=== PATIENT | female | born 1975 | race Caucasian/White ===

== ENCOUNTER 2017-07-28 23:43 | Emergency (ER) | payer OTHER ==
[~2017-07-28] VITALS: Ht 172.7 cm; Wt 74.0 kg
[2017-07-28 23:51] VITALS: PULSE 122; RESP 24; TEMP 98.2; O2SAT 100
--- NOTE | 2017-07-29 00:45 | PD ---
HPI Chief Complaint: Alcohol/Drug Intoxication Time Seen by Provider: 23:49 Travel History International Travel<30 days: No Contact w/Intl Traveler<30days: No Traveled to known affect area: No History of Present Illness HPI Patient is a 42 year old female who comes in due to intoxication. She was found intoxicated by police and they brought her here. She admits to drinking tonight. She denies other drug use. She denies falls or trauma. She has no medical complaints at this time. Severity is mild. [facility] Past Medical History Medical History: Denies Significant Hx ?: Not Past Surgical History Appendectomy: Yes Social History Alcohol Use: Yes (DAILY ) Tobacco Use: Yes Substance Use: No Allergies-Medications (Allergen,Severity, Reaction): Coded Allergies: Sulfa (Sulfonamide Antibiotics) (Verified Allergy, Unknown, 07/28/17) Reported Meds & Prescriptions Reported Meds & Active Scripts Active No Active Prescriptions or Reported Medications Review of Systems Except as stated in HPI: all other systems reviewed are Neg HENT: No: Headaches, Lightheadedness Cardiovascular: No: Chest Pain or Discomfort Respiratory: No: Shortness of Breath Gastrointestinal: No: Abdominal Pain Neurologic: No: Weakness Physical Exam Narrative GENERAL: Awake and alert, in no acute distress. SKIN: Focused skin assessment warm/dry. No wounds or signs of infection. HEAD: Atraumatic. Normocephalic. EYES: Pupils equal and round and reactive. No scleral icterus. EOMI. ENT: Mucous membranes pink and moist. NECK: Trachea midline. No JVD. CARDIOVASCULAR: Regular rate and rhythm. No murmur appreciated. RESPIRATORY: No accessory muscle use. Clear to auscultation. Breath sounds equal bilaterally. GASTROINTESTINAL: Abdomen soft, non-tender, nondistended. MUSCULOSKELETAL: No obvious deformities. No clubbing. No cyanosis. No edema. NEUROLOGICAL: Awake and alert. No obvious cranial nerve deficits. Motor grossly within normal limits. Normal speech. PSYCHIATRIC: Appropriate mood and affect; insight and judgment normal. Data Data Last Documented VS Vital Signs Date Time Temp Pulse Resp B/P (MAP) Pulse Ox O2 Delivery O2 Flow Rate FiO2 07/28/17 23:51 98.2 122 24 100 MDM Medical Decision Making Medical Screen Exam Complete: Yes Emergency Medical Condition: Yes Differential Diagnosis alcohol abuse vs drug abuse vs dehydration Narrative Course Patient is a 42 year old female who comes in due to intoxication. She has no medical complaints or signs of trauma. She will be observed in the ED until clinically sober or she can find a sober ride home. Diagnosis Primary Impression: Alcohol intoxication Qualified Codes: F10.920 - Alcohol use, unspecified with intoxication, uncomplicated Scripts No Active Prescriptions or Reported Meds Oxana Andino MD Jul 29, 2017 00:45
--- NOTE | 2017-07-29 01:53 | PD ---
Physical Exam Date Seen by Provider: Jul 29, 2017 Time Seen by Provider: 01:50 Narrative GENERAL: This is a well-nourished, well-developed patient, in no apparent distress. SKIN: No rashes, ecchymoses or lesions. Warm and dry. HEAD: Atraumatic. Normocephalic. EYES: PERRL, EOMI, no discharge or injection. No scleral icterus. EARS: Clear NOSE: Nasal turbinates appear normal. THROAT: Mucosa pink and moist. Airway patent. NECK: Trachea midline. supple, moves head freely. LUNGS: Clear to auscultation. CV: Regular in rhythm. ABDOMEN: Soft nontender. EXT: No clubbing cyanosis or edema. Data Data Last Documented VS Vital Signs Date Time Temp Pulse Resp B/P (MAP) Pulse Ox O2 Delivery O2 Flow Rate FiO2 07/28/17 23:51 98.2 122 24 100 Orders Orders Haloperidol Inj (Haldol Inj) (07/29/17 02:00) Lorazepam Inj (Ativan Inj) (07/29/17 02:00) Restraints Non-Violent GRACIA.Q3H (07/29/17 01:48) [facility] Medical Record Reviewed: Yes Supervised Visit with LM: Yes Differential Diagnosis . Narrative Course The patient has been becoming disruptive of her care. She has been attempting to elope. She will not stay in her room. She is refused to follow commands. Patient has been placed in nonviolent restraints and medicated with Haldol 5 mg and Ativan 2 mg IM. The patient will be allowed to sleep it off this evening. When she exhibits sobriety and ability to follow commands she will be medically stable for discharge read the nurse's triage Diagnosis Primary Impression: Alcohol intoxication Qualified Codes: F10.920 - Alcohol use, unspecified with intoxication, uncomplicated Patient Instructions: General Instructions Additional Instruction: Rest. Increase fluids. Avoid alcohol. Avoid illegal substances. Follow-up with [facility] for detox. Do not operate a car or any heavy machinery under the influence of alcohol or drugs. Follow-up with a medical doctor this week. Return to the ER for emergencies Scripts No Active Prescriptions or Reported Meds Disposition: 03 DISCHARGE TO SNF Condition: Stable Sundar Longo Jul 29, 2017 01:53
[2017-07-29] MEDS ORDERED: HALOPERIDOL LACTATE 5 MG/ML AMP IM ONE (02:00)
[2017-07-29] MEDS ORDERED: LORazepam 2 MG/ML VIAL IM ONE (02:00)
== END 2017-07-29 06:56 ==
LOC: NEPD 23:43
DX: F10.129 Alcohol abuse with intoxication, unspecified (principal); Z88.2 Allergy status to sulfonamides
CPT/HCPCS: 96372; 99285; J1630; J2060

== ENCOUNTER 2017-08-04 12:04 | Observation (INO) | payer SELFPAY ==
[~2017-08-04] VITALS: Ht 165.1 cm; Wt 90.0 kg
[2017-08-04 13:42] VITALS: BP 132/65; PULSE 125; RESP 20; TEMP 98.6; O2SAT 90
--- NOTE | 2017-08-04 14:09 | PD ---
HPI Chief Complaint: Psychiatric Symptoms Time Seen by Provider: 13:51 Travel History International Travel<30 days: No Contact w/Intl Traveler<30days: No Traveled to known affect area: No History of Present Illness HPI The patient was seen and examined in the presence of the nurse. This patient is an alcoholic who moved here recently. She's been actively drinking heavily today. She denies other drug use. She denies intentional overdose or suicidal thought. She is brought in by her brother. He wants her to get into alcohol detox. Symptoms are moderately severe. Duration is years of alcohol abuse. No alleviating factors. No exacerbating factors. PFSH Past Surgical History Appendectomy: Yes Social History Alcohol Use: Yes (DAILY ) Tobacco Use: Yes Substance Use: No Allergies-Medications (Allergen,Severity, Reaction): Coded Allergies: Sulfa (Sulfonamide Antibiotics) (Verified Allergy, Unknown, 07/28/17) Reported Meds & Prescriptions Reported Meds & Active Scripts Active No Active Prescriptions or Reported Medications Review of Systems General / Constitutional: No: Fever Eyes: No: Visual changes HENT: No: Headaches Cardiovascular: No: Chest Pain or Discomfort Respiratory: No: Shortness of Breath Gastrointestinal: No: Abdominal Pain Genitourinary: No: Dysuria Musculoskeletal: No: Pain Skin: No Rash Neurologic: Positive: Change in Mentation, Slurred Speech, No: Weakness Psychiatric: Positive: Substance Abuse, No: Depression Endocrine: No: Polydipsia Hematologic/Lymphatic: No: Easy Bruising Physical Exam Narrative GENERAL: Well-nourished, well-developed patient who is acting very intoxicated. She is animated and uncooperative. SKIN: Focused skin assessment reveals no rash and nodules. Skin is Warm and dry. HEAD: Atraumatic. Normocephalic. EYES: Pupils equal and round. No scleral icterus. No injection or drainage. ENT: No nasal bleeding or discharge. Mucous membranes pink and moist. NECK: Trachea midline. No JVD. CARDIOVASCULAR: Regular rate and rhythm. No murmur appreciated. RESPIRATORY: No accessory muscle use. Clear to auscultation. Breath sounds equal bilaterally. GASTROINTESTINAL: Abdomen soft, non-tender, nondistended. Hepatic and splenic margins not palpable. MUSCULOSKELETAL: No obvious deformities. No clubbing. No cyanosis. No edema. NEUROLOGICAL: Awake and alert. No obvious cranial nerve deficits. Motor grossly within normal limits. Slurring of speech. PSYCHIATRIC: Very animated, flight of ideas and rapid speech ; insight and judgment poor. Data Data Last Documented VS Vital Signs Date Time Temp Pulse Resp B/P (MAP) Pulse Ox O2 Delivery O2 Flow Rate FiO2 08/04/17 15:00 118 14 100 Room Air 08/04/17 13:42 98.6 132/65 (87) Orders Orders Iv Access Insert/Monitor (08/04/17 14:01) Complete Blood Count With Diff (08/04/17 14:01) Comprehensive Metabolic Panel (08/04/17 14:01) Alcohol (Ethanol) (08/04/17 14:01) Drug Screen, Random Urine (08/04/17 14:) Ammonia (08/04/17 14:) Urinalysis - C+S If Indicated (08/04/17 14:09) Ed Urine Pregnancytest Poc (08/04/17 14:09) Haloperidol Inj (Haldol Inj) (08/04/17 14:30) Lorazepam Inj (Ativan Inj) (08/04/17 14:30) Urine Culture (08/04/17 14:05) Place In Observation (08/04/17 ) Code Status (08/04/17 16:28) Vital Signs (Adult) Q4H (08/04/17 16:28) Activity Oob With Assistance (08/04/17 16:28) Intake + Output GRACIA.QSHIFT (08/04/17 16:28) Diet Regular Basic (08/04/17 Dinner) Sodium Chlor 0.9% 1000 Ml Inj (Ns 1000 M (08/04/17 16:28) Sodium Chloride 0.9% Flush (Ns Flush) (08/04/17 16:30) Sodium Chloride 0.9% Flush (Ns Flush) (08/04/17 21:00) Ondansetron Inj (Zofran Inj) (08/04/17 16:30) Comprehensive Metabolic Panel (08/05/17 06:00) Complete Blood Count With Diff (08/05/17 06:00) Resp Oxygen Augustine C Titrat 1-4 L (08/04/17 ) Case Management Consult (08/04/17 16:28) Naloxone Inj (Narcan Inj) (08/04/17 16:30) Docusate Sodium-Senna (Arabella-Colace) (08/04/17 21:00) Magnesium Hydroxide Liq (Milk Of Magnesi (08/04/17 16:30) Sennosides (Senokot) (08/04/17 16:30) Bisacodyl Supp (Dulcolax Supp) (08/04/17 16:30) Lactulose Liq (Lactulose Liq) (08/04/17 16:30) Prothrombin Time / Inr (Pt) (08/04/17 16:28) Hepatitis Profile (08/04/17 16:28) Sulfamet-Trimeth Ds 800-160 Mg (Bactrim (08/04/17 21:00) Admit Order (Ed Use Only) (08/04/17 16:37) Labs Laboratory Tests Test 08/04/17 14:05 White Blood Count 10.8 TH/MM3 Red Blood Count 4.22 MIL/MM3 Hemoglobin 15.1 GM/DL Hematocrit 43.1 % Mean Corpuscular Volume 102.2 FL Mean Corpuscular Hemoglobin 35.9 PG Mean Corpuscular Hemoglobin Concent 35.1 % Red Cell Distribution Width 14.7 % Platelet Count 219 TH/MM3 Mean Platelet Volume 7.2 FL Neutrophils (%) (Auto) 75.6 % Lymphocytes (%) (Auto) 15.1 % Monocytes (%) (Auto) 7.7 % Eosinophils (%) (Auto) 0.4 % Basophils (%) (Auto) 1.2 % Neutrophils # (Auto) 8.2 TH/MM3 Lymphocytes # (Auto) 1.6 TH/MM3 Monocytes # (Auto) 0.8 TH/MM3 Eosinophils # (Auto) 0.0 TH/MM3 Basophils # (Auto) 0.1 TH/MM3 CBC Comment DIFF FINAL Differential Comment Urine Color YELLOW Urine Turbidity HAZY Urine pH 5.5 Urine Specific [place] 1.008 Urine Protein TRACE mg/dL Urine Glucose (UA) NEG mg/dL Urine Ketones TRACE mg/dL Urine Occult Blood NEG Urine Nitrite POS Urine Bilirubin NEG Urine Urobilinogen LESS THAN 2.0 MG/DL Urine Leukocyte Esterase SMALL Urine RBC 1 /hpf Urine WBC 5 /hpf Urine Squamous Epithelial Cells 26 /hpf Urine Amorphous Sediment FEW Urine Bacteria MANY /hpf Urine Mucus FEW /lpf Microscopic Urinalysis Comment CULTURE INDICATED Blood Urea Nitrogen 5 MG/DL Creatinine 0.51 MG/DL Random Glucose 103 MG/DL Total Protein 9.7 GM/DL Albumin 3.9 GM/DL Calcium Level 9.0 MG/DL Alkaline Phosphatase 247 U/L Aspartate Amino Transf (AST/SGOT) 768 U/L Alanine Aminotransferase (ALT/SGPT) 290 U/L Total Bilirubin 1.8 MG/DL Sodium Level 137 MEQ/L Potassium Level 4.8 MEQ/L Chloride Level 102 MEQ/L Carbon Dioxide Level 21.5 MEQ/L Anion Gap 14 MEQ/L Estimat Glomerular Filtration Rate 133 ML/MIN Ammonia 58 MCMOL/L Urine Opiates Screen NEG Urine Barbiturates Screen NEG Urine Amphetamines Screen NEG Urine Benzodiazepines Screen NEG Urine Cocaine Screen NEG Urine Cannabinoids Screen POS Ethyl Alcohol Level 469 MG/DL MDM Medical Decision Making Medical Screen Exam Complete: Yes Emergency Medical Condition: Yes Medical Record Reviewed: Yes Differential Diagnosis Alcohol intoxication, alcoholism,hyponatremia Narrative Course I have reviewed the patient's electronic medical record. Patient was here one week ago for intoxication Patient is acting very intoxicated Ordered a workup to include labs and urine studies Labs are reviewed. She is very intoxicated with alcohol level of 469 Patient got very aggressive and uncooperative and required a dose of Haldol and Ativan. Call [facility] but they do not have any available beds The patient's brother begged 4 her to be put into detox stating she's lost control and is very dangerous to herself Before I could discuss further with him he left and did not leave any contact information to call him back Patient does seem to be a danger to herself with her loss of control of alcohol. I placed her under Reveal act for her safety We'll try to get her some detox help I reviewed with the hospitalist who will do 23 hour observation under Reveal act with the intent to place into detox Diagnosis Primary Impression: Alcohol intoxication Qualified Codes: F10.929 - Alcohol use, unspecified with intoxication, unspecified Additional Impression: Transaminitis Admitting Information Admitting Physician Requests: Observation Scripts No Active Prescriptions or Reported Meds Nacho Domínguez MD Aug 04, 2017 14:09
[2017-08-04] MEDS ORDERED: HALOPERIDOL LACTATE 5 MG/ML AMP IM ONE (14:30)
[2017-08-04] MEDS ORDERED: LORazepam 2 MG/ML VIAL IM ONE (14:30)
[2017-08-04 14:31] LABS: AUTOMATED NEUTROPHIL # 8.2 TH/MM3 (1.8-7.7); BASOPHIL # 0.1 TH/MM3 (0-0.2); BASOPHIL % 1.2 % (0.0-2.0); EOSINOPHIL % 0.4 % (0.0-4.0); HEMATOCRIT 43.1 % (35.0-46.0); HEMOGLOBIN 15.1 GM/DL (11.6-15.3); LYMPH % 15.1 % (9.0-44.0); LYMPHOCYTE # 1.6 TH/MM3 (1.0-4.8); MEAN CELL VOLUME 102.2 FL (80.0-100.0); MEAN CORPUSCULAR HEMOGLOBIN 35.9 PG (27.0-34.0); MEAN CORPUSCULAR HGB CONC 35.1 % (32.0-36.0); MEAN PLATELET VOLUME 7.2 FL (7.0-11.0); MONO % 7.7 % (0.0-8.0); MONOCYTE # 0.8 TH/MM3 (0-0.9); NEUT % 75.6 % (16.0-70.0); PLATELET COUNT 219 TH/MM3 (150-450); RED BLOOD COUNT 4.22 MIL/MM3 (4.00-5.30); RED CELL DISTRIBUTION WIDTH 14.7 % (11.6-17.2); WHITE BLOOD COUNT 10.8 TH/MM3 (4.0-11.0)
[2017-08-04 14:35] LABS: AMORPHOUS SEDIMENT, URINE FEW; BACTERIA, URINE MANY /hpf; BILIRUBIN, URINE NEG (NEG); BLOOD, URINE NEG (NEG); GLUCOSE,URINE NEG (NEG); KETONE, URINE TRACE mg/dL (NEG); MUCUS URINE FEW /lpf (OCC); NITRITE,URINE POS (NEG); PH, URINE 5.5 (5.0-8.5); SQUAMOUS EPITHELIAL CELL URINE 26 /hpf (0-5); URINE COLOR YELLOW (YELLW/STRAW); URINE LEUKOCYTE ESTERASE SMALL (NEG)
[2017-08-04 15:00] VITALS: PULSE 118; RESP 14; O2SAT 100
[2017-08-04 15:12] LABS: ALBUMIN 3.9 GM/DL (3.4-5.0); ALT (GPT) 290 U/L (10-53); AST (GOT) 768 U/L (15-37); BLOOD UREA NITROGEN 5 MG/DL (7-18); CHLORIDE 102 MEQ/L (98-107); CREATININE 0.51 MG/DL (0.50-1.00); GLOMERULAR FILTRATION RATE 133 ML/MIN (>89); GLUCOSE,RANDOM 103 MG/DL (74-106); TOTAL PROTEIN 9.7 GM/DL (6.4-8.2)
[2017-08-04 15:13] LABS: BICARBONATE 21.5 MEQ/L (21.0-32.0); SODIUM (NA) 137 MEQ/L (136-145)
[2017-08-04 15:16] LABS: ALKALINE PHOSPHATASE 247 U/L (45-117); TOTAL BILIRUBIN ADULT 1.8 MG/DL (0.2-1.0)
[2017-08-04] MEDS ORDERED: MAGNESIUM HYDROXIDE SUSP 30 ML CUP PO PRN (16:30)
[2017-08-04] MEDS ORDERED: NALOXONE HCL 0.4 MG/ML AMP IV PUSH PRN (16:30)
[2017-08-04] MEDS ORDERED: LACTULOSE SYRUP 20 GM/30 ML CUP PO PRN (16:30)
[2017-08-04] MEDS ORDERED: SODIUM CHLORIDE 0.9% FLUSH 10 ML FLUSH IV FLUSH PRN (16:30)
[2017-08-04] MEDS ORDERED: BISACODYL 10 MG SUPP RECTAL PRN (16:30)
[2017-08-04] MEDS ORDERED: SENNOSIDES 8.6 MG TAB PO PRN (16:30)
--- NOTE | 2017-08-04 16:32 | HHI.HP ---
[facility] No Primary Care Physician Admission Diagnosis Diagnoses: Travel History International Travel<30 Days: No Contact w/Intl Traveler <30 Da: No Traveled to Known Affected Are: No History of Present Illness 42 year old female admitted for acute alcohol intoxication. Patient sedated from Haldol and Ativan given in the ER and unable to provide any history. The following history was obtained via the ED physician who spoke with the patient and her brother initially on presentation. The patient recently moved down from [place] two weeks ago and this is her second visit to the ER for EtOH intoxication during that time. She has a history of alcoholism and was drinking heavily today. She denied suicidal ideation. Her brother brought her in requesting alcohol detoxification and felt she was an immediate danger to herself. He apparently then left because he had a flight back to [place]. She has no other family in the area. She became aggressive and belligerent toward staff and required Haldol and Ativan and has been sedated since. She was subsequently placed under [place] Act and a call was placed to [facility] but unfortunately there are no available beds. Review of Systems ROS Limitations: Intoxication Unable to be obtained Past Family Social History Past Medical History Alcohol abuse Past Surgical History Appendectomy Reported Medications No Active Prescriptions or Reported Medications Allergies: Coded Allergies: Sulfa (Sulfonamide Antibiotics) (Verified Allergy, Unknown, 07/28/17) Active Ordered Medications Bisacodyl (Dulcolax Supp) 10 mg DAILY PRN RECTAL; Start 08/04/17 at 16:30; Status UNV Flumazenil (Romazicon Inj) 0.2 mg Q1M PRN IV PUSH; Start 08/04/17 at 16:45; Status UNV Haloperidol Lactate (Haldol Inj) 2 mg Q15M PRN IM; Start 08/04/17 at 16:45; Status UNV Haloperidol Lactate (Haldol Inj) 5 mg ONCE ONCE IM Last administered on at 14:36; Admin Dose 5 MG; Start 08/04/17 at 14:30; Stop 08/04/17 at 14:31; Status DC Lactulose (Lactulose Liq) 30 ml DAILY PRN PO; Start 08/04/17 at 16:30; Status UNV Lorazepam (Ativan Inj) 1 mg Q4H PRN IV PUSH; Start 08/04/17 at 16:45; Status UNV Lorazepam (Ativan Inj) 2 mg ONCE ONCE IM Last administered on 08/04/17at 14:35; Admin Dose 2 MG; Start 08/04/17 at 14:30; Stop 08/04/17 at 14:31; Status DC Lorazepam (Ativan Inj) 2 mg Q15M PRN IV PUSH; Start 08/04/17 at 16:45; Status UNV Lorazepam (Ativan Inj) 2 mg Q1H PRN IV PUSH; Start 08/04/17 at 16:45; Status UNV Lorazepam (Ativan Inj) 2 mg Q2H PRN IV PUSH; Start 08/04/17 at 16:45; Status UNV Lorazepam (Ativan) 1 mg Q4H PRN PO; Start 08/04/17 at 16:45; Status UNV Lorazepam (Ativan) 2 mg Q2H PRN PO; Start 08/04/17 at 16:45; Status UNV Magnesium Hydroxide (Milk Of Magnesia Liq) 30 ml Q12H PRN PO; Start 08/04/17 at 16:30; Status UNV Multivitamins 10 ml/Folic Acid 1 mg/Sodium Chloride 510.2 ml @ 125 mls/hr Q24H IV; Start 08/04/17 at 16:45; Stop 08/09/17 at 16:44; Status UNV Naloxone HCl (Narcan Inj) 0.4 mg UNSCH PRN IV PUSH; Start 08/04/17 at 16:30; Status UNV Ondansetron HCl (Zofran Inj) 4 mg Q6H PRN IVP; Start 08/04/17 at 16:30; Status UNV Senna/Docusate Sodium (Arabella-Colace) 1 tab BID PO; Start 08/04/17 at 21:00; Status UNV Sennosides (Senokot) 17.2 mg Q12H PRN PO; Start 08/04/17 at 16:30; Status UNV Sodium Chloride 1,000 ml @ 100 mls/hr Q10H IV; Start 08/04/17 at 16:28; Status UNV Sodium Chloride (NS Flush) 2 ml BID IV FLUSH; Start 08/04/17 at 21:00; Status UNV Sodium Chloride (NS Flush) 2 ml UNSCH PRN IV FLUSH; Start 08/04/17 at 16:30; Status UNV Thiamine HCl 100 mg/Sodium Chloride 101 ml @ 100 mls/hr Q24H IV; Start at 16:45; Stop 08/07/17 at 16:44; Status UNV Trimethoprim/ Sulfamethoxazole (Bactrim Ds 800-160 Mg) 1 tab Q12HR PO; Start 03/14 at 21:00; Status UNV Family History Unable to be obtained Social History Moved to [place] two weeks ago from [place] Daily EtOH and tobacco use Marijuana use Physical Exam Vital Signs Vital Signs Date Time Temp Pulse Resp B/P (MAP) Pulse Ox O2 Delivery O2 Flow Rate FiO2 08/04/17 15:00 118 14 100 Room Air 08/04/17 14:05 20 08/04/17 13:42 98.6 125 20 132/65 (87) 90 Physical Exam GENERAL: Well-nourished, well-developed female sleeping and unable to be aroused. Odor of alcohol. SKIN: No rashes, ecchymoses or lesions. Warm and dry. HEENT: Atraumatic. Normocephalic. Nose without bleeding, purulent drainage or septal hematoma. Airway patent. NECK: No JVD or lymphadenopathy. CARDIOVASCULAR: Tachycardic with a regular rhythm. No murmurs, rubs, or gallops. RESPIRATORY: Clear to auscultation. Breath sounds equal bilaterally. No wheezes , rales, or rhonchi. GASTROINTESTINAL: Abdomen soft, nondistended. No guarding. MUSCULOSKELETAL: Extremities without clubbing, cyanosis, or edema. No joint tenderness, effusion, or edema noted. No calf tenderness. NEUROLOGICAL: Unable to be aroused. Laboratory Laboratory Tests Test 08/04/17 14:05 White Blood Count 10.8 Red Blood Count 4.22 Hemoglobin 15.1 Hematocrit 43.1 Mean Corpuscular Volume 102.2 Mean Corpuscular Hemoglobin 35.9 Mean Corpuscular Hemoglobin Concent 35.1 Red Cell Distribution Width 14.7 Platelet Count 219 Mean Platelet Volume 7.2 Neutrophils (%) (Auto) 75.6 Lymphocytes (%) (Auto) 15.1 Monocytes (%) (Auto) 7.7 Eosinophils (%) (Auto) 0.4 Basophils (%) (Auto) 1.2 Neutrophils # (Auto) 8.2 Lymphocytes # (Auto) 1.6 Monocytes # (Auto) 0.8 Eosinophils # (Auto) 0.0 Basophils # (Auto) 0.1 CBC Comment DIFF FINAL Differential Comment Urine Color YELLOW Urine Turbidity HAZY Urine pH 5.5 Urine Specific [place] 1.008 Urine Protein TRACE Urine Glucose (UA) NEG Urine Ketones TRACE Urine Occult Blood NEG Urine Nitrite POS Urine Bilirubin NEG Urine Urobilinogen LESS THAN 2.0 Urine Leukocyte Esterase SMALL Urine RBC 1 Urine WBC 5 Urine Squamous Epithelial Cells 26 Urine Amorphous Sediment FEW Urine Bacteria MANY Urine Mucus FEW Microscopic Urinalysis Comment CULTURE INDICATED Blood Urea Nitrogen 5 Creatinine 0.51 Random Glucose 103 Total Protein 9.7 Albumin 3.9 Calcium Level 9.0 Alkaline Phosphatase 247 Aspartate Amino Transf (AST/SGOT) 768 Alanine Aminotransferase (ALT/SGPT) 290 Total Bilirubin 1.8 Sodium Level 137 Potassium Level 4.8 Chloride Level 102 Carbon Dioxide Level 21.5 Anion Gap 14 Estimat Glomerular Filtration Rate 133 Ammonia 58 Urine Opiates Screen NEG Urine Barbiturates Screen NEG Urine Amphetamines Screen NEG Urine Benzodiazepines Screen NEG Urine Cocaine Screen NEG Urine Cannabinoids Screen POS Ethyl Alcohol Level 469 Date/Time Source Procedure Growth Status 08/04/17 14:05 Urine Clean Catch Urine Culture Pending Received Result Diagram: 08/04/17 1405 08/04/17 1405 Caprini VTE Risk Assessment Caprini VTE Risk Assessment: Mod/High Risk (score >= 2) Caprini Risk Assessment Model Point Value = 1 Point Value = 2 Point Value = 3 Point Value = 5 Age 41-60 Minor surgery BMI > 25 kg/m2 Swollen legs Varicose veins or History of unexplained or recurrent spontaneous Oral contraceptives or hormone replacement Sepsis (< 1 month) Serious lung disease, including pneumonia (< 1 month) Abnormal pulmonary function Acute myocardial infarction Congestive heart failure (< 1 month) History of inflammatory bowel disease Medical patient at bed rest Age 61-74 Arthroscopic surgery Major open surgery (> 45 min) Laparoscopic surgery (> 45 min) Malignancy Confined to bed (> 72 hours) Immobilizing plaster cast Central venous access Age >= 75 History of VTE Family history of VTE Factor V Leiden Prothrombin [id number] Lupus anticoagulant Anticardiolipin antibodies Elevated serum homocysteine Heparin-induced thrombocytopenia Other congenital or acquired thrombophilia Stroke (< 1 month) Elective arthroplasty Hip, pelvis, or leg fracture Acute spinal cord injury (< 1 month) Prophylaxis Regimen Total Risk Factor Score Risk Level Prophylaxis Regimen 0-1 Low Early ambulation 2 Moderate Order ONE of the following: *Sequential Compression Device (SCD) *Heparin 5000 units SQ BID 3-4 Higher Order ONE of the following medications: *Heparin 5000 units SQ TID *Enoxaparin/Lovenox 40 mg SQ daily (WT < 150 kg, CrCl > 30 mL/min) *Enoxaparin/Lovenox 30 mg SQ daily (WT < 150 kg, CrCl > 10-29 mL/min) *Enoxaparin/Lovenox 30 mg SQ BID (WT < 150 kg, CrCl > 30 mL/min) AND/OR *Sequential Compression Device (SCD) 5 or more Highest Order ONE of the following medications: *Heparin 5000 units SQ TID (Preferred with Epidurals) *Enoxaparin/Lovenox 40 mg SQ daily (WT < 150 kg, CrCl > 30 mL/min) *Enoxaparin/Lovenox 30 mg SQ daily (WT < 150 kg, CrCl > 10-29 mL/min) *Enoxaparin/Lovenox 30 mg SQ BID (WT < 150 kg, CrCl > 30 mL/min) AND *Sequential Compression Device (SCD) Assessment and Plan Problem List: (1) Alcohol intoxication ICD Code: F10.929 - Alcohol use, unspecified with intoxication, unspecified Status: Acute (2) Transaminitis ICD Code: R74.0 - Nonspecific elevation of levels of transaminase and lactic acid dehydrogenase [LDH] Status: Acute (3) UTI (urinary tract infection) ICD Code: N39.0 - Urinary tract infection, site not specified (4) Substance use disorder ICD Code: F19.90 - Other psychoactive substance use, unspecified, uncomplicated Assessment and Plan 42 YOWF admitted under observation under Act for acute intoxication with poor social situation. 1. Acute intoxication - EtOH level 469 - Received Haldol and Ativan in the ED - CIWA protocol - Haldol PRN agitation - Rally pack - IV fluids - Zofran PRN 2. Transaminitis - AST>>ALT consistent with alcohol hepatitis - Total bili mildly elevated at 1.8 - Ammonia level 58 - Check hepatitis panel - IV fluids 3. Alcohol abuse - Unable to obtain any history from patient but per ED physician her brother was adamant about detoxification - Under [place] Act - Case management consulted to assist with bed placement to [facility] 4. UTI - U/A with + nitrites and leukocyte esterase - Start Bactrim - Follow ctx 5. Substance use - + cannabinoids on UDS - Will further discuss when patient not acutely intoxicated 6. DVT prophylaxis - SCDs Code Status Full code until able to obtain code status from patient Discussed Condition With Dr. Domínguez Problem Qualifiers (1) Alcohol intoxication: Qualified Codes: F10.929 - Alcohol use, unspecified with intoxication, unspecified Elin Hopkins MD Aug 04, 2017 16:32
[2017-08-04] MEDS ORDERED: HALOPERIDOL LACTATE 5 MG/ML AMP IM PRN (16:45)
[2017-08-04] MEDS ORDERED: LORazepam 2 MG/ML VIAL IV PUSH PRN ×4 (16:45)
[2017-08-04] MEDS ORDERED: FLUMAZENIL 0.5 MG/5 ML VIAL IV PUSH PRN (16:45)
[2017-08-04] MEDS: SODIUM CHLOR 0.9% 1000 ML INJ 1,000 ML IV SCH (18:30)
[2017-08-04] MEDS: THIAMINE INJ 100 MG in SODIUM CHLORIDE 0.9% INJ 100 ML IV SCH (18:30)
[2017-08-04 19:36] LABS: PROTHROMBIN TIME - PATIENT 10.5 SEC (9.8-11.6)
[2017-08-04 20:47] VITALS: BP 127/71; PULSE 125; RESP 18; TEMP 97.1; O2SAT 94
[2017-08-04] MEDS: DOCUSATE SODIUM 50 MG/SENNA 8.6 MG TAB PO SCH (21:00)
[2017-08-04] MEDS: SODIUM CHLORIDE 0.9% FLUSH 10 ML FLUSH IV FLUSH SCH (21:31)
[2017-08-04] MEDS: LORazepam 1 MG TAB PO PRN (21:31)
[2017-08-04] MEDS: ONDANSETRON HCL 4 MG/2 ML VIAL IVP PRN (21:31)
[2017-08-04] MEDS: MULTIVITAMIN INJ 10 ML, FOLIC ACID INJ 1 MG in SODIUM CHLORID 0.9% 500 ML INJ 500 ML IV SCH (21:31)
[2017-08-04] MEDS: SULFAMETHOXAZOLE-TRIMETHOPRIM DS 800-160 MG TAB PO SCH (21:58)
[2017-08-04 23:13] VITALS: BP 117/68; PULSE 137; RESP 18; TEMP 98.8; O2SAT 92
[2017-08-05] VITALS (7 sets, daily range): BP systolic 112–128; BP diastolic 67–80; PULSE 111–136; RESP 18–20; TEMP 98–99.4; O2SAT 92–97
[2017-08-05] MEDS: LORazepam 1 MG TAB PO PRN ×3 (01:08→16:51)
[2017-08-05] MEDS: SODIUM CHLOR 0.9% 1000 ML INJ 1,000 ML IV SCH ×3 (02:28→22:28)
[2017-08-05] MEDS: ONDANSETRON HCL 4 MG/2 ML VIAL IVP PRN (04:15)
[2017-08-05 06:44] LABS: AUTOMATED NEUTROPHIL # 4.1 TH/MM3 (1.8-7.7); BASOPHIL # 0.1 TH/MM3 (0-0.2); BASOPHIL % 1.2 % (0.0-2.0); EOSINOPHIL % 0.7 % (0.0-4.0); HEMATOCRIT 36.3 % (35.0-46.0); HEMOGLOBIN 12.5 GM/DL (11.6-15.3); LYMPH % 7.3 % (9.0-44.0); LYMPHOCYTE # 0.4 TH/MM3 (1.0-4.8); MEAN CELL VOLUME 103.3 FL (80.0-100.0); MEAN CORPUSCULAR HEMOGLOBIN 35.7 PG (27.0-34.0); MEAN CORPUSCULAR HGB CONC 34.5 % (32.0-36.0); MONO % 7.6 % (0.0-8.0); MONOCYTE # 0.4 TH/MM3 (0-0.9); NEUT % 83.2 % (16.0-70.0); PLATELET COUNT 143 TH/MM3 (150-450); RED BLOOD COUNT 3.52 MIL/MM3 (4.00-5.30)
[2017-08-05 07:52] LABS: ALBUMIN 3.2 GM/DL (3.4-5.0); ALKALINE PHOSPHATASE 207 U/L (45-117); ALT (GPT) 203 U/L (10-53); AST (GOT) 532 U/L (15-37); BICARBONATE 22.8 MEQ/L (21.0-32.0); BLOOD UREA NITROGEN 6 MG/DL (7-18); CALCIUM 8.5 MG/DL (8.5-10.1); CHLORIDE 102 MEQ/L (98-107); CREATININE 0.49 MG/DL (0.50-1.00); GLOMERULAR FILTRATION RATE 139 ML/MIN (>89); GLUCOSE,RANDOM 98 MG/DL (74-106); SODIUM (NA) 136 MEQ/L (136-145); TOTAL BILIRUBIN ADULT 1.7 MG/DL (0.2-1.0); TOTAL PROTEIN 6.9 GM/DL (6.4-8.2)
[2017-08-05] MEDS: LORazepam 2 MG TAB PO PRN ×2 (09:19→20:25)
[2017-08-05] MEDS: LACTULOSE SYRUP 20 GM/30 ML CUP PO SCH ×4 (09:19→23:06)
[2017-08-05] MEDS: DOCUSATE SODIUM 50 MG/SENNA 8.6 MG TAB PO SCH ×2 (09:19→23:06)
[2017-08-05] MEDS: SULFAMETHOXAZOLE-TRIMETHOPRIM DS 800-160 MG TAB PO SCH ×2 (09:20→23:05)
[2017-08-05] MEDS: SODIUM CHLORIDE 0.9% FLUSH 10 ML FLUSH IV FLUSH SCH ×2 (09:20→23:05)
--- NOTE | 2017-08-05 10:41 | HHI.PR ---
Subjective Remarks f/u etoh abuse. She feels terrible denies hallucination. She wants to quit alcohol. LMP 2 weeks ago. Objective Vitals Vital Signs Date Time Temp Pulse Resp B/P (MAP) Pulse Ox O2 Delivery O2 Flow Rate FiO2 08/05/17 08:38 98.0 136 20 112/67 (82) 97 08/05/17 04:46 98.0 127 18 128/80 (96) 92 08/04/17 23:13 98.8 137 18 117/68 (84) 92 08/04/17 20:47 97.1 125 18 127/71 (89) 94 08/04/17 15:00 118 14 100 Room Air 08/04/17 14:05 20 08/04/17 13:42 98.6 125 20 132/65 (87) 90 Result Diagram: 08/05/17 0555 08/05/17 0555 Objective Remarks GENERAL: Well-nourished, well-developed female SKIN: No rashes, ecchymoses or lesions. Warm and dry. CARDIOVASCULAR: Tachycardic with a regular rhythm. No murmurs, rubs, or gallops. RESPIRATORY: Clear to auscultation. Breath sounds equal bilaterally. No wheezes , rales, or rhonchi. GASTROINTESTINAL: Abdomen soft, nondistended. No guarding. MUSCULOSKELETAL: Extremities without clubbing, cyanosis, or edema. No joint tenderness, effusion, or edema noted. No calf tenderness. NEUROLOGICAL: Alert and oriented nonfocal tremulous. Procedures none A/P Problem List: (1) Alcohol intoxication ICD Code: F10.929 - Alcohol use, unspecified with intoxication, unspecified Status: Acute (2) Transaminitis ICD Code: R74.0 - Nonspecific elevation of levels of transaminase and lactic acid dehydrogenase [LDH] Status: Acute (3) UTI (urinary tract infection) ICD Code: N39.0 - Urinary tract infection, site not specified (4) Substance use disorder ICD Code: F19.90 - Other psychoactive substance use, unspecified, uncomplicated Assessment and Plan 42 YOWF admitted under observation under [place] for acute intoxication with poor social situation. 1. Acute intoxication now with withdrawal - EtOH level 469 - Received Haldol and Ativan in the ED - CIWA protocol - Haldol PRN agitation - Rally pack - IV fluids - Zofran PRN - Start clonidine monitor for delirium tremens 2. Transaminitis - AST>>ALT consistent with alcohol hepatitis. Improving - Total bili mildly elevated at 1.8 - Ammonia level 58. Start lactulose - Check hepatitis panel pending - IV fluids 3. Alcohol abuse - Counselled - Under Act - Case management consulted to assist with bed placement to [facility] 4. UTI - U/A with + nitrites and leukocyte esterase - F/u Bactrim - Follow ctx 5. Substance use - + cannabinoids on UDS - Will further discuss when patient not acutely intoxicated 6. DVT prophylaxis - SCDs Discharge Planning Discharge patient to [facility] Condition on discharge: Improved Regular Diet as tolerated Ad Lita activity Rx written: Clonidine, Ativan and thiamine Follow-up with primary care physician Problem Qualifiers (1) Alcohol intoxication: Qualified Codes: F10.929 - Alcohol use, unspecified with intoxication, unspecified Tony Olguin MD Aug 05, 2017 10:41
[2017-08-05] MEDS ORDERED: IBUPROFEN 400 MG TAB PO PRN (13:45)
[2017-08-05 14:32] LABS: FOLATE 11.3 NG/ML (3.1-17.5)
[2017-08-05] MEDS: THIAMINE INJ 100 MG in SODIUM CHLORIDE 0.9% INJ 100 ML IV SCH (16:53)
[2017-08-05] MEDS ORDERED: cloNIDine HCL 0.1 MG TAB PO SCH (21:00)
[2017-08-05] MEDS: MULTIVITAMIN INJ 10 ML, FOLIC ACID INJ 1 MG in SODIUM CHLORID 0.9% 500 ML INJ 500 ML IV SCH (23:04)
[2017-08-06 03:46] VITALS: BP 115/57; PULSE 105; RESP 16; TEMP 98.6; O2SAT 96
[2017-08-06] MEDS: LORazepam 2 MG TAB PO PRN (03:59)
[2017-08-06 07:34] VITALS: BP 113/67; PULSE 98; RESP 18; TEMP 98.3; O2SAT 96
[2017-08-06] MEDS: SULFAMETHOXAZOLE-TRIMETHOPRIM DS 800-160 MG TAB PO SCH (09:29)
[2017-08-06] MEDS: LACTULOSE SYRUP 20 GM/30 ML CUP PO SCH ×3 (09:29→17:00)
[2017-08-06] MEDS: SODIUM CHLORIDE 0.9% FLUSH 10 ML FLUSH IV FLUSH SCH (09:29)
[2017-08-06] MEDS: DOCUSATE SODIUM 50 MG/SENNA 8.6 MG TAB PO SCH (09:29)
[2017-08-06] MEDS: SODIUM CHLOR 0.9% 1000 ML INJ 1,000 ML IV SCH (09:30)
--- NOTE | 2017-08-06 10:41 | HHI.PR ---
Subjective Remarks In bed says she has some problems with swallowing, No fever or chills. No n/v/d /c. Feels better. No tremors at this time. Objective Vitals Vital Signs Date Time Temp Pulse Resp B/P (MAP) Pulse Ox O2 Delivery O2 Flow Rate FiO2 08/06/17 07:34 98.3 98 18 113/67 (82) 96 08/06/17 03:46 98.6 105 16 115/57 (76) 96 08/05/17 23:47 98.5 112 20 123/74 (90) 96 08/05/17 21:58 99.4 117 20 125/77 (93) 96 08/05/17 20:00 96 08/05/17 15:11 98.6 114 20 125/78 (94) 95 08/05/17 11:48 98.0 111 20 118/73 (88) 96 Result Diagram: 08/05/17 0555 08/05/17 0555 Objective Remarks GENERAL: Well-nourished, well-developed female SKIN: No rashes, ecchymoses or lesions. Warm and dry. OROPHARYNX: oral thrush CARDIOVASCULAR: Tachycardic with a regular rhythm. No murmurs, rubs, or gallops. RESPIRATORY: Clear to auscultation. Breath sounds equal bilaterally. No wheezes , rales, or rhonchi. GASTROINTESTINAL: Abdomen soft, nondistended. No guarding. MUSCULOSKELETAL: Extremities without clubbing, cyanosis, or edema. No joint tenderness, effusion, or edema noted. No calf tenderness. NEUROLOGICAL: Alert and oriented nonfocal tremulous. Procedures none A/P Problem List: (1) Alcohol intoxication ICD Code: F10.929 - Alcohol use, unspecified with intoxication, unspecified Status: Acute (2) Transaminitis ICD Code: R74.0 - Nonspecific elevation of levels of transaminase and lactic acid dehydrogenase [LDH] Status: Acute (3) UTI (urinary tract infection) ICD Code: N39.0 - Urinary tract infection, site not specified (4) Substance use disorder ICD Code: F19.90 - Other psychoactive substance use, unspecified, uncomplicated Assessment and Plan 42 YOWF admitted under observation under [facility] Act for acute intoxication with poor social situation. 1. Acute intoxication now with withdrawal - EtOH level 469 on admission - Received Haldol and Ativan in the ED - CIWA protocol - Haldol PRN agitation - Rally pack - IV fluids - Zofran PRN - Start clonidine monitor for delirium tremens 2. Transaminitis - AST>>ALT consistent with alcohol hepatitis. Improving - Total bili mildly elevated at 1.8 - Ammonia level 58. Start lactulose - Check hepatitis panel pending - IV fluids 3. Alcohol abuse - Counselled - Under Act - Case management consulted to assist with bed placement to [facility] 4. UTI - U/A with + nitrites and leukocyte esterase - F/u Bactrim - Follow ctx 5. Substance use - + cannabinoids on UDS - Will further discuss when patient not acutely intoxicated 6. Oral candidiasis and discomfort with eating . Start nystatin swish and sallow DVT prophylaxis - SCDs Discharge Planning Discharge patient to [facility] Condition on discharge: Improved Regular Diet as tolerated Ad Lita activity Rx written: Clonidine, Ativan and thiamine Follow-up with primary care physician Problem Qualifiers (1) Alcohol intoxication: Qualified Codes: F10.929 - Alcohol use, unspecified with intoxication, unspecified Neena Tompkins MD Aug 06, 2017 10:41
--- NOTE | 2017-08-06 10:43 | HHI.DS ---
Discharge Summary Admission Date Aug 04, 2017 at 16:39 Discharge Date: Aug 06, 2017 Admitting Diagnosis alcohol intoxication (1) Alcohol intoxication ICD Code: F10.929 - Alcohol use, unspecified with intoxication, unspecified Status: Acute (2) Transaminitis ICD Code: R74.0 - Nonspecific elevation of levels of transaminase and lactic acid dehydrogenase [LDH] Status: Acute (3) UTI (urinary tract infection) ICD Code: N39.0 - Urinary tract infection, site not specified (4) Substance use disorder ICD Code: F19.90 - Other psychoactive substance use, unspecified, uncomplicated Procedures none Brief History - From Admission 42 year old female admitted for acute alcohol intoxication. Patient sedated from Haldol and Ativan given in the ER and unable to provide any history. The following history was obtained via the ED physician who spoke with the patient and her brother initially on presentation. The patient recently moved down from [place] two weeks ago and this is her second visit to the ER for EtOH intoxication during that time. She has a history of alcoholism and was drinking heavily today. She denied suicidal ideation. Her brother brought her in requesting alcohol detoxification and felt she was an immediate danger to herself. He apparently then left because he had a flight back to [place]. She has no other family in the area. She became aggressive and belligerent toward staff and required Haldol and Ativan and has been sedated since. She was subsequently placed under [place] and a call was placed to [facility] but unfortunately there are no available beds. CBC/BMP: 08/05/17 0555 08/05/17 0555 Significant Findings Laboratory Tests Test 08/04/17 14:05 08/04/17 18:33 08/05/17 05:55 Mean Corpuscular Volume 102.2 FL (80.0-100.0) 103.3 FL (80.0-100.0) Mean Corpuscular Hemoglobin 35.9 PG (27.0-34.0) 35.7 PG (27.0-34.0) Neutrophils (%) (Auto) 75.6 % (16.0-70.0) 83.2 % (16.0-70.0) Neutrophils # (Auto) 8.2 TH/MM3 (1.8-7.7) Urine Turbidity HAZY (CLEAR) Urine Ketones TRACE mg/dL (NEG) Urine Nitrite POS (NEG) Urine Leukocyte Esterase SMALL (NEG) Urine Bacteria MANY /hpf (NONE) Urine Mucus FEW /lpf (OCC) Blood Urea Nitrogen 5 MG/DL (7-18) 6 MG/DL (7-18) Total Protein 9.7 GM/DL (6.4-8.2) Alkaline Phosphatase 247 U/L (45-117) 207 U/L (45-117) Aspartate Amino Transf (AST/SGOT) 768 U/L (15-37) 532 U/L (15-37) Alanine Aminotransferase (ALT/SGPT) 290 U/L (10-53) 203 U/L (10-53) Total Bilirubin 1.8 MG/DL (0.2-1.0) 1.7 MG/DL (0.2-1.0) Ammonia 58 MCMOL/L (11-32) Urine Cannabinoids Screen POS (NEG) Ethyl Alcohol Level 469 MG/DL (0-5) Red Blood Count 3.52 MIL/MM3 (4.00-5.30) Platelet Count 143 TH/MM3 (150-450) Lymphocytes (%) (Auto) 7.3 % (9.0-44.0) Lymphocytes # (Auto) 0.4 TH/MM3 (1.0-4.8) Creatinine 0.49 MG/DL (0.50-1.00) Albumin 3.2 GM/DL (3.4-5.0) Vitamin B12 Level 1290 PG/ML (193-986) PE at Discharge GENERAL: Well-nourished, well-developed female SKIN: No rashes, ecchymoses or lesions. Warm and dry. OROPHARYNX: oral thrush CARDIOVASCULAR: Tachycardic with a regular rhythm. No murmurs, rubs, or gallops. RESPIRATORY: Clear to auscultation. Breath sounds equal bilaterally. No wheezes , rales, or rhonchi. GASTROINTESTINAL: Abdomen soft, nondistended. No guarding. MUSCULOSKELETAL: Extremities without clubbing, cyanosis, or edema. No joint tenderness, effusion, or edema noted. No calf tenderness. NEUROLOGICAL: Alert and oriented nonfocal tremulous. Hospital Course 42 YOWF admitted under observation under for acute intoxication with poor social situation. 1. Acute intoxication now with withdrawal - EtOH level 469 on admission - Received Haldol and Ativan in the ED - CIWA protocol - Haldol PRN agitation - Rally pack - IV fluids - Zofran PRN - Start clonidine monitor for delirium tremens 2. Transaminitis - AST>>ALT consistent with alcohol hepatitis. Improving - Total bili mildly elevated at 1.8 - Ammonia level 58. Start lactulose - Check hepatitis panel pending - IV fluids 3. Alcohol abuse - Counselled - Under - Case management consulted to assist with bed placement to [facility] 4. UTI - U/A with + nitrites and leukocyte esterase - F/u Bactrim - Follow ctx 5. Substance use - + cannabinoids on UDS - Will further discuss when patient not acutely intoxicated 6. Oral candidiasis and discomfort with eating . Start nystatin swish and sallow DVT prophylaxis - SCDs Discharge Planning Patient left AMA 08/06/17 Pt Condition on Discharge: Stable Discharge Disposition: Discharge Home (left AMA) Discharge Time: > 30 minutes Discharge Instructions DIET: Follow Instructions for: As Tolerated, No Restrictions Activities you can perform: Regular-No Restrictions Follow up Referrals: Drug/Alcohol Rehab - Today with Alfredo Matute PCP Follow-up - 1 Week New Medications: Folic Acid (Folic Acid) 0.4 Mg Tab 400 MCG PO DAILY for Nutritional Supplement, #30 TAB 0 Refills Lorazepam (Ativan) 0.5 Mg Tab 0.5 MG PO Q8H PRN for ANXIETY AND/OR AGITATION, #12 TAB 0 Refills Multivitamin-Hematinic (Therems-H) 1 Tab 1 TAB PO DAILY for Nutritional Supplement, #30 TAB 0 Refills Thiamine (Vitamin B-1) 100 Mg Tab 100 MG PO DAILY for Nutritional Supplement, #31 TAB 0 Refills Wxrergma-Btvgbrpbojaucfp-Dysljvoww Liq (Magic Mouthwash Adult Liq) 120 Ml Susp 10 ML SWISH-SWAL QID for oral thrush for 7 Days, ML Sulfamethoxazole-Trimethoprim (Sulfamethoxazole-Trimethoprim) 800-160 Mg Tab 1 TAB PO Q12HR for uti, #10 TAB Neena Tompkins MD Aug 06, 2017 10:43
[2017-08-06] MEDS ORDERED: FOLI400T PO (10:47)
[2017-08-06] MEDS ORDERED: THERH PO (10:47)
[2017-08-06] MEDS ORDERED: LORA-392 PO (10:47)
[2017-08-06] MEDS ORDERED: SULF1TAB23 PO (10:47)
[2017-08-06] MEDS ORDERED: VITA100T54 PO (10:47)
[2017-08-06] MEDS ORDERED: MAGICADU2 SWISH-SWAL (10:47)
[2017-08-06 11:28] VITALS: BP 110/61; PULSE 93; RESP 16; TEMP 98.3; O2SAT 96
[2017-08-06 12:17] LABS: HEPATITIS A AB IGM NEGATIVE (NEGATIVE); HEPATITIS B CORE AB IGM NEGATIVE (NEGATIVE)
[2017-08-06] MEDS ORDERED: NYSTAT/DIPHENHY/LIDO MOUTHWASH (Adult) 120ML SWISH-SWAL SCH (13:00)
[2017-08-06 15:15] VITALS: BP 129/58; PULSE 104; RESP 16; TEMP 99; O2SAT 97
== END 2017-08-06 18:41 | disposition left against medical advice (07) ==
LOC: NED 12:04 → NEDA 16:39 → NEPFCDU 17:20
PROVIDERS: ADMIT Hospitalist; ATTEND Hospitalist
DX: F10.229 Alcohol dependence with intoxication, unspecified (principal); R74.0 Nonspecific elevation of levels of transaminase and lactic acid dehydrogenase [LDH]; N39.0 Urinary tract infection, site not specified; B96.89 Other specified bacterial agents as the cause of diseases classified elsewhere; R00.0 Tachycardia, unspecified; B37.0 Candidal stomatitis; F12.90 Cannabis use, unspecified, uncomplicated; F17.200 Nicotine dependence, unspecified, uncomplicated; Y90.8 Blood alcohol level of 240 mg/100 ml or more
CPT/HCPCS: 80053; 80074; 80307; 81001; 82140; 82607; 82746; 84702; 84703; 85025; 85610; 87077; 87086; 87186; 96361; 96365; 96366; 96372; 96375; 96376; 99285; G0378; J1630; J2060; J2405; J3411; J7030; J7040

== ENCOUNTER 2017-08-07 15:47 | Emergency (ER) | payer OTHER ==
[~2017-08-07 15:47] MED LIST: FOLI400T PO; LORA-392 PO; MAGICADU2 SWISH-SWAL; SULF1TAB23 PO; THERH PO; VITA100T54 PO
[2017-08-07 16:15] VITALS: BP 139/86; PULSE 136; RESP 20; TEMP 98.1; O2SAT 97
[2017-08-07 17:00] VITALS: BP 124/52; PULSE 120; RESP 20; TEMP 98.8; O2SAT 95
[2017-08-07 17:55] LABS: ALBUMIN 3.6 GM/DL (3.4-5.0); AST (GOT) 237 U/L (15-37); BLOOD UREA NITROGEN 3 MG/DL (7-18); CALCIUM 8.6 MG/DL (8.5-10.1); CHLORIDE 102 MEQ/L (98-107); CREATININE 0.42 MG/DL (0.50-1.00); GLOMERULAR FILTRATION RATE 166 ML/MIN (>89); GLUCOSE,RANDOM 89 MG/DL (74-106); SODIUM (NA) 136 MEQ/L (136-145)
[2017-08-07 18:05] LABS: ALKALINE PHOSPHATASE 216 U/L (45-117); ALT (GPT) 140 U/L (10-53); AUTOMATED NEUTROPHIL # 8.6 TH/MM3 (1.8-7.7); BASOPHIL # 0.1 TH/MM3 (0-0.2); BASOPHIL % 0.7 % (0.0-2.0); EOSINOPHIL # 0.1 TH/MM3 (0-0.4); EOSINOPHIL % 0.6 % (0.0-4.0); LYMPH % 5.1 % (9.0-44.0); LYMPHOCYTE # 0.5 TH/MM3 (1.0-4.8); MEAN CELL VOLUME 105.6 FL (80.0-100.0); MEAN CORPUSCULAR HEMOGLOBIN 37.8 PG (27.0-34.0); MEAN CORPUSCULAR HGB CONC 35.8 % (32.0-36.0); MEAN PLATELET VOLUME 8.3 FL (7.0-11.0); MONO % 7.9 % (0.0-8.0); MONOCYTE # 0.8 TH/MM3 (0-0.9); NEUT % 85.7 % (16.0-70.0); PLATELET COUNT 131 TH/MM3 (150-450); RED BLOOD COUNT 3.69 MIL/MM3 (4.00-5.30); RED CELL DISTRIBUTION WIDTH 14.5 % (11.6-17.2); TOTAL BILIRUBIN ADULT 7.2 MG/DL (0.2-1.0); TOTAL PROTEIN 7.9 GM/DL (6.4-8.2)
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
[2017-08-07 22:47] VITALS: BP 145/85; PULSE 119; RESP 19; O2SAT 99
[2017-08-08 06:32] VITALS: BP 134/75; PULSE 112; RESP 19; O2SAT 99
--- NOTE | 2017-08-08 11:26 | PD ---
Data Data Last Documented VS Vital Signs Date Time Temp Pulse Resp B/P (MAP) Pulse Ox O2 Delivery O2 Flow Rate FiO2 08/08/17 06:32 112 19 134/75 (94) 99 Room Air 08/07/17 17:00 98.8 Orders Orders Complete Blood Count With Diff (08/07/17 16:30) Comprehensive Metabolic Panel (08/07/17 16:30) Ed Urine Pregnancytest Poc (08/07/17 16:30) Psych Screen (08/07/17 16:30) Drug Screen, Random Urine (08/07/17 16:30) Alcohol (Ethanol) (08/07/17 16:30) Diet Regular Basic (08/08/17 Breakfast) Ed Discharge Order (08/08/17 11:25) Labs Laboratory Tests Test 08/07/17 17:20 White Blood Count 10.0 TH/MM3 Red Blood Count 3.69 MIL/MM3 Hemoglobin 14.0 GM/DL Hematocrit 39.0 % Mean Corpuscular Volume 105.6 FL Mean Corpuscular Hemoglobin 37.8 PG Mean Corpuscular Hemoglobin Concent 35.8 % Red Cell Distribution Width 14.5 % Platelet Count 131 TH/MM3 Mean Platelet Volume 8.3 FL Neutrophils (%) (Auto) 85.7 % Lymphocytes (%) (Auto) 5.1 % Monocytes (%) (Auto) 7.9 % Eosinophils (%) (Auto) 0.6 % Basophils (%) (Auto) 0.7 % Neutrophils # (Auto) 8.6 TH/MM3 Lymphocytes # (Auto) 0.5 TH/MM3 Monocytes # (Auto) 0.8 TH/MM3 Eosinophils # (Auto) 0.1 TH/MM3 Basophils # (Auto) 0.1 TH/MM3 CBC Comment DIFF FINAL Differential Comment Blood Urea Nitrogen 3 MG/DL Creatinine 0.42 MG/DL Random Glucose 89 MG/DL Total Protein 7.9 GM/DL Albumin 3.6 GM/DL Calcium Level 8.6 MG/DL Alkaline Phosphatase 216 U/L Aspartate Amino Transf (AST/SGOT) 237 U/L Alanine Aminotransferase (ALT/SGPT) 140 U/L Total Bilirubin 7.2 MG/DL Sodium Level 136 MEQ/L Potassium Level 3.5 MEQ/L Chloride Level 102 MEQ/L Carbon Dioxide Level 21.0 MEQ/L Anion Gap 13 MEQ/L Estimat Glomerular Filtration Rate 166 ML/MIN Urine Opiates Screen NEG Urine Barbiturates Screen NEG Urine Amphetamines Screen NEG Urine Benzodiazepines Screen POS Urine Cocaine Screen NEG Urine Cannabinoids Screen POS Ethyl Alcohol Level LESS THAN 3 MG/DL MDM Supervised Visit with LM: No Narrative Course Seen by psychiatry, recommend for discharge. Diagnosis Primary Impression: Medical clearance for psychiatric admission Disposition: 01 DISCHARGE HOME Condition: Stable Yasir Overton MD Aug 08, 2017 11:26
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
== END 2017-08-08 12:10 | disposition home or self-care (01) ==
LOC: NEPJ 15:47
DX: F10.20 Alcohol dependence, uncomplicated (principal); Y90.0 Blood alcohol level of less than 20 mg/100 ml; Z72.0 Tobacco use
CPT/HCPCS: 80053; 80307; 84703; 85025; 99284

== ENCOUNTER 2017-08-19 10:36 | Inpatient (IN) | payer SELFPAY ==
[~2017-08-19] VITALS: Ht 165.1 cm; Wt 52.3 kg
[2017-08-19 10:39] VITALS: BP 122/64; PULSE 105; RESP 18; TEMP 97.5; O2SAT 97
[2017-08-19] MEDS ORDERED: SODIUM CHLOR 0.9% 1000 ML INJ 1,000 ML IV SCH (11:40)
[2017-08-19] MEDS ORDERED: ONDANSETRON HCL 4 MG/2 ML VIAL IVP ONE (11:45)
[2017-08-19] MEDS ORDERED: PANTOPRAZOLE SODIUM 40 MG VIAL IVP ONE (11:45)
[2017-08-19] MEDS ORDERED: MORPHINE SULFATE 2 MG/ML SYRINGE IV PUSH ONE (11:45)
[2017-08-19] MEDS ORDERED: SODIUM CHLORIDE 0.9% FLUSH 10 ML FLUSH IVF PRN (11:45)
[2017-08-19] MEDS ORDERED: FAMOTIDINE 20 MG/2 ML VIAL IV PUSH ONE (11:45)
[2017-08-19 11:50] VITALS: BP 105/66; PULSE 101; RESP 24; O2SAT 99
--- NOTE | 2017-08-19 11:54 | PD ---
HPI Chief Complaint: GI Complaint Time Seen by Provider: 11:34 Travel History International Travel<30 days: No Contact w/Intl Traveler<30days: No Traveled to known affect area: No History of Present Illness HPI 42-year-old female chronic alcoholism presents to the ED for evaluation of 1 week history of abdominal pain. Patient states the pain is "all over the abdomen. Rated 10/10, worsened by deep breathing and touch. She endorses nausea and bilious vomiting over the last couple days. She endorses daily ribbon thin stools 2 weeks. She states that she saw "a lot of bright red blood " in the toilet bowl yesterday. She denies melena or hematochezia. She states over the last 2 days she has began to experience bloating. She endorses drinking 8 ounces of wine per day. PFSH Past Medical History Asthma: No Blood Disorders: No Anxiety: No Depression: No Heart Rhythm Problems: No Cancer: No Cardiovascular Problems: No High Cholesterol: No Chemotherapy: No Chest Pain: No Congestive Heart Failure: No COPD: No Diabetes: No Diminished Hearing: No Endocrine: No Gastrointestinal Disorders: Yes (GERD) Genitourinary: No Hypertension: No Immune Disorder: No Implanted Vascular Access Dvce: No Musculoskeletal: No Neurologic: No Psychiatric: No Reproductive: No Respiratory: No Radiation Therapy: No Seizures: Yes (R/T ALCOHOL W/D) Sleep Apnea: No Thyroid Disease: No ?: Not LMP: JULY 2017 Past Surgical History Appendectomy: Yes Neurologic Surgery: Yes (SPINE) Other Surgery: Yes (APPENDIX REMOVED, 2 BACK SURGERIES) Social History Alcohol Use: Yes (DAILY ) Tobacco Use: Yes Substance Use: Yes (Quit marijuana 1 month ago.) Allergies-Medications (Allergen,Severity, Reaction): Coded Allergies: Sulfa (Sulfonamide Antibiotics) (Verified Allergy, Unknown, 07/28/17) Reported Meds & Prescriptions Reported Meds & Active Scripts Active Reported Prilosec (Omeprazole Magnesium) 10 Mg Pow 40 Mg PO BID Review of Systems Except as stated in HPI: all other systems reviewed are Neg Physical Exam Narrative GENERAL: Well-nourished, well-developed white female in no acute distress. SKIN: Focused skin assessment warm, dry, jaundiced HEAD: Normocephalic. EYES: Positive scleral icterus. No injection or drainage. NECK: Supple, trachea midline. No JVD or lymphadenopathy. CARDIOVASCULAR: Regular rate and rhythm without murmurs, gallops, or rubs. RESPIRATORY: Breath sounds clear and equal bilaterally. No accessory muscle use. GASTROINTESTINAL: Abdomen distended, diffusely tender, positive fluid wave. Hypoactive bowel sounds. Unable to assess hepatosplenomegaly secondary to the patient's discomfort. RECTAL EXAM: No masses or tenderness, stool is brown. Guaiac positive. MUSCULOSKELETAL: No cyanosis, or edema. Walks with a normal gait. Moves extremities spontaneously. BACK: Nontender without obvious deformity. No CVA tenderness. Data Data Last Documented VS Vital Signs Date Time Temp Pulse Resp B/P (MAP) Pulse Ox O2 Delivery O2 Flow Rate FiO2 08/19/17 11:50 101 24 105/66 (79) 99 Room Air 08/19/17 10:39 97.5 Orders Orders Complete Blood Count With Diff (08/19/17 11:40) Comprehensive Metabolic Panel (08/19/17 11:40) Lipase (08/19/17 11:40) Prothrombin Time / Inr (Pt) (08/19/17 11:40) Act Partial Throm Time (Ptt) (08/19/17 11:40) Alcohol (Ethanol) (08/19/17 11:40) Urinalysis - C+S If Indicated (08/19/17 11:40) Type And Screen (08/19/17 11:40) Ecg Monitoring (08/19/17 11:40) Iv Access Insert/Monitor (08/19/17 11:40) Oximetry (08/19/17 11:40) Ondansetron Inj (Zofran Inj) (08/19/17 11:45) Pantoprazole Inj (Protonix Inj) (08/19/17 11:45) Sodium Chlor 0.9% 1000 Ml Inj (Ns 1000 M (08/19/17 11:40) Sodium Chloride 0.9% Flush (Ns Flush) (08/19/17 11:45) Famotidine Inj (Pepcid Inj) (08/19/17 11:45) Morphine Inj (Morphine Inj) (08/19/17 11:45) Alcohol Withdrawal Asmt-Ciwa ONCE (08/19/17 11:54) Flumazenil Inj (Romazicon Inj) (08/19/17 12:00) Lorazepam (Ativan) (08/19/17 12:00) Lorazepam Inj (Ativan Inj) (08/19/17 12:00) Lorazepam (Ativan) (08/19/17 12:00) Lorazepam Inj (Ativan Inj) (08/19/17 12:00) Lorazepam Inj (Ativan Inj) (08/19/17 12:00) Lorazepam Inj (Ativan Inj) (08/19/17 12:00) Blood Culture (08/19/17 12:54) Piperacil-Tazo 4.5 Gm Premix (Zosyn 4.5 (08/19/17 13:00) Consult Gastroenterology (08/19/17 ) Ct Abd/Pel W/O Iv Contrast (08/19/17 ) (Hub Use Only)Inp Phy Cons/Ref (08/19/17 ) Lactic Acid Sepsis Protocol (08/19/17 13:24) Admit Order (Ed Use Only) (08/19/17 13:24) Red Blood Cells (Rbc) (08/19/17 12:00) Labs Laboratory Tests Test 08/19/17 12:00 White Blood Count 30.1 TH/MM3 Red Blood Count 3.36 MIL/MM3 Hemoglobin 12.1 GM/DL Hematocrit 35.4 % Mean Corpuscular Volume 105.2 FL Mean Corpuscular Hemoglobin 35.9 PG Mean Corpuscular Hemoglobin Concent 34.2 % Red Cell Distribution Width 15.4 % Platelet Count 370 TH/MM3 Mean Platelet Volume 7.5 FL Neutrophils (%) (Auto) 91.0 % Lymphocytes (%) (Auto) 4.4 % Monocytes (%) (Auto) 4.1 % Eosinophils (%) (Auto) 0.3 % Basophils (%) (Auto) 0.2 % Neutrophils # (Auto) 27.4 TH/MM3 Lymphocytes # (Auto) 1.3 TH/MM3 Monocytes # (Auto) 1.2 TH/MM3 Eosinophils # (Auto) 0.1 TH/MM3 Basophils # (Auto) 0.1 TH/MM3 CBC Comment AUTO DIFF Differential Total Cells Counted 100 Neutrophils % (Manual) 64 % Band Neutrophils % 29 % Lymphocytes % 6 % Monocytes % 1 % Neutrophils # (Manual) 28.0 TH/MM3 Differential Comment FINAL DIFF MANUAL Toxic Granulation 1+ Toxic Vacuolation PRESENT Platelet Estimate NORMAL Platelet Morphology Comment NORMAL Prothrombin Time 17.0 SEC Prothromb Time International Ratio 1.7 RATIO Activated Partial Thromboplast Time 35.0 SEC Blood Urea Nitrogen 20 MG/DL Creatinine 2.00 MG/DL Random Glucose 115 MG/DL Total Protein 6.5 GM/DL Albumin 2.2 GM/DL Calcium Level 7.8 MG/DL Alkaline Phosphatase 405 U/L Aspartate Amino Transf (AST/SGOT) 166 U/L Alanine Aminotransferase (ALT/SGPT) 66 U/L Total Bilirubin 11.5 MG/DL Sodium Level 127 MEQ/L Potassium Level 3.4 MEQ/L Chloride Level 90 MEQ/L Carbon Dioxide Level 24.9 MEQ/L Anion Gap 12 MEQ/L Estimat Glomerular Filtration Rate 27 ML/MIN Lipase 104 U/L Ethyl Alcohol Level LESS THAN 3 MG/DL MDM Medical Decision Making Medical Screen Exam Complete: Yes Emergency Medical Condition: Yes Differential Diagnosis liver failure versus GI bleed versus SBP versus metabolic derangement versus other Narrative Course 42-year-old female chronic alcoholism presents to the ED for evaluation of 1 week history of abdominal pain, N/V and bloating. She endorses daily ribbon thin stools 2 weeks, BRBPR yesterday. Endorses bloating 2 days. Endorses current alcohol use. Temp 97.5, pulse 105, BP 122/67 on presentation. On exam this is a jaundiced female in no acute distress. The abdomen is bloated, diffusely tender with a positive fluid wave. Unable to evaluate for hepatosplenomegaly secondary to the patient's pain. Guaiac positive on rectal exam. IV was established. Patient was administered 4 mg morphine, 4 mg Zofran , 1 L normal saline, by mouth Protonix and famotidine. She was placed on CIWA protocol. CBC & BMP Diagram 08/19/17 12:00 Total Protein 6.5, Albumin 2.2 L, Calcium Level 7.8 L, Alkaline Phosphatase 405 H, Aspartate Amino Transf (AST/SGOT) 166 H, Alanine Aminotransferase (ALT/SGPT) 66 H, Total Bilirubin 11.5 H INR 1.7. Alcohol less than 3. CT abdomen pending. Blood cultures were obtained. Patient was administered IV Zosyn. I discussed the results of the workup with the patient as well as a recommendation for admission. She is agreeable with this plan. GI consult placed. I spoke with Dr. Montes who agrees to accept the patient to the medicine service. Please see medicine notes for disposition. HemaPrompt Point of Care Internal Pos. & Neg. Controls: Passed Fecal Specimen Occult Blood: Positive Kaycee Velasco Aug 19, 2017 11:54
[2017-08-19] MEDS ORDERED: LORazepam 2 MG/ML VIAL IV PUSH PRN ×4 (12:00)
[2017-08-19] MEDS ORDERED: FLUMAZENIL 0.5 MG/5 ML VIAL IV PUSH PRN (12:00)
[2017-08-19] MEDS ORDERED: LORazepam 2 MG TAB PO PRN (12:00)
[2017-08-19] MEDS ORDERED: OMEP10SU PO (12:10)
[2017-08-19 12:19] LABS: AUTOMATED NEUTROPHIL # 27.4 TH/MM3 (1.8-7.7); BASOPHIL # 0.1 TH/MM3 (0-0.2); BASOPHIL % 0.2 % (0.0-2.0); EOSINOPHIL # 0.1 TH/MM3 (0-0.4); EOSINOPHIL % 0.3 % (0.0-4.0); HEMATOCRIT 35.4 % (35.0-46.0); HEMOGLOBIN 12.1 GM/DL (11.6-15.3); LYMPH % 4.4 % (9.0-44.0); LYMPHOCYTE # 1.3 TH/MM3 (1.0-4.8); MEAN CELL VOLUME 105.2 FL (80.0-100.0); MEAN CORPUSCULAR HEMOGLOBIN 35.9 PG (27.0-34.0); MEAN CORPUSCULAR HGB CONC 34.2 % (32.0-36.0); MEAN PLATELET VOLUME 7.5 FL (7.0-11.0); MONO % 4.1 % (0.0-8.0); MONOCYTE # 1.2 TH/MM3 (0-0.9); PLATELET COUNT 370 TH/MM3 (150-450); RED BLOOD COUNT 3.36 MIL/MM3 (4.00-5.30); RED CELL DISTRIBUTION WIDTH 15.4 % (11.6-17.2); WHITE BLOOD COUNT 30.1 TH/MM3 (4.0-11.0)
[2017-08-19 12:30] LABS: INTERNATIONAL NORMALIZED RATIO 1.7 RATIO
[2017-08-19 12:42] LABS: ALBUMIN 2.2 GM/DL (3.4-5.0); ALT (GPT) 66 U/L (10-53); AST (GOT) 166 U/L (15-37); BICARBONATE 24.9 MEQ/L (21.0-32.0); BLOOD UREA NITROGEN 20 MG/DL (7-18); CALCIUM 7.8 MG/DL (8.5-10.1); CHLORIDE 90 MEQ/L (98-107); GLOMERULAR FILTRATION RATE 27 ML/MIN (>89); GLUCOSE,RANDOM 115 MG/DL (74-106); SODIUM (NA) 127 MEQ/L (136-145)
[2017-08-19 12:45] LABS: ALKALINE PHOSPHATASE 405 U/L (45-117); TOTAL BILIRUBIN ADULT 11.5 MG/DL (0.2-1.0); TOTAL PROTEIN 6.5 GM/DL (6.4-8.2)
[2017-08-19] MEDS ORDERED: PIPERACIL-TAZO 4.5 GM PREMIX 100 ML IV ONE (13:00)
[2017-08-19 13:16] LABS: BANDS 29 % (0-6); LYMPHOCYTES 6 % (9-44); MONOCYTES 1 % (0-8); POLYS (SEG NEUTROPHILS) 64 % (16-70); TOXIC GRANULATION 1+ (NORMAL); TOXIC VACUOLATION PRESENT (NONE SEEN)
[2017-08-19] MEDS ORDERED: ACETAMINOPHEN 325 MG TAB PO PRN (13:30)
[2017-08-19] MEDS ORDERED: LACTULOSE SYRUP 20 GM/30 ML CUP PO PRN (13:30)
[2017-08-19] MEDS ORDERED: NALOXONE HCL 0.4 MG/ML AMP IV PUSH PRN (13:30)
[2017-08-19] MEDS ORDERED: MAGNESIUM HYDROXIDE SUSP 30 ML CUP PO PRN (13:30)
[2017-08-19] MEDS ORDERED: BISACODYL 10 MG SUPP RECTAL PRN (13:30)
[2017-08-19] MEDS ORDERED: SENNOSIDES 8.6 MG TAB PO PRN (13:30)
--- NOTE | 2017-08-19 13:42 | HHI.HP ---
HPI Service [facility] Primary Care Physician No Primary Care Physician Admission Diagnosis liver failure, ascites, KATELYN, GI bleed Diagnoses: Chief Complaint: Abdominal pain Travel History International Travel<30 Days: No Contact w/Intl Traveler <30 Da: No Traveled to Known Affected Are: No Sepsis Criteria SIRS Criteria (2 or more): Heart rate over 90, RR > 20 or PaCO2 < 32, WBC > 11981, < 4000 or > 10% bands Sepsis Criteria (SIRS+source): Infect source susp/known Severe Sepsis (+one): Organ Dysfunction (Creatinine increased from baseline. ) Criteria Outcome: Meets SIRS criteria, Meets sepsis criteria, Meets severe sepsis criteria History of Present Illness Ms. Lim is a 42 year old female with a history of Alcoholism who presents to the ED on 08/19/2017 due to diffuse abdominal pain that started about two week prior to this admission. Her pain is diffuse especially in the right and left upper quadrants. Pain is about 10 out of 10 in the last 2 days prior to this admission and worsened by deep breathing and touch. She reports some nausea, vomiting and bilious vomiting in the two days prior to this admission. No coffee-ground emesis or blood in the vomitus. She also started noticing yellow discoloration of her conjunctiva 2 days prior to this admission. She also reports thin stool and bright red blood in stool. Patient denies any chest pain , fever but reports chills at home. On arrival, patient's temp 97.5F, HR 105, RR 18-24, BP 122/64, WBC count 30.1, MCV 105.2. Creatinine 2.0 (baseline below 1.0), Sodium 127, potassium 3.4. AST, ALT, alk Phos somewhat elevated. Review of Systems Except as stated in HPI: all other systems reviewed are Neg Past Family Social History Past Medical History Alcohol abuse GERD Past Surgical History Appendectomy, Back surgeries. Neuro-stim out, tonsillectomy Reported Medications Prilosec (Omeprazole Magnesium) 10 Mg Pow 40 Mg PO BID Allergies: Coded Allergies: Sulfa (Sulfonamide Antibiotics) (Verified Allergy, Unknown, 07/28/17) Family History Mother's side of the family has a history of heart disease. Social History Drinks alcohol daily. Smokes and also uses Marijuana. Last two months - heavy drinking but has been tapering off. She was drinking sometimes 5L of wine a day. Physical Exam Vital Signs Vital Signs Date Time Temp Pulse Resp B/P (MAP) Pulse Ox O2 Delivery O2 Flow Rate FiO2 08/19/17 11:50 101 24 105/66 (79) 99 Room Air 08/19/17 10:39 97.5 105 18 122/64 (83) 97 Physical Exam GENERAL: This is a well-nourished, well-developed patient, in no apparent distress. SKIN: No rashes, ecchymoses or lesions. Warm and dry. yellow discoloration. HEAD: Atraumatic. Normocephalic. No temporal or scalp tenderness. EYES: Pupils equal round and reactive. No injection or drainage. Icterus conjunctiva. ENT: Nose without bleeding, purulent drainage or septal hematoma. Airway patent. NECK: Trachea midline. No lymphadenopathy. Supple, nontender, no meningeal signs. CARDIOVASCULAR: Regular rate and rhythm without murmurs, gallops, or rubs. No JVD. RESPIRATORY: Clear to auscultation. Breath sounds equal bilaterally. No wheezes , rales, or rhonchi. GASTROINTESTINAL: Abdomen soft, Diffusely tender to palpation, distended. No guarding. MUSCULOSKELETAL: Extremities without clubbing, cyanosis, or edema. NEUROLOGICAL: Awake and alert. Cranial nerves II through XII intact. No focal neurological deficits. Normal speech. Laboratory Laboratory Tests Test 08/19/17 12:00 White Blood Count 30.1 Red Blood Count 3.36 Hemoglobin 12.1 Hematocrit 35.4 Mean Corpuscular Volume 105.2 Mean Corpuscular Hemoglobin 35.9 Mean Corpuscular Hemoglobin Concent 34.2 Red Cell Distribution Width 15.4 Platelet Count 370 Mean Platelet Volume 7.5 Neutrophils (%) (Auto) 91.0 Lymphocytes (%) (Auto) 4.4 Monocytes (%) (Auto) 4.1 Eosinophils (%) (Auto) 0.3 Basophils (%) (Auto) 0.2 Neutrophils # (Auto) 27.4 Lymphocytes # (Auto) 1.3 Monocytes # (Auto) 1.2 Eosinophils # (Auto) 0.1 Basophils # (Auto) 0.1 CBC Comment AUTO DIFF Differential Total Cells Counted 100 Neutrophils % (Manual) 64 Band Neutrophils % 29 Lymphocytes % 6 Monocytes % 1 Neutrophils # (Manual) 28.0 Differential Comment FINAL DIFF MANUAL Toxic Granulation 1+ Toxic Vacuolation PRESENT Platelet Estimate NORMAL Platelet Morphology Comment NORMAL Prothrombin Time 17.0 Prothromb Time International Ratio 1.7 Activated Partial Thromboplast Time 35.0 Blood Urea Nitrogen 20 Creatinine 2.00 Random Glucose 115 Total Protein 6.5 Albumin 2.2 Calcium Level 7.8 Alkaline Phosphatase 405 Aspartate Amino Transf (AST/SGOT) 166 Alanine Aminotransferase (ALT/SGPT) 66 Total Bilirubin 11.5 Sodium Level 127 Potassium Level 3.4 Chloride Level 90 Carbon Dioxide Level 24.9 Anion Gap 12 Estimat Glomerular Filtration Rate 27 Lipase 104 Ethyl Alcohol Level LESS THAN 3 Date/Time Source Procedure Growth Status 08/19/17 13:10 Blood Line Aerobic Blood Culture Pending Received 08/19/17 13:10 Blood Line Anaerobic Blood Culture Pending Received Result Diagram: 08/19/17 1200 08/19/[address] abd/pelvis 1. Hepatomegaly with suspected hepatic steatosis and mild ascites. 2. Borderline splenomegaly. Abd US - mild ascites. MRCP 1. Hepatosplenomegaly. 2. Mild hepatic steatosis. 3. Mild ascites. 4. No biliary duct dilatation. 5. Contracted gallbladder with gallstones. Caprini VTE Risk Assessment Caprini VTE Risk Assessment: Mod/High Risk (score >= 2) Caprini Risk Assessment Model Point Value = 1 Point Value = 2 Point Value = 3 Point Value = 5 Age 41-60 Minor surgery BMI > 25 kg/m2 Swollen legs Varicose veins or History of unexplained or recurrent spontaneous Oral contraceptives or hormone replacement Sepsis (< 1 month) Serious lung disease, including pneumonia (< 1 month) Abnormal pulmonary function Acute myocardial infarction Congestive heart failure (< 1 month) History of inflammatory bowel disease Medical patient at bed rest Age 61-74 Arthroscopic surgery Major open surgery (> 45 min) Laparoscopic surgery (> 45 min) Malignancy Confined to bed (> 72 hours) Immobilizing plaster cast Central venous access Age >= 75 History of VTE Family history of VTE Factor V Leiden Prothrombin [id number] Lupus anticoagulant Anticardiolipin antibodies Elevated serum homocysteine Heparin-induced thrombocytopenia Other congenital or acquired thrombophilia Stroke (< 1 month) Elective arthroplasty Hip, pelvis, or leg fracture Acute spinal cord injury (< 1 month) Prophylaxis Regimen Total Risk Factor Score Risk Level Prophylaxis Regimen 0-1 Low Early ambulation 2 Moderate Order ONE of the following: *Sequential Compression Device (SCD) *Heparin 5000 units SQ BID 3-4 Higher Order ONE of the following medications: *Heparin 5000 units SQ TID *Enoxaparin/Lovenox 40 mg SQ daily (WT < 150 kg, CrCl > 30 mL/min) *Enoxaparin/Lovenox 30 mg SQ daily (WT < 150 kg, CrCl > 10-29 mL/min) *Enoxaparin/Lovenox 30 mg SQ BID (WT < 150 kg, CrCl > 30 mL/min) AND/OR *Sequential Compression Device (SCD) 5 or more Highest Order ONE of the following medications: *Heparin 5000 units SQ TID (Preferred with Epidurals) *Enoxaparin/Lovenox 40 mg SQ daily (WT < 150 kg, CrCl > 30 mL/min) *Enoxaparin/Lovenox 30 mg SQ daily (WT < 150 kg, CrCl > 10-29 mL/min) *Enoxaparin/Lovenox 30 mg SQ BID (WT < 150 kg, CrCl > 30 mL/min) AND *Sequential Compression Device (SCD) Assessment and Plan Problem List: (1) Severe sepsis ICD Code: A41.9 - Sepsis, unspecified organism; R65.20 - Severe sepsis without septic shock (2) KATELYN (acute kidney injury) ICD Code: N17.9 - Acute kidney failure, unspecified (3) Alcoholic liver disease ICD Code: K70.9 - Alcoholic liver disease, unspecified (4) Alcohol dependence ICD Code: F10.20 - Alcohol dependence, uncomplicated Status: Acute Assessment and Plan Ms. Lim is a 42 year old female with a history of alcoholism who presented to the ED due to worsening abdominal pain that started about two weeks prior to this admission. Particularly worse pain in the last two days as well as yellowish discoloration of her conjunctiva. - Severe sepsis (Tachycardia, WBC 30.1, Suspected infection SBP, organ dysfunction Creatinine 2.0). - Possible Spontaneous bacterial peritonitis - Alcoholic liver hepatitis - Abd US shows small ascites - We will empirically start Ceftriaxone 2g Q24hrs for SBP. - May need to get diagnostic paracentesis. Will discuss with radiology on to see of Dx Thoracentesis is possible. - Maddrey's discrimination factor 35.9 (PT 17, Bili 11.5). - Will continue Pentoxifylline for now. IF SBP ruled out, we will consider Prednisolone 40mg Qday for 28 days then taper. - Probable lower GI bleed - GI evaluated patient. Probable EGD/Colonoscopy in the AM. - Alcohol abuse - Thiamine, Folic acid, CIWA protocol. - Patient is motivated to quit drinking. - Acute kidney injury - Likely due to poor water intake. - Creatinine 2.0, baseline below 1.0 - Will monitor. If it does not improve, this could indicate hepatorenal syndrome which will reflect poor prognosis. Full code. SCDs. Physician Certification 2 Midnight Certification Type: Admission for Inpatient Services Order for Inpatient Services The services are ordered in accordance with Medicare regulations or non- Medicare payer requirements, as applicable. In the case of services not specified as inpatient-only, they are appropriately provided as inpatient services in accordance with the 2-midnight benchmark. Estimated LOS (days): 3 days is the estimated time the patient will need to remain in the hospital, assuming treatment plan goals are met and no additional complications. Post-Hospital Plan: Home Aniya Montes DO Aug 19, 2017 13:42
--- NOTE | 2017-08-19 13:46 | PD ---
Physical Exam Date Seen by Provider: Aug 19, 2017 Time Seen by Provider: 12:30 Narrative I, Dr. Nicholas, have reviewed the advance practice practitioner's documentation and am in agreement, met with the patient face to face, made the diagnosis, and the medical decision making was done by me. *My assessment and Findings: Patient seen and evaluated with PA, please see PA note for further details. She has history of alcoholic cirrhosis, here because of increase in abdominal pain, abdominal distention, blood in the stools. She is Hemoccult positive on testing. Abdomen is mildly distended. Lab work was initiated in the ER. It shows significant leukocytosis and there is concern for underlying sepsis. IV antibiotics were initiated in the ER and cultures were drawn. Her BUN and creatinine is elevated as well. Patient was given IV fluids. CAT scan ordered for further evaluation of the abdomen. At this point , case was discussed with [facility] hospitalist for admission for further treatment and evaluation. Liver enzymes are quite elevated and bilirubin elevations, all concerning for liver failure as well. Unfortunately, patient is continuing to drink alcohol. Laboratory Tests Test 08/19/17 12:00 White Blood Count 30.1 TH/MM3 (4.0-11.0) Red Blood Count 3.36 MIL/MM3 (4.00-5.30) Mean Corpuscular Volume 105.2 FL (80.0-100.0) Mean Corpuscular Hemoglobin 35.9 PG (27.0-34.0) Neutrophils (%) (Auto) 91.0 % (16.0-70.0) Lymphocytes (%) (Auto) 4.4 % (9.0-44.0) Neutrophils # (Auto) 27.4 TH/MM3 (1.8-7.7) Monocytes # (Auto) 1.2 TH/MM3 (0-0.9) Band Neutrophils % 29 % (0-6) Lymphocytes % 6 % (9-44) Neutrophils # (Manual) 28.0 TH/MM3 (1.8-7.7) Toxic Granulation 1+ (NORMAL) Toxic Vacuolation PRESENT (NONE SEEN) Prothrombin Time 17.0 SEC (9.8-11.6) Activated Partial Thromboplast Time 35.0 SEC (24.3-30.1) Blood Urea Nitrogen 20 MG/DL (7-18) Creatinine 2.00 MG/DL (0.50-1.00) Random Glucose 115 MG/DL (74-106) Albumin 2.2 GM/DL (3.4-5.0) Calcium Level 7.8 MG/DL (8.5-10.1) Alkaline Phosphatase 405 U/L (45-117) Aspartate Amino Transf (AST/SGOT) 166 U/L (15-37) Alanine Aminotransferase (ALT/SGPT) 66 U/L (10-53) Total Bilirubin 11.5 MG/DL (0.2-1.0) Sodium Level 127 MEQ/L (136-145) Potassium Level 3.4 MEQ/L (3.5-5.1) Chloride Level 90 MEQ/L (98-107) Estimat Glomerular Filtration Rate 27 ML/MIN (>89) Data Data Last Documented VS Vital Signs Date Time Temp Pulse Resp B/P (MAP) Pulse Ox O2 Delivery O2 Flow Rate FiO2 08/19/17 11:50 101 24 105/66 (79) 99 Room Air 08/19/17 10:39 97.5 Orders Orders Complete Blood Count With Diff (08/19/17 11:40) Comprehensive Metabolic Panel (08/19/17 11:40) Lipase (08/19/17 11:40) Prothrombin Time / Inr (Pt) (08/19/17 11:40) Act Partial Throm Time (Ptt) (08/19/17 11:40) Alcohol (Ethanol) (08/19/17 11:40) Urinalysis - C+S If Indicated (08/19/17 11:40) Type And Screen (08/19/17 11:40) Ecg Monitoring (08/19/17 11:40) Iv Access Insert/Monitor (08/19/17 11:40) Oximetry (08/19/17 11:40) Ondansetron Inj (Zofran Inj) (08/19/17 11:45) Pantoprazole Inj (Protonix Inj) (08/19/17 11:45) Sodium Chlor 0.9% 1000 Ml Inj (Ns 1000 M (08/19/17 11:40) Sodium Chloride 0.9% Flush (Ns Flush) (08/19/17 11:45) Famotidine Inj (Pepcid Inj) (08/19/17 11:45) Morphine Inj (Morphine Inj) (08/19/17 11:45) Alcohol Withdrawal Asmt-Ciwa ONCE (08/19/17 11:54) Flumazenil Inj (Romazicon Inj) (08/19/17 12:00) Lorazepam (Ativan) (08/19/17 12:00) Lorazepam Inj (Ativan Inj) (08/19/17 12:00) Lorazepam (Ativan) (08/19/17 12:00) Lorazepam Inj (Ativan Inj) (08/19/17 12:00) Lorazepam Inj (Ativan Inj) (08/19/17 12:00) Lorazepam Inj (Ativan Inj) (08/19/17 12:00) Blood Culture (08/19/17 12:54) Piperacil-Tazo 4.5 Gm Premix (Zosyn 4.5 (08/19/17 13:00) Consult Gastroenterology (08/19/17 ) Ct Abd/Pel W/O Iv Contrast (08/19/17 ) (Hub Use Only)Inp Phy Cons/Ref (08/19/17 ) Lactic Acid Sepsis Protocol (08/19/17 13:24) Admit Order (Ed Use Only) (08/19/17 13:24) Labs Laboratory Tests Test 08/19/17 12:00 White Blood Count 30.1 TH/MM3 Red Blood Count 3.36 MIL/MM3 Hemoglobin 12.1 GM/DL Hematocrit 35.4 % Mean Corpuscular Volume 105.2 FL Mean Corpuscular Hemoglobin 35.9 PG Mean Corpuscular Hemoglobin Concent 34.2 % Red Cell Distribution Width 15.4 % Platelet Count 370 TH/MM3 Mean Platelet Volume 7.5 FL Neutrophils (%) (Auto) 91.0 % Lymphocytes (%) (Auto) 4.4 % Monocytes (%) (Auto) 4.1 % Eosinophils (%) (Auto) 0.3 % Basophils (%) (Auto) 0.2 % Neutrophils # (Auto) 27.4 TH/MM3 Lymphocytes # (Auto) 1.3 TH/MM3 Monocytes # (Auto) 1.2 TH/MM3 Eosinophils # (Auto) 0.1 TH/MM3 Basophils # (Auto) 0.1 TH/MM3 CBC Comment AUTO DIFF Differential Total Cells Counted 100 Neutrophils % (Manual) 64 % Band Neutrophils % 29 % Lymphocytes % 6 % Monocytes % 1 % Neutrophils # (Manual) 28.0 TH/MM3 Differential Comment FINAL DIFF MANUAL Toxic Granulation 1+ Toxic Vacuolation PRESENT Platelet Estimate NORMAL Platelet Morphology Comment NORMAL Prothrombin Time 17.0 SEC Prothromb Time International Ratio 1.7 RATIO Activated Partial Thromboplast Time 35.0 SEC Blood Urea Nitrogen 20 MG/DL Creatinine 2.00 MG/DL Random Glucose 115 MG/DL Total Protein 6.5 GM/DL Albumin 2.2 GM/DL Calcium Level 7.8 MG/DL Alkaline Phosphatase 405 U/L Aspartate Amino Transf (AST/SGOT) 166 U/L Alanine Aminotransferase (ALT/SGPT) 66 U/L Total Bilirubin 11.5 MG/DL Sodium Level 127 MEQ/L Potassium Level 3.4 MEQ/L Chloride Level 90 MEQ/L Carbon Dioxide Level 24.9 MEQ/L Anion Gap 12 MEQ/L Estimat Glomerular Filtration Rate 27 ML/MIN Lipase 104 U/L Ethyl Alcohol Level LESS THAN 3 MG/DL MDM Medical Record Reviewed: Yes Supervised Visit with LM: Yes Diagnosis Primary Impression: Severe sepsis Additional Impressions: KATELYN (acute kidney injury) Cirrhosis Admitting Information Admitting Physician Requests: it Cindy Nicholas MD Aug 19, 2017 13:46
--- NOTE | 2017-08-19 14:10 | RADRPT ---
EXAM DATE/TIME: 08/19/2017 13:48 [facility] COMPARISON: No previous studies available for comparison. INDICATIONS : Abdominal pain for 2 days distension, blood in stool. ORAL CONTRAST: No oral contrast ingested. RADIATION DOSE: 8.17 CTDIvol (mGy) MEDICAL HISTORY : Seizures. Daily alcohol. SURGICAL HISTORY : Appendectomy. ENCOUNTER: Initial ACUITY: 2 days PAIN SCALE: 8/10 LOCATION: upper abdomen TECHNIQUE: Volumetric scanning of the abdomen and pelvis was performed. Using automated exposure control and ad justment of the mA and/or kV according to patient size, radiation dose was kept as low as reasonably achievable to obtain optimal diagnostic quality images. DICOM format image data is available electro nically for review and comparison. FINDINGS: LOWER LUNGS: There is minimal subpleural atelectasis or consolidation seen at the bases worse on the right. LIVER: The liver is enlarged. It does appear low in density compared to the spleen. Hepatic lesions are not seen. There is ascites seen in the right paracolic gutter region and in the pelvis. The gallbladder w all appears thickened. The gallbladder is not distended. The thickening is likely secondary to the l ack of distention. SPLEEN: The spleen is borderline large measuring 12.8 cm in length. PANCREAS: Within normal limits. KIDNEYS: Normal in size and shape. There is no mass, stone, or hydronephrosis. ADRENAL GLANDS: Within normal limits. VASCULAR: There is no aortic aneurysm. BOWEL/MESENTERY: Again noted is the mild ascites. The bowel is unremarkable. ABDOMINAL WALL: Within normal limits. RETROPERITONEUM: There is no lymphadenopathy. BLADDER: No wall thickening or mass. REPRODUCTIVE: Within normal limits. INGUINAL: There is no lymphadenopathy or hernia. MUSCULOSKELETAL: Within normal limits for patient age. CONCLUSION: 1. Hepatomegaly with suspected hepatic steatosis and mild ascites. 2. Borderline splenomegaly. Rohith Harman MD on August 19, 2017 at 14:02 Board Certified Radiologist. This report was verified electronically.
[2017-08-19] MEDS: cefTRIAXone INJ 2,000 MG in SODIUM CHLORIDE 0.9% INJ 100 ML IV SCH (14:44)
[2017-08-19] MEDS: MORPHINE SULFATE 4 MG/ML INJ IV PUSH PRN ×2 (14:44→17:52)
[2017-08-19] MEDS: SODIUM CHLOR 0.9% 1000 ML INJ 1,000 ML IV SCH (14:45)
--- NOTE | 2017-08-19 14:54 | PD.CONS ---
HPI History of Present Illness This is a 42 year old who denies any significant PMH who presented to [facility] with complaints of abdominal pain and distention. States abdominal pain is mostly in her upper abdomen, described as a squeezing and cramping sensation, has been constant for the past two weeks but worse over the past week. Has been sleeping with a heat pad for spasm pains with little relief of pain. Also complaining of abdominal distention, states she has doubled in size over the past few days. Denies history of liver issues, although she was told her liver enzymes were elevated [address] [place] abdomen and pelvis done in ER - -> Hepatomegaly with suspected hepatic steatosis and mild ascites. Borderline splenomegaly. LFTs elevated AST-166 ALT-66 T bili-11.5 and Alk phos- 405. Also had an EGD done in [place], states findings of reflux otherwise normal. Also complaining of nausea and vomiting, worse when she does not take her Prilosec, denies hematemesis and coffee ground emesis. States has been having BRB in her stool for the past couple days but yesterday noticed a significant amount of blood. States she has noticed a ribbon like thing in her stools. Denies melena. Denies history of GIB. Has never had a colonoscopy. Pt has been trying to wean herself off of alcohol for the past month, has gotten herself down to two glasses of wine a night. Smokes cigarettes occasionally. Denies illicit drug use. (Elle Baker) PFSH Past Medical History Alcohol abuse GERD Past Surgical History Appendectomy, Back surgeries. Neuro-stim out, tonsillectomy (Elle Baker) Coded Allergies: Sulfa (Sulfonamide Antibiotics) (Verified Allergy, Unknown, 07/28/17) Family History Drinks alcohol daily. Smokes and also uses Marijuana. Last two months - heavy drinking. Social History ETOH- tapering over the past month- currently down to 2 jewel a day Smoking- occasional Denies illicit drug use (Elle Baker) Review of Systems Gastrointestinal: COMPLAINS OF: Abdominal pain, Bloody stools, Diarrhea, Nausea , Vomiting, Swelling of Abdomen, Heartburn, DENIES: Black stools, Constipation, Difficulty Swallowing, Odynophagia, Hematemesis (Elle Baker) GI Exam Vitals I&O Vital Signs Date Time Temp Pulse Resp B/P (MAP) Pulse Ox O2 Delivery O2 Flow Rate FiO2 08/19/17 11:50 101 24 105/66 (79) 99 Room Air 08/19/17 10:39 97.5 105 18 122/64 (83) 97 I/O 08/18/17 08/18/17 08/18/17 08/19/17 08/19/17 08/19/17 07:00 15:00 23:00 07:00 15:00 23:00 Intake Total 1100 ml Balance 1100 ml Intake IV Total 1100 ml Laboratory Test 08/19/17 12:00 White Blood Count 30.1 TH/MM3 Red Blood Count 3.36 MIL/MM3 Hemoglobin 12.1 GM/DL Hematocrit 35.4 % Mean Corpuscular Volume 105.2 FL Mean Corpuscular Hemoglobin 35.9 PG Mean Corpuscular Hemoglobin Concent 34.2 % Red Cell Distribution Width 15.4 % Platelet Count 370 TH/MM3 Mean Platelet Volume 7.5 FL Neutrophils (%) (Auto) 91.0 % Lymphocytes (%) (Auto) 4.4 % Monocytes (%) (Auto) 4.1 % Eosinophils (%) (Auto) 0.3 % Basophils (%) (Auto) 0.2 % Neutrophils # (Auto) 27.4 TH/MM3 Lymphocytes # (Auto) 1.3 TH/MM3 Monocytes # (Auto) 1.2 TH/MM3 Eosinophils # (Auto) 0.1 TH/MM3 Basophils # (Auto) 0.1 TH/MM3 CBC Comment AUTO DIFF Differential Total Cells Counted 100 Neutrophils % (Manual) 64 % Band Neutrophils % 29 % Lymphocytes % 6 % Monocytes % 1 % Neutrophils # (Manual) 28.0 TH/MM3 Differential Comment FINAL DIFF MANUAL Toxic Granulation 1+ Toxic Vacuolation PRESENT Platelet Estimate NORMAL Platelet Morphology Comment NORMAL Prothrombin Time 17.0 SEC Prothromb Time International Ratio 1.7 RATIO Activated Partial Thromboplast Time 35.0 SEC Blood Urea Nitrogen 20 MG/DL Creatinine 2.00 MG/DL Random Glucose 115 MG/DL Total Protein 6.5 GM/DL Albumin 2.2 GM/DL Calcium Level 7.8 MG/DL Alkaline Phosphatase 405 U/L Aspartate Amino Transf (AST/SGOT) 166 U/L Alanine Aminotransferase (ALT/SGPT) 66 U/L Total Bilirubin 11.5 MG/DL Sodium Level 127 MEQ/L Potassium Level 3.4 MEQ/L Chloride Level 90 MEQ/L Carbon Dioxide Level 24.9 MEQ/L Anion Gap 12 MEQ/L Estimat Glomerular Filtration Rate 27 ML/MIN Lipase 104 U/L Ethyl Alcohol Level LESS THAN 3 MG/DL Date/Time Source Procedure Growth Status 08/19/17 13:10 Blood Line Aerobic Blood Culture Pending Received 08/19/17 13:10 Blood Line Anaerobic Blood Culture Pending Received Physical Examination HEENT: (+) icterus CHEST: Even/unlabored CARDIAC: RRR ABDOMEN: Distended, firm, diffuse TTP, bowel sounds active SKIN: (+) jaundice. 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 (Elle Baker) Assessment and Plan Plan Assessment: - Elevated LFTs- ? alcohol hepatitis- DF-35- LFTs elevated AST-166 ALT-66 T bili -11.5 and Alk phos- 405- Pt denies history of liver issues, however visit earlier this month reveal more significant elevated AST and ALT. T bili and Alk phos have never been this elevated. Pt reports tapering off ETOH over the past month, currently down to 2 glasses of wine a night Denies history of hepatitis, IV and illicit drug use, tattoos, unprotected sex , OTC medications, herbs, supplements, new prescription medication. - Complaining of abdominal pain and distention, states double in size over the past few days. Nausea and vomiting, mostly when she doesn't take her Prilosec, denies hematemesis and coffee ground emesis. Last EGD 6 mos ago in [place], states reflux otherwise normal - BRBPR- started with small amount states yesterday was a large amount of blood. Reports noticing a ribbon like substance in her stools. Denies previous colonoscopy CT abdomen and pelvis done in ER --> Hepatomegaly with suspected hepatic steatosis and mild ascites. Borderline splenomegaly - Leukocytosis- states night sweats- ? SBP Plan: EGD/colonoscopy tomorrow- indication BRBPR and GERD with N/V Obtain consent Clear liquids today GoLytely prep NPO after MN Liver GRIDER Abdominal US for diagnostic paracentesis if able MRCP to rule out obstruction Pentoxyfilline OK for steroids after SBP ruled out Rocephin for now Stool studies (reports of ribbon substance in stools) Monitor H/H Transfuse as needed Further recommendations based on findings of above Pt has been and examined by myself and Dr. Nunes and this note is written on her behalf (Elle Baker) Physician Comments seen, examined agree with above add Flagyl stool studies (Maci Nunes MD) Elle Baker Aug 19, 2017 14:54 Maci Nunes MD Aug 19, 2017 17:15
--- NOTE | 2017-08-19 15:24 | RADRPT ---
EXAM DATE/TIME: 08/19/2017 15:08 [facility] COMPARISON: No previous studies available for comparison. INDICATIONS : Ascities. MEDICAL HISTORY : Gastroesophageal reflux disease. Seizures. Nausea. Vomiting. SURGICAL HISTORY : Appendectomy. Back surgery. ENCOUNTER: Initial ACUITY: 1 day PAIN SCORE: 6/10 LOCATION: Abdomen. AREA EVALUATED: Abdomen. FINDINGS: Imaging of the abdomen and pelvis was performed to evaluate for ascites for possible paracentesis. O nly mild ascites is seen in the pelvis. This is too small to drain. The liver is enlarged and echogen ic. CONCLUSION: Mild ascites. Rohith Harman MD on August 19, 2017 at 15:20 Board Certified Radiologist. This report was verified electronically.
[2017-08-19 15:41] VITALS: BP 104/61
[2017-08-19 16:00] VITALS: BP 100/59; PULSE 98; RESP 18; TEMP 97.6; O2SAT 99
[2017-08-19] MEDS ORDERED: PEG (High)/E-LYTE SOLN 4000 ML BTL PO ONE (16:00)
--- NOTE | 2017-08-19 16:34 | RADRPT ---
EXAM DATE/TIME: 08/19/2017 15:50 [facility] COMPARISON: CT ABDOMEN & PELVIS W/O CONTRAST, August 19, 2017, 13:48. INDICATIONS : Abdominal pain. MEDICAL HISTORY : None. SURGICAL HISTORY : Appendectomy. Neurostimulator implanted/removed. ENCOUNTER: Initial ACUITY: 1 day PAIN SCORE: 5/10 LOCATION: Right upper quadrant TECHNIQUE: Multiplanar, multisequence magnetic resonance imaging of the abdomen was performed. High-resolution 3D dataset was utilized to reconstruct maximum-intensity projection (MIP) images. FINDINGS: INTRAHEPATIC BILE DUCTS: Within normal limits. No significant anatomical variant is present. EXTRAHEPATIC BILE DUCTS: The common bile duct measures 3 mm No stone or filling defect is identified. GALLBLADDER: The gallbladder is contracted. The gallbladder wall appears thickened secondary to the lack of disten tion. Gallbladder distention or gallstones are not seen. LIVER: The liver is enlarged extending to the iliac crest region and measuring 24 cm in length. The left lat eral aspect of the liver extends to the splenic hilum region and left lateral abdominal wall. There i s mild decreased signal throughout the liver on the opposed phase images consistent with hepatic stea tosis. PANCREAS: The main pancreatic duct is normal in size. There is no significant anatomical variant. Signal inte nsity is within normal limits. No mass is visualized on this non-contrast exam. OTHER: The spleen is enlarged measuring 13.9 cm in length. There is mild amount of ascites in the paracolic gutter regions. There is minimal ascites seen around the hepatic and splenic margins. CONCLUSION: 1. Hepatosplenomegaly. 2. Mild hepatic steatosis. 3. Mild ascites. 4. No biliary duct dilatation. 5. Contracted gallbladder with gallstones. Rohith Harman MD on August 19, 2017 at 16:26 Board Certified Radiologist. This report was verified electronically.
[2017-08-19 17:50] LABS: HEMATOCRIT 32.6 % (35.0-46.0); HEMOGLOBIN 11.5 GM/DL (11.6-15.3); MEAN CELL VOLUME 104.9 FL (80.0-100.0); MEAN CORPUSCULAR HGB CONC 35.2 % (32.0-36.0); MEAN PLATELET VOLUME 7.3 FL (7.0-11.0); PLATELET COUNT 360 TH/MM3 (150-450); RED BLOOD COUNT 3.11 MIL/MM3 (4.00-5.30); RED CELL DISTRIBUTION WIDTH 15.2 % (11.6-17.2); WHITE BLOOD COUNT 29.1 TH/MM3 (4.0-11.0)
[2017-08-19] MEDS: metroNIDAZOLE 500 MG INJ 100 ML IV SCH (17:52)
[2017-08-19 17:55] LABS: BACTERIA, URINE OCC /hpf; BILIRUBIN, URINE LARGE (NEG); BLOOD, URINE TRACE (NEG); GLUCOSE,URINE NEG (NEG); HYALINE CAST, URINE 40 /lpf (RARE); KETONE, URINE NEG (NEG); MUCUS URINE FEW /lpf (OCC); NITRITE,URINE NEG (NEG); PH, URINE 5.5 (5.0-8.5); RENAL EPITHELIAL CELLS 4 /hpf; SQUAMOUS EPITHELIAL CELL URINE 53 /hpf (0-5); TRANSITIONAL EPI CELLS, URINE 5 /hpf; URINE COLOR DARK-BROWN (YELLW/STRAW); URINE LEUKOCYTE ESTERASE NEG (NEG)
[2017-08-19 18:30] LABS: % SATURATION IRON PROFILE 44.7 % (20-50); IRON (FE) 57 MCG/DL (50-170); TOTAL IRON BINDING CAPACITY 127 MCG/DL (250-450)
[2017-08-19 18:33] LABS: FERRITIN 577 NG/ML (8-252); TOTAL PROTEIN 6.1 GM/DL (6.4-8.2)
[2017-08-19 20:00] VITALS: BP 113/59; PULSE 107; RESP 18; TEMP 97.6; O2SAT 94
[2017-08-19] MEDS: SODIUM CHLORIDE 0.9% FLUSH 10 ML FLUSH IV FLUSH SCH (21:00)
[2017-08-19] MEDS: FOLIC ACID 1 MG TAB PO SCH (21:28)
[2017-08-19] MEDS: ONDANSETRON HCL 4 MG/2 ML VIAL IVP PRN (21:40)
[2017-08-19] MEDS: THIAMINE INJ 100 MG in SODIUM CHLORIDE 0.9% INJ 100 ML IV SCH (23:51)
[2017-08-19] MEDS: PENTOXIFYLLINE 400 MG CONTROLLED RELEASE TAB PO SCH (23:51)
[2017-08-20] VITALS (8 sets, daily range): BP systolic 101–131; BP diastolic 55–69; PULSE 92–109; RESP 16–22; TEMP 97.5–98.1; O2SAT 94–97
[2017-08-20] MEDS: metroNIDAZOLE 500 MG INJ 100 ML IV SCH ×4 (01:50→17:32)
[2017-08-20] MEDS: SODIUM CHLOR 0.9% 1000 ML INJ 1,000 ML IV SCH ×3 (01:53→21:46)
[2017-08-20] MEDS: PENTOXIFYLLINE 400 MG CONTROLLED RELEASE TAB PO SCH ×3 (05:29→21:45)
[2017-08-20] MEDS: MORPHINE SULFATE 4 MG/ML INJ IV PUSH PRN ×4 (05:30→18:53)
[2017-08-20 07:24] LABS: AUTOMATED NEUTROPHIL # 15.9 TH/MM3 (1.8-7.7); BASOPHIL # 0.1 TH/MM3 (0-0.2); BASOPHIL % 0.5 % (0.0-2.0); EOSINOPHIL % 0.2 % (0.0-4.0); HEMATOCRIT 34.4 % (35.0-46.0); HEMOGLOBIN 11.8 GM/DL (11.6-15.3); LYMPH % 30.9 % (9.0-44.0); LYMPHOCYTE # 7.6 TH/MM3 (1.0-4.8); MEAN CELL VOLUME 106.4 FL (80.0-100.0); MEAN CORPUSCULAR HEMOGLOBIN 36.3 PG (27.0-34.0); MEAN CORPUSCULAR HGB CONC 34.2 % (32.0-36.0); MEAN PLATELET VOLUME 7.2 FL (7.0-11.0); MONO % 3.4 % (0.0-8.0); MONOCYTE # 0.8 TH/MM3 (0-0.9); PLATELET COUNT 393 TH/MM3 (150-450); RED BLOOD COUNT 3.24 MIL/MM3 (4.00-5.30); RED CELL DISTRIBUTION WIDTH 15.3 % (11.6-17.2); WHITE BLOOD COUNT 24.4 TH/MM3 (4.0-11.0)
[2017-08-20 07:31] LABS: BICARBONATE 22.7 MEQ/L (21.0-32.0); CALCIUM 7.5 MG/DL (8.5-10.1); CREATININE 1.6 MG/DL (0.50-1.00)
--- NOTE | 2017-08-20 08:31 | PD.PN.STU ---
Subjective Remarks Follow up for alcoholic hepatitis, severe sepsis, GI bleed. Patient is resting comfortably in bed. Currently NPO. She states her abdominal distention is decreasing. Reports to still be having blood in stool. She reports pain is under control. Denies fever, chills. Objective Vitals Vital Signs Date Time Temp Pulse Resp B/P (MAP) Pulse Ox O2 Delivery O2 Flow Rate FiO2 08/20/17 04:00 97.6 109 18 131/58 (82) 95 08/20/17 00:00 97.9 92 16 119/57 (77) 96 08/19/17 20:00 97.6 107 18 113/59 (77) 94 08/19/17 16:00 97.6 98 18 100/59 (73) 99 08/19/17 15:41 104/61 (75) 08/19/17 15:20 (79) 98 08/19/17 11:50 101 24 105/66 (79) 99 Room Air 08/19/17 10:39 97.5 105 18 122/64 (83) 97 I/O 08/19/17 08/19/17 08/19/17 08/20/17 08/20/17 08/20/17 07:00 15:00 23:00 07:00 15:00 23:00 Intake Total 1100 ml 100 ml Balance 1100 ml 100 ml Intake IV Total 1100 ml 100 ml # Bowel Movements 5 Result Diagram: 08/20/17 0636 08/20/17 0636 Imaging Last Impressions Abdomen/Pelvis CT 08/19/17 0000 Signed Impressions: Service Date/Time: Saturday, August 19, 2017 13:48 - CONCLUSION: 1. Hepatomegaly with suspected hepatic steatosis and mild ascites. 2. Borderline splenomegaly. Rohith Harman MD [facility] US - mild ascites. Objective Remarks GENERAL: Alert, oriented x3, NAD. SKIN: Warm and dry. Yellowish discoloration. HEAD: Normocephalic. EYES: No scleral icterus. No injection or drainage. Icterus conjunctiva. NECK: Supple, trachea midline. No JVD or lymphadenopathy. CARDIOVASCULAR: Regular rate and rhythm without murmurs, gallops, or rubs. RESPIRATORY: Breath sounds equal bilaterally. No accessory muscle use. GASTROINTESTINAL: Abdomen soft, diffusely tender, distended. Bowel sounds present. MUSCULOSKELETAL: No cyanosis, or edema. BACK: Nontender without obvious deformity. No CVA tenderness. Procedures MRCP 1. Hepatosplenomegaly. 2. Mild hepatic steatosis. 3. Mild ascites. 4. No biliary duct dilatation. 5. Contracted gallbladder with gallstones. A/P Assessment and Plan Ms. Lim is a 42 year old female with a history of alcohol abuse who presented to the ER on 08/19for abdominal pain of 2 weeks duration. She reported the pain to have gotten worse in the last two days. She also had yellowing of her conjunctiva. - Severe sepsis (Tachycardia, WBC 30.1, Suspected infection SBP, organ dysfunction Creatinine 2.0). -on 08/20, patient remains tachycardic, with a down-trending WBC 29.1 on 08/19 to 24.4 on 08/20. - Possible Spontaneous bacterial peritonitis - Alcoholic liver hepatitis - Abd US shows small ascites - Continue ceftriaxone 2g Q24hrs for SBP. - diagnostic paracentesis. Will discuss with radiology today to see of Dx Thoracentesis is possible. - Maddrey's discrimination factor 35.9 (PT 17, Bili 11.5). - Will continue Pentoxifylline for now. IF SBP ruled out, we will consider Prednisolone 40mg Qday for 28 days then taper. - Probable lower GI bleed - GI evaluated patient. EGD/Colonoscopy this afternoon - Alcohol abuse - Continue Thiamine, Folic acid, CIWA protocol. - Patient is motivated to quit drinking. - Acute kidney injury - Likely due to poor water intake. -Potassium down from 3.4 on 08/19 to 2.7 on 08/20, will replete. - Creatinine trending down, 2.0 on 08/19 to 1.6 08/20 - Will monitor. Full code. SCDs. Discharge Planning D/C pending workup and symptom resolution Yifan Toth M3 Aug 20, 2017 08:31
[2017-08-20] MEDS: THIAMINE INJ 100 MG in SODIUM CHLORIDE 0.9% INJ 100 ML IV SCH ×2 (09:00→13:09)
[2017-08-20 09:07] LABS: BANDS 16 % (0-6); LYMPHOCYTES 5 % (9-44); MONOCYTES 6 % (0-8); NEUTROPHIL # MANUAL DIFF 21.7 TH/MM3 (1.8-7.7); POLYS (SEG NEUTROPHILS) 73 % (16-70)
[2017-08-20 09:08] LABS: TARGET CELLS 1+ (NORMAL); TOXIC GRANULATION 2+ (NORMAL)
[2017-08-20] MEDS: SODIUM CHLORIDE 0.9% FLUSH 10 ML FLUSH IV FLUSH SCH ×2 (11:52→21:46)
[2017-08-20] MEDS: FOLIC ACID 1 MG TAB PO SCH (11:52)
[2017-08-20] MEDS ORDERED: PROPOFOL 200 MG/20 ML AMP IV ONE (12:00)
[2017-08-20] MEDS ORDERED: LIDOCAINE HCL 1% PF 5 ML SYRINGE OTHER ONE (12:00)
--- NOTE | 2017-08-20 12:01 | PD.PROCEDR ---
GI Procedure PROCEDURE PERFORMED EGD with biopsy followed by colonoscopy with biopsy INDICATION FOR PROCEDURE Abdominal pain, bright red blood per rectum PROCEDURE: The procedure, risks and benefits were discussed with Ms. Lim and informed consent was obtained. Anesthesia sedated her with Diprivan. She was placed in the left lateral decubitus position. EGD: The Pentax videoscope was introduced through the oropharynx and advanced to the second portion of the duodenum under direct visualization. Retroflexion was performed in the stomach. FINDINGS: The esophagus this was unremarkable with normal limits Stomach there was some punctate and patchy erythema in the antrum and body but no ulcerations no erosions no blood or bleeding this was biopsied The duodenum this was normal Colonoscopy: The Pentax videoscope was introduced through the rectum and advanced to cecum where the ileocecal valve and appendiceal orifice were identified. Retroflexion was performed in the rectum. Colonic prep was good FINDINGS: Colonic withdrawal time greater than 6 minutes. As the scope was slowly withdrawn colonic mucosa was carefully inspected the patient was noted to have a small polyp in the rectum this was excised using cold biopsy forceps colonoscopy was otherwise unremarkable retroflexion did reveal small size internal hemorrhoids and rectal examination also revealed small size external hemorrhoids ESTIMATED BLOOD LOSS: None SPECIMENS REMOVED: Gastric and colon polyp COMPLICATIONS: None IMPRESSION: gastritis Colon polyp Internal and external hemorrhoids PLAN: Await biopsies Supportive care Colonoscopy in 5 years Avoid straining when defecating High-fiber diet Jacky Groves MD Aug 20, 2017 12:01
[2017-08-20] MEDS: POTASSIUM CHLOR 20 MEQ PREMIX 100 ML IV SCH ×2 (13:03→15:14)
[2017-08-20] MEDS ORDERED: POTASSIUM CHLORIDE 10 MEQ CONTROLLED RELEASE TAB PO ONE (13:45)
[2017-08-20] MEDS ORDERED: POTASSIUM CHLOR 20 MEQ PREMIX 100 ML IV SCH (15:00)
[2017-08-20] MEDS: cefTRIAXone INJ 2,000 MG in SODIUM CHLORIDE 0.9% INJ 100 ML IV SCH (15:14)
[2017-08-20] MEDS: ONDANSETRON HCL 4 MG/2 ML VIAL IVP PRN ×2 (15:39→21:44)
--- NOTE | 2017-08-20 16:34 | HHI.PR ---
Subjective Remarks Follow-up for alcoholic liver disease. Patient is currently doing well. Her abdomen feels less distended to her. She wants to eat. No nausea vomiting. No fever or chills. Objective Vitals Vital Signs Date Time Temp Pulse Resp B/P (MAP) Pulse Ox O2 Delivery O2 Flow Rate FiO2 08/20/17 12:00 97.5 104 17 126/69 (88) 97 08/20/17 11:25 105 18 121/83 (96) 96 08/20/17 08:34 97.5 105 22 101/55 (70) 96 08/20/17 08:00 109 08/20/17 04:00 97.6 109 18 131/58 (82) 95 08/20/17 00:00 97.9 92 16 119/57 (77) 96 08/19/17 20:00 97.6 107 18 113/59 (77) 94 I/O 08/19/17 08/19/17 08/19/17 08/20/17 08/20/17 08/20/17 07:00 15:00 23:00 07:00 15:00 23:00 Intake Total 1100 ml 100 ml 500 ml Balance 1100 ml 100 ml 500 ml Intake IV Total 1100 ml 100 ml Other 500 ml # Bowel Movements 5 Result Diagram: 08/20/17 0636 08/20/17 0636 Imaging Last Impressions Cholangiopancreatography MRI 08/19/17 0000 Signed Impressions: Service Date/Time: Saturday, August 19, 2017 15:50 - CONCLUSION: 1. Hepatosplenomegaly. 2. Mild hepatic steatosis. 3. Mild ascites. 4. No biliary duct dilatation. 5. Contracted gallbladder with gallstones. Rohith Harman MD Abdomen/Pelvis CT 08/19/17 0000 Signed Impressions: Service Date/Time: Saturday, August 19, 2017 13:48 - CONCLUSION: 1. Hepatomegaly with suspected hepatic steatosis and mild ascites. 2. Borderline splenomegaly. Rohith Harman MD Abdomen Ultrasound 08/19/17 0000 Signed Impressions: Service Date/Time: Saturday, August 19, 2017 15:08 - CONCLUSION: Mild ascites. Rohith Harman MD Objective Remarks GENERAL: Alert, oriented 3, NAD. SKIN: Warm and dry. Jaundiced skin HEAD: Normocephalic. EYES: No scleral icterus. No injection or drainage. Icterus sclerae NECK: Supple, trachea midline. No JVD or lymphadenopathy. CARDIOVASCULAR: Regular rate and rhythm without murmurs, gallops, or rubs. RESPIRATORY: Breath sounds equal bilaterally. No accessory muscle use. GASTROINTESTINAL: Abdomen soft, somewhat distended, diffusely tender to deep palpation especially upper quadrants. MUSCULOSKELETAL: No cyanosis, or edema. BACK: Nontender without obvious deformity. No CVA tenderness. Procedures EGD, colonoscopy 08/20/2017. gastritis Colon polyp Internal and external hemorrhoids A/P Problem List: (1) Severe sepsis ICD Code: A41.9 - Sepsis, unspecified organism; R65.20 - Severe sepsis without septic shock (2) KATELYN (acute kidney injury) ICD Code: N17.9 - Acute kidney failure, unspecified (3) Alcoholic liver disease ICD Code: K70.9 - Alcoholic liver disease, unspecified (4) Alcohol dependence ICD Code: F10.20 - Alcohol dependence, uncomplicated Status: Acute Assessment and Plan Ms. Lim is a 42 year old female with a history of alcoholism who presented to the ED due to worsening abdominal pain that started about two weeks prior to this admission. Particularly worse pain in the last two days as well as yellowish discoloration of her conjunctiva. - Severe sepsis (Tachycardia, WBC 30.1, Suspected infection SBP, organ dysfunction Creatinine 2.0). - Possible Spontaneous bacterial peritonitis - Alcoholic liver hepatitis - Abd US shows small ascites - We will empirically start Ceftriaxone 2g Q24hrs for SBP. -Patient was evaluated for possible diagnostic paracentesis. However she has very small amount of fluid. Paracentesis was not done. -Given patient's significant leukocytosis, SBP remains a concern. We will continue antibiotics for 7 days. Will switch to p.o. antibiotics tomorrow. - Maddrey's discrimination factor 35.9 (PT 17, Bili 11.5). - Will continue Pentoxifylline for now. - Probable lower GI bleed - GI evaluated patient. EGD and colonoscopy completed on 08/20/2017 --> gastritis, colonic polyp, internal and external hemorrhoids. Repeat colonoscopy in 5 years. High-fiber diet recommended. - Alcohol abuse - Thiamine, Folic acid, CIWA protocol. - Patient is motivated to quit drinking. - Acute kidney injury -Severe hypokalemia - Likely due to poor water intake. - Creatinine 2.0 --> 1.60, baseline below 1.0 - Replace potassium with IV and p.o. potassium chloride. Magnesium was 1.9. Full code. SCDs. Probable discharge tomorrow 08/21/2017. Aniya Montes DO Aug 20, 2017 4:34 pm
[2017-08-20] MEDS: POTASSIUM CHLORIDE 20 MEQ CONTROLLED RELEASE TAB PO SCH (21:45)
[2017-08-20] MEDS: CIPROFLOXACIN 500 MG TAB PO SCH (21:45)
[2017-08-21] VITALS (10 sets, daily range): BP systolic 81–120; BP diastolic 50–80; PULSE 96–130; RESP 18–20; TEMP 97.5–98.8; O2SAT 95–99
[2017-08-21] MEDS: metroNIDAZOLE 500 MG INJ 100 ML IV SCH ×2 (00:37→06:15)
[2017-08-21] MEDS: MORPHINE SULFATE 4 MG/ML INJ IV PUSH PRN ×3 (00:48→19:57)
[2017-08-21] MEDS: SODIUM CHLOR 0.9% 1000 ML INJ 1,000 ML IV SCH (06:00)
[2017-08-21] MEDS: PENTOXIFYLLINE 400 MG CONTROLLED RELEASE TAB PO SCH ×3 (06:16→21:50)
[2017-08-21] MEDS: ONDANSETRON HCL 4 MG/2 ML VIAL IVP PRN ×2 (07:39→17:00)
--- NOTE | 2017-08-21 07:46 | PD.PN.STU ---
Subjective Remarks Follow up for alcoholic hepatitis. Patient complains of nausea and vomiting after dinner last night. Nausea again this am. She also reports leg swelling. No fever, chills. Objective Vitals Vital Signs Date Time Temp Pulse Resp B/P (MAP) Pulse Ox O2 Delivery O2 Flow Rate FiO2 08/21/17 06:25 18 08/21/17 06:00 98.1 100 18 120/80 (93) 99 08/21/17 04:00 98 08/21/17 02:32 97.5 107 18 110/70 (83) 98 08/21/17 00:00 96 08/20/17 23:13 97.5 105 18 106/67 (80) 96 08/20/17 20:00 103 08/20/17 16:00 98.1 106 18 106/62 (77) 94 08/20/17 12:00 97.5 104 17 126/69 (88) 97 08/20/17 11:25 105 18 121/83 (96) 96 08/20/17 08:34 97.5 105 22 101/55 (70) 96 08/20/17 08:00 109 I/O 08/20/17 08/20/17 08/20/17 08/21/17 08/21/17 08/21/17 07:00 15:00 23:00 07:00 15:00 23:00 Intake Total 500 ml 1425 ml 844 ml Balance 500 ml 1425 ml 844 ml Intake IV Total 1425 ml 844 ml Other 500 ml # Voids 2 5 # Bowel Movements 5 Result Diagram: 08/20/17 0636 08/20/17 0636 Imaging Last Impressions Cholangiopancreatography MRI 08/19/17 0000 Signed Impressions: Service Date/Time: Saturday, August 19, 2017 15:50 - CONCLUSION: 1. Hepatosplenomegaly. 2. Mild hepatic steatosis. 3. Mild ascites. 4. No biliary duct dilatation. 5. Contracted gallbladder with gallstones. Rohith Harman MD Abdomen/Pelvis CT 08/19/17 0000 Signed Impressions: Service Date/Time: Saturday, August 19, 2017 13:48 - CONCLUSION: 1. Hepatomegaly with suspected hepatic steatosis and mild ascites. 2. Borderline splenomegaly. Rohith Harman MD Abdomen Ultrasound 08/19/17 0000 Signed Impressions: Service Date/Time: Saturday, August 19, 2017 15:08 - CONCLUSION: Mild ascites. Rohith Harman MD Objective Remarks GENERAL: Alert, oriented x3, NAD SKIN: Warm and dry. Jaundice HEAD: Normocephalic. EYES: Scleral icterus. No injection or drainage. NECK: Supple, trachea midline. No JVD or lymphadenopathy. CARDIOVASCULAR: Regular rate and rhythm without murmurs, gallops, or rubs. RESPIRATORY: Breath sounds equal bilaterally. No accessory muscle use. GASTROINTESTINAL: Abdomen soft, diffusely tender, distended. MUSCULOSKELETAL: No cyanosis. Slight lower extremity edema. BACK: Nontender without obvious deformity. No CVA tenderness. Procedures EGD/ Colonoscopy gastritis polyps external and internal hemorrhoids A/P Assessment and Plan Ms. Lim is a 42 year old female with a history of alcohol abuse who presented to the ER on 08/19 for abdominal pain of 2 weeks duration. She reported the pain to have gotten worse in the last two days. She also had yellowing of her conjunctiva. - Severe sepsis (Tachycardia, WBC 30.1, Suspected infection SBP, organ dysfunction Creatinine 2.0). -on 08/20, patient remains tachycardic, with a down-trending WBC 29.1 on 08/19 to 24.4 on 08/20. - Possible Spontaneous bacterial peritonitis - Alcoholic liver hepatitis - Abd US shows small ascites - diagnostic paracentesis failed due to low amount of fluid, will continue ceftriaxone 2g Q24hrs to empirically treat SBP, switch to PO today - Maddrey's discrimination factor 35.9 on admission(PT 17, Bili 11.5). - Continue Pentoxifylline for now - Probable lower GI bleed - GI evaluated patient. EGD/Colonoscopy revealed gastritis, polyps, external and internal hemorrhoids - Alcohol abuse - Continue Thiamine, Folic acid, CIWA protocol. - Patient is motivated to quit drinking. - Acute kidney injury - Likely due to poor water intake. -Potassium down from 3.4 on 08/19 to 2.7 on 08/20, will replete. - Creatinine trending down, 2.0 on 08/19 to 1.6 08/20 -Magnesium was 1.9. - Recheck lytes today Full code. SCDs. Discharge Planning D/C home later today if tolerating PO antibiotics Yifan Toth M3 Aug 21, 2017 07:46
[2017-08-21 08:42] LABS: AUTOMATED NEUTROPHIL # 18.4 TH/MM3 (1.8-7.7); BASOPHIL # 0.2 TH/MM3 (0-0.2); EOSINOPHIL # 0.1 TH/MM3 (0-0.4); EOSINOPHIL % 0.3 % (0.0-4.0); HEMATOCRIT 31.8 % (35.0-46.0); HEMOGLOBIN 11.5 GM/DL (11.6-15.3); LYMPH % 7.2 % (9.0-44.0); LYMPHOCYTE # 1.6 TH/MM3 (1.0-4.8); MEAN CELL VOLUME 106.4 FL (80.0-100.0); MEAN CORPUSCULAR HEMOGLOBIN 38.4 PG (27.0-34.0); MEAN PLATELET VOLUME 7.2 FL (7.0-11.0); MONO % 5.4 % (0.0-8.0); MONOCYTE # 1.2 TH/MM3 (0-0.9); NEUT % 86.1 % (16.0-70.0); PLATELET COUNT 338 TH/MM3 (150-450); RED BLOOD COUNT 2.99 MIL/MM3 (4.00-5.30); RED CELL DISTRIBUTION WIDTH 15.5 % (11.6-17.2); WHITE BLOOD COUNT 21.4 TH/MM3 (4.0-11.0)
[2017-08-21 08:47] LABS: MEAN CORPUSCULAR HGB CONC 36.1 % (32.0-36.0)
[2017-08-21] MEDS: CIPROFLOXACIN 500 MG TAB PO SCH (09:00)
[2017-08-21] MEDS: POTASSIUM CHLORIDE 20 MEQ CONTROLLED RELEASE TAB PO SCH ×2 (09:00→19:57)
[2017-08-21] MEDS: FOLIC ACID 1 MG TAB PO SCH (09:00)
[2017-08-21] MEDS: SODIUM CHLORIDE 0.9% FLUSH 10 ML FLUSH IV FLUSH SCH ×2 (09:00→19:58)
[2017-08-21 09:16] LABS: ALBUMIN 1.8 GM/DL (3.4-5.0); BICARBONATE 23.7 MEQ/L (21.0-32.0); CALCIUM 7.2 MG/DL (8.5-10.1); CALCIUM-PROTEIN CORRECTED 7.8 MG/DL (8.5-10.1); CREATININE 1.04 MG/DL (0.50-1.00); TOTAL BILIRUBIN ADULT 11.6 MG/DL (0.2-1.0); TOTAL PROTEIN 5.9 GM/DL (6.4-8.2)
[2017-08-21 09:19] LABS: BANDS 27 % (0-6); LYMPHOCYTES 3 % (9-44); MONOCYTES 4 % (0-8); NEUTROPHIL # MANUAL DIFF 19.9 TH/MM3 (1.8-7.7); POLYS (SEG NEUTROPHILS) 66 % (16-70)
[2017-08-21 09:21] LABS: TOXIC GRANULATION 1+ (NORMAL); TOXIC VACUOLATION PRESENT (NONE SEEN)
[2017-08-21] MEDS ORDERED: PROCHLORPERAZINE 25 MG SUPP RECTAL PRN (10:15)
[2017-08-21] MEDS ORDERED: CALCIUM GLUCONATE INJ 1 GM in SODIUM CHLORIDE 0.9% INJ 100 ML IV ONE (11:45)
--- NOTE | 2017-08-21 12:08 | HHI.GIFU ---
Subjective Remarks Resting in the bed Answers questions appropriately but demeanor is quiet No obvious bleeding globin stable at 11.5 Likely tachycardic pulse rate 107 (Gita Wynne) Objective Vitals I&O Vital Signs Date Time Temp Pulse Resp B/P (MAP) Pulse Ox O2 Delivery O2 Flow Rate FiO2 08/21/17 08:00 107 08/21/17 08:00 97.6 107 20 106/58 (74) 96 08/21/17 06:25 18 08/21/17 06:00 98.1 100 18 120/80 (93) 99 08/21/17 04:00 98 08/21/17 02:32 97.5 107 18 110/70 (83) 98 08/21/17 00:00 96 08/20/17 23:13 97.5 105 18 106/67 (80) 96 08/20/17 20:00 103 08/20/17 16:00 98.1 106 18 106/62 (77) 94 08/20/17 12:00 97.5 104 17 126/69 (88) 97 I/O 08/20/17 08/20/17 08/20/17 08/21/17 08/21/17 08/21/17 07:00 15:00 23:00 07:00 15:00 23:00 Intake Total 500 ml 1425 ml 844 ml Balance 500 ml 1425 ml 844 ml Intake IV Total 1425 ml 844 ml Other 500 ml # Voids 2 5 # Bowel Movements 5 Laboratory Laboratory Tests Test 08/21/17 07:03 White Blood Count 21.4 Red Blood Count 2.99 Hemoglobin 11.5 Hematocrit 31.8 Mean Corpuscular Volume 106.4 Mean Corpuscular Hemoglobin 38.4 Mean Corpuscular Hemoglobin Concent 36.1 Red Cell Distribution Width 15.5 Platelet Count 338 Mean Platelet Volume 7.2 Neutrophils (%) (Auto) 86.1 Lymphocytes (%) (Auto) 7.2 Monocytes (%) (Auto) 5.4 Eosinophils (%) (Auto) 0.3 Basophils (%) (Auto) 1.0 Neutrophils # (Auto) 18.4 Lymphocytes # (Auto) 1.6 Monocytes # (Auto) 1.2 Eosinophils # (Auto) 0.1 Basophils # (Auto) 0.2 CBC Comment AUTO DIFF Differential Total Cells Counted 100 Neutrophils % (Manual) 66 Band Neutrophils % 27 Lymphocytes % 3 Monocytes % 4 Neutrophils # (Manual) 19.9 Differential Comment FINAL DIFF MANUAL Toxic Granulation 1+ Toxic Vacuolation PRESENT Platelet Estimate NORMAL Platelet Morphology Comment ENLARGED Blood Urea Nitrogen 13 Creatinine 1.04 Random Glucose 86 Total Protein 5.9 Albumin 1.8 Calcium Level 7.2 Alkaline Phosphatase 381 Aspartate Amino Transf (AST/SGOT) 142 Alanine Aminotransferase (ALT/SGPT) 49 Total Bilirubin 11.6 Sodium Level 131 Potassium Level 3.4 Chloride Level 98 Carbon Dioxide Level 23.7 Anion Gap 9 Estimat Glomerular Filtration Rate 58 Protein Corrected Calcium 7.8 Date/Time Source Procedure Growth Status 08/19/17 13:10 Blood Line Aerobic Blood Culture - Preliminary NO GROWTH IN 2 DAYS Resulted 08/19/17 13:10 Blood Line Anaerobic Blood Culture - Preliminary NO GROWTH IN 2 DAYS Resulted 08/19/17 14:30 Urine Clean Catch Urine Culture - Final 50-100,000 CFU/ML MIXED JACKSON... Complete Imaging Last Impressions Cholangiopancreatography MRI 08/19/17 0000 Signed Impressions: Service Date/Time: Saturday, August 19, 2017 15:50 - CONCLUSION: 1. Hepatosplenomegaly. 2. Mild hepatic steatosis. 3. Mild ascites. 4. No biliary duct dilatation. 5. Contracted gallbladder with gallstones. Rohith Harman MD Abdomen/Pelvis CT 08/19/17 0000 Signed Impressions: Service Date/Time: Saturday, August 19, 2017 13:48 - CONCLUSION: 1. Hepatomegaly with suspected hepatic steatosis and mild ascites. 2. Borderline splenomegaly. Rohith Harman MD Abdomen Ultrasound 08/19/17 0000 Signed Impressions: Service Date/Time: Saturday, August 19, 2017 15:08 - CONCLUSION: Mild ascites. Rohith Harman MD Physical Exam HEENT: Pupils round and reactive to light; normocephalic; atraumatic; no jaundice. Throat is clear. NECK: Neck is supple, CHEST: Chest is clear to auscultation and percussion. CARDIAC: Regular rate and tachycardic rhythm` ABDOMEN: taut, Soft, mild distention, nontender; bowel sounds are present in all four quadrants. EXTREMITIES: No clubbing, cyanosis, or edema. SKIN: Normal; no rash; no jaundice. PELLETIZER TENDER: No focal deficits; alert and oriented times three. ([place],Gita M. CRATE LINER) Assessment and Plan Plan Assessment: - Elevated LFTs- ? alcohol hepatitis- DF-35- LFTs elevated AST-166 ALT-66 T bili -11.5 and Alk phos- 405- Pt denies history of liver issues, however visit earlier this month reveal more significant elevated AST and ALT. T bili and Alk phos have never been this elevated. Pt reports tapering off ETOH over the past month, currently down to 2 glasses of wine a night Denies history of hepatitis, IV and illicit drug use, tattoos, unprotected sex , OTC medications, herbs, supplements, new prescription medication. - Complaining of abdominal pain and distention, states double in size over the past few days. Nausea and vomiting, mostly when she doesn't take her Prilosec, denies hematemesis and coffee ground emesis. Last EGD 6 mos ago in [place], states reflux otherwise normal - BRBPR- started with small amount states yesterday was a large amount of blood. Reports noticing a ribbon like substance in her stools. Denies previous colonoscopy CT abdomen and pelvis done in ER --> Hepatomegaly with suspected hepatic steatosis and mild ascites. Borderline splenomegaly - Leukocytosis- states night sweats- ? SBP Egd/Colonoscopy 08/20/17 Found gastritis, Colon polyp , Internal and external hemorrhoids 08/21/17 denies any symptoms of nausea and vomiting, appetite is fair, diarrhea yesterday none today. 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 PLAN: Await biopsies Supportive care Colonoscopy in 5 years Avoid straining when defecating High-fiber diet Pentoxyfilline Further recommendations follow-up as outpatient, or based on symptoms Pt has been and examined by myself and Dr. Groves and this note is written on his behalf (Gita Wynne) Physician Comments Patient seen and examined Agree with above Continue with current supportive care Monitor labs Patient with alcoholic hepatitis Patient needs to stop alcohol Would recommend low-salt diet Follow-up with GI post discharge Not much to add from a GI perspective We will sign off (Jacky Groves MD) Gita Wynne Aug 21, 2017 12:08 Jacky Groves MD Aug 21, 2017 21:23
[2017-08-21] MEDS: METOCLOPRAMIDE HCL 10 MG/2 ML VIAL IV PUSH PRN ×2 (13:12→21:52)
[2017-08-21 14:04] LABS: SMOOTH MUSCLE TOTAL AUTOABS Negative (Negative)
[2017-08-21] MEDS: cefTRIAXone INJ 2,000 MG in SODIUM CHLORIDE 0.9% INJ 100 ML IV SCH (19:57)
--- NOTE | 2017-08-21 20:16 | HHI.PR ---
Subjective Remarks Follow up for alcoholic liver disease. Patient reports significant abdominal distention, pain as well. No fever, chills. Objective Vitals Vital Signs Date Time Temp Pulse Resp B/P (MAP) Pulse Ox O2 Delivery O2 Flow Rate FiO2 08/21/17 17:24 98.8 130 20 104/63 (77) 96 08/21/17 16:00 98.8 121 20 81/50 (60) 96 08/21/17 12:00 98.1 103 20 101/50 (67) 96 08/21/17 10:40 95 21 08/21/17 08:00 107 08/21/17 08:00 97.6 107 20 106/58 (74) 96 08/21/17 06:25 18 08/21/17 06:00 98.1 100 18 120/80 (93) 99 08/21/17 04:00 98 08/21/17 02:32 97.5 107 18 110/70 (83) 98 08/21/17 00:00 96 08/20/17 23:13 97.5 105 18 106/67 (80) 96 08/20/17 20:00 103 I/O 08/20/17 08/20/17 08/20/17 08/21/17 08/21/17 08/21/17 06:59 14:59 22:59 06:59 14:59 22:59 Intake Total 500 ml 1425 ml 844 ml 580 ml Balance 500 ml 1425 ml 844 ml 580 ml Intake Oral 480 ml IV Total 1425 ml 844 ml 100 ml Other 500 ml # Voids 2 5 3 # Bowel Movements 5 Result Diagram: 08/21/17 0703 08/21/17 0703 Imaging Last Impressions Cholangiopancreatography MRI 08/19/17 0000 Signed Impressions: Service Date/Time: Saturday, August 19, 2017 15:50 - CONCLUSION: 1. Hepatosplenomegaly. 2. Mild hepatic steatosis. 3. Mild ascites. 4. No biliary duct dilatation. 5. Contracted gallbladder with gallstones. Rohith Harman MD Abdomen/Pelvis CT 08/19/17 0000 Signed Impressions: Service Date/Time: Saturday, August 19, 2017 13:48 - CONCLUSION: 1. Hepatomegaly with suspected hepatic steatosis and mild ascites. 2. Borderline splenomegaly. Rohith Harman MD Abdomen Ultrasound 08/19/17 0000 Signed Impressions: Service Date/Time: Saturday, August 19, 2017 15:08 - CONCLUSION: Mild ascites. Rohith Harman MD Objective Remarks GENERAL: Alert, oriented 3, NAD. SKIN: Warm and dry. Jaundiced skin HEAD: Normocephalic. EYES: No scleral icterus. No injection or drainage. Icterus sclerae NECK: Supple, trachea midline. No JVD or lymphadenopathy. CARDIOVASCULAR: Regular rate and rhythm without murmurs, gallops, or rubs. RESPIRATORY: Breath sounds equal bilaterally. No accessory muscle use. GASTROINTESTINAL: Abdomen soft, somewhat distended, diffusely tender to deep palpation especially upper quadrants. MUSCULOSKELETAL: No cyanosis, or edema. BACK: Nontender without obvious deformity. No CVA tenderness. Procedures EGD, colonoscopy 08/20/2017. gastritis Colon polyp Internal and external hemorrhoids A/P Problem List: (1) Severe sepsis ICD Code: A41.9 - Sepsis, unspecified organism; R65.20 - Severe sepsis without septic shock (2) KATELYN (acute kidney injury) ICD Code: N17.9 - Acute kidney failure, unspecified (3) Alcoholic liver disease ICD Code: K70.9 - Alcoholic liver disease, unspecified (4) Alcohol dependence ICD Code: F10.20 - Alcohol dependence, uncomplicated Status: Acute Assessment and Plan Ms. Lim is a 42 year old female with a history of alcoholism who presented to the ED due to worsening abdominal pain that started about two weeks prior to this admission. Particularly worse pain in the last two days as well as yellowish discoloration of her conjunctiva. - Severe sepsis (Tachycardia, WBC 30.1, Suspected infection SBP, organ dysfunction Creatinine 2.0). - Possible Spontaneous bacterial peritonitis - Alcoholic liver hepatitis - Abd US shows small ascites - We switched from Ceftriaxone to PO Cipro. However, patient has been having a lot of nausea today. - She is also tachycardic. Will switch to IV Ceftriaxone for now. - CBC, CMP in the AM. - Maddrey's discrimination factor 35.9 (PT 17, Bili 11.5). - Will continue Pentoxifylline for now. - Probable lower GI bleed - GI evaluated patient. EGD and colonoscopy completed on 08/20/2017 --> gastritis, colonic polyp, internal and external hemorrhoids. Repeat colonoscopy in 5 years. High-fiber diet recommended. - Alcohol abuse - Thiamine, Folic acid, CIWA protocol. - Patient is motivated to quit drinking. - Acute kidney injury -Severe hypokalemia - Likely due to poor water intake. - Creatinine 2.0 --> 1.60 --> 1.04, baseline below 1.0 - Replace potassium with IV and p.o. potassium chloride. Magnesium was 1.9. Full code. SCDs. Aniya Montes DO Aug 21, 2017 20:16
[2017-08-22] MEDS: SODIUM CHLORIDE 0.9% FLUSH 10 ML FLUSH IV FLUSH PRN (00:16)
[2017-08-22] MEDS: MORPHINE SULFATE 4 MG/ML INJ IV PUSH PRN ×6 (00:17→21:32)
[2017-08-22] MEDS: ONDANSETRON HCL 4 MG/2 ML VIAL IVP PRN ×4 (00:17→18:16)
[2017-08-22 00:34] VITALS: BP 97/53; PULSE 109; RESP 18; TEMP 98.6; O2SAT 96
[2017-08-22 04:00] VITALS: BP 110/54; PULSE 114; RESP 18; TEMP 98.2; O2SAT 96
[2017-08-22] MEDS: PENTOXIFYLLINE 400 MG CONTROLLED RELEASE TAB PO SCH ×3 (06:19→21:32)
[2017-08-22 08:22] VITALS: BP 112/57; PULSE 115; RESP 20; TEMP 97.9; O2SAT 96
[2017-08-22] MEDS: THIAMINE HCL 100 MG TAB PO SCH (08:36)
[2017-08-22] MEDS: POTASSIUM CHLORIDE 20 MEQ CONTROLLED RELEASE TAB PO SCH (08:36)
[2017-08-22] MEDS: THIAMINE INJ 100 MG in SODIUM CHLORIDE 0.9% INJ 100 ML IV SCH (08:36)
[2017-08-22] MEDS: FOLIC ACID 1 MG TAB PO SCH (08:36)
[2017-08-22] MEDS: SODIUM CHLORIDE 0.9% FLUSH 10 ML FLUSH IV FLUSH SCH ×2 (08:37→21:32)
[2017-08-22 09:52] LABS: AUTOMATED NEUTROPHIL # 14.1 TH/MM3 (1.8-7.7); BASOPHIL # 0.1 TH/MM3 (0-0.2); BASOPHIL % 0.4 % (0.0-2.0); EOSINOPHIL % 0.1 % (0.0-4.0); HEMATOCRIT 32.6 % (35.0-46.0); HEMOGLOBIN 11.1 GM/DL (11.6-15.3); LYMPH % 37.1 % (9.0-44.0); LYMPHOCYTE # 8.8 TH/MM3 (1.0-4.8); MEAN CELL VOLUME 105.8 FL (80.0-100.0); MEAN PLATELET VOLUME 6.7 FL (7.0-11.0); MONOCYTE # 0.7 TH/MM3 (0-0.9); NEUT % 59.4 % (16.0-70.0); PLATELET COUNT 356 TH/MM3 (150-450); RED BLOOD COUNT 3.09 MIL/MM3 (4.00-5.30); RED CELL DISTRIBUTION WIDTH 15.7 % (11.6-17.2); WHITE BLOOD COUNT 23.6 TH/MM3 (4.0-11.0)
[2017-08-22 10:17] LABS: ALBUMIN 1.7 GM/DL (3.4-5.0); AST (GOT) 152 U/L (15-37); BLOOD UREA NITROGEN 11 MG/DL (7-18); CALCIUM 7.5 MG/DL (8.5-10.1); CHLORIDE 99 MEQ/L (98-107); CREATININE 0.92 MG/DL (0.50-1.00); GLOMERULAR FILTRATION RATE 67 ML/MIN (>89); GLUCOSE,RANDOM 102 MG/DL (74-106); SODIUM (NA) 130 MEQ/L (136-145)
[2017-08-22 10:19] LABS: ALT (GPT) 44 U/L (10-53)
[2017-08-22 10:21] LABS: ALKALINE PHOSPHATASE 377 U/L (45-117); TOTAL BILIRUBIN ADULT 12.4 MG/DL (0.2-1.0); TOTAL PROTEIN 5.7 GM/DL (6.4-8.2)
[2017-08-22 12:07] VITALS: BP 118/67; PULSE 111; RESP 20; TEMP 97.7; O2SAT 95
[2017-08-22 12:13] LABS: BANDS 11 % (0-6); LYMPHOCYTES 5 % (9-44); MONOCYTES 6 % (0-8); POLYS (SEG NEUTROPHILS) 78 % (16-70)
[2017-08-22 12:14] LABS: TOXIC GRANULATION 2+ (NORMAL); TOXIC VACUOLATION PRESENT (NONE SEEN)
[2017-08-22 12:15] LABS: TARGET CELLS 1+ (NORMAL)
--- NOTE | 2017-08-22 14:14 | RADRPT ---
EXAM DATE/TIME: 08/22/2017 13:39 [facility] COMPARISON: No previous studies available for comparison. INDICATIONS : Abdominal distention and pain. MEDICAL HISTORY : Gastroesophageal reflux disease. SURGICAL HISTORY : Appendectomy. ENCOUNTER: Initial ACUITY: 2 weeks PAIN SCORE: 9/10 LOCATION: Bilateral abdomen. FINDINGS: Supine view of the abdomen was performed. The abdominal bowel gas pattern is normal. No abnormal ma sses, calcifications, or organomegaly is seen. The osseous structures are unremarkable. CONCLUSION: Benign abdomen. Tay Valdes MD on August 22, 2017 at 14:12 Board Certified Radiologist. This report was verified electronically.
--- NOTE | 2017-08-22 14:59 | PD.CONS ---
HPI History of Present Illness This is a 42 year old who denies any significant PMH who presented to [facility] with complaints of abdominal pain and distention. States abdominal pain is mostly in her upper abdomen, described as a squeezing and cramping sensation, has been constant for the past two weeks but worse over the past week. Has been sleeping with a heat pad for spasm pains with little relief of pain. Also complaining of abdominal distention, states she has doubled in size over the past few days. Denies history of liver issues, although she was told her liver enzymes were elevated 6 [address] [place] abdomen and pelvis done in ER - -> Hepatomegaly with suspected hepatic steatosis and mild ascites. Borderline splenomegaly. LFTs elevated AST-166 ALT-66 T bili-11.5 and Alk phos- 405. Also had an EGD done in [place], states findings of reflux otherwise normal. Also complaining of nausea and vomiting, worse when she does not take her Prilosec, denies hematemesis and coffee ground emesis. States has been having BRB in her stool for the past couple days but yesterday noticed a significant amount of blood. States she has noticed a ribbon like thing in her stools. Denies melena. Denies history of GIB. Has never had a colonoscopy. Pt has been trying to wean herself off of alcohol for the past month, has gotten herself down to two glasses of wine a night. Smokes cigarettes occasionally. Denies illicit drug use. S/P EGD and colonoscopy (08/20) --> Gastritis. colon polyp. internal and external hemorrhoids. Reconsult for worsening abdominal distention and pain as well as increasing bilirubin. Pt resting in bed, lying on her side Complaining of worsening abdominal distention and pain States BM last night, but very small and hard Has been passing a littler amount of flatus Has not been able to eat much, emesis yesterday (Elle Baker) PFSH Past Medical History Alcohol abuse GERD Past Surgical History Appendectomy, Back surgeries. Neuro-stim out, tonsillectomy (Elle Baker) Coded Allergies: Sulfa (Sulfonamide Antibiotics) (Verified Allergy, Unknown, 07/28/17) Family History Mother's side of the family has a history of heart disease. Social History Drinks alcohol daily. Smokes and also uses Marijuana. Last two months - heavy drinking but has been tapering off. She was drinking sometimes 5L of wine a day. (Elle Baker) Review of Systems Gastrointestinal: COMPLAINS OF: Abdominal pain, Constipation, Nausea, Vomiting , Swelling of Abdomen, DENIES: Black stools, Bloody stools (Elle Baker ) GI Exam Vitals I&O Vital Signs Date Time Temp Pulse Resp B/P (MAP) Pulse Ox O2 Delivery O2 Flow Rate FiO2 08/22/17 12:07 97.7 111 20 118/67 (84) 95 08/22/17 08:22 97.9 115 20 112/57 (75) 96 08/22/17 06:28 18 08/22/17 04:00 98.2 114 18 110/54 (72) 96 08/22/17 00:34 98.6 109 18 97/53 (68) 96 08/21/17 20:23 98.4 116 18 117/62 (80) 95 08/21/17 17:24 98.8 130 20 104/63 (77) 96 08/21/17 16:00 98.8 121 20 81/50 (60) 96 I/O 08/21/17 08/21/17 08/21/17 08/22/17 08/22/17 08/22/17 07:00 15:00 23:00 07:00 15:00 23:00 Intake Total 844 ml 580 ml Balance 844 ml 580 ml Intake Oral 480 ml IV Total 844 ml 100 ml # Voids 5 3 1 # Bowel Movements 1 Imaging Last Impressions Abdomen X-Ray 08/22/17 0000 Signed Impressions: Service Date/Time: Tuesday, August 22, 2017 13:39 - CONCLUSION: Benign abdomen. Tay Valdes MD Cholangiopancreatography MRI 08/19/17 0000 Signed Impressions: Service Date/Time: Saturday, August 19, 2017 15:50 - CONCLUSION: 1. Hepatosplenomegaly. 2. Mild hepatic steatosis. 3. Mild ascites. 4. No biliary duct dilatation. 5. Contracted gallbladder with gallstones. Rohith Harman MD Abdomen/Pelvis CT 08/19/17 0000 Signed Impressions: Service Date/Time: Saturday, August 19, 2017 13:48 - CONCLUSION: 1. Hepatomegaly with suspected hepatic steatosis and mild ascites. 2. Borderline splenomegaly. Rohith Harman MD Abdomen Ultrasound 08/19/17 0000 Signed Impressions: Service Date/Time: Saturday, August 19, 2017 15:08 - CONCLUSION: Mild ascites. Rohith Harman MD Laboratory Test 08/22/17 08:37 White Blood Count 23.6 TH/MM3 Red Blood Count 3.09 MIL/MM3 Hemoglobin 11.1 GM/DL Hematocrit 32.6 % Mean Corpuscular Volume 105.8 FL Mean Corpuscular Hemoglobin 36.0 PG Mean Corpuscular Hemoglobin Concent 34.0 % Red Cell Distribution Width 15.7 % Platelet Count 356 TH/MM3 Mean Platelet Volume 6.7 FL Neutrophils (%) (Auto) 59.4 % Lymphocytes (%) (Auto) 37.1 % Monocytes (%) (Auto) 3.0 % Eosinophils (%) (Auto) 0.1 % Basophils (%) (Auto) 0.4 % Neutrophils # (Auto) 14.1 TH/MM3 Lymphocytes # (Auto) 8.8 TH/MM3 Monocytes # (Auto) 0.7 TH/MM3 Eosinophils # (Auto) 0.0 TH/MM3 Basophils # (Auto) 0.1 TH/MM3 CBC Comment AUTO DIFF Differential Total Cells Counted 100 Neutrophils % (Manual) 78 % Band Neutrophils % 11 % Lymphocytes % 5 % Monocytes % 6 % Neutrophils # (Manual) 21.0 TH/MM3 Differential Comment FINAL DIFF MANUAL Toxic Granulation 2+ Toxic Vacuolation PRESENT Platelet Estimate NORMAL Platelet Morphology Comment NORMAL Target Cells 1+ Blood Urea Nitrogen 11 MG/DL Creatinine 0.92 MG/DL Random Glucose 102 MG/DL Total Protein 5.7 GM/DL Albumin 1.7 GM/DL Calcium Level 7.5 MG/DL Alkaline Phosphatase 377 U/L Aspartate Amino Transf (AST/SGOT) 152 U/L Alanine Aminotransferase (ALT/SGPT) 44 U/L Total Bilirubin 12.4 MG/DL Sodium Level 130 MEQ/L Potassium Level 3.8 MEQ/L Chloride Level 99 MEQ/L Carbon Dioxide Level 22.0 MEQ/L Anion Gap 9 MEQ/L Estimat Glomerular Filtration Rate 67 ML/MIN Date/Time Source Procedure Growth Status 08/19/17 13:10 Blood Line Aerobic Blood Culture - Preliminary NO GROWTH IN 3 DAYS Resulted 08/19/17 13:10 Blood Line Anaerobic Blood Culture - Preliminary NO GROWTH IN 3 DAYS Resulted 08/19/17 14:30 Urine Clean Catch Urine Culture - Final 50-100,000 CFU/ML MIXED JACKSON... Complete Physical Examination HEENT: Normocephalic; atraumatic (+) icterus CHEST: Even/unlabored CARDIAC: RRR ABDOMEN: Distended, firm, diffuse TTP, bowel sounds active SKIN: Normal; no rash; (+) jaundice. ENTERTAINER & COMIC: No focal deficits; alert and oriented times three. (Elle Baker) Assessment and Plan Plan Assessment: - Elevated LFTs- ? alcohol hepatitis- DF-35- LFTs elevated AST-166 ALT-66 T bili -11.5 and Alk phos- 405- Pt denies history of liver issues, however visit earlier this month reveal more significant elevated AST and ALT. T bili and Alk phos have never been this elevated. Pt reports tapering off ETOH over the past month, currently down to 2 glasses of wine a night Denies history of hepatitis, IV and illicit drug use, tattoos, unprotected sex , OTC medications, herbs, supplements, new prescription medication. - Complaining of abdominal pain and distention, states double in size over the past few days. Nausea and vomiting, mostly when she doesn't take her Prilosec, denies hematemesis and coffee ground emesis. Last EGD 6 mos ago in [place], states reflux otherwise normal - BRBPR- started with small amount states yesterday was a large amount of blood. Reports noticing a ribbon like substance in her stools. Denies previous colonoscopy CT abdomen and pelvis done in ER --> Hepatomegaly with suspected hepatic steatosis and mild ascites. Borderline splenomegaly - Leukocytosis- states night sweats- ? SBP MRCP (08/19) --> Hepatosplenomegaly. Mild hepatic steatosis. Mild ascites. No biliary duct dilation. Contracted gallbladder with gallstones. RECONSULT for abdominal distention, pain and worsening bilirubin Pt now S/P EGD and colonoscopy --> Gastritis, Colon polyp. Internal and external hemorrhoids. Pathology (stomach antrum) Gastric antral mucosa with minimally active chronic inflammation and edema (colon) mildly hyperplastic colonic mucosa suggestive of hyperplastic polyp. Pt reports increasing distention and pain in abdomen. KUB ordered by attending today --> Benign appearing abdomen. Pt reports small BM yesterday. Has not been passing much gas. ? Increase in ascites, previous US abdomen did not reveal enough fluid for paracentesis. Would like to rule out SBP because pt would likely benefit from steroids. PLAN: Repeat US with hopes for enough ascites for culture to rule out SBP Pt would likely benefit from steroids but due to leukocytosis need to rule out SBP Rocephin until SBP ruled out Increase Lactulose to TID dosing- pt reports constipation Pentoxifylline Continue to monitor LFTs, CBC Further recommendations based on clinical course and results of above Pt has been seen and examined by myself and Dr. Groves and this note is written on his behalf (Elle Baker) Physician Comments Patient seen and examined Agree with above Continue with current supportive care Monitor labs Abdominal ultrasound was done earlier today and there is no ascites noted making SBP unlikely There is a great deal of concern as to why the patient is having worsening leukocytosis this may relate to alcohol withdrawal but an infectious etiology needs to be ruled out we will defer to attending physician for further workup I will order a CT of the abdomen with contrast to further evaluate the pain and potential source of infection Further recommendations will depend on the hospital course (Jacky Groves MD) Elle Baker Aug 22, 2017 14:59 Jacky Groves MD Aug 22, 2017 22:13
[2017-08-22 15:50] LABS: ENDOMYSIAL AB SCREEN ND (NEGATIVE); ENDOMYSIAL AB TITER ND (<1:5)
[2017-08-22 16:19] LABS: ALPHA-1-ANTITRYPSIN 322 mg/dL (100 - 190)
[2017-08-22 16:42] VITALS: BP 110/56; PULSE 110; RESP 20; TEMP 98.5; O2SAT 94
--- NOTE | 2017-08-22 17:16 | RADRPT ---
EXAM DATE/TIME: 08/22/2017 16:39 [facility] COMPARISON: US ABDOMEN - LOWER LIMITED, August 19, 2017, 15:08. INDICATIONS : Ascities. MEDICAL HISTORY : Gastroesophageal reflux disease. Seizures. Nausea. Vomiting. SURGICAL HISTORY : Appendectomy. Back surgery ENCOUNTER: Subsequent ACUITY: 1 month PAIN SCORE: 6/10 LOCATION: Abdomen. AREA EVALUATED: Abdomen. FINDINGS: Imaging of the abdomen and pelvis was performed to evaluate for ascites for possible paracentesis. T here is a minimal amount of ascites in the abdomen. The liver appears to be diffusely enlarged. CONCLUSION: Minimal amount of ascites. Not sufficient for paracentesis. Tay Valdes MD on August 22, 2017 at 17:13 Board Certified Radiologist. This report was verified electronically.
[2017-08-22] MEDS: LACTULOSE SYRUP 20 GM/30 ML CUP PO SCH ×2 (18:00→18:13)
[2017-08-22 20:00] VITALS: BP 98/52; PULSE 111; RESP 18; TEMP 97.8; O2SAT 94
--- NOTE | 2017-08-22 20:02 | HHI.PR ---
Subjective Remarks Follow up for alcoholic liver disease. Patient reports abdominal distention and pain. No fever, chills. Able to eat but not much. Objective Vitals Vital Signs Date Time Temp Pulse Resp B/P (MAP) Pulse Ox O2 Delivery O2 Flow Rate FiO2 08/22/17 16:42 98.5 110 20 110/56 (74) 94 08/22/17 12:07 97.7 111 20 118/67 (84) 95 08/22/17 08:22 97.9 115 20 112/57 (75) 96 08/22/17 06:28 18 08/22/17 04:00 98.2 114 18 110/54 (72) 96 08/22/17 00:34 98.6 109 18 97/53 (68) 96 08/21/17 20:23 98.4 116 18 117/62 (80) 95 I/O 08/21/17 08/21/17 08/21/17 08/22/17 08/22/17 08/22/17 06:59 14:59 22:59 06:59 14:59 22:59 Intake Total 844 ml 580 ml 480 ml Balance 844 ml 580 ml 480 ml Intake Oral 480 ml 480 ml IV Total 844 ml 100 ml # Voids 5 3 1 4 10 # Bowel Movements 1 1 Result Diagram: 08/22/17 0837 08/22/17 0837 Imaging Last Impressions Abdomen X-Ray 08/22/17 0000 Signed Impressions: Service Date/Time: Tuesday, August 22, 2017 13:39 - CONCLUSION: Benign abdomen. Tay Valdes MD Abdomen Ultrasound 08/22/17 0000 Signed Impressions: Service Date/Time: Tuesday, August 22, 2017 16:39 - CONCLUSION: Minimal amount of ascites. Not sufficient for paracentesis. Tay Valdes MD Cholangiopancreatography MRI 08/19/17 0000 Signed Impressions: Service Date/Time: Saturday, August 19, 2017 15:50 - CONCLUSION: 1. Hepatosplenomegaly. 2. Mild hepatic steatosis. 3. Mild ascites. 4. No biliary duct dilatation. 5. Contracted gallbladder with gallstones. Rohith Harman MD Abdomen/Pelvis CT 08/19/17 0000 Signed Impressions: Service Date/Time: Saturday, August 19, 2017 13:48 - CONCLUSION: 1. Hepatomegaly with suspected hepatic steatosis and mild ascites. 2. Borderline splenomegaly. Rohith Harman MD Objective Remarks GENERAL: Alert, oriented 3, NAD. SKIN: Warm and dry. Jaundiced skin HEAD: Normocephalic. EYES: No scleral icterus. No injection or drainage. Icterus sclerae NECK: Supple, trachea midline. No JVD or lymphadenopathy. CARDIOVASCULAR: Regular rate and rhythm without murmurs, gallops, or rubs. RESPIRATORY: Breath sounds equal bilaterally. No accessory muscle use. GASTROINTESTINAL: Abdomen soft, somewhat distended, diffusely tender to deep palpation especially upper quadrants. MUSCULOSKELETAL: No cyanosis, or edema. BACK: Nontender without obvious deformity. No CVA tenderness. Procedures EGD, colonoscopy 08/20/2017. gastritis Colon polyp Internal and external hemorrhoids A/P Problem List: (1) Severe sepsis ICD Code: A41.9 - Sepsis, unspecified organism; R65.20 - Severe sepsis without septic shock (2) KATELYN (acute kidney injury) ICD Code: N17.9 - Acute kidney failure, unspecified (3) Alcoholic liver disease ICD Code: K70.9 - Alcoholic liver disease, unspecified (4) Alcohol dependence ICD Code: F10.20 - Alcohol dependence, uncomplicated Status: Acute Assessment and Plan Ms. Lim is a 42 year old female with a history of alcoholism who presented to the ED due to worsening abdominal pain that started about two weeks prior to this admission. Particularly worse pain in the last two days as well as yellowish discoloration of her conjunctiva. - Severe sepsis (Tachycardia, WBC 30.1, Suspected infection SBP, organ dysfunction Creatinine 2.0). - Possible Spontaneous bacterial peritonitis - Alcoholic liver hepatitis - Abdominal pain. - Abd US shows small ascites. Repeat attempt on 08/22/2017 showed the same. - She is also tachycardic. Will Continue IV Ceftriaxone for now. - Maddrey's discrimination factor 35.9 (PT 17, Bili 11.5). - Will continue Pentoxifylline for now. - GI was requested to see patient again. Lactulose was increased to TID. - Increased abdominal pain is possibly due to opioid use, constipation. - KUB on 08/22/2017 was unremarkable. - Probable lower GI bleed - GI evaluated patient. EGD and colonoscopy completed on 08/20/2017 --> gastritis, colonic polyp, internal and external hemorrhoids. Repeat colonoscopy in 5 years. High-fiber diet recommended. - Alcohol abuse - Thiamine, Folic acid, CIWA protocol. - Patient is motivated to quit drinking. - Acute kidney injury -Severe hypokalemia - Likely due to poor volume intake. - Creatinine 2.0 --> 1.60 --> 0.92. - Replaced potassium with IV and p.o. potassium chloride. Magnesium was 1.9. Full code. SCDs. Aniya Montes DO Aug 22, 2017 20:02
[2017-08-22 20:59] LABS: HEMATOCRIT 31.3 % (35.0-46.0); HEMOGLOBIN 10.8 GM/DL (11.6-15.3); MEAN CELL VOLUME 104.4 FL (80.0-100.0); MEAN CORPUSCULAR HEMOGLOBIN 35.9 PG (27.0-34.0); MEAN CORPUSCULAR HGB CONC 34.4 % (32.0-36.0); MEAN PLATELET VOLUME 6.6 FL (7.0-11.0); PLATELET COUNT 335 TH/MM3 (150-450); RED CELL DISTRIBUTION WIDTH 15.7 % (11.6-17.2); WHITE BLOOD COUNT 22.4 TH/MM3 (4.0-11.0)
[2017-08-22 21:13] LABS: INTERNATIONAL NORMALIZED RATIO 2.1 RATIO; PROTHROMBIN TIME - PATIENT 21.3 SEC (9.8-11.6)
[2017-08-22] MEDS: cefTRIAXone INJ 2,000 MG in SODIUM CHLORIDE 0.9% INJ 100 ML IV SCH (21:28)
[2017-08-22 21:41] LABS: TOTAL PROTEIN 5.9 GM/DL (6.4-8.2)
[2017-08-23] VITALS: BP 107/61; PULSE 100; RESP 18; TEMP 98; O2SAT 97
[2017-08-23] MEDS: MORPHINE SULFATE 4 MG/ML INJ IV PUSH PRN ×5 (00:39→21:26)
[2017-08-23] MEDS: ONDANSETRON HCL 4 MG/2 ML VIAL IVP PRN ×3 (00:39→21:27)
[2017-08-23 04:00] VITALS: BP_SYST 112; BP_SYST 126; BP_DIAS 58; BP_DIAS 67; PULSE 120; PULSE 80; RESP 18; RESP 20; TEMP 97.6; O2SAT 95; O2SAT 97
[2017-08-23] MEDS: PENTOXIFYLLINE 400 MG CONTROLLED RELEASE TAB PO SCH ×3 (05:05→21:26)
[2017-08-23] MEDS: LORazepam 1 MG TAB PO PRN ×2 (05:05→18:01)
[2017-08-23 07:13] LABS: HEMATOCRIT 32.3 % (35.0-46.0); HEMOGLOBIN 11.1 GM/DL (11.6-15.3); MEAN CELL VOLUME 105.4 FL (80.0-100.0); MEAN CORPUSCULAR HEMOGLOBIN 36.2 PG (27.0-34.0); MEAN CORPUSCULAR HGB CONC 34.3 % (32.0-36.0); MEAN PLATELET VOLUME 6.8 FL (7.0-11.0); PLATELET COUNT 312 TH/MM3 (150-450); RED BLOOD COUNT 3.07 MIL/MM3 (4.00-5.30); RED CELL DISTRIBUTION WIDTH 15.7 % (11.6-17.2); WHITE BLOOD COUNT 23.7 TH/MM3 (4.0-11.0)
[2017-08-23 07:49] LABS: ALT (GPT) 41 U/L (10-53)
[2017-08-23 07:52] LABS: ALKALINE PHOSPHATASE 385 U/L (45-117); TOTAL BILIRUBIN ADULT 13.9 MG/DL (0.2-1.0); TOTAL PROTEIN 5.9 GM/DL (6.4-8.2)
[2017-08-23 07:53] LABS: ALBUMIN 1.7 GM/DL (3.4-5.0); AST (GOT) 144 U/L (15-37); BLOOD UREA NITROGEN 12 MG/DL (7-18); CALCIUM 7.7 MG/DL (8.5-10.1); CHLORIDE 99 MEQ/L (98-107); CREATININE 0.97 MG/DL (0.50-1.00); GLOMERULAR FILTRATION RATE 63 ML/MIN (>89); GLUCOSE,RANDOM 112 MG/DL (74-106); SODIUM (NA) 129 MEQ/L (136-145)
[2017-08-23 08:00] VITALS: BP 110/64; PULSE 107; RESP 18; TEMP 98.1; O2SAT 96
--- NOTE | 2017-08-23 08:34 | HHI.PR ---
Subjective Remarks Follow up for alcoholic liver disease. Patient continues to have abdominal discomfort. She has had bowel movements but not very well. Tolerating diet okay. No fever or chills. Objective Vitals Vital Signs Date Time Temp Pulse Resp B/P (MAP) Pulse Ox O2 Delivery O2 Flow Rate FiO2 08/23/17 08:00 98.1 107 18 110/64 (79) 96 08/23/17 04:00 97.6 80 20 112/67 (82) 97 08/23/17 04:00 97.6 120 18 126/58 (80) 95 08/23/17 00:00 98.0 100 18 107/61 (76) 97 08/22/17 20:00 97.8 111 18 98/52 (67) 94 08/22/17 16:42 98.5 110 20 110/56 (74) 94 08/22/17 12:07 97.7 111 20 118/67 (84) 95 I/O 08/22/17 08/22/17 08/22/17 08/23/17 08/23/17 08/23/17 07:00 15:00 23:00 07:00 15:00 23:00 Intake Total 480 ml 100 ml Balance 480 ml 100 ml Intake Oral 480 ml IV Total 100 ml # Voids 4 10 12 # Bowel Movements 1 Result Diagram: 08/23/1762108/23/17621 Imaging Last Impressions Abdomen X-Ray 08/22/17 0000 Signed Impressions: Service Date/Time: Tuesday, August 22, 2017 13:39 - CONCLUSION: Benign abdomen. Tay Valdes MD Abdomen Ultrasound 08/22/17 0000 Signed Impressions: Service Date/Time: Tuesday, August 22, 2017 16:39 - CONCLUSION: Minimal amount of ascites. Not sufficient for paracentesis. Tay Valdes MD Cholangiopancreatography MRI 08/19/17 0000 Signed Impressions: Service Date/Time: Saturday, August 19, 2017 15:50 - CONCLUSION: 1. Hepatosplenomegaly. 2. Mild hepatic steatosis. 3. Mild ascites. 4. No biliary duct dilatation. 5. Contracted gallbladder with gallstones. Rohith Harman MD Abdomen/Pelvis CT 08/19/17 0000 Signed Impressions: Service Date/Time: Saturday, August 19, 2017 13:48 - CONCLUSION: 1. Hepatomegaly with suspected hepatic steatosis and mild ascites. 2. Borderline splenomegaly. Rohith Harman MD Objective Remarks GENERAL: Alert, oriented 3, NAD. SKIN: Warm and dry. Jaundiced skin HEAD: Normocephalic. EYES: No scleral icterus. No injection or drainage. Icterus sclerae NECK: Supple, trachea midline. No JVD or lymphadenopathy. CARDIOVASCULAR: Reg rhythm, tachycardic without murmurs, gallops, or rubs. RESPIRATORY: Breath sounds equal bilaterally. No accessory muscle use. GASTROINTESTINAL: Abdomen soft, somewhat distended, diffusely tender to deep palpation especially upper quadrants. MUSCULOSKELETAL: No cyanosis, or edema. BACK: Nontender without obvious deformity. No CVA tenderness. Procedures EGD, colonoscopy 08/20/2017. gastritis Colon polyp Internal and external hemorrhoids A/P Problem List: (1) Severe sepsis ICD Code: A41.9 - Sepsis, unspecified organism; R65.20 - Severe sepsis without septic shock (2) KATELYN (acute kidney injury) ICD Code: N17.9 - Acute kidney failure, unspecified (3) Alcoholic liver disease ICD Code: K70.9 - Alcoholic liver disease, unspecified (4) Alcohol dependence ICD Code: F10.20 - Alcohol dependence, uncomplicated Status: Acute Assessment and Plan Ms. Lim is a 42 year old female with a history of alcoholism who presented to the ED due to worsening abdominal pain that started about two weeks prior to this admission. Particularly worse pain in the last two days as well as yellowish discoloration of her conjunctiva. - Severe sepsis (Tachycardia, WBC 30.1, Suspected infection SBP, organ dysfunction Creatinine 2.0). - Possible Spontaneous bacterial peritonitis - Alcoholic liver hepatitis - Abdominal pain. - Abd US shows small ascites. Repeat attempt on 08/22/2017 showed the same. - She is also tachycardic. Will Continue IV Ceftriaxone for now. - If she remains afebrile, we can possibly switch to Cipro 500mg BID PO. - Maddrey's discrimination factor 35.9 (PT 17, Bili 11.5). - Will continue Pentoxifylline for now. - Lactulose was increased to TID. - Increased abdominal pain is possibly due to opioid use, constipation. - KUB on 08/22/2017 was unremarkable. - GI ordered CT abdomen pelvis with contrast on 08/23/2017. - Probable lower GI bleed - GI evaluated patient. EGD and colonoscopy completed on 08/20/2017 --> gastritis, colonic polyp, internal and external hemorrhoids. Repeat colonoscopy in 5 years. High-fiber diet recommended. - Alcohol abuse - Thiamine, Folic acid, CIWA protocol. - Patient is motivated to quit drinking. - Acute kidney injury -Severe hypokalemia - Likely due to poor volume intake. - Creatinine 2.0 --> 1.60 --> 0.92. - Replaced potassium with IV and p.o. potassium chloride. Magnesium was 1.9. Full code. SCDs. Aniya Montes DO Aug 23, 2017 8:34 am
[2017-08-23] MEDS: LACTULOSE SYRUP 20 GM/30 ML CUP PO SCH ×3 (10:07→17:35)
[2017-08-23] MEDS: THIAMINE HCL 100 MG TAB PO SCH (10:08)
[2017-08-23] MEDS: FOLIC ACID 1 MG TAB PO SCH (10:08)
[2017-08-23] MEDS: SODIUM CHLORIDE 0.9% FLUSH 10 ML FLUSH IV FLUSH SCH ×2 (10:09→21:24)
--- NOTE | 2017-08-23 10:25 | HHI.GIFU ---
Subjective Remarks Pt resting in bed. c/o she did not get much sleep. c/o abd distention, swelling in lower extremities. (Kiara Lyons) Objective Vitals I&O Vital Signs Date Time Temp Pulse Resp B/P (MAP) Pulse Ox O2 Delivery O2 Flow Rate FiO2 08/23/17 08:00 98.1 107 18 110/64 (79) 96 08/23/17 04:00 97.6 80 20 112/67 (82) 97 08/23/17 04:00 97.6 120 18 126/58 (80) 95 08/23/17 00:00 98.0 100 18 107/61 (76) 97 08/22/17 20:00 97.8 111 18 98/52 (67) 94 08/22/17 16:42 98.5 110 20 110/56 (74) 94 08/22/17 12:07 97.7 111 20 118/67 (84) 95 I/O 08/22/17 08/22/17 08/22/17 08/23/17 08/23/17 08/23/17 07:00 15:00 23:00 07:00 15:00 23:00 Intake Total 480 ml 100 ml Balance 480 ml 100 ml Intake Oral 480 ml IV Total 100 ml # Voids 4 10 12 # Bowel Movements 1 Laboratory Laboratory Tests Test 08/22/17 20:30 08/23/17 06:22 White Blood Count 22.4 23.7 Red Blood Count 3.00 3.07 Hemoglobin 10.8 11.1 Hematocrit 31.3 32.3 Mean Corpuscular Volume 104.4 105.4 Mean Corpuscular Hemoglobin 35.9 36.2 Mean Corpuscular Hemoglobin Concent 34.4 34.3 Red Cell Distribution Width 15.7 15.7 Platelet Count 335 312 Mean Platelet Volume 6.6 6.8 Prothrombin Time 21.3 Prothromb Time International Ratio 2.1 Activated Partial Thromboplast Time 38.3 Lactate Dehydrogenase 161 Total Protein 5.9 5.9 Blood Urea Nitrogen 12 Creatinine 0.97 Random Glucose 112 Albumin 1.7 Calcium Level 7.7 Alkaline Phosphatase 385 Aspartate Amino Transf (AST/SGOT) 144 Alanine Aminotransferase (ALT/SGPT) 41 Total Bilirubin 13.9 Sodium Level 129 Potassium Level 4.0 Chloride Level 99 Carbon Dioxide Level 21.0 Anion Gap 9 Estimat Glomerular Filtration Rate 63 Date/Time Source Procedure Growth Status 08/19/17 13:10 Blood Line Aerobic Blood Culture - Preliminary NO GROWTH IN 3 DAYS Resulted 08/19/17 13:10 Blood Line Anaerobic Blood Culture - Preliminary NO GROWTH IN 3 DAYS Resulted 08/19/17 14:30 Urine Clean Catch Urine Culture - Final 50-100,000 CFU/ML MIXED JACK[place]... Complete Physical Exam HEENT: PERRL; normocephalic; atraumatic; +icterus CHEST: CTA CARDIAC: RRR + murmur ABDOMEN: Soft, mild distention, nontender; bowel sounds are present in all four quadrants. EXTREMITIES: No clubbing, cyanosis, + BLE edema SKIN: Normal; no rash; +jaundice LIFT SUPERVISOR: No focal deficits; alert and oriented times three. (Kiara Lyons) Assessment and Plan Plan Assessment: - Elevated LFTs- ? alcohol hepatitis- DF-35- LFTs elevated AST-166 ALT-66 T bili -11.5 and Alk phos- 405- Pt denies history of liver issues, however visit earlier this month reveal more significant elevated AST and ALT. T bili and Alk phos have never been this elevated. Pt reports tapering off ETOH over the past month, currently down to 2 glasses of wine a night Denies history of hepatitis, IV and illicit drug use, tattoos, unprotected sex , OTC medications, herbs, supplements, new prescription medication. - Complaining of abdominal pain and distention, states double in size over the past few days. Nausea and vomiting, mostly when she doesn't take her Prilosec, denies hematemesis and coffee ground emesis. Last EGD 6 mos ago in [place], states reflux otherwise normal - BRBPR- started with small amount states yesterday was a large amount of blood. Reports noticing a ribbon like substance in her stools. Denies previous colonoscopy CT abdomen and pelvis done in ER --> Hepatomegaly with suspected hepatic steatosis and mild ascites. Borderline splenomegaly - Leukocytosis- states night sweats- ? SBP MRCP (08/19) --> Hepatosplenomegaly. Mild hepatic steatosis. Mild ascites. No biliary duct dilation. Contracted gallbladder with gallstones. RECONSULT for abdominal distention, pain and worsening bilirubin Pt now S/P EGD and colonoscopy --> Gastritis, Colon polyp. Internal and external hemorrhoids. Pathology (stomach antrum) Gastric antral mucosa with minimally active chronic inflammation and edema (colon) mildly hyperplastic colonic mucosa suggestive of hyperplastic polyp. Pt reports increasing distention and pain in abdomen. KUB ordered by attending today --> Benign appearing abdomen. Pt reports small BM yesterday. Has not been passing much gas. ? Increase in ascites, previous US abdomen did not reveal enough fluid for paracentesis. Would like to rule out SBP because pt would likely benefit from steroids. 08/23/17 - worsening tbil. WBC remain elevated and mild increase, no fevers or abd pain. Pt c/o continued abd distention now with BLE edema. albumin 1.7, will replace CT abd with contrast is pending. + BM PLAN: 25 g albumin TID x 3d await CT abd with contrast TID lactulose Pentoxifylline Continue to monitor labs Further recs as case unfolds Pt has been seen and examined by myself and Dr. Groves and this note is written on his behalf (Kiara Lyons) Physician Comments Seen and examined Agree with above Continue with current supportive care Monitor labs The etiology for the leukocytosis is unclear with no ascites seen on either CT of the abdomen or the ultrasound the patient cannot have SBP Possibly the leukocytosis may be reactive but certainly infection needs to be ruled out and we will defer to attending physician CT of the abdomen is stable with no acute findings (Jacky Groves MD) Kiara Lyons Aug 23, 2017 10:25 Jacky Groves MD Aug 23, 2017 21:20
[2017-08-23 12:00] VITALS: BP 103/61; PULSE 106; RESP 18; TEMP 98; O2SAT 94
[2017-08-23] MEDS ORDERED: DIATRIZOATE MEGLUM/DIATRIZOATE SOD 9 ML CUP PO ONE (12:00)
[2017-08-23] MEDS: ALBUMIN 25% INJ 100 ML IV SCH ×2 (14:52→21:28)
[2017-08-23 16:00] VITALS: BP 102/59; PULSE 110; RESP 18; TEMP 98.2; O2SAT 98
[2017-08-23] MEDS ORDERED: IOHEXOL 350 MG/ML 10 ML VIAL (for RAD DIAG) IVCONTRAST ONE (18:25)
--- NOTE | 2017-08-23 20:00 | RADRPT ---
EXAM DATE/TIME: 08/23/2017 18:15 [facility] COMPARISON: No previous studies available for comparison. INDICATIONS : Abdominal pain IV CONTRAST: 82 cc Omnipaque 350 (iohexol) IV ORAL CONTRAST: Prescribed oral contrast ingested. RADIATION DOSE: 16.17 CTDIvol (mGy) MEDICAL HISTORY : Gastroesophageal reflux disease. SURGICAL HISTORY : Appendectomy. Back surgery ENCOUNTER: Initial ACUITY: 1 day PAIN SCALE: 7/10 LOCATION: Bilateral Abdomen TECHNIQUE: Volumetric scanning of the abdomen and pelvis was performed. Using automated exposure control and ad justment of the mA and/or kV according to patient size, radiation dose was kept as low as reasonably achievable to obtain optimal diagnostic quality images. DICOM format image data is available electro nically for review and comparison. FINDINGS: LOWER LUNGS: There is a minimal amount of pleural fluid seen bilaterally being more prominent on the right. There is increased density at the right base represent some atelectasis or consolidation. LIVER: The liver appears prominent and mildly heterogeneous likely related to some degree of hepatic steatos is. Focal hepatic lesions are not seen. The gallbladder is contracted. SPLEEN: Spleen appears enlarged. PANCREAS: Within normal limits. KIDNEYS: Normal in size and shape. There is no mass, stone or hydronephrosis. ADRENAL GLANDS: Within normal limits. VASCULAR: There is no aortic aneurysm. BOWEL/MESENTERY: There is thickening of the proximal transverse colon. There is a mild amount of ascites in the pelvis . ABDOMINAL WALL: Within normal limits. RETROPERITONEUM: There is no lymphadenopathy. BLADDER: No wall thickening or mass. REPRODUCTIVE: Within normal limits. INGUINAL: There is no lymphadenopathy or hernia. MUSCULOSKELETAL: Within normal limits for patient age. CONCLUSION: 1. Thickening of the proximal transverse colon consistent with colitis. 2. Hepatosplenomegaly. There is heterogeneity in the liver consistent with diffuse hepatic disease goncalves ch as hepatic steatosis. No focal hepatic mass are seen. 3. Minimal bilateral pleural effusions with some accompanying atelectasis or consolidation at the rig ht lung base. Rohith Harman MD on August 23, 2017 at 19:53 Board Certified Radiologist. This report was verified electronically.
[2017-08-23 20:43] VITALS: BP 127/65; PULSE 101; RESP 17; TEMP 98; O2SAT 95
[2017-08-23] MEDS: cefTRIAXone INJ 2,000 MG in SODIUM CHLORIDE 0.9% INJ 100 ML IV SCH (21:23)
[2017-08-23 23:53] LABS: MITOCHONDRIAL ABS LESS THAN 20.0 U (<=20.0)
[2017-08-24 00:38] VITALS: BP 110/68; PULSE 106; RESP 17; TEMP 98.2; O2SAT 97
[2017-08-24] MEDS: MORPHINE SULFATE 4 MG/ML INJ IV PUSH PRN ×4 (01:44→16:55)
[2017-08-24] MEDS: LORazepam 1 MG TAB PO PRN ×2 (03:55→17:48)
[2017-08-24 04:38] VITALS: BP 114/63; PULSE 113; RESP 17; TEMP 97.5; O2SAT 97
[2017-08-24] MEDS: PENTOXIFYLLINE 400 MG CONTROLLED RELEASE TAB PO SCH ×3 (06:22→22:46)
[2017-08-24] MEDS: ALBUMIN 25% INJ 100 ML IV SCH ×3 (06:22→22:46)
[2017-08-24] MEDS: SODIUM CHLORIDE 0.9% FLUSH 10 ML FLUSH IV FLUSH SCH ×2 (09:00→22:46)
[2017-08-24 09:28] VITALS: BP 119/60; PULSE 114; RESP 18; TEMP 98.4; O2SAT 95
[2017-08-24] MEDS: FOLIC ACID 1 MG TAB PO SCH (09:53)
[2017-08-24] MEDS: THIAMINE HCL 100 MG TAB PO SCH (09:53)
[2017-08-24] MEDS: LACTULOSE SYRUP 20 GM/30 ML CUP PO SCH ×3 (09:56→16:55)
[2017-08-24 11:52] LABS: CERULOPLASMIN 25 mg/dL (18-53)
[2017-08-24 12:00] VITALS: BP 101/60; PULSE 105; RESP 16; TEMP 98.1; O2SAT 96
--- NOTE | 2017-08-24 13:27 | HHI.PR ---
Subjective Remarks PATIENT REMAINS VERY JAUNDICED COMPLAINS OF SOME ABDOMINAL PAIN AND SOME MILD DISTENTION HAS YELLOW SCLERAL ICTERUS WILL GET AM LABS DW RN AND PT AND CASE MANAGEMENT DW GI ADD NORAH CALIXTO AM LABS Objective Vitals Vital Signs Date Time Temp Pulse Resp B/P (MAP) Pulse Ox O2 Delivery O2 Flow Rate FiO2 08/24/17 09:28 98.4 114 18 119/60 (79) 95 08/24/17 04:38 97.5 113 17 114/63 (80) 97 08/24/17 00:38 98.2 106 17 110/68 (82) 97 08/23/17 20:43 98.0 101 17 127/65 (85) 95 08/23/17 16:00 98.2 110 18 102/59 (73) 98 I/O 08/23/17 08/23/17 08/23/17 08/24/17 08/24/17 08/24/17 07:00 15:00 23:00 07:00 15:00 23:00 Intake Total 480 ml Balance 480 ml Intake Oral 480 ml # Voids 12 7 # Bowel Movements 1 2 Result Diagram: 08/23/1722 08/23/17621 Other Results Laboratory Tests Test 08/22/17 08:37 08/22/17 20:30 08/23/17 06:22 White Blood Count 23.6 TH/MM3 22.4 TH/MM3 23.7 TH/MM3 Red Blood Count 3.09 MIL/MM3 3.00 MIL/MM3 3.07 MIL/MM3 Hemoglobin 11.1 GM/DL 10.8 GM/DL 11.1 GM/DL Hematocrit 32.6 % 31.3 % 32.3 % Mean Corpuscular Volume 105.8 FL 104.4 FL 105.4 FL Mean Corpuscular Hemoglobin 36.0 PG 35.9 PG 36.2 PG Mean Corpuscular Hemoglobin Concent 34.0 % 34.4 % 34.3 % Red Cell Distribution Width 15.7 % 15.7 % 15.7 % Platelet Count 356 TH/MM3 335 TH/MM3 312 TH/MM3 Mean Platelet Volume 6.7 FL 6.6 FL 6.8 FL Neutrophils (%) (Auto) 59.4 % Lymphocytes (%) (Auto) 37.1 % Monocytes (%) (Auto) 3.0 % Eosinophils (%) (Auto) 0.1 % Basophils (%) (Auto) 0.4 % Neutrophils # (Auto) 14.1 TH/MM3 Lymphocytes # (Auto) 8.8 TH/MM3 Monocytes # (Auto) 0.7 TH/MM3 Eosinophils # (Auto) 0.0 TH/MM3 Basophils # (Auto) 0.1 TH/MM3 CBC Comment AUTO DIFF Differential Total Cells Counted 100 Neutrophils % (Manual) 78 % Band Neutrophils % 11 % Lymphocytes % 5 % Monocytes % 6 % Neutrophils # (Manual) 21.0 TH/MM3 Differential Comment FINAL DIFF MANUAL Toxic Granulation 2+ Toxic Vacuolation PRESENT Platelet Estimate NORMAL Platelet Morphology Comment NORMAL Target Cells 1+ Blood Urea Nitrogen 11 MG/DL 12 MG/DL Creatinine 0.92 MG/DL 0.97 MG/DL Random Glucose 102 MG/DL 112 MG/DL Total Protein 5.7 GM/DL 5.9 GM/DL 5.9 GM/DL Albumin 1.7 GM/DL 1.7 GM/DL Calcium Level 7.5 MG/DL 7.7 MG/DL Alkaline Phosphatase 377 U/L 385 U/L Aspartate Amino Transf (AST/SGOT) 152 U/L 144 U/L Alanine Aminotransferase (ALT/SGPT) 44 U/L 41 U/L Total Bilirubin 12.4 MG/DL 13.9 MG/DL Sodium Level 130 MEQ/L 129 MEQ/L Potassium Level 3.8 MEQ/L 4.0 MEQ/L Chloride Level 99 MEQ/L 99 MEQ/L Carbon Dioxide Level 22.0 MEQ/L 21.0 MEQ/L Anion Gap 9 MEQ/L 9 MEQ/L Estimat Glomerular Filtration Rate 67 ML/MIN 63 ML/MIN Prothrombin Time 21.3 SEC Prothromb Time International Ratio 2.1 RATIO Activated Partial Thromboplast Time 38.3 SEC Lactate Dehydrogenase 161 U/L Imaging Last Impressions Abdomen/Pelvis CT 08/22/17 0000 Signed Impressions: Service Date/Time: July 18:15 - CONCLUSION: 1. Thickening of the proximal transverse colon consistent with colitis. 2. Hepatosplenomegaly. There is heterogeneity in the liver consistent with diffuse hepatic disease such as hepatic steatosis. No focal hepatic mass are seen. 3. Minimal bilateral pleural effusions with some accompanying atelectasis or consolidation at the right lung base. Rohith Harman MD Abdomen X-Ray 08/22/17 0000 Signed Impressions: Service Date/Time: Tuesday, August 22, 2017 13:39 - CONCLUSION: Benign abdomen. Tay Valdes MD Abdomen Ultrasound 08/22/17 0000 Signed Impressions: Service Date/Time: Tuesday, August 22, 2017 16:39 - CONCLUSION: Minimal amount of ascites. Not sufficient for paracentesis. Tay Valdes MD Cholangiopancreatography MRI 08/19/17 0000 Signed Impressions: Service Date/Time: Saturday, August 19, 2017 15:50 - CONCLUSION: 1. Hepatosplenomegaly. 2. Mild hepatic steatosis. 3. Mild ascites. 4. No biliary duct dilatation. 5. Contracted gallbladder with gallstones. Rohith Harman MD Objective Remarks GENERAL: Alert and oriented 3 talkative and cooperative very jaundiced in appearance SKIN: Warm and dry. Jaundiced skin HEAD: Atraumatic. Normocephalic. EYES: Pupils equal and round. No injection or drainage. Positive scleral icterus ENT: No nasal bleeding or discharge. Mucous membranes pink and moist. Tongue is midline jaundiced tongue NECK: Trachea midline. No JVD. Supple CARDIOVASCULAR: Regular rate and rhythm. S1-S2 no S3 or S4 RESPIRATORY: No accessory muscle use. Clear to auscultation. Breath sounds equal bilaterally. GASTROINTESTINAL: Abdomen soft, non-tender, nondistended. Hepatic and splenic margins not palpable. MUSCULOSKELETAL: Extremities without clubbing, cyanosis, +2 lower extremity edema. No obvious deformities. NEUROLOGICAL: Awake and alert. No obvious cranial nerve deficits. Motor grossly within normal limits. Five out of 5 muscle strength in the arms and legs. Normal speech. PSYCHIATRIC: INAppropriate mood and affect; insight and judgment ABnormal. Procedures EGD, colonoscopy 08/20/2017. gastritis Colon polyp Internal and external hemorrhoids Medications and IVs Current Medications Ondansetron HCl (Zofran Inj) 4 mg ONCE ONCE IVP Last administered on at 12:03; Start 08/19/17 at 11:45; Stop 08/19/17 at 11:52; Status DC Pantoprazole Sodium (Protonix Inj) 40 mg ONCE ONCE IVP Last administered on at 12:03; Start 08/19/17 at 11:45; Stop 08/19/17 at 11:52; Status DC Sodium Chloride 1,000 ml @ 1,000 mls/hr Q1H IV Last administered on 08/19/17at 12:02; Start 08/19/17 at 11:40; Stop 08/19/17 at 12:39; Status DC Sodium Chloride (NS Flush) 2 ml UNSCH PRN IVF FLUSH AFTER USING IV ACCESS; Start 08/19/17 at 11:45; Stop 08/19/17 at 13:34; Status DC Famotidine (Pepcid Inj) 20 mg ONCE ONCE IV PUSH Last administered on at 12:02; Start 08/19/17 at 11:45; Stop 08/19/17 at 11:52; Status DC Morphine Sulfate (Morphine Inj) 4 mg ONCE ONCE IV PUSH Last administered on at 12:03; Start 08/19/17 at 11:45; Stop 08/19/17 at 11:52; Status DC Flumazenil (Romazicon Inj) 0.2 mg Q1M PRN IV PUSH SEE LABEL COMMENTS; Start at 12:00 Lorazepam (Ativan) 1 mg Q4H PRN PO CIWA 8 - 10 Last administered on 08/24/17at 03:55; Start 08/19/17 at 12:00 Lorazepam (Ativan Inj) 1 mg Q4H PRN IV PUSH CIWA 8 - 10 Last administered on at 08:40; Start 08/19/17 at 12:00 Lorazepam (Ativan) 2 mg Q2H PRN PO CIWA 11-14 Last administered on 08/20/17at 21 :47; Start 08/19/17 at 12:00 Lorazepam (Ativan Inj) 2 mg Q2H PRN IV PUSH CIWA 11-14; Start 08/19/17 at 12:00 Lorazepam (Ativan Inj) 2 mg Q1H PRN IV PUSH CIWA 15-20; Start 08/19/17 at 12:00 Lorazepam (Ativan Inj) 2 mg Q15M PRN IV PUSH CIWA > 20; Start 08/19/17 at 12:00 Piperacillin Sod/ Tazobactam Sod 100 ml @ 200 mls/hr ONCE ONCE IV Last administered on 08/19/17at 13:05; Start 08/19/17 at 13:00; Stop 08/19/17 at 13:29 ; Status DC Ceftriaxone Sodium 2000 mg/ Sodium Chloride 100 ml @ 200 mls/hr Q24H IV Last administered on 08/20/17at 15:14; Start 08/19/17 at 15:00; Stop 08/20/17 at 16:31 ; Status DC Sodium Chloride 1,000 ml @ 100 mls/hr Q10H IV Last administered on 08/20/17at 21:46; Start 08/19/17 at 14:00; Stop 08/21/17 at 10:00; Status DC Sodium Chloride (NS Flush) 2 ml UNSCH PRN IV FLUSH FLUSH AFTER USING IV ACCESS Last administered on 08/22/17at 00:16; Start 08/19/17 at 13:30 Sodium Chloride (NS Flush) 2 ml BID IV FLUSH Last administered on 08/24/17at 09: 00; Start 08/19/17 at 21:00 Acetaminophen (Tylenol) 500 mg Q4H PRN PO Headache, fever, pain 1-4; Start at 13:30 Ondansetron HCl (Zofran Inj) 4 mg Q6H PRN IVP NAUSEA OR VOMITING Last administered on 08/23/17at 21:27; Start 08/19/17 at 13:30 Naloxone HCl (Narcan Inj) 0.4 mg UNSCH PRN IV PUSH SEE LABEL COMMENTS; Start at 13:30 Magnesium Hydroxide (Milk Of Magnesia Liq) 30 ml Q12H PRN PO Mild constipation ; Start 08/19/17 at 13:30 Sennosides (Senokot) 17.2 mg Q12H PRN PO Moderate constipation Last administered on 08/22/17at 08:36; Start 08/19/17 at 13:30 Bisacodyl (Dulcolax Supp) 10 mg DAILY PRN RECTAL SEVERE CONSITIPATION; Start at 13:30 Lactulose (Lactulose Liq) 30 ml DAILY PRN PO SEVERE CONSITIPATION Last administered on 08/21/17at 16:52; Start 08/19/17 at 13:30; Stop 08/22/17 at 15:27 ; Status DC Morphine Sulfate (Morphine Inj) 4 mg Q3H PRN IV PUSH PAIN SCALE 5 TO 10 Last administered on 08/24/17at 12:47; Start 08/19/17 at 15:00 Pentoxifylline (TRENtal SR) 400 mg Q8HR PO Last administered on 08/24/17at 12:55 ; Start 08/19/17 at 22:00 Polyethylene Glycol/ Electrolytes (Colyte Liq) 4,000 ml ONCE ONCE PO Last administered on 08/19/17at 17:52; Start 08/19/17 at 16:00; Stop 08/19/17 at 16:01 ; Status DC Metronidazole 100 ml @ 100 mls/hr Q6H IV Last administered on 08/21/17at 06:15 ; Start 08/19/17 at 18:00; Stop 08/21/17 at 10:00; Status DC Oxycodone HCl (Roxicodone) 5 mg ONCE ONCE PO Last administered on 08/19/17at 21 :29; Start 08/19/17 at 20:15; Stop 08/19/17 at 20:16; Status DC Thiamine HCl 100 mg/Sodium Chloride 101 ml @ 101 mls/hr DAILY IV Last administered on 08/22/17at 08:36; Start 08/19/17 at 22:00; Stop 08/22/17 at 21:59 ; Status DC Thiamine HCl (Vitamin B1) 100 mg DAILY PO Last administered on 08/24/17at 09:53 ; Start 08/22/17 at 09:00 Folic Acid (Folate) 1 mg DAILY PO Last administered on 08/24/17at 09:53; Start 08/19/17 at 21:00 Potassium Chloride 100 ml @ 50 mls/hr Q2H IV Last administered on 08/20/17at 15 :14; Start 08/20/17 at 08:30; Stop 08/20/17 at 12:29; Status DC Potassium Chloride 100 ml @ 50 mls/hr Q2H IV ; Start 08/20/17 at 15:00; Stop at 15:00; Status DC Potassium Chloride (KCl) 20 meq Q12HR PO Last administered on 08/22/17at 08:36; Start 08/20/17 at 21:00; Stop 08/22/17 at 10:25; Status DC Potassium Chloride (KCl) 30 meq ONCE ONCE PO Last administered on 08/20/17at 14 :28; Start 08/20/17 at 13:45; Stop 08/20/17 at 13:46; Status DC Ciprofloxacin (Cipro) 500 mg Q12HR PO Last administered on 08/20/17at 21:45; Start 08/20/17 at 21:00; Stop 08/21/17 at 18:31; Status DC Metoclopramide HCl (Reglan Inj) 5 mg Q6H PRN IV PUSH NAUSEA OR VOMITING Last administered on 08/21/17at 21:52; Start 08/21/17 at 10:15 Prochlorperazine (Compazine Supp) 25 mg Q12H PRN RECTAL NAUSEA OR VOMITING; Start 08/21/17 at 10:15 Calcium Gluconate 1 gm/Sodium Chloride 110 ml @ 110 mls/hr ONCE ONCE IV Last administered on 08/21/17at 12:15; Start 08/21/17 at 11:45; Stop 08/21/17 at 12:44 ; Status DC Ceftriaxone Sodium 2000 mg/ Sodium Chloride 100 ml @ 200 mls/hr Q24H IV Last administered on 08/23/17at 21:23; Start 08/21/17 at 20:00 Lidocaine HCl (Xylocaine-Mpf 1% Inj) 5 ml STK-MED ONCE OTHER ; Start 08/20/17 at 12:00; Stop 08/22/17 at 14:57; Status DC Propofol (Diprivan 200 Mg/20 ml Inj) 600 mg STK-MED ONCE IV ; Start 08/20/17 at 12:00; Stop 08/22/17 at 14:57; Status DC Lactulose (Lactulose Liq) 30 ml TID PO Last administered on 08/24/17at 12:44; Start 08/22/17 at 15:30 Albumin Human 100 ml @ 60 mls/hr Q8HR IV Last administered on 08/24/17at 12:56 ; Start 08/23/17 at 14:00; Stop 08/26/17 at 13:59 Diatrizoate Meglum/ Diatrizoate Sod ( Gastroview Liq) 18 ml ONCE ONCE PO Last administered on 08/23/17at 12:26; Start 08/23/17 at 12:00; Stop 08/23/17 at 12:16; Status DC Iohexol (Omnipaque 350 Inj) 75 ml STK-MED ONCE IVCONTRAST Last administered on 08/23/17at 18:25; Start 08/23/17 at 18:25; Stop 08/23/17 at 18:26; Status DC A/P Problem List: (1) Severe sepsis ICD Code: A41.9 - Sepsis, unspecified organism; R65.20 - Severe sepsis without septic shock (2) KATELYN (acute kidney injury) ICD Code: N17.9 - Acute kidney failure, unspecified (3) Alcoholic liver disease ICD Code: K70.9 - Alcoholic liver disease, unspecified (4) Alcohol dependence ICD Code: F10.20 - Alcohol dependence, uncomplicated Status: Acute Assessment and Plan Ms. Lim is a 42 year old female with a history of alcoholism who presented to the ED due to worsening abdominal pain that started about two weeks prior to this admission. Particularly worse pain in the last two days as well as yellowish discoloration of her conjunctiva. COLITIS- START ZOSYN [facility] GI - Severe sepsis (Tachycardia, WBC 30.1, Suspected infection SBP, organ dysfunction Creatinine 2.0). - Possible Spontaneous bacterial peritonitis - Alcoholic liver hepatitis - Abdominal pain. - Abd US shows small ascites. Repeat attempt on 08/22/2017 showed the same. - She is also tachycardic. Will SWITCH TO IV ZOSYN - If she remains afebrile, - Maddrey's discrimination factor 35.9 (PT 17, Bili 11.5). - Will continue Pentoxifylline for now. - Lactulose was increased to TID. - Increased abdominal pain is possibly due to opioid use, constipation. - KUB on 08/22/2017 was unremarkable. - GI ordered CT abdomen pelvis with contrast on 08/23/2017. - Probable lower GI bleed - GI evaluated patient. EGD and colonoscopy completed on 08/20/2017 --> gastritis, colonic polyp, internal and external hemorrhoids. Repeat colonoscopy in 5 years. High-fiber diet recommended. - Alcohol abuse - Thiamine, Folic acid, CIWA protocol. - Patient is motivated to quit drinking. - Acute kidney injury -Severe hypokalemia - Likely due to poor volume intake. - Creatinine 2.0 --> 1.60 --> 0.92. - Replaced potassium with IV and p.o. potassium chloride. Magnesium was 1.9. Full code. SCDs. DW GI REPEAT MRI Discharge Planning [facility] AND RN AND PT Dontrell Saul DO Aug 24, 2017 13:27
[2017-08-24] MEDS ORDERED: RESP: ALBUTEROL 2.5 MG/IPRATROPIUM 0.5 MG NEB (PRN) NEB (13:30)
--- NOTE | 2017-08-24 13:56 | HHI.GIFU ---
Subjective Remarks resting in the bed drowsy, hard for her to stay focused on conversation. Still skin and sclera icteric Abdominal bloating (Gita Wynne) Objective Vitals I&O Vital Signs Date Time Temp Pulse Resp B/P (MAP) Pulse Ox O2 Delivery O2 Flow Rate FiO2 08/24/17 12:00 98.1 105 16 101/60 (74) 96 08/24/17 09:28 98.4 114 18 119/60 (79) 95 08/24/17 04:38 97.5 113 17 114/63 (80) 97 08/24/17 00:38 98.2 106 17 110/68 (82) 97 08/23/17 20:43 98.0 101 17 127/65 (85) 95 08/23/17 16:00 98.2 110 18 102/59 (73) 98 I/O 08/23/17 08/23/17 08/23/17 08/24/17 08/24/17 08/24/17 07:00 15:00 23:00 07:00 15:00 23:00 Intake Total 480 ml Balance 480 ml Intake Oral 480 ml # Voids 12 7 # Bowel Movements 1 2 Laboratory Date/Time Source Procedure Growth Status 08/19/17 13:10 Blood Line Aerobic Blood Culture - Final NO GROWTH IN 5 DAYS Complete 08/19/17 13:10 Blood Line Anaerobic Blood Culture - Final NO GROWTH IN 5 DAYS Complete 08/19/17 14:30 Urine Clean Catch Urine Culture - Final 50-100,000 CFU/ML MIXED JACKSON... Complete Imaging Last Impressions Abdomen/Pelvis CT 08/22/17 0000 Signed Impressions: Service Date/Time: July 18:15 - CONCLUSION: 1. Thickening of the proximal transverse colon consistent with colitis. 2. Hepatosplenomegaly. There is heterogeneity in the liver consistent with diffuse hepatic disease such as hepatic steatosis. No focal hepatic mass are seen. 3. Minimal bilateral pleural effusions with some accompanying atelectasis or consolidation at the right lung base. Rohith Harman MD Abdomen X-Ray 08/22/17 0000 Signed Impressions: Service Date/Time: Tuesday, August 22, 2017 13:39 - CONCLUSION: Benign abdomen. Tay Valdes MD Abdomen Ultrasound 08/22/17 0000 Signed Impressions: Service Date/Time: Tuesday, August 22, 2017 16:39 - CONCLUSION: Minimal amount of ascites. Not sufficient for paracentesis. Tay Valdes MD Cholangiopancreatography MRI 08/19/17 0000 Signed Impressions: Service Date/Time: Saturday, August 19, 2017 15:50 - CONCLUSION: 1. Hepatosplenomegaly. 2. Mild hepatic steatosis. 3. Mild ascites. 4. No biliary duct dilatation. 5. Contracted gallbladder with gallstones. Rohith Harman MD Physical Exam HEENT: PERRL; normocephalic; atraumatic; +icterus sclera CHEST: Generally clear with low volumes CARDIAC mild tachycardia ABDOMEN: Soft, moderate distention, generalized tenderness especially in the gastric area bowel sounds are present in all four quadrants. 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 alcohol hepatitis- DF-35- LFTs elevated AST-166 ALT-66 T bili -11.5 and Alk phos- 405- Pt denies history of liver issues, however visit earlier this month reveal more significant elevated AST and ALT. T bili and Alk phos have never been this elevated. Pt reports tapering off ETOH over the past month, currently down to 2 glasses of wine a night Denies history of hepatitis, IV and illicit drug use, tattoos, unprotected sex , OTC medications, herbs, supplements, new prescription medication. - Complaining of abdominal pain and distention, states double in size over the past few days. Nausea and vomiting, mostly when she doesn't take her Prilosec, denies hematemesis and coffee ground emesis. Last EGD 6 mos ago in [place], states reflux otherwise normal - BRBPR- started with small amount states yesterday was a large amount of blood. Reports noticing a ribbon like substance in her stools. Denies previous colonoscopy CT abdomen and pelvis done in ER --> Hepatomegaly with suspected hepatic steatosis and mild ascites. Borderline splenomegaly - Leukocytosis- states night sweats- ? SBP MRCP (08/19) --> Hepatosplenomegaly. Mild hepatic steatosis. Mild ascites. No biliary duct dilation. Contracted gallbladder with gallstones. Colitis- rule out C. difficile. RECONSULT for abdominal distention, pain and worsening bilirubin Pt now S/P EGD and colonoscopy --> Gastritis, Colon polyp. Internal and external hemorrhoids. Pathology (stomach antrum) Gastric antral mucosa with minimally active chronic inflammation and edema (colon) mildly hyperplastic colonic mucosa suggestive of hyperplastic polyp. Pt reports increasing distention and pain in abdomen. KUB ordered by attending today --> Benign appearing abdomen. Pt reports small BM yesterday. Has not been passing much gas. ? Increase in ascites, previous US abdomen did not reveal enough fluid for paracentesis. Would like to rule out SBP because pt would likely benefit from steroids. 08/23/17 - worsening tbil. WBC remain elevated and mild increase, no fevers or abd pain. Pt c/o continued abd distention now with BLE edema. albumin 1.7, will replace CT abd with contrast is pending. + BM 08/24/17, she continues to be icteric sclera and skin, drowsy and hard to follow and focus on conversation, speech mildly slurred, patient continues to have right upper quadrant and gastric abdominal pain. CT scan shows thickening of the proximal transverse colon consistent with colitis. Hepatosplenomegaly consistent with diffuse hepatic disease with hepatic steatosis no focal masses seen. Minimal bilateral pleural effusions with some accompanying atelectasis and consolidation at the right lung base. Discussed with attending physician, plan of care and further labs. Since colitis has been seen will check her for C. difficile. Antibiotics changed to Zosyn and Flagyl. Attending is also check an ammonia level, and knees M, phosphorus, TSH , CBC, CMP, T4, PT. Alkaline phosphatase remains slightly elevated at 385, not trending down; AST 144, ALT 41, obstruction versus EtOH hepatitis. Patient also has generalized lower extremity edema which is new for her during this hospital stay. PLAN: Repeat MRCP with IV contrast. Patient had known cholelithiasis, 25 g albumin TID x 3d New change today Zosyn Flagyl by mouth Reglan Stool for C. difficile ordered today TID lactulose Pentoxifylline Continue to monitor labs Further recs as case unfolds Pt has been seen and examined by myself and Dr. Groves and this note is written on his behalf (Gita Wynne) Physician Comments Patient seen and examined Agree with above Continue with current supportive care Monitor labs MRCP noted to be unremarkable for biliary obstruction Labs are consistent with acute alcoholic hepatitis which will usually be slow to recover Continue with pentoxifylline Patient not a candidate for steroids at this point with potential underlying infection which may contribute to further deterioration of liver function tests Regarding thickening of the colon I doubt this is true colitis most likely this thickening is secondary to hypoalbuminemia but would certainly continue with antibiotics at this point and monitor labs accordingly (Jacky Groves MD) Gita Wynne Aug 24, 2017 13:56 Jacky Groves MD Aug 24, 2017 23:23
[2017-08-24] MEDS: guaiFENesin E.R. 600 MG TAB PO SCH ×2 (14:05→22:46)
[2017-08-24] MEDS: metroNIDAZOLE 500 MG TAB PO SCH ×2 (14:05→22:46)
[2017-08-24] MEDS: PIPERACIL-TAZO 4.5 GM PREMIX 100 ML IV SCH ×2 (15:00→22:45)
[2017-08-24 16:00] VITALS: BP 112/69; PULSE 108; RESP 22; TEMP 98; O2SAT 98
[2017-08-24] MEDS: RESP: ALBUTEROL 2.5 MG/IPRATROPIUM 0.5 MG NEB (SCH) NEB (19:01)
--- NOTE | 2017-08-24 19:39 | RADRPT ---
EXAM DATE/TIME: 08/24/2017 18:15 [facility] COMPARISON: CT ABDOMEN & PELVIS W CONTRAST, August 23, 2017, 18:15. MRCP W/O CONTRAST, August 19, 2017, 15:50. INDICATIONS : Obstruction. MEDICAL HISTORY : None. SURGICAL HISTORY : Appendectomy. ENCOUNTER: Initial ACUITY: 1 week PAIN SCORE: 5/10 LOCATION: Abdomen. TECHNIQUE: Multiplanar, multisequence magnetic resonance imaging of the abdomen was performed. High-resolution 3D dataset was utilized to reconstruct maximum-intensity projection (MIP) images. FINDINGS: INTRAHEPATIC BILE DUCTS: Within normal limits. No significant anatomical variant is present. EXTRAHEPATIC BILE DUCTS: The common bile duct measures 4 mm No stone or filling defect is identified. GALLBLADDER: The gallbladder is contracted. Gallbladder wall appears thickened. This thickening may be secondary t o lack of distention. Gallstones are not seen. There is some low signal within the gallbladder which may relate to vicarious excretion of the intravenous contrast administered at the time of the CT exam ination. LIVER: The liver is enlarged. No focal hepatic lesions are seen. PANCREAS: The main pancreatic duct is normal in size. There is no significant anatomical variant. Signal inte nsity is within normal limits. No mass is visualized on this non-contrast exam. OTHER: The remaining visualized structures demonstrate no acute abnormality on this non-contrast exam. There is fluid in the right paracolic gutter region. There is a minimal right pleural effusion. There is c onsolidation or atelectasis at the right lung base. There is some thickening of the proximal transver se colon. CONCLUSION: 1. Hepatosplenomegaly. 2. Mild ascites in the right paracolic gutter region. 3. No dilatation of the biliary system. 4. Contracted gallbladder without stones. The gallbladder wall thickening may be secondary to lack of distention. 5. Thickening of the proximal transverse colon. 6. Consolidation or atelectasis in the right lower lobe with a minimal right effusion. Rohith Harman MD on August 24, 2017 at 19:30 Board Certified Radiologist. This report was verified electronically.
[2017-08-24 20:00] VITALS: BP 118/69; PULSE 114; RESP 22; TEMP 98.3; O2SAT 95
[2017-08-25] VITALS (9 sets, daily range): BP systolic 108–131; BP diastolic 64–74; PULSE 107–129; RESP 18; TEMP 97.2–98.6; O2SAT 93–96
[2017-08-25] MEDS: MORPHINE SULFATE 4 MG/ML INJ IV PUSH PRN ×7 (00:07→22:30)
[2017-08-25] MEDS: SODIUM CHLORIDE 0.9% FLUSH 10 ML FLUSH IV FLUSH PRN ×2 (00:07→04:25)
[2017-08-25] MEDS: PIPERACIL-TAZO 4.5 GM PREMIX 100 ML IV SCH ×4 (02:59→22:12)
[2017-08-25] MEDS: ONDANSETRON HCL 4 MG/2 ML VIAL IVP PRN ×2 (04:26→16:23)
[2017-08-25 04:30] LABS: INTERNATIONAL NORMALIZED RATIO 2.1 RATIO; PROTHROMBIN TIME - PATIENT 21.3 SEC (9.8-11.6)
[2017-08-25 04:38] LABS: AUTOMATED NEUTROPHIL # 24.8 TH/MM3 (1.8-7.7); BASOPHIL # 0.1 TH/MM3 (0-0.2); BASOPHIL % 0.3 % (0.0-2.0); EOSINOPHIL # 0.1 TH/MM3 (0-0.4); EOSINOPHIL % 0.2 % (0.0-4.0); HEMATOCRIT 29.3 % (35.0-46.0); LYMPH % 2.8 % (9.0-44.0); LYMPHOCYTE # 0.8 TH/MM3 (1.0-4.8); MEAN CELL VOLUME 104.2 FL (80.0-100.0); MEAN CORPUSCULAR HEMOGLOBIN 35.7 PG (27.0-34.0); MEAN CORPUSCULAR HGB CONC 34.3 % (32.0-36.0); MEAN PLATELET VOLUME 6.2 FL (7.0-11.0); MONO % 3.5 % (0.0-8.0); MONOCYTE # 0.9 TH/MM3 (0-0.9); NEUT % 93.2 % (16.0-70.0); PLATELET COUNT 262 TH/MM3 (150-450); RED BLOOD COUNT 2.81 MIL/MM3 (4.00-5.30); RED CELL DISTRIBUTION WIDTH 15.3 % (11.6-17.2); WHITE BLOOD COUNT 26.7 TH/MM3 (4.0-11.0)
[2017-08-25 05:04] LABS: ALKALINE PHOSPHATASE 292 U/L (45-117); ALT (GPT) 39 U/L (10-53); AST (GOT) 138 U/L (15-37); BLOOD UREA NITROGEN 14 MG/DL (7-18); CHLORIDE 99 MEQ/L (98-107); CREATININE 0.93 MG/DL (0.50-1.00); FREE T4 1.01 NG/DL (0.76-1.46); GLOMERULAR FILTRATION RATE 66 ML/MIN (>89); GLUCOSE,RANDOM 98 MG/DL (74-106); MAGNESIUM 2.3 MG/DL (1.5-2.5); PHOSPHORUS 1.8 MG/DL (2.5-4.9); SODIUM (NA) 131 MEQ/L (136-145); TOTAL BILIRUBIN ADULT 16.9 MG/DL (0.2-1.0); TOTAL PROTEIN 6.6 GM/DL (6.4-8.2)
[2017-08-25] MEDS: ALBUMIN 25% INJ 100 ML IV SCH ×3 (05:07→22:12)
[2017-08-25] MEDS: PENTOXIFYLLINE 400 MG CONTROLLED RELEASE TAB PO SCH ×3 (05:08→22:11)
[2017-08-25] MEDS: metroNIDAZOLE 500 MG TAB PO SCH ×3 (05:08→22:11)
[2017-08-25] MEDS: LORazepam 1 MG TAB PO PRN (06:34)
[2017-08-25] MEDS: RESP: ALBUTEROL 2.5 MG/IPRATROPIUM 0.5 MG NEB (SCH) NEB ×3 (08:16→19:19)
[2017-08-25] MEDS: SODIUM CHLORIDE 0.9% FLUSH 10 ML FLUSH IV FLUSH SCH ×2 (08:34→22:12)
[2017-08-25] MEDS: THIAMINE HCL 100 MG TAB PO SCH (08:42)
[2017-08-25] MEDS: guaiFENesin E.R. 600 MG TAB PO SCH ×2 (08:42→22:11)
[2017-08-25] MEDS: FOLIC ACID 1 MG TAB PO SCH (08:42)
[2017-08-25] MEDS: LACTULOSE SYRUP 20 GM/30 ML CUP PO SCH ×3 (08:43→16:26)
--- NOTE | 2017-08-25 10:50 | HHI.GIFU ---
Subjective Remarks Up ambulatory to the bathroom for loose stools fairly frequently Trying to drink more fluids and eat small amounts of food off and on during the day and night, appetite seems to be returning Still has taut bloated abdomen WBC count trending up, 26.7 Afebrile (Gita Wynne) Objective Vitals I&O Vital Signs Date Time Temp Pulse Resp B/P (MAP) Pulse Ox O2 Delivery O2 Flow Rate FiO2 08/25/17 08:17 95 21 08/25/17 07:42 97.6 107 18 114/66 (82) 94 08/25/17 04:00 98.4 112 18 119/71 (87) 93 08/25/17 00:00 98.1 109 18 116/65 (82) 94 08/24/17 20:00 98.3 114 22 118/69 (85) 95 08/24/17 16:00 98.0 108 22 112/69 (83) 98 08/24/17 12:00 98.1 105 16 101/60 (74) 96 I/O 08/24/17 08/24/17 08/24/17 08/25/17 08/25/17 08/25/17 07:00 15:00 23:00 07:00 15:00 23:00 Intake Total 480 ml 480 ml 100 ml Balance 480 ml 480 ml 100 ml Intake Oral 480 ml 480 ml IV Total 100 ml # Voids 7 3 1 # Bowel Movements 2 2 Laboratory Laboratory Tests Test 08/24/17 19:00 08/25/17 04:08 Stool C. difficile Toxin (PCR) NEGATIVE Stl C. difficile Toxin Epiderm 027 PRESUMPTIVE NEGATIVE White Blood Count 26.7 Red Blood Count 2.81 Hemoglobin 10.0 Hematocrit 29.3 Mean Corpuscular Volume 104.2 Mean Corpuscular Hemoglobin 35.7 Mean Corpuscular Hemoglobin Concent 34.3 Red Cell Distribution Width 15.3 Platelet Count 262 Mean Platelet Volume 6.2 Neutrophils (%) (Auto) 93.2 Lymphocytes (%) (Auto) 2.8 Monocytes (%) (Auto) 3.5 Eosinophils (%) (Auto) 0.2 Basophils (%) (Auto) 0.3 Neutrophils # (Auto) 24.8 Lymphocytes # (Auto) 0.8 Monocytes # (Auto) 0.9 Eosinophils # (Auto) 0.1 Basophils # (Auto) 0.1 CBC Comment DIFF FINAL Differential Comment Prothrombin Time 21.3 Prothromb Time International Ratio 2.1 Blood Urea Nitrogen 14 Creatinine 0.93 Random Glucose 98 Total Protein 6.6 Albumin 3.0 Calcium Level 8.0 Phosphorus Level 1.8 Magnesium Level 2.3 Alkaline Phosphatase 292 Aspartate Amino Transf (AST/SGOT) 138 Alanine Aminotransferase (ALT/SGPT) 39 Total Bilirubin 16.9 Sodium Level 131 Potassium Level 3.5 Chloride Level 99 Carbon Dioxide Level 22.0 Anion Gap 10 Estimat Glomerular Filtration Rate 66 Ammonia LESS THAN 10 Free Thyroxine 1.01 Thyroid Stimulating Hormone 3rd Gen 4.170 Date/Time Source Procedure Growth Status 08/19/17 13:10 Blood Line Aerobic Blood Culture - Final NO GROWTH IN 5 DAYS Complete 08/19/17 13:10 Blood Line Anaerobic Blood Culture - Final NO GROWTH IN 5 DAYS Complete 08/19/17 14:30 Urine Clean Catch Urine Culture - Final 50-100,000 CFU/ML MIXED JACKSON... Complete Imaging Last Impressions Cholangiopancreatography MRI 08/24/17 0000 Signed Impressions: Service Date/Time: Thursday, August 24, 2017 18:15 - CONCLUSION: 1. Hepatosplenomegaly. 2. Mild ascites in the right paracolic gutter region. 3. No dilatation of the biliary system. 4. Contracted gallbladder without stones. The gallbladder wall thickening may be secondary to lack of distention. 5. Thickening of the proximal transverse colon. 6. Consolidation or atelectasis in the right lower lobe with a minimal right effusion. Rohith Harman MD Abdomen/Pelvis CT 08/22/17 0000 Signed Impressions: Service Date/Time: July 18:15 - CONCLUSION: 1. Thickening of the proximal transverse colon consistent with colitis. 2. Hepatosplenomegaly. There is heterogeneity in the liver consistent with diffuse hepatic disease such as hepatic steatosis. No focal hepatic mass are seen. 3. Minimal bilateral pleural effusions with some accompanying atelectasis or consolidation at the right lung base. Rohith Harman MD Abdomen X-Ray 08/22/17 0000 Signed Impressions: Service Date/Time: Tuesday, August 22, 2017 13:39 - CONCLUSION: Benign abdomen. Tay Valdes MD Abdomen Ultrasound 08/22/17 0000 Signed Impressions: Service Date/Time: Tuesday, August 22, 2017 16:39 - CONCLUSION: Minimal amount of ascites. Not sufficient for paracentesis. Tay Valdes MD Physical Exam HEENT: PERRL; normocephalic; atraumatic; +icterus sclera CHEST: Mild diminished breath sounds at bases CARDIAC mild tachycardia, rate 107 this morning ABDOMEN: taut,, moderate distention, generalized tenderness especially in the gastric area bowel sounds are present in all four quadrants. 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 Internal and external hemorrhoids. Pathology (stomach antrum) Gastric antral mucosa with minimally active chronic inflammation and edema (colon) mildly hyperplastic colonic mucosa suggestive of hyperplastic polyp. Pt reports increasing distention and pain in abdomen. KUB ordered by attending today --> Benign appearing abdomen. Pt reports small BM yesterday. Has not been passing much gas. ? Increase in ascites, previous US abdomen did not reveal enough fluid for paracentesis. Would like to rule out SBP because pt would likely benefit from steroids. 08/23/17 - worsening tbil. WBC remain elevated and mild increase, no fevers or abd pain. Pt c/o continued abd distention now with BLE edema. albumin 1.7, will replace CT abd with contrast is pending. + BM 08/24/17, she continues to be icteric sclera and skin, drowsy and hard to follow and focus on conversation, speech mildly slurred, patient continues to have right upper quadrant and gastric abdominal pain. CT scan shows thickening of the proximal transverse colon consistent with colitis. Hepatosplenomegaly consistent with diffuse hepatic disease with hepatic steatosis no focal masses seen. Minimal bilateral pleural effusions with some accompanying atelectasis and consolidation at the right lung base. Discussed with attending physician, plan of care and further labs. Since colitis has been seen will check her for C. difficile. Antibiotics changed to Zosyn and Flagyl. Attending is also check an ammonia level, and knees M, phosphorus, TSH , CBC, CMP, T4, PT. Alkaline phosphatase remains slightly elevated at 385, not trending down; AST 144, ALT 41, obstruction versus EtOH hepatitis. Patient also has generalized lower extremity edema which is new for her during this hospital stay. 08/25/17, acute alcoholic hepatitis , patient continues to have loose stools secondary to her lactulose. Abdomen still taut and distended with some lower extremity edema. WBC count mild elevation 26.7, hemoglobin 10, alkaline phosphatase mildly decreased to 92, bilirubin 16.9, mild decrease in LFTs AST 138, ALT 39.. Ammonia level less than 10. MRCP showed no biliary obstruction. Possible underlying infection with increased leukocytosis so no steroids for now. Slow gradual improvements noted in LFTs. PLAN: New change today Zosyn Flagyl by mouth Reglan TID lactulose Pentoxifylline Continue to monitor labs with special attention to hemoglobin. Monitor for any acute bleeding Further recommendations will be based on symptoms and plan a care Pt has been seen and examined by myself and Dr. Groves and this note is written on his behalf (Gita Wynne) Physician Comments Patient seen and examined Agree with above Continue with current supportive care Monitor lab With her lower extremity edema we will need to start diuretics she will be on Lasix and spironolactone, we will ask for JOCELYNN hose, low-salt diet, elevate lower extremities, continue with albumin replacement therapy As for her leukocytosis the patient does not have SBP and she does not have colitis most likely etiology of her leukocytosis is probably reactive but I will defer to attending physician for further evaluation and investigation The patient does not appear to be acting as a septic patient she is up and about in her room and her only complaint to me is that of lower extremity edema and some tightness of the abdomen but otherwise her abdominal examination is quite benign (Jacky Groves MD) Gita Wynne Aug 25, 2017 10:50 Jacky Groves MD Aug 25, 2017 17:45
[2017-08-25 12:14] LABS: HEMOGLOBIN A1C 4.7 % (4.3-6.0)
--- NOTE | 2017-08-25 12:45 | HHI.PR ---
Subjective Remarks PATIENT REMAINS VERY JAUNDICED COMPLAINS OF SOME ABDOMINAL PAIN AND SOME MILD DISTENTION HAS YELLOW SCLERAL ICTERUS WILL GET AM LABS DW RN AND PT AND CASE MANAGEMENT DW GI ADD NORAH CALIXTO AM LABS 08-25 patient remains very jaundiced. Complaining of some abdominal pain some distention Yellow scleral icterus A.m. labs Discussed with GI and RN and patient and case management A.m. labs MRCP was stable Objective Vitals Vital Signs Date Time Temp Pulse Resp B/P (MAP) Pulse Ox O2 Delivery O2 Flow Rate FiO2 08/25/17 11:44 97.6 110 18 108/64 (79) 95 08/25/17 08:17 95 21 08/25/17 07:42 97.6 107 18 114/66 (82) 94 08/25/17 04:00 98.4 112 18 119/71 (87) 93 08/25/17 00:00 98.1 109 18 116/65 (82) 94 08/24/17 20:00 98.3 114 22 118/69 (85) 95 08/24/17 16:00 98.0 108 22 112/69 (83) 98 I/O 08/24/17 08/24/17 08/24/17 08/25/17 08/25/17 08/25/17 07:00 15:00 23:00 07:00 15:00 23:00 Intake Total 480 ml 480 ml 100 ml Balance 480 ml 480 ml 100 ml Intake Oral 480 ml 480 ml IV Total 100 ml # Voids 7 3 1 # Bowel Movements 2 2 Result Diagram: 08/25/17 0408 08/25/17 0408 Other Results Laboratory Tests Test 08/22/17 20:30 08/23/17 06:22 08/24/17 19:00 08/25/17 04:08 White Blood Count 22.4 TH/MM3 23.7 TH/MM3 26.7 TH/MM3 Red Blood Count 3.00 MIL/MM3 3.07 MIL/MM3 2.81 MIL/MM3 Hemoglobin 10.8 GM/DL 11.1 GM/DL 10.0 GM/DL Hematocrit 31.3 % 32.3 % 29.3 % Mean Corpuscular Volume 104.4 FL 105.4 FL 104.2 FL Mean Corpuscular Hemoglobin 35.9 PG 36.2 PG 35.7 PG Mean Corpuscular Hemoglobin Concent 34.4 % 34.3 % 34.3 % Red Cell Distribution Width 15.7 % 15.7 % 15.3 % Platelet Count 335 TH/MM3 312 TH/MM3 262 TH/MM3 Mean Platelet Volume 6.6 FL 6.8 FL 6.2 FL Prothrombin Time 21.3 SEC 21.3 SEC Prothromb Time International Ratio 2.1 RATIO 2.1 RATIO Activated Partial Thromboplast Time 38.3 SEC Lactate Dehydrogenase 161 U/L Total Protein 5.9 GM/DL 5.9 GM/DL 6.6 GM/DL Blood Urea Nitrogen 12 MG/DL 14 MG/DL Creatinine 0.97 MG/DL 0.93 MG/DL Random Glucose 112 MG/DL 98 MG/DL Albumin 1.7 GM/DL 3.0 GM/DL Calcium Level 7.7 MG/DL 8.0 MG/DL Alkaline Phosphatase 385 U/L 292 U/L Aspartate Amino Transf (AST/SGOT) 144 U/L 138 U/L Alanine Aminotransferase (ALT/SGPT) 41 U/L 39 U/L Total Bilirubin 13.9 MG/DL 16.9 MG/DL Sodium Level 129 MEQ/L 131 MEQ/L Potassium Level 4.0 MEQ/L 3.5 MEQ/L Chloride Level 99 MEQ/L 99 MEQ/L Carbon Dioxide Level 21.0 MEQ/L 22.0 MEQ/L Anion Gap 9 MEQ/L 10 MEQ/L Estimat Glomerular Filtration Rate 63 ML/MIN 66 ML/MIN Stool C. difficile Toxin (PCR) NEGATIVE Stl C. difficile Toxin Epiderm 027 PRESUMPTIVE NEGATIVE Neutrophils (%) (Auto) 93.2 % Lymphocytes (%) (Auto) 2.8 % Monocytes (%) (Auto) 3.5 % Eosinophils (%) (Auto) 0.2 % Basophils (%) (Auto) 0.3 % Neutrophils # (Auto) 24.8 TH/MM3 Lymphocytes # (Auto) 0.8 TH/MM3 Monocytes # (Auto) 0.9 TH/MM3 Eosinophils # (Auto) 0.1 TH/MM3 Basophils # (Auto) 0.1 TH/MM3 CBC Comment DIFF FINAL Differential Comment Phosphorus Level 1.8 MG/DL Magnesium Level 2.3 MG/DL Ammonia LESS THAN 10 MCMOL/L Free Thyroxine 1.01 NG/DL Thyroid Stimulating Hormone 3rd Gen 4.170 uIU/ML Imaging Last Impressions Cholangiopancreatography MRI 08/24/17 0000 Signed Impressions: Service Date/Time: Thursday, August 24, 2017 18:15 - CONCLUSION: 1. Hepatosplenomegaly. 2. Mild ascites in the right paracolic gutter region. 3. No dilatation of the biliary system. 4. Contracted gallbladder without stones. The gallbladder wall thickening may be secondary to lack of distention. 5. Thickening of the proximal transverse colon. 6. Consolidation or atelectasis in the right lower lobe with a minimal right effusion. Rohith Harman MD Abdomen/Pelvis CT 08/22/17 0000 Signed Impressions: Service Date/Time: July 18:15 - CONCLUSION: 1. Thickening of the proximal transverse colon consistent with colitis. 2. Hepatosplenomegaly. There is heterogeneity in the liver consistent with diffuse hepatic disease such as hepatic steatosis. No focal hepatic mass are seen. 3. Minimal bilateral pleural effusions with some accompanying atelectasis or consolidation at the right lung base. Rohith Harman MD Abdomen X-Ray 08/22/17 Signed Impressions: Service Date/Time: Tuesday, August 22, 2017 13:39 - CONCLUSION: Benign abdomen. Tay Valdes MD Abdomen Ultrasound 08/22/17 Signed Impressions: Service Date/Time: Tuesday, August 22, 2017 16:39 - CONCLUSION: Minimal amount of ascites. Not sufficient for paracentesis. Tay Valdes MD Objective Remarks GENERAL: Alert and oriented 3 talkative and cooperative very jaundiced in appearance SKIN: Warm and dry. Jaundiced skin HEAD: Atraumatic. Normocephalic. EYES: Pupils equal and round. No injection or drainage. Positive scleral icterus ENT: No nasal bleeding or discharge. Mucous membranes pink and moist. Tongue is midline jaundiced tongue NECK: Trachea midline. No JVD. Supple CARDIOVASCULAR: Regular rate and rhythm. S1-S2 no S3 or S4 RESPIRATORY: No accessory muscle use. Clear to auscultation. Breath sounds equal bilaterally. GASTROINTESTINAL: Abdomen soft, non-tender, nondistended. Hepatic and splenic margins not palpable. MUSCULOSKELETAL: Extremities without clubbing, cyanosis, +2 lower extremity edema. No obvious deformities. NEUROLOGICAL: Awake and alert. No obvious cranial nerve deficits. Motor grossly within normal limits. Five out of 5 muscle strength in the arms and legs. Normal speech. PSYCHIATRIC: INAppropriate mood and affect; insight and judgment ABnormal. Procedures EGD, colonoscopy 08/20/2017. gastritis Colon polyp Internal and external hemorrhoids Medications and IVs Current Medications Ondansetron HCl (Zofran Inj) 4 mg ONCE ONCE IVP Last administered on 12:03; Start 08/19/17 at 11:45; Stop 08/19/17 at 11:52; Status DC Pantoprazole Sodium (Protonix Inj) 40 mg ONCE ONCE IVP Last administered on 12:03; Start 08/19/17 at 11:45; Stop 08/19/17 at 11:52; Status DC Sodium Chloride 1,000 ml @ 1,000 mls/hr Q1H IV Last administered on 08/19/17 12:02; Start 08/19/17 at 11:40; Stop 08/19/17 at 12:39; Status DC Sodium Chloride (NS Flush) 2 ml UNSCH PRN IVF FLUSH AFTER USING IV ACCESS; Start 08/19/17 at 11:45; Stop 08/19/17 at 13:34; Status DC Famotidine (Pepcid Inj) 20 mg ONCE ONCE IV PUSH Last administered on 12:02; Start 08/19/17 at 11:45; Stop 08/19/17 at 11:52; Status DC Morphine Sulfate (Morphine Inj) 4 mg ONCE ONCE IV PUSH Last administered on 12:03; Start 08/19/17 at 11:45; Stop 08/19/17 at 11:52; Status DC Flumazenil (Romazicon Inj) 0.2 mg Q1M PRN IV PUSH SEE LABEL COMMENTS; Start at 12:00 Lorazepam (Ativan) 1 mg Q4H PRN PO CIWA 8 - 10 Last administered on 08/25/17at 06:34; Start 08/19/17 at 12:00 Lorazepam (Ativan Inj) 1 mg Q4H PRN IV PUSH CIWA 8 - 10 Last administered on at 08:40; Start 08/19/17 at 12:00 Lorazepam (Ativan) 2 mg Q2H PRN PO CIWA 11-14 Last administered on 08/20/17at 21 :47; Start 08/19/17 at 12:00 Lorazepam (Ativan Inj) 2 mg Q2H PRN IV PUSH CIWA 11-14; Start 08/19/17 at 12:00 Lorazepam (Ativan Inj) 2 mg Q1H PRN IV PUSH CIWA 15-20; Start 08/19/17 at 12:00 Lorazepam (Ativan Inj) 2 mg Q15M PRN IV PUSH CIWA > 20; Start 08/19/17 at 12:00 Piperacillin Sod/ Tazobactam Sod 100 ml @ 200 mls/hr ONCE ONCE IV Last administered on 08/19/17at 13:05; Start 08/19/17 at 13:00; Stop 08/19/17 at 13:29 ; Status DC Ceftriaxone Sodium 2000 mg/ Sodium Chloride 100 ml @ 200 mls/hr Q24H IV Last administered on 08/20/17at 15:14; Start 08/19/17 at 15:00; Stop 08/20/17 at 16:31 ; Status DC Sodium Chloride 1,000 ml @ 100 mls/hr Q10H IV Last administered on 08/20/17at 21:46; Start 08/19/17 at 14:00; Stop 08/21/17 at 10:00; Status DC Sodium Chloride (NS Flush) 2 ml UNSCH PRN IV FLUSH FLUSH AFTER USING IV ACCESS Last administered on 08/25/17at 04:25; Start 08/19/17 at 13:30 Sodium Chloride (NS Flush) 2 ml BID IV FLUSH Last administered on 08/25/17at 08: 34; Start 08/19/17 at 21:00 Acetaminophen (Tylenol) 500 mg Q4H PRN PO Headache, fever, pain 1-4; Start at 13:30 Ondansetron HCl (Zofran Inj) 4 mg Q6H PRN IVP NAUSEA OR VOMITING Last administered on 08/25/17at 04:26; Start 08/19/17 at 13:30 Naloxone HCl (Narcan Inj) 0.4 mg UNSCH PRN IV PUSH SEE LABEL COMMENTS; Start at 13:30 Magnesium Hydroxide (Milk Of Magnesia Liq) 30 ml Q12H PRN PO Mild constipation ; Start 08/19/17 at 13:30 Sennosides (Senokot) 17.2 mg Q12H PRN PO Moderate constipation Last administered on 08/22/17 08:36; Start 08/19/17 at 13:30 Bisacodyl (Dulcolax Supp) 10 mg DAILY PRN RECTAL SEVERE CONSITIPATION; Start at 13:30 Lactulose (Lactulose Liq) 30 ml DAILY PRN PO SEVERE CONSITIPATION Last administered on 08/21/17 16:52; Start 08/19/17 at 13:30; Stop 08/22/17 at 15:27 ; Status DC Morphine Sulfate (Morphine Inj) 4 mg Q3H PRN IV PUSH PAIN SCALE 5 TO 10 Last administered on 08/25/17 12:24; Start 08/19/17 at 15:00 Pentoxifylline (TRENtal SR) 400 mg Q8HR PO Last administered on 08/25/17 05:08 ; Start 08/19/17 at 22:00 Polyethylene Glycol/ Electrolytes (Colyte Liq) 4,000 ml ONCE ONCE PO Last administered on 08/19/17at 17:52; Start 08/19/17 at 16:00; Stop 08/19/17 at 16:01 ; Status DC Metronidazole 100 ml @ 100 mls/hr Q6H IV Last administered on 08/21/17 06:15 ; Start 08/19/17 at 18:00; Stop 08/21/17 at 10:00; Status DC Oxycodone HCl (Roxicodone) 5 mg ONCE ONCE PO Last administered on 08/19/17at 21 :29; Start 08/19/17 at 20:15; Stop 08/19/17 at 20:16; Status DC Thiamine HCl 100 mg/Sodium Chloride 101 ml @ 101 mls/hr DAILY IV Last administered on 08/22/17 08:36; Start 08/19/17 at 22:00; Stop 08/22/17 at 21:59 ; Status DC Thiamine HCl (Vitamin B1) 100 mg DAILY PO Last administered on 08/25/17 08:42 ; Start 08/22/17 at 09:00 Folic Acid (Folate) 1 mg DAILY PO Last administered on 08/25/17 08:42; Start 08/19/17 at 21:00 Potassium Chloride 100 ml @ 50 mls/hr Q2H IV Last administered on 08/20/17at 15 :14; Start 08/20/17 at 08:30; Stop 08/20/17 at 12:29; Status DC Potassium Chloride 100 ml @ 50 mls/hr Q2H IV ; Start 08/20/17 at 15:00; Stop at 15:00; Status DC Potassium Chloride (KCl) 20 meq Q12HR PO Last administered on 08/22/17at 08:36; Start 08/20/17 at 21:00; Stop 08/22/17 at 10:25; Status DC Potassium Chloride (KCl) 30 meq ONCE ONCE PO Last administered on 08/20/17at 14 :28; Start 08/20/17 at 13:45; Stop 08/20/17 at 13:46; Status DC Ciprofloxacin (Cipro) 500 mg Q12HR PO Last administered on 08/20/17at 21:45; Start 08/20/17 at 21:00; Stop 08/21/17 at 18:31; Status DC Metoclopramide HCl (Reglan Inj) 5 mg Q6H PRN IV PUSH NAUSEA OR VOMITING Last administered on 08/21/17at 21:52; Start 08/21/17 at 10:15 Prochlorperazine (Compazine Supp) 25 mg Q12H PRN RECTAL NAUSEA OR VOMITING; Start 08/21/17 at 10:15 Calcium Gluconate 1 gm/Sodium Chloride 110 ml @ 110 mls/hr ONCE ONCE IV Last administered on 08/21/17at 12:15; Start 08/21/17 at 11:45; Stop 08/21/17 at 12:44 ; Status DC Ceftriaxone Sodium 2000 mg/ Sodium Chloride 100 ml @ 200 mls/hr Q24H IV Last administered on 08/23/17at 21:23; Start 08/21/17 at 20:00; Stop 08/24/17 at 13:26 ; Status DC Lidocaine HCl (Xylocaine-Mpf 1% Inj) 5 ml STK-MED ONCE OTHER ; Start 08/20/17 at 12:00; Stop 08/22/17 at 14:57; Status DC Propofol (Diprivan 200 Mg/20 ml Inj) 600 mg STK-MED ONCE IV ; Start 08/20/17 at 12:00; Stop 08/22/17 at 14:57; Status DC Lactulose (Lactulose Liq) 30 ml TID PO Last administered on 08/25/17 12:26; Start 08/22/17 at 15:30 Albumin Human 100 ml @ 60 mls/hr Q8HR IV Last administered on 08/25/17at 12:27 ; Start 08/23/17 at 14:00; Stop 08/26/17 at 13:59 Diatrizoate Meglum/ Diatrizoate Sod ( Gastroanthony Liq) 18 ml ONCE ONCE PO Last administered on 08/23/17at 12:26; Start 08/23/17 at 12:00; Stop 08/23/17 at 12:16; Status DC Iohexol (Omnipaque 350 Inj) 75 ml STK-MED ONCE IVCONTRAST Last administered on 08/23/17at 18:25; Start 08/23/17 at 18:25; Stop 08/23/17 at 18:26; Status DC Piperacillin Sod/ Tazobactam Sod 100 ml @ 200 mls/hr Q6H IV Last administered on 08/25/17at 08:34; Start 08/24/17 at 15:00 Guaifenesin (Mucinex Er) 600 mg BID PO Last administered on 08/25/17at 08:42; Start 08/24/17 at 14:00 Albuterol/ Ipratropium (Duoneb Neb) 1 ampule Q4HR NEB PRN NEB SOB/COUGH; Start 08/24/17 at 13:30 Albuterol/ Ipratropium (Duoneb Neb) 1 ampule Q6HR WHILE AWAKE NEB NEB Last administered on 08/25/17at 08:16; Start 08/24/17 at 14:00 Metronidazole (Flagyl) 500 mg Q8HR PO Last administered on 08/25/17at 05:08; Start 08/24/17 at 14:00 A/P Problem List: (1) Severe sepsis ICD Code: A41.9 - Sepsis, unspecified organism; R65.20 - Severe sepsis without septic shock (2) KATELYN (acute kidney injury) ICD Code: N17.9 - Acute kidney failure, unspecified (3) Alcoholic liver disease ICD Code: K70.9 - Alcoholic liver disease, unspecified (4) Alcohol dependence ICD Code: F10.20 - Alcohol dependence, uncomplicated Status: Acute Assessment and Plan Ms. Lim is a 42 year old female with a history of alcoholism who presented to the ED due to worsening abdominal pain that started about two weeks prior to this admission. Particularly worse pain in the last two days as well as yellowish discoloration of her conjunctiva. COLITIS- START ZOSYN DW GI - Severe sepsis (Tachycardia, WBC 30.1, Suspected infection SBP, organ dysfunction Creatinine 2.0). - Possible Spontaneous bacterial peritonitis - Alcoholic liver hepatitis - Abdominal pain. - Abd US shows small ascites. Repeat attempt on 08/22/2017 showed the same. - She is also tachycardic. Will SWITCH TO IV ZOSYN - If she remains afebrile, - Maddrey's discrimination factor 35.9 (PT 17, Bili 11.5). - Will continue Pentoxifylline for now. - Lactulose was increased to TID. - Increased abdominal pain is possibly due to opioid use, constipation. - KUB on 08/22/2017 was unremarkable. - GI ordered CT abdomen pelvis with contrast on 08/23/2017. - Probable lower GI bleed - GI evaluated patient. EGD and colonoscopy completed on 08/20/2017 --> gastritis, colonic polyp, internal and external hemorrhoids. Repeat colonoscopy in 5 years. High-fiber diet recommended. - Alcohol abuse - Thiamine, Folic acid, CIWA protocol. - Patient is motivated to quit drinking. - Acute kidney injury -Severe hypokalemia - Likely due to poor volume intake. - Creatinine 2.0 --> 1.60 --> 0.92. - Replaced potassium with IV and p.o. potassium chloride. Magnesium was 1.9. Full code. SCDs. DW GI REPEAT MRI Leukocytosis does not have a good source except for maybe the colitis continue on the Zosyn and Flagyl Has severe coagulopathy with an INR of greater than 2 on no anticoagulation Discharge Planning DW GI AND RN AND PT Dontrell Saul DO Aug 25, 2017 12:45
[2017-08-25] MEDS: SPIRONOLACTONE 100 MG TAB PO SCH (18:37)
[2017-08-25] MEDS: FUROSEMIDE 40 MG TAB PO SCH (18:37)
[2017-08-25] MEDS: METOCLOPRAMIDE HCL 10 MG/2 ML VIAL IV PUSH PRN (19:20)
[2017-08-26] VITALS (7 sets, daily range): BP systolic 103–122; BP diastolic 56–76; PULSE 90–121; RESP 18–20; TEMP 97.7–98.4; O2SAT 93–97
[2017-08-26] MEDS: PIPERACIL-TAZO 4.5 GM PREMIX 100 ML IV SCH ×4 (03:16→20:34)
[2017-08-26] MEDS: MORPHINE SULFATE 4 MG/ML INJ IV PUSH PRN ×7 (03:26→21:57)
[2017-08-26] MEDS: PENTOXIFYLLINE 400 MG CONTROLLED RELEASE TAB PO SCH ×3 (05:35→20:45)
[2017-08-26] MEDS: ALBUMIN 25% INJ 100 ML IV SCH (05:35)
[2017-08-26] MEDS: metroNIDAZOLE 500 MG TAB PO SCH ×3 (05:35→20:33)
[2017-08-26] MEDS: SPIRONOLACTONE 100 MG TAB PO SCH (08:23)
[2017-08-26] MEDS: FUROSEMIDE 40 MG TAB PO SCH (08:24)
[2017-08-26] MEDS: guaiFENesin E.R. 600 MG TAB PO SCH ×2 (08:24→20:33)
[2017-08-26] MEDS: LACTULOSE SYRUP 20 GM/30 ML CUP PO SCH ×3 (08:24→17:32)
[2017-08-26] MEDS: FOLIC ACID 1 MG TAB PO SCH (08:24)
[2017-08-26] MEDS: THIAMINE HCL 100 MG TAB PO SCH (08:24)
[2017-08-26] MEDS: SODIUM CHLORIDE 0.9% FLUSH 10 ML FLUSH IV FLUSH SCH ×2 (08:25→20:33)
[2017-08-26 09:22] LABS: AUTOMATED NEUTROPHIL # 28.3 TH/MM3 (1.8-7.7); BASOPHIL # 0.1 TH/MM3 (0-0.2); BASOPHIL % 0.3 % (0.0-2.0); EOSINOPHIL % 0.1 % (0.0-4.0); HEMATOCRIT 24.8 % (35.0-46.0); HEMOGLOBIN 8.5 GM/DL (11.6-15.3); LYMPHOCYTE # 0.6 TH/MM3 (1.0-4.8); MEAN CELL VOLUME 105.5 FL (80.0-100.0); MEAN CORPUSCULAR HEMOGLOBIN 36.3 PG (27.0-34.0); MEAN CORPUSCULAR HGB CONC 34.4 % (32.0-36.0); MEAN PLATELET VOLUME 6.1 FL (7.0-11.0); MONO % 3.8 % (0.0-8.0); MONOCYTE # 1.1 TH/MM3 (0-0.9); NEUT % 93.8 % (16.0-70.0); PLATELET COUNT 168 TH/MM3 (150-450); RED BLOOD COUNT 2.35 MIL/MM3 (4.00-5.30); RED CELL DISTRIBUTION WIDTH 15.7 % (11.6-17.2); WHITE BLOOD COUNT 30.2 TH/MM3 (4.0-11.0)
[2017-08-26] MEDS: ONDANSETRON HCL 4 MG/2 ML VIAL IVP PRN ×2 (09:29→15:55)
[2017-08-26 09:31] LABS: INTERNATIONAL NORMALIZED RATIO 2.2 RATIO; PROTHROMBIN TIME - PATIENT 22.3 SEC (9.8-11.6)
[2017-08-26 09:42] LABS: ALBUMIN 3.1 GM/DL (3.4-5.0); AST (GOT) 112 U/L (15-37); BICARBONATE 21.6 MEQ/L (21.0-32.0); BLOOD UREA NITROGEN 13 MG/DL (7-18); CHLORIDE 102 MEQ/L (98-107); CREATININE 0.82 MG/DL (0.50-1.00); GLOMERULAR FILTRATION RATE 77 ML/MIN (>89); GLUCOSE,RANDOM 102 MG/DL (74-106); MAGNESIUM 2.1 MG/DL (1.5-2.5); SODIUM (NA) 134 MEQ/L (136-145)
[2017-08-26] MEDS: RESP: ALBUTEROL 2.5 MG/IPRATROPIUM 0.5 MG NEB (SCH) NEB ×2 (09:42→20:00)
[2017-08-26 09:43] LABS: ALT (GPT) 28 U/L (10-53)
[2017-08-26 09:46] LABS: ALKALINE PHOSPHATASE 221 U/L (45-117); PHOSPHORUS 1.1 MG/DL (2.5-4.9); TOTAL BILIRUBIN ADULT 15.7 MG/DL (0.2-1.0); TOTAL PROTEIN 6.1 GM/DL (6.4-8.2)
[2017-08-26 10:06] LABS: BANDS 5 % (0-6); LYMPHOCYTES 5 % (9-44); MONOCYTES 1 % (0-8); NEUTROPHIL # MANUAL DIFF 28.1 TH/MM3 (1.8-7.7); POLYS (SEG NEUTROPHILS) 88 % (16-70)
[2017-08-26 10:08] LABS: TOXIC GRANULATION 1+ (NORMAL)
--- NOTE | 2017-08-26 11:43 | HHI.PR ---
Subjective Remarks PATIENT REMAINS VERY JAUNDICED COMPLAINS OF SOME ABDOMINAL PAIN AND SOME MILD DISTENTION HAS YELLOW SCLERAL ICTERUS WILL GET AM LABS DW RN AND PT AND CASE MANAGEMENT DW GI ADD NORAH CALIXTO AM LABS 08-25 patient remains very jaundiced. Complaining of some abdominal pain some distention Yellow scleral icterus A.m. labs Discussed with GI and RN and patient and case management A.m. labs MRCP was stable 4- COMPLAINS OF ABDOMINAL PAIN WANTS PAIN MEDS WILL ADJUST NEEDS PARACENTESIS- HOPEFULLY TOMORROW AM LABS DW GI AND RN AND CM Objective Vitals Vital Signs Date Time Temp Pulse Resp B/P (MAP) Pulse Ox O2 Delivery O2 Flow Rate FiO2 08/26/17 09:43 21 08/26/17 08:19 98.0 115 20 122/65 (84) 94 08/26/17 04:05 97.7 90 18 118/62 (80) 94 08/26/17 04:05 97.7 99 18 94 08/25/17 23:55 97.4 129 18 127/69 (88) 08/25/17 20:00 98.6 124 18 129/74 (92) 96 08/25/17 19:21 95 21 08/25/17 15:29 97.2 124 18 131/72 (91) 95 08/25/17 11:44 97.6 110 18 108/64 (79) 95 I/O 08/25/17 08/25/17 08/25/17 08/26/17 08/26/17 08/26/17 07:00 15:00 23:00 07:00 15:00 23:00 Intake Total 300 ml 600 ml 200 ml 100 ml Balance 300 ml 600 ml 200 ml 100 ml Intake Oral 600 ml IV Total 300 ml 200 ml 100 ml # Voids 1 4 2 # Bowel Movements 4 Result Diagram: 08/26/17 0820 08/26/17 0820 Other Results Laboratory Tests Test 08/24/17 19:00 08/25/17 04:08 08/26/17 08:20 Stool C. difficile Toxin (PCR) NEGATIVE Stl C. difficile Toxin Epiderm 027 PRESUMPTIVE NEGATIVE White Blood Count 26.7 TH/MM3 30.2 TH/MM3 Red Blood Count 2.81 MIL/MM3 2.35 MIL/MM3 Hemoglobin 10.0 GM/DL 8.5 GM/DL Hematocrit 29.3 % 24.8 % Mean Corpuscular Volume 104.2 FL 105.5 FL Mean Corpuscular Hemoglobin 35.7 PG 36.3 PG Mean Corpuscular Hemoglobin Concent 34.3 % 34.4 % Red Cell Distribution Width 15.3 % 15.7 % Platelet Count 262 TH/MM3 168 TH/MM3 Mean Platelet Volume 6.2 FL 6.1 FL Neutrophils (%) (Auto) 93.2 % 93.8 % Lymphocytes (%) (Auto) 2.8 % 2.0 % Monocytes (%) (Auto) 3.5 % 3.8 % Eosinophils (%) (Auto) 0.2 % 0.1 % Basophils (%) (Auto) 0.3 % 0.3 % Neutrophils # (Auto) 24.8 TH/MM3 28.3 TH/MM3 Lymphocytes # (Auto) 0.8 TH/MM3 0.6 TH/MM3 Monocytes # (Auto) 0.9 TH/MM3 1.1 TH/MM3 Eosinophils # (Auto) 0.1 TH/MM3 0.0 TH/MM3 Basophils # (Auto) 0.1 TH/MM3 0.1 TH/MM3 CBC Comment DIFF FINAL AUTO DIFF Differential Comment FINAL DIFF MANUAL Prothrombin Time 21.3 SEC 22.3 SEC Prothromb Time International Ratio 2.1 RATIO 2.2 RATIO Blood Urea Nitrogen 14 MG/DL 13 MG/DL Creatinine 0.93 MG/DL 0.82 MG/DL Random Glucose 98 MG/DL 102 MG/DL Total Protein 6.6 GM/DL 6.1 GM/DL Albumin 3.0 GM/DL 3.1 GM/DL Calcium Level 8.0 MG/DL 8.0 MG/DL Phosphorus Level 1.8 MG/DL 1.1 MG/DL Magnesium Level 2.3 MG/DL 2.1 MG/DL Alkaline Phosphatase 292 U/L 221 U/L Aspartate Amino Transf (AST/SGOT) 138 U/L 112 U/L Alanine Aminotransferase (ALT/SGPT) 39 U/L 28 U/L Total Bilirubin 16.9 MG/DL 15.7 MG/DL Sodium Level 131 MEQ/L 134 MEQ/L Potassium Level 3.5 MEQ/L 3.2 MEQ/L Chloride Level 99 MEQ/L 102 MEQ/L Carbon Dioxide Level 22.0 MEQ/L 21.6 MEQ/L Anion Gap 10 MEQ/L 10 MEQ/L Estimat Glomerular Filtration Rate 66 ML/MIN 77 ML/MIN Hemoglobin A1c 4.7 % Ammonia LESS THAN 10 MCMOL/L Free Thyroxine 1.01 NG/DL Thyroid Stimulating Hormone 3rd Gen 4.170 uIU/ML Differential Total Cells Counted 100 Neutrophils % (Manual) 88 % Band Neutrophils % 5 % Lymphocytes % 5 % Monocytes % 1 % Eosinophils % 1 % Neutrophils # (Manual) 28.1 TH/MM3 Toxic Granulation 1+ Platelet Estimate NORMAL Platelet Morphology Comment NORMAL Imaging Last Impressions Cholangiopancreatography MRI 08/24/17 0000 Signed Impressions: Service Date/Time: Thursday, August 24, 2017 18:15 - CONCLUSION: 1. Hepatosplenomegaly. 2. Mild ascites in the right paracolic gutter region. 3. No dilatation of the biliary system. 4. Contracted gallbladder without stones. The gallbladder wall thickening may be secondary to lack of distention. 5. Thickening of the proximal transverse colon. 6. Consolidation or atelectasis in the right lower lobe with a minimal right effusion. Rohith Harman MD Abdomen/Pelvis CT 08/22/17 0000 Signed Impressions: Service Date/Time: July 18:15 - CONCLUSION: 1. Thickening of the proximal transverse colon consistent with colitis. 2. Hepatosplenomegaly. There is heterogeneity in the liver consistent with diffuse hepatic disease such as hepatic steatosis. No focal hepatic mass are seen. 3. Minimal bilateral pleural effusions with some accompanying atelectasis or consolidation at the right lung base. Rohith Harman MD Abdomen X-Ray 08/22/17 0000 Signed Impressions: Service Date/Time: Tuesday, August 22, 2017 13:39 - CONCLUSION: Benign abdomen. Tay Valdes MD Abdomen Ultrasound 08/22/17 0000 Signed Impressions: Service Date/Time: Tuesday, August 22, 2017 16:39 - CONCLUSION: Minimal amount of ascites. Not sufficient for paracentesis. Tay Valdes MD Objective Remarks GENERAL: Alert and oriented 3 talkative and cooperative very jaundiced in appearance SKIN: Warm and dry. Jaundiced skin HEAD: Atraumatic. Normocephalic. EYES: Pupils equal and round. No injection or drainage. Positive scleral icterus ENT: No nasal bleeding or discharge. Mucous membranes pink and moist. Tongue is midline jaundiced tongue NECK: Trachea midline. No JVD. Supple CARDIOVASCULAR: Regular rate and rhythm. S1-S2 no S3 or S4 RESPIRATORY: No accessory muscle use. Clear to auscultation. Breath sounds equal bilaterally. GASTROINTESTINAL: Abdomen soft, DISTENDED. Hepatic and splenic margins not palpable. MUSCULOSKELETAL: Extremities without clubbing, cyanosis, +2 lower extremity edema. No obvious deformities. NEUROLOGICAL: Awake and alert. No obvious cranial nerve deficits. Motor grossly within normal limits. Five out of 5 muscle strength in the arms and legs. Normal speech. PSYCHIATRIC: INAppropriate mood and affect; insight and judgment ABnormal. Procedures EGD, colonoscopy 08/20/2017. gastritis Colon polyp Internal and external hemorrhoids Medications and IVs Current Medications Ondansetron HCl (Zofran Inj) 4 mg ONCE ONCE IVP Last administered on 12:03; Start 08/19/17 at 11:45; Stop 08/19/17 at 11:52; Status DC Pantoprazole Sodium (Protonix Inj) 40 mg ONCE ONCE IVP Last administered on 12:03; Start 08/19/17 at 11:45; Stop 08/19/17 at 11:52; Status DC Sodium Chloride 1,000 ml @ 1,000 mls/hr Q1H IV Last administered on 08/19/17 12:02; Start 08/19/17 at 11:40; Stop 08/19/17 at 12:39; Status DC Sodium Chloride (NS Flush) 2 ml UNSCH PRN IVF FLUSH AFTER USING IV ACCESS; Start 08/19/17 at 11:45; Stop 08/19/17 at 13:34; Status DC Famotidine (Pepcid Inj) 20 mg ONCE ONCE IV PUSH Last administered on 12:02; Start 08/19/17 at 11:45; Stop 08/19/17 at 11:52; Status DC Morphine Sulfate (Morphine Inj) 4 mg ONCE ONCE IV PUSH Last administered on 12:03; Start 08/19/17 at 11:45; Stop 08/19/17 at 11:52; Status DC Flumazenil (Romazicon Inj) 0.2 mg Q1M PRN IV PUSH SEE LABEL COMMENTS; Start at 12:00 Lorazepam (Ativan) 1 mg Q4H PRN PO CIWA 8 - 10 Last administered on 08/25/17at 06:34; Start 08/19/17 at 12:00 Lorazepam (Ativan Inj) 1 mg Q4H PRN IV PUSH CIWA 8 - 10 Last administered on at 08:40; Start 08/19/17 at 12:00 Lorazepam (Ativan) 2 mg Q2H PRN PO CIWA 11-14 Last administered on 08/20/17at 21 :47; Start 08/19/17 at 12:00 Lorazepam (Ativan Inj) 2 mg Q2H PRN IV PUSH CIWA 11-14; Start 08/19/17 at 12:00 Lorazepam (Ativan Inj) 2 mg Q1H PRN IV PUSH CIWA 15-20; Start 08/19/17 at 12:00 Lorazepam (Ativan Inj) 2 mg Q15M PRN IV PUSH CIWA > 20; Start 08/19/17 at 12:00 Piperacillin Sod/ Tazobactam Sod 100 ml @ 200 mls/hr ONCE ONCE IV Last administered on 08/19/17at 13:05; Start 08/19/17 at 13:00; Stop 08/19/17 at 13:29 ; Status DC Ceftriaxone Sodium 2000 mg/ Sodium Chloride 100 ml @ 200 mls/hr Q24H IV Last administered on 08/20/17at 15:14; Start 08/19/17 at 15:00; Stop 08/20/17 at 16:31 ; Status DC Sodium Chloride 1,000 ml @ 100 mls/hr Q10H IV Last administered on 08/20/17at 21:46; Start 08/19/17 at 14:00; Stop 08/21/17 at 10:00; Status DC Sodium Chloride (NS Flush) 2 ml UNSCH PRN IV FLUSH FLUSH AFTER USING IV ACCESS Last administered on 08/25/17at 04:25; Start 08/19/17 at 13:30 Sodium Chloride (NS Flush) 2 ml BID IV FLUSH Last administered on 08/26/17at 08: 25; Start 08/19/17 at 21:00 Acetaminophen (Tylenol) 500 mg Q4H PRN PO Headache, fever, pain 1-4; Start at 13:30 Ondansetron HCl (Zofran Inj) 4 mg Q6H PRN IVP NAUSEA OR VOMITING Last administered on 08/26/17 09:29; Start 08/19/17 at 13:30 Naloxone HCl (Narcan Inj) 0.4 mg UNSCH PRN IV PUSH SEE LABEL COMMENTS; Start at 13:30 Magnesium Hydroxide (Milk Of Magnesia Liq) 30 ml Q12H PRN PO Mild constipation ; Start 08/19/17 at 13:30 Sennosides (Senokot) 17.2 mg Q12H PRN PO Moderate constipation Last administered on 08/22/17at 08:36; Start 08/19/17 at 13:30 Bisacodyl (Dulcolax Supp) 10 mg DAILY PRN RECTAL SEVERE CONSITIPATION; Start at 13:30 Lactulose (Lactulose Liq) 30 ml DAILY PRN PO SEVERE CONSITIPATION Last administered on 08/21/17 16:52; Start 08/19/17 at 13:30; Stop 08/22/17 at 15:27 ; Status DC Morphine Sulfate (Morphine Inj) 4 mg Q3H PRN IV PUSH PAIN SCALE 5 TO 10 Last administered on 08/26/17 09:25; Start 08/19/17 at 15:00 Pentoxifylline (TRENtal SR) 400 mg Q8HR PO Last administered on 08/26/17 05:35 ; Start 08/19/17 at 22:00 Polyethylene Glycol/ Electrolytes (Colyte Liq) 4,000 ml ONCE ONCE PO Last administered on 08/19/17at 17:52; Start 08/19/17 at 16:00; Stop 08/19/17 at 16:01 ; Status DC Metronidazole 100 ml @ 100 mls/hr Q6H IV Last administered on 08/21/17at 06:15 ; Start 08/19/17 at 18:00; Stop 08/21/17 at 10:00; Status DC Oxycodone HCl (Roxicodone) 5 mg ONCE ONCE PO Last administered on 08/19/17 21 :29; Start 08/19/17 at 20:15; Stop 08/19/17 at 20:16; Status DC Thiamine HCl 100 mg/Sodium Chloride 101 ml @ 101 mls/hr DAILY IV Last administered on 08/22/17at 08:36; Start 08/19/17 at 22:00; Stop 08/22/17 at 21:59 ; Status DC Thiamine HCl (Vitamin B1) 100 mg DAILY PO Last administered on 08/26/17 08:24; Start 08/22/17 at 09:00 Folic Acid (Folate) 1 mg DAILY PO Last administered on 08/26/17at 08:24; Start at 21:00 Potassium Chloride 100 ml @ 50 mls/hr Q2H IV Last administered on 08/20/17at 15 :14; Start 08/20/17 at 08:30; Stop 08/20/17 at 12:29; Status DC Potassium Chloride 100 ml @ 50 mls/hr Q2H IV ; Start 08/20/17 at 15:00; Stop at 15:00; Status DC Potassium Chloride (KCl) 20 meq Q12HR PO Last administered on 08/22/17at 08:36; Start 08/20/17 at 21:00; Stop 08/22/17 at 10:25; Status DC Potassium Chloride (KCl) 30 meq ONCE ONCE PO Last administered on 08/20/17at 14 :28; Start 08/20/17 at 13:45; Stop 08/20/17 at 13:46; Status DC Ciprofloxacin (Cipro) 500 mg Q12HR PO Last administered on 08/20/17at 21:45; Start 08/20/17 at 21:00; Stop 08/21/17 at 18:31; Status DC Metoclopramide HCl (Reglan Inj) 5 mg Q6H PRN IV PUSH NAUSEA OR VOMITING Last administered on 08/25/17at 19:20; Start 08/21/17 at 10:15 Prochlorperazine (Compazine Supp) 25 mg Q12H PRN RECTAL NAUSEA OR VOMITING; Start 08/21/17 at 10:15 Calcium Gluconate 1 gm/Sodium Chloride 110 ml @ 110 mls/hr ONCE ONCE IV Last administered on 08/21/17at 12:15; Start 08/21/17 at 11:45; Stop 08/21/17 at 12:44 ; Status DC Ceftriaxone Sodium 2000 mg/ Sodium Chloride 100 ml @ 200 mls/hr Q24H IV Last administered on 08/23/17at 21:23; Start 08/21/17 at 20:00; Stop 08/24/17 at 13:26 ; Status DC Lidocaine HCl (Xylocaine-Mpf 1% Inj) 5 ml STK-MED ONCE OTHER ; Start 08/20/17 at 12:00; Stop 08/22/17 at 14:57; Status DC Propofol (Diprivan 200 Mg/20 ml Inj) 600 mg STK-MED ONCE IV ; Start 08/20/17 at 12:00; Stop 08/22/17 at 14:57; Status DC Lactulose (Lactulose Liq) 30 ml TID PO Last administered on 08/26/17at 08:24; Start 08/22/17 at 15:30 Albumin Human 100 ml @ 60 mls/hr Q8HR IV Last administered on 08/26/17at 05:35; Start 08/23/17 at 14:00; Stop 08/26/17 at 13:59 Diatrizoate Meglum/ Diatrizoate Sod ( Gastroview Liq) 18 ml ONCE ONCE PO Last administered on 08/23/17at 12:26; Start 08/23/17 at 12:00; Stop 08/23/17 at 12:16; Status DC Iohexol (Omnipaque 350 Inj) 75 ml STK-MED ONCE IVCONTRAST Last administered on 08/23/17at 18:25; Start 08/23/17 at 18:25; Stop 08/23/17 at 18:26; Status DC Piperacillin Sod/ Tazobactam Sod 100 ml @ 200 mls/hr Q6H IV Last administered on 08/26/17at 08:25; Start 08/24/17 at 15:00 Guaifenesin (Mucinex Er) 600 mg BID PO Last administered on 08/26/17at 08:24; Start 08/24/17 at 14:00 Albuterol/ Ipratropium (Duoneb Neb) 1 ampule Q4HR NEB PRN NEB SOB/COUGH; Start 08/24/17 at 13:30 Albuterol/ Ipratropium (Duoneb Neb) 1 ampule Q6HR WHILE AWAKE NEB NEB Last administered on 08/26/17at 09:42; Start 08/24/17 at 14:00 Metronidazole (Flagyl) 500 mg Q8HR PO Last administered on 08/26/17at 05:35; Start 08/24/17 at 14:00 Furosemide (Lasix) 40 mg DAILY PO Last administered on 08/26/17at 08:24; Start at 17:45 Spironolactone (Aldactone) 100 mg DAILY PO Last administered on 08/26/17at 08:23 ; Start 08/25/17 at 17:45 A/P Problem List: (1) Severe sepsis ICD Code: A41.9 - Sepsis, unspecified organism; R65.20 - Severe sepsis without septic shock (2) KATELYN (acute kidney injury) ICD Code: N17.9 - Acute kidney failure, unspecified (3) Alcoholic liver disease ICD Code: K70.9 - Alcoholic liver disease, unspecified (4) Alcohol dependence ICD Code: F10.20 - Alcohol dependence, uncomplicated Status: Acute Assessment and Plan Ms. Lim is a 42 year old female with a history of alcoholism who presented to the ED due to worsening abdominal pain that started about two weeks prior to this admission. Particularly worse pain in the last two days as well as yellowish discoloration of her conjunctiva. COLITIS- START ZOSYN DW GI - Severe sepsis (Tachycardia, WBC 30.1, Suspected infection SBP, organ dysfunction Creatinine 2.0). - Possible Spontaneous bacterial peritonitis - Alcoholic liver hepatitis - Abdominal pain. - Abd US shows small ascites. Repeat attempt on 08/22/2017 showed the same. - She is also tachycardic. Will SWITCH TO IV ZOSYN - If she remains afebrile, - Maddrey's discrimination factor 35.9 (PT 17, Bili 11.5). - Will continue Pentoxifylline for now. - Lactulose was increased to TID. - Increased abdominal pain is possibly due to opioid use, constipation. - KUB on 08/22/2017 was unremarkable. - GI ordered CT abdomen pelvis with contrast on 08/23/2017. - Probable lower GI bleed - GI evaluated patient. EGD and colonoscopy completed on 08/20/2017 --> gastritis, colonic polyp, internal and external hemorrhoids. Repeat colonoscopy in 5 years. High-fiber diet recommended. - Alcohol abuse - Thiamine, Folic acid, CIWA protocol. - Patient is motivated to quit drinking. - Acute kidney injury -Severe hypokalemia - Likely due to poor volume intake. - Creatinine 2.0 --> 1.60 --> 0.92. - Replaced potassium with IV and p.o. potassium chloride. Magnesium was 1.9. Full code. SCDs. DW GI REPEAT MRI Leukocytosis does not have a good source except for maybe the colitis continue on the Zosyn and Flagyl STILL GOING UP WITH ABDOMINAL PAIN RECHECK CT OF ABDOMEN AND PELVIS CHECK BLOOD CULTURES AND UA Has severe coagulopathy with an INR of greater than 2 on no anticoagulation Discharge Planning DW GI AND RN AND PT Dontrell Saul DO Aug 26, 2017 11:43
[2017-08-26] MEDS ORDERED: DIATRIZOATE MEGLUM/DIATRIZOATE SOD 9 ML CUP PO ONE (12:30)
--- NOTE | 2017-08-26 12:37 | HHI.GIFU ---
Subjective Remarks Pt c/o increasing abd pain and distention, SOB. says its keepign her from being able to eat much (Kiara Lyons) Objective Vitals I&O Vital Signs Date Time Temp Pulse Resp B/P (MAP) Pulse Ox O2 Delivery O2 Flow Rate FiO2 08/26/17 09:43 21 08/26/17 08:19 98.0 115 20 122/65 (84) 94 08/26/17 04:05 97.7 90 18 118/62 (80) 94 08/26/17 04:05 97.7 99 18 94 08/25/17 23:55 97.4 129 18 127/69 (88) 08/25/17 20:00 98.6 124 18 129/74 (92) 96 08/25/17 19:21 95 21 08/25/17 15:29 97.2 124 18 131/72 (91) 95 I/O 08/25/17 08/25/17 08/25/17 08/26/17 08/26/17 08/26/17 07:00 15:00 23:00 07:00 15:00 23:00 Intake Total 300 ml 600 ml 200 ml 100 ml Balance 300 ml 600 ml 200 ml 100 ml Intake Oral 600 ml IV Total 300 ml 200 ml 100 ml # Voids 1 4 2 # Bowel Movements 4 Laboratory Laboratory Tests Test 08/26/17 08:20 White Blood Count 30.2 Red Blood Count 2.35 Hemoglobin 8.5 Hematocrit 24.8 Mean Corpuscular Volume 105.5 Mean Corpuscular Hemoglobin 36.3 Mean Corpuscular Hemoglobin Concent 34.4 Red Cell Distribution Width 15.7 Platelet Count 168 Mean Platelet Volume 6.1 Neutrophils (%) (Auto) 93.8 Lymphocytes (%) (Auto) 2.0 Monocytes (%) (Auto) 3.8 Eosinophils (%) (Auto) 0.1 Basophils (%) (Auto) 0.3 Neutrophils # (Auto) 28.3 Lymphocytes # (Auto) 0.6 Monocytes # (Auto) 1.1 Eosinophils # (Auto) 0.0 Basophils # (Auto) 0.1 CBC Comment AUTO DIFF Differential Total Cells Counted 100 Neutrophils % (Manual) 88 Band Neutrophils % 5 Lymphocytes % 5 Monocytes % 1 Eosinophils % 1 Neutrophils # (Manual) 28.1 Differential Comment FINAL DIFF MANUAL Toxic Granulation 1+ Platelet Estimate NORMAL Platelet Morphology Comment NORMAL Prothrombin Time 22.3 Prothromb Time International Ratio 2.2 Blood Urea Nitrogen 13 Creatinine 0.82 Random Glucose 102 Total Protein 6.1 Albumin 3.1 Calcium Level 8.0 Phosphorus Level 1.1 Magnesium Level 2.1 Alkaline Phosphatase 221 Aspartate Amino Transf (AST/SGOT) 112 Alanine Aminotransferase (ALT/SGPT) 28 Total Bilirubin 15.7 Sodium Level 134 Potassium Level 3.2 Chloride Level 102 Carbon Dioxide Level 21.6 Anion Gap 10 Estimat Glomerular Filtration Rate 77 Date/Time Source Procedure Growth Status 08/19/17 13:10 Blood Line Aerobic Blood Culture - Final NO GROWTH IN 5 DAYS Complete 08/19/17 13:10 Blood Line Anaerobic Blood Culture - Final NO GROWTH IN 5 DAYS Complete 08/19/17 14:30 Urine Clean Catch Urine Culture - Final 50-100,000 CFU/ML MIXED JACKSON... Complete Imaging Last Impressions Cholangiopancreatography MRI 08/24/17 0000 Signed Impressions: Service Date/Time: Thursday, August 24, 2017 18:15 - CONCLUSION: 1. Hepatosplenomegaly. 2. Mild ascites in the right paracolic gutter region. 3. No dilatation of the biliary system. 4. Contracted gallbladder without stones. The gallbladder wall thickening may be secondary to lack of distention. 5. Thickening of the proximal transverse colon. 6. Consolidation or atelectasis in the right lower lobe with a minimal right effusion. Rohith Harman MD Abdomen/Pelvis CT 08/22/17 0000 Signed Impressions: Service Date/Time: July 18:15 - CONCLUSION: 1. Thickening of the proximal transverse colon consistent with colitis. 2. Hepatosplenomegaly. There is heterogeneity in the liver consistent with diffuse hepatic disease such as hepatic steatosis. No focal hepatic mass are seen. 3. Minimal bilateral pleural effusions with some accompanying atelectasis or consolidation at the right lung base. Rohith Harman MD Abdomen X-Ray 08/22/17 0000 Signed Impressions: Service Date/Time: Tuesday, August 22, 2017 13:39 - CONCLUSION: Benign abdomen. Tay Valdes MD Abdomen Ultrasound 08/22/17 0000 Signed Impressions: Service Date/Time: Tuesday, August 22, 2017 16:39 - CONCLUSION: Minimal amount of ascites. Not sufficient for paracentesis. Tay Valdes MD Physical Exam HEENT: PERRL; normocephalic; atraumatic; +icterus sclera CHEST: CTA, respirations shallow CARDIAC tachy +murmur ABDOMEN: distended, semifirm, generalized tenderness especially, bowel sounds are present in all four quadrants. EXTREMITIES: + BLE edema SKIN: Normal; no rash; +jaundice INVESTIGATOR VICE:AOX3 (Serena,Kiara S DIRECT CARE STAFFER) Assessment and Plan Plan Plan/history RECONSULT for abdominal distention, pain and worsening bilirubin Pt now S/P EGD and colonoscopy --> Gastritis, Colon polyp. Internal and external hemorrhoids. Pathology (stomach antrum) Gastric antral mucosa with minimally active chronic inflammation and edema (colon) mildly hyperplastic colonic mucosa suggestive of hyperplastic polyp. Pt reports increasing distention and pain in abdomen. KUB ordered by attending today --> Benign appearing abdomen. Pt reports small BM yesterday. Has not been passing much gas. ? Increase in ascites, previous US abdomen did not reveal enough fluid for paracentesis. Would like to rule out SBP because pt would likely benefit from steroids. 08/23/17 - worsening tbil. WBC remain elevated and mild increase, no fevers or abd pain. Pt c/o continued abd distention now with BLE edema. albumin 1.7, will replace CT abd with contrast is pending. + BM 08/24/17, she continues to be icteric sclera and skin, drowsy and hard to follow and focus on conversation, speech mildly slurred, patient continues to have right upper quadrant and gastric abdominal pain. CT scan shows thickening of the proximal transverse colon consistent with colitis. Hepatosplenomegaly consistent with diffuse hepatic disease with hepatic steatosis no focal masses seen. Minimal bilateral pleural effusions with some accompanying atelectasis and consolidation at the right lung base. Discussed with attending physician, plan of care and further labs. Since colitis has been seen will check her for C. difficile. Antibiotics changed to Zosyn and Flagyl. Attending is also check an ammonia level, and knees M, phosphorus, TSH , CBC, CMP, T4, PT. Alkaline phosphatase remains slightly elevated at 385, not trending down; AST 144, ALT 41, obstruction versus EtOH hepatitis. Patient also has generalized lower extremity edema which is new for her during this hospital stay. 08/25/17, acute alcoholic hepatitis , patient continues to have loose stools secondary to her lactulose. Abdomen still taut and distended with some lower extremity edema. WBC count mild elevation 26.7, hemoglobin 10, alkaline phosphatase mildly decreased to 92, bilirubin 16.9, mild decrease in LFTs AST 138, ALT 39.. Ammonia level less than 10. MRCP showed no biliary obstruction. Possible underlying infection with increased leukocytosis so no steroids for now. Slow gradual improvements noted in LFTs. 08/26/17 increasing distention. WBC still trending up. HH trending down, no obvious bleeding. coagulopathy worsening. c/o abd pain, SOB from distention. mild decrease LFTs today PLAN: will try again for paracentesis tomorrow vit k tonight 2 x FFP in am rck coags after FFP TID lactulose Pentoxifylline Continue to monitor labs notify GI of active bleeding Pt has been seen and examined by myself and Dr. Groves and this note is written on his behalf (Kiara Lyons) Physician Comments Patient seen and examined Agree with above Continue with current supportive care Monitor labs We will ask for hematology evaluation of leukocytosis (Jacky Groves MD) Kiara Lyons Aug 26, 2017 12:37 Jacky Groves MD Aug 26, 2017 18:06
[2017-08-26] MEDS: METOCLOPRAMIDE HCL 10 MG/2 ML VIAL IV PUSH PRN (12:55)
[2017-08-26] MEDS: traMADol HCL 50 MG TAB PO PRN ×2 (14:19→20:33)
[2017-08-26 15:03] LABS: BILIRUBIN, URINE MOD (NEG); BLOOD, URINE NEG (NEG); GLUCOSE,URINE NEG (NEG); HYALINE CAST, URINE 16 /lpf (RARE); KETONE, URINE NEG (NEG); MUCUS URINE FEW /lpf (OCC); NITRITE,URINE NEG (NEG); SQUAMOUS EPITHELIAL CELL URINE 3 /hpf (0-5); URINE COLOR DARK-YELLOW (YELLW/STRAW); URINE LEUKOCYTE ESTERASE NEG (NEG)
--- NOTE | 2017-08-26 17:21 | RADRPT ---
EXAM DATE/TIME: 08/26/2017 16:59 [facility] COMPARISON: No previous studies available for comparison. INDICATIONS : Short of Breath MEDICAL HISTORY : None. SURGICAL HISTORY : Appendectomy. ENCOUNTER: Initial ACUITY: 1 day PAIN SCORE: 0/10 LOCATION: chest FINDINGS: Lungs are hypoaerated. There is diffuse interstitial prominence. Bibasilar airspace disease is noted. Minimal effusions appear to be present. The heart is normal in size. CONCLUSION: Generalized interstitial lung disease with bibasilar airspace disease and small bilateral effusions. Kamron Rollins MD on August 26, 2017 at 17:17 Board Certified Radiologist. This report was verified electronically.
[2017-08-26] MEDS ORDERED: IOHEXOL 350 MG/ML 10 ML VIAL (for RAD DIAG) IVCONTRAST ONE (17:28)
--- NOTE | 2017-08-26 17:42 | RADRPT ---
EXAM DATE/TIME: 08/26/2017 17:17 [facility] COMPARISON: CT ABDOMEN & PELVIS W CONTRAST, August 23, 2017, 18:15. INDICATIONS : Liver failure, distension. IV CONTRAST: 100 cc Omnipaque 350 (iohexol) IV ORAL CONTRAST: Prescribed oral contrast ingested. RADIATION DOSE: 12.27 CTDIvol (mGy) MEDICAL HISTORY : Gastroesophageal reflux disease. SURGICAL HISTORY : Appendectomy. Back ENCOUNTER: Subsequent ACUITY: 4 - 6 days PAIN SCALE: 6/10 LOCATION: Bilateral diffuse abdomen TECHNIQUE: Volumetric scanning of the abdomen and pelvis was performed. Using automated exposure control and ad justment of the mA and/or kV according to patient size, radiation dose was kept as low as reasonably achievable to obtain optimal diagnostic quality images. DICOM format image data is available electro nically for review and comparison. FINDINGS: The liver and spleen are enlarged. Heterogeneous enhancement pattern remains evident throughout the liver. There are no discrete space o ccupying lesions or evidence of biliary duct dilatation. Portal vein remains patent Mild gallbladder wall thickening and pericholecystic fluid is noted. Adrenal glands, pancreas and kidneys are stable. Small amount of ascites is again noted. Edematous thickening of the ascending and transverse colon is again noted. Right lower lobe airspace disease is again noted. Increasing edema is identified in the abdominal wal l. CONCLUSION: 1. Hepatosplenomegaly with diffusely abnormal hepatic texture. 2. Persistent consolidating airspace disease in the right lower lobe. 3. Small amount of ascites still present. 4. Increasing anasarca. 5. Colonic wall thickening and edema characteristic of colitis as previously described. 6. No significant change. Kamron Rollins MD on August 26, 2017 at 17:34 Board Certified Radiologist. This report was verified electronically.
[2017-08-26] MEDS ORDERED: PHYTONADIONE 5 MG/SWFI 5 ML ORAL SYR PO SCH (20:00)
[2017-08-27] VITALS (10 sets, daily range): BP systolic 110–119; BP diastolic 58–76; PULSE 66–127; RESP 16–20; TEMP 97.5–98.5; O2SAT 92–97
[2017-08-27] MEDS: MORPHINE SULFATE 4 MG/ML INJ IV PUSH PRN ×4 (01:27→19:11)
[2017-08-27] MEDS: PIPERACIL-TAZO 4.5 GM PREMIX 100 ML IV SCH ×5 (01:28→20:03)
[2017-08-27] MEDS: PENTOXIFYLLINE 400 MG CONTROLLED RELEASE TAB PO SCH ×3 (05:53→20:03)
[2017-08-27] MEDS: metroNIDAZOLE 500 MG TAB PO SCH ×3 (05:53→20:04)
[2017-08-27] MEDS: traMADol HCL 50 MG TAB PO PRN ×3 (05:53→17:57)
[2017-08-27] MEDS: RESP: ALBUTEROL 2.5 MG/IPRATROPIUM 0.5 MG NEB (SCH) NEB ×3 (07:51→19:54)
[2017-08-27] MEDS: FOLIC ACID 1 MG TAB PO SCH (08:10)
[2017-08-27] MEDS: guaiFENesin E.R. 600 MG TAB PO SCH ×2 (08:10→20:03)
[2017-08-27] MEDS: FUROSEMIDE 40 MG TAB PO SCH (08:10)
[2017-08-27] MEDS: LACTULOSE SYRUP 20 GM/30 ML CUP PO SCH ×3 (08:10→17:57)
[2017-08-27] MEDS: THIAMINE HCL 100 MG TAB PO SCH (08:10)
[2017-08-27] MEDS: SPIRONOLACTONE 100 MG TAB PO SCH (08:14)
[2017-08-27] MEDS: SODIUM CHLORIDE 0.9% FLUSH 10 ML FLUSH IV FLUSH SCH ×2 (08:14→20:03)
--- NOTE | 2017-08-27 09:04 | MB ---
cc: Sebastián Carmen MD DATE: 08/27/2017 CONSULTING PHYSICIAN: Dr. Groves. REASON FOR CONSULTATION: Hematology consulted to render an opinion regarding patient with persistent leukocytosis. HISTORY OF PRESENT ILLNESS: The patient is a 42-year-old female admitted to the hospital with abdominal pain and abdominal distention. As stated, she had abdominal pain and elevated liver enzymes 6 months ago when she was in [place]. When she came to [place], she started having increased abdominal pain and cramping. She is very distended. She feels bloated. She has been having nausea and vomiting. She denies any fevers or chills. Denies any chest pain or shortness of breath. Denies dysuria or hematuria. She was admitted to the hospital and EGD and colonoscopy last week showed gastritis and colon polyps with external and internal hemorrhoids. She has an MRCP which shows mild hepatosteatosis and mild ascites. Her symptoms did not improve and did have a repeat CT scan yesterday which showed abnormal hepatic texture with small ascites and increased anasarca. There is also colonic wall thickening and edema consistent with the colitis. She presented with a white blood cell count of 30,000. It trended down to 21,000, but over the last few days trended back up to 30,000. She also has a mild anemia and hemoglobin trended down to 8.5. Platelet count trended down from 370,000 and 168,000. She has occasional bright red blood per rectum, but otherwise no bleeding. PAST MEDICAL HISTORY: 1. Alcohol abuse. 2. Gastroesophageal reflux disease. PAST SURGICAL HISTORY: 1. Appendectomy. 2. Back surgery. 3. Tonsillectomy. FAMILY HISTORY: She has a brother, 2 sisters and 2 half brothers, all relatively healthy. She has a son who is healthy. SOCIAL HISTORY: Alcohol abuse. She has been trying to wean off alcohol. She has smoked 2 packs a week for the last 20 years. She smokes marijuana occasionally. ALLERGIES: SULFA DRUGS. CURRENT MEDICATIONS: 1. Furosemide. 2. Aldactone. 3. Zosyn. 4. Guaifenesin. 5. DuoNeb. 6. Flagyl 7. Lactulose. 8. Thiamine. 9. Trental. 10. Folic acid. REVIEW OF SYSTEMS: CONSTITUTIONAL: As above. EYES: Negative. ENT: Negative. CARDIOVASCULAR; Denies any chest pressure or palpitation. RESPIRATORY: No shortness of breath or cough. GASTROINTESTINAL: As above. GENITOURINARY: Denies dysuria or hematuria. MUSCULOSKELETAL: Negative. HEMATOLOGIC: As above. ENDOCRINE: Negative. DERMATOLOGY: Negative. PSYCHIATRIC: Negative. NEUROLOGIC: Negative. PHYSICAL EXAMINATION: VITAL SIGNS: Temperature 97.6, blood pressure 160/66, O2 saturation 95 percent. GENERAL: She is alert, oriented x 3 in no acute distress. HEENT: Atraumatic, normocephalic. Pupils are equal, round, reactive to light. Positive scleral icterus. Oropharynx dry mucosa. NECK: No thyromegaly. No palpable mass. LYMPHATIC: No palpable cervical, clavicular, axillary, or inguinal lymph nodes. CARDIOVASCULAR: Regular S1, S2. No murmur. LUNGS: Clear to auscultation anteriorly. ABDOMEN: Soft. It is distended with diffuse tenderness. Positive bowel sounds. EXTREMITIES: 1+ edema. No calf tenderness. SKIN: No rash or petechia. She is jaundiced. NEUROLOGIC: Nonfocal. LABORATORY DATA: WBC 30.2, hemoglobin 8.5, platelet count 168, absolute neutrophil count 28, 5% bandemia noted, creatinine 0.82. Total bilirubin 15.7, AST 112, alkaline phosphatase 221. ASSESSMENT: 1. Leukocytosis with predominantly neutrophil and bandemia. There was also toxic granulation noted. This is most consistent with a leukemoid reaction. I doubt that she has a primary bone marrow disorder. I think the inflammatory source is likely in the gastrointestinal tract. She has a constellation of gastrointestinal complaints, although workup so far has been unremarkable. Her computer tomography of the abdomen and pelvis showed colonic wall thickening and edema most consistent with colitis. However, her colonoscopy 08/20/2017 was unremarkable. She also has hepatosplenomegaly and anasarca. I am going to check her sedimentation rate and C-reactive protein. I will review peripheral smear. Continue to monitor for now. 2. Abdominal pain and distention. She has a markedly abnormal liver enzymes. A computer tomography of the abdomen and pelvis showed abnormal hepatic texture with anasarca. There was a sign of colitis. Gastrointestinal workup is ongoing. 3. Alcohol abuse. She has been trying to cut back. 4. Anemia, likely due to a combination of gastrointestinal bleeding, as well as a chronic inflammatory disease. I am going to check a vitamin study and iron study. RECOMMENDATIONS: 1. Check blood work as outlined above. 5. Pathology to review peripheral smear. 6. Anemia workup. 7. Continue gastrointestinal workup. 8. Monitor CBC. Thank you, Dr. Groves, for asking me to see this patient. Sebastián Carmen MD BYNathaniel/MADI , 08:02 AM , 09:02 AM [email or web address]
--- NOTE | 2017-08-27 10:12 | RADRPT ---
EXAM DATE/TIME: 08/27/2017 08:38 [facility] COMPARISON: US ABDOMEN - LOWER LIMITED, August 22, 2017, 16:39. INDICATIONS : Ascites. Evaluate for paracentesis. MEDICAL HISTORY : Gastroesophageal reflux disease. SURGICAL HISTORY : Appendectomy. Back surgeries. ENCOUNTER: Initial ACUITY: 1 day PAIN SCORE: 0/10 LOCATION: Abdomen. AREA EVALUATED: Abdomen. FINDINGS: Imaging of the abdomen and pelvis was performed to evaluate for ascites for possible paracentesis. Mi nimal fluid in the midline pelvis. CONCLUSION: Insufficient fluid volume for percutaneous ultrasound guided paracentesis. Anthony Pop MD on August 27, 2017 at 10:10 Board Certified Radiologist. This report was verified electronically.
[2017-08-27 11:03] LABS: AUTOMATED NEUTROPHIL # 27.9 TH/MM3 (1.8-7.7); BASOPHIL # 0.1 TH/MM3 (0-0.2); BASOPHIL % 0.3 % (0.0-2.0); EOSINOPHIL # 0.1 TH/MM3 (0-0.4); EOSINOPHIL % 0.3 % (0.0-4.0); HEMATOCRIT 24.7 % (35.0-46.0); HEMOGLOBIN 8.4 GM/DL (11.6-15.3); LYMPH % 1.5 % (9.0-44.0); LYMPHOCYTE # 0.4 TH/MM3 (1.0-4.8); MEAN CELL VOLUME 106.3 FL (80.0-100.0); MEAN CORPUSCULAR HEMOGLOBIN 36.3 PG (27.0-34.0); MEAN CORPUSCULAR HGB CONC 34.2 % (32.0-36.0); MEAN PLATELET VOLUME 6.1 FL (7.0-11.0); MONO % 3.5 % (0.0-8.0); NEUT % 94.4 % (16.0-70.0); PLATELET COUNT 142 TH/MM3 (150-450); RED BLOOD COUNT 2.32 MIL/MM3 (4.00-5.30); RED CELL DISTRIBUTION WIDTH 15.2 % (11.6-17.2); WHITE BLOOD COUNT 29.5 TH/MM3 (4.0-11.0)
[2017-08-27 11:11] LABS: PROTHROMBIN TIME - PATIENT 20.6 SEC (9.8-11.6)
[2017-08-27 11:23] LABS: RETIC # 99.6 MIL/L (20.0-150.0); RETIC % 4.3 % (0.4-3.0)
[2017-08-27 11:24] LABS: ALBUMIN 2.8 GM/DL (3.4-5.0); ALT (GPT) 30 U/L (10-53); AST (GOT) 117 U/L (15-37); BICARBONATE 24.2 MEQ/L (21.0-32.0); BLOOD UREA NITROGEN 13 MG/DL (7-18); CALCIUM 7.9 MG/DL (8.5-10.1); CHLORIDE 102 MEQ/L (98-107); CREATININE 0.79 MG/DL (0.50-1.00); GLOMERULAR FILTRATION RATE 80 ML/MIN (>89); GLUCOSE,RANDOM 127 MG/DL (74-106); MAGNESIUM 1.7 MG/DL (1.5-2.5); PHOSPHORUS 0.8 MG/DL (2.5-4.9); SODIUM (NA) 136 MEQ/L (136-145)
[2017-08-27 11:26] LABS: ALKALINE PHOSPHATASE 205 U/L (45-117); TOTAL BILIRUBIN ADULT 16.7 MG/DL (0.2-1.0)
--- NOTE | 2017-08-27 11:49 | HHI.GIFU ---
Subjective Remarks c/o abd comfort and distention. Insufficient fluid for paracentesis. (Kiara Lyons) Objective Vitals I&O Vital Signs Date Time Temp Pulse Resp B/P (MAP) Pulse Ox O2 Delivery O2 Flow Rate FiO2 08/27/17 11:41 98.1 106 20 114/59 (77) 92 08/27/17 08:27 97.6 117 20 116/66 (83) 93 08/27/17 08:19 97.7 119 17 119/73 94 08/27/17 07:51 98.0 114 16 116/64 94 08/27/17 07:36 97.6 117 16 116/66 95 08/27/17 05:49 98.0 115 18 114/58 95 08/27/17 05:34 98.0 127 18 115/65 93 08/27/17 04:05 98.5 115 18 110/61 (77) 97 08/26/17 23:36 98.1 121 18 103/56 (72) 95 08/26/17 20:47 95 21 08/26/17 20:41 98.4 118 20 118/76 (90) 95 08/26/17 16:41 97.8 114 20 121/62 (81) 97 08/26/17 12:38 98.3 121 20 117/64 (81) 93 I/O 08/26/17 08/26/17 08/26/17 08/27/17 08/27/17 08/27/17 07:00 15:00 23:00 07:00 15:00 23:00 Intake Total 200 ml 800 ml 100 ml 100 ml 530 ml Balance 200 ml 800 ml 100 ml 100 ml 530 ml Intake Oral 600 ml IV Total 200 ml 200 ml 100 ml 100 ml FFP 528 ml Blood Product IV Normal Saline Flush 2 ml # Voids 2 3 1 3 # Bowel Movements 1 1 Laboratory Laboratory Tests Test 08/26/17 14:20 08/27/17 10:14 Urine Color DARK-YELLOW Urine Turbidity CLEAR Urine pH 5.0 Urine Specific [place] 1.014 Urine Protein NEG Urine Glucose (UA) NEG Urine Ketones NEG Urine Occult Blood NEG Urine Nitrite NEG Urine Bilirubin MOD Urine Urobilinogen LESS THAN 2.0 Urine Leukocyte Esterase NEG Urine RBC 1 Urine WBC 1 Urine Squamous Epithelial Cells 3 Urine Hyaline Casts 16 Urine Mucus FEW Microscopic Urinalysis Comment CULT NOT INDICATED White Blood Count 29.5 Red Blood Count 2.32 Hemoglobin 8.4 Hematocrit 24.7 Mean Corpuscular Volume 106.3 Mean Corpuscular Hemoglobin 36.3 Mean Corpuscular Hemoglobin Concent 34.2 Red Cell Distribution Width 15.2 Platelet Count 142 Mean Platelet Volume 6.1 Neutrophils (%) (Auto) 94.4 Lymphocytes (%) (Auto) 1.5 Monocytes (%) (Auto) 3.5 Eosinophils (%) (Auto) 0.3 Basophils (%) (Auto) 0.3 Neutrophils # (Auto) 27.9 Lymphocytes # (Auto) 0.4 Monocytes # (Auto) 1.0 Eosinophils # (Auto) 0.1 Basophils # (Auto) 0.1 CBC Comment DIFF FINAL Differential Comment Blood Smear Pathologist Review Reticulocyte Count 4.3 Absolute Reticulocyte Count 99.6 Prothrombin Time 20.6 Prothromb Time International Ratio 2.0 Activated Partial Thromboplast Time 38.3 Fibrinogen 269 Blood Urea Nitrogen 13 Creatinine 0.79 Random Glucose 127 Total Protein 6.0 Albumin 2.8 Calcium Level 7.9 Phosphorus Level 0.8 Magnesium Level 1.7 Alkaline Phosphatase 205 Aspartate Amino Transf (AST/SGOT) 117 Alanine Aminotransferase (ALT/SGPT) 30 Total Bilirubin 16.7 Sodium Level 136 Potassium Level 3.0 Chloride Level 102 Carbon Dioxide Level 24.2 Anion Gap 10 Estimat Glomerular Filtration Rate 80 Date/Time Source Procedure Growth Status 08/26/17 15:52 Blood Peripheral Aerobic Blood Culture - Preliminary NO GROWTH IN 1 DAY Resulted 08/26/17 15:52 Blood Peripheral Anaerobic Blood Culture - Preliminary NO GROWTH IN 1 DAY Resulted 08/19/17 14:30 Urine Clean Catch Urine Culture - Final 50-100,000 CFU/ML MIXED [place]... Complete Imaging Last Impressions Abdomen Ultrasound 08/27/17 1200 Signed Impressions: Service Date/Time: Sunday, August 27, 2017 08:38 - CONCLUSION: Insufficient fluid volume for percutaneous ultrasound guided paracentesis. Anthony Pop MD Chest X-Ray 08/26/17 0000 Signed Impressions: Service Date/Time: Saturday, August 26, 2017 16:59 - CONCLUSION: Generalized interstitial lung disease with bibasilar airspace disease and small bilateral effusions. Kamron Rollins MD Abdomen/Pelvis CT 08/26/17 0000 Signed Impressions: Service Date/Time: Saturday, August 26, 2017 17:17 - CONCLUSION: 1. Hepatosplenomegaly with diffusely abnormal hepatic texture. 2. Persistent consolidating airspace disease in the right lower lobe. 3. Small amount of ascites still present. 4. Increasing anasarca. 5. Colonic wall thickening and edema characteristic of colitis as previously described. 6. No significant change. Kamron Rollins MD Cholangiopancreatography MRI 08/24/17 0000 Signed Impressions: Service Date/Time: Thursday, August 24, 2017 18:15 - CONCLUSION: 1. Hepatosplenomegaly. 2. Mild ascites in the right paracolic gutter region. 3. No dilatation of the biliary system. 4. Contracted gallbladder without stones. The gallbladder wall thickening may be secondary to lack of distention. 5. Thickening of the proximal transverse colon. 6. Consolidation or atelectasis in the right lower lobe with a minimal right effusion. Rohith Harman MD Abdomen X-Ray 08/22/17 0000 Signed Impressions: Service Date/Time: Tuesday, August 22, 2017 13:39 - CONCLUSION: Benign abdomen. Tay Valdes MD Physical Exam HEENT: PERRL; normocephalic; atraumatic; +icterus sclera CHEST: CTA, respirations shallow CARDIAC tachy +murmur ABDOMEN: distended, semifirm, generalized tenderness especially, bowel sounds are present in all four quadrants. EXTREMITIES: + BLE edema SKIN: Normal; no rash; +jaundice [employer] RE[employer] (Kiara Lyons [employer]) Assessment and Plan Plan Plan/history RECONSULT for abdominal distention, pain and worsening bilirubin Pt now S/P EGD and colonoscopy --> Gastritis, Colon polyp. Internal and external hemorrhoids. Pathology (stomach antrum) Gastric antral mucosa with minimally active chronic inflammation and edema (colon) mildly hyperplastic colonic mucosa suggestive of hyperplastic polyp. Pt reports increasing distention and pain in abdomen. KUB ordered by attending today --> Benign appearing abdomen. Pt reports small BM yesterday. Has not been passing much gas. ? Increase in ascites, previous US abdomen did not reveal enough fluid for paracentesis. Would like to rule out SBP because pt would likely benefit from steroids. 08/23/17 - worsening tbil. WBC remain elevated and mild increase, no fevers or abd pain. Pt c/o continued abd distention now with BLE edema. albumin 1.7, will replace CT abd with contrast is pending. + BM 08/24/17, she continues to be icteric sclera and skin, drowsy and hard to follow and focus on conversation, speech mildly slurred, patient continues to have right upper quadrant and gastric abdominal pain. CT scan shows thickening of the proximal transverse colon consistent with colitis. Hepatosplenomegaly consistent with diffuse hepatic disease with hepatic steatosis no focal masses seen. Minimal bilateral pleural effusions with some accompanying atelectasis and consolidation at the right lung base. Discussed with attending physician, plan of care and further labs. Since colitis has been seen will check her for C. difficile. Antibiotics changed to Zosyn and Flagyl. Attending is also check an ammonia level, and knees M, phosphorus, TSH , CBC, CMP, T4, PT. Alkaline phosphatase remains slightly elevated at 385, not trending down; AST 144, ALT 41, obstruction versus EtOH hepatitis. Patient also has generalized lower extremity edema which is new for her during this hospital stay. 08/25/17, acute alcoholic hepatitis , patient continues to have loose stools secondary to her lactulose. Abdomen still taut and distended with some lower extremity edema. WBC count mild elevation 26.7, hemoglobin 10, alkaline phosphatase mildly decreased to 92, bilirubin 16.9, mild decrease in LFTs AST 138, ALT 39.. Ammonia level less than 10. MRCP showed no biliary obstruction. Possible underlying infection with increased leukocytosis so no steroids for now. Slow gradual improvements noted in LFTs. 08/26/17 increasing distention. WBC still trending up. HH trending down, no obvious bleeding. coagulopathy worsening. c/o abd pain, SOB from distention. mild decrease LFTs today 08/27/17 insufficient fluid for paracentesis. she is quite distended. on diuretics. LFTs relatively stable, Tbil mild increase this am. hematology consulted for leukocytosis, prob leukemoid reaction. ?steroids PLAN: low sodium diet fluid restriction continue diuretics TID lactulose Pentoxifylline Continue to monitor labs notify GI of active bleeding Pt has been seen and examined by myself and Dr. Mazariegos and this note is written on his behalf (Kiara Lyons) Physician Comments Seen and examined with [employer], complaining of abdominal pain. S/p egd/colonoscopy/ MRCP/CT and u/s. Nothing further to add from gi standpoint. Needs to quit ETOH. Will sign off. GI fu upon dc. Thankyou (Satnam Mazariegos MD) Kiara Lyosn [facility] Aug 27, 2017 11:49 Satnam Mazariegos MD Aug 27, 2017 18:12
[2017-08-27 12:21] LABS: WESTERGREN SEDIMENTATION RATE 75 mm/hr (0-20)
[2017-08-27 12:45] LABS: INTERNATIONAL NORMALIZED RATIO 2.1 RATIO; PROTHROMBIN TIME - PATIENT 21.1 SEC (9.8-11.6)
[2017-08-27] MEDS ORDERED: MAGNESIUM OXIDE 400 MG TAB PO ONE (12:45)
[2017-08-27] MEDS ORDERED: POTASSIUM CHLORIDE 10 MEQ CONTROLLED RELEASE TAB PO ONE (12:45)
[2017-08-27 12:59] LABS: IRON (FE) 80 MCG/DL (50-170)
--- NOTE | 2017-08-27 13:04 | HHI.PR ---
Subjective Remarks Follow up liver failure. Patient reports increased abdominal pain/bloating. No nausea/vomiting/diarrhea/constipation. States that she can't take a deep breath due to her increased abdominal distension. Objective Vitals Vital Signs Date Time Temp Pulse Resp B/P (MAP) Pulse Ox O2 Delivery O2 Flow Rate FiO2 08/27/17 11:41 98.1 106 20 114/59 (77) 92 08/27/17 08:27 97.6 117 20 116/66 (83) 93 08/27/17 08:19 97.7 119 17 119/73 94 08/27/17 07:51 98.0 114 16 116/64 94 08/27/17 07:36 97.6 117 16 116/66 95 08/27/17 05:49 98.0 115 18 114/58 95 08/27/17 05:34 98.0 127 18 115/65 93 08/27/17 04:05 98.5 115 18 110/61 (77) 97 08/26/17 23:36 98.1 121 18 103/56 (72) 95 08/26/17 20:47 95 21 08/26/17 20:41 98.4 118 20 118/76 (90) 95 08/26/17 16:41 97.8 114 20 121/62 (81) 97 I/O 08/26/17 08/26/17 08/26/17 08/27/17 08/27/17 08/27/17 07:00 15:00 23:00 07:00 15:00 23:00 Intake Total 200 ml 800 ml 100 ml 100 ml 530 ml Balance 200 ml 800 ml 100 ml 100 ml 530 ml Intake Oral 600 ml IV Total 200 ml 200 ml 100 ml 100 ml FFP 528 ml Blood Product IV Normal Saline Flush 2 ml # Voids 2 3 1 3 # Bowel Movements 1 1 Result Diagram: 08/27/17 1014 08/27/17 1014 Imaging Last Impressions Abdomen Ultrasound 08/27/17 1200 Signed Impressions: Service Date/Time: Sunday, August 27, 2017 08:38 - CONCLUSION: Insufficient fluid volume for percutaneous ultrasound guided paracentesis. Anthony Pop MD Chest X-Ray 08/26/17 0000 Signed Impressions: Service Date/Time: Saturday, August 26, 2017 16:59 - CONCLUSION: Generalized interstitial lung disease with bibasilar airspace disease and small bilateral effusions. Kamron Rollins MD Abdomen/Pelvis CT 08/26/17 0000 Signed Impressions: Service Date/Time: Saturday, August 26, 2017 17:17 - CONCLUSION: 1. Hepatosplenomegaly with diffusely abnormal hepatic texture. 2. Persistent consolidating airspace disease in the right lower lobe. 3. Small amount of ascites still present. 4. Increasing anasarca. 5. Colonic wall thickening and edema characteristic of colitis as previously described. 6. No significant change. Kamron Rollins MD Cholangiopancreatography MRI 08/24/17 0000 Signed Impressions: Service Date/Time: Thursday, August 24, 2017 18:15 - CONCLUSION: 1. Hepatosplenomegaly. 2. Mild ascites in the right paracolic gutter region. 3. No dilatation of the biliary system. 4. Contracted gallbladder without stones. The gallbladder wall thickening may be secondary to lack of distention. 5. Thickening of the proximal transverse colon. 6. Consolidation or atelectasis in the right lower lobe with a minimal right effusion. Rohith Harman MD Abdomen X-Ray 08/22/17 0000 Signed Impressions: Service Date/Time: Tuesday, August 22, 2017 13:39 - CONCLUSION: Benign abdomen. Tay Valdes MD Objective Remarks General: No acute distress. Jaundiced. Heart: Regular rate and rhythm. No murmur. Lungs: Clear to auscultation bilaterally. No wheezes, rales, or rhonchi. Breathing is nonlabored. Abdomen: Soft, nontender, distended. Extremities: 2+ bilateral lower extremity edema. JOCELYNN hose. Psych: Alert and oriented. Procedures EGD, colonoscopy 08/20/2017. gastritis Colon polyp Internal and external hemorrhoids Urinary Catheter: No Vascular Central Line Catheter: No A/P Problem List: (1) Severe sepsis ICD Code: A41.9 - Sepsis, unspecified organism; R65.20 - Severe sepsis without septic shock (2) KATELYN (acute kidney injury) ICD Code: N17.9 - Acute kidney failure, unspecified (3) Alcoholic liver disease ICD Code: K70.9 - Alcoholic liver disease, unspecified (4) Alcohol dependence ICD Code: F10.20 - Alcohol dependence, uncomplicated Status: Acute Assessment and Plan 1. Severe sepsis: Secondary to possible spontaneous bacterial peritonitis. Continue IV antibiotics. Patient remains afebrile. Appreciate GI recommendations. Still with tachycardia, leukocytosis. 2. Colitis: Continue Zosyn. 3. Alcoholic hepatitis: Appreciate GI recommendations. Paracentesis ordered for today, but ultrasound showed insufficient fluid. Continue lactulose. Continue pentoxifylline. 4. Alcohol abuse: Continue CIWA protocol. Continue thiamine, folic acid. Patient has been counseled. 5. Leukocytosis: Appreciate hematology recommendations. Monitor labs. 6. Severe hypokalemia: Supplement potassium. 7. Acute kidney injury: Resolved. 8. Severe coagulopathy: Secondary to liver failure. Monitor labs. Monitor for bleeding. Discharge Planning Pending clinical improvement. Nacho Salazar MD Aug 27, 2017 13:04
[2017-08-27 13:24] LABS: % SATURATION IRON PROFILE 86.6 % (20-50); FERRITIN 394 NG/ML (8-252); TOTAL IRON BINDING CAPACITY 92 MCG/DL (250-450)
[2017-08-27] MEDS: ONDANSETRON HCL 4 MG/2 ML VIAL IVP PRN ×2 (13:50→20:03)
[2017-08-28] VITALS: BP 120/62; PULSE 123; RESP 18; TEMP 98; O2SAT 94
[2017-08-28] MEDS: traMADol HCL 50 MG TAB PO PRN ×2 (01:20→07:59)
[2017-08-28] MEDS: ONDANSETRON HCL 4 MG/2 ML VIAL IVP PRN ×2 (03:17→19:42)
[2017-08-28] MEDS: MORPHINE SULFATE 4 MG/ML INJ IV PUSH PRN ×6 (03:17→23:46)
[2017-08-28] MEDS: PIPERACIL-TAZO 4.5 GM PREMIX 100 ML IV SCH ×4 (03:18→19:42)
[2017-08-28 04:00] VITALS: BP 120/62; PULSE 121; RESP 18; TEMP 99.3; O2SAT 94
[2017-08-28] MEDS: metroNIDAZOLE 500 MG TAB PO SCH ×3 (06:40→21:07)
[2017-08-28] MEDS: PENTOXIFYLLINE 400 MG CONTROLLED RELEASE TAB PO SCH ×3 (06:40→21:07)
[2017-08-28 07:33] VITALS: BP 114/63; PULSE 120; RESP 20; TEMP 98.1; O2SAT 95
[2017-08-28] MEDS: SPIRONOLACTONE 100 MG TAB PO SCH (07:59)
[2017-08-28] MEDS: FOLIC ACID 1 MG TAB PO SCH (07:59)
[2017-08-28] MEDS: THIAMINE HCL 100 MG TAB PO SCH (07:59)
[2017-08-28] MEDS: guaiFENesin E.R. 600 MG TAB PO SCH ×2 (08:00→19:42)
[2017-08-28] MEDS: SODIUM CHLORIDE 0.9% FLUSH 10 ML FLUSH IV FLUSH SCH ×2 (08:00→19:42)
[2017-08-28] MEDS: LACTULOSE SYRUP 20 GM/30 ML CUP PO SCH ×3 (08:00→16:55)
[2017-08-28] MEDS: FUROSEMIDE 40 MG TAB PO SCH (08:00)
[2017-08-28 08:18] LABS: BASOPHIL % 0.1 % (0.0-2.0); EOSINOPHIL # 0.1 TH/MM3 (0-0.4); EOSINOPHIL % 0.2 % (0.0-4.0); HEMATOCRIT 26.4 % (35.0-46.0); LYMPH % 1.9 % (9.0-44.0); LYMPHOCYTE # 0.5 TH/MM3 (1.0-4.8); MEAN CELL VOLUME 106.7 FL (80.0-100.0); MEAN CORPUSCULAR HEMOGLOBIN 36.3 PG (27.0-34.0); MEAN PLATELET VOLUME 5.9 FL (7.0-11.0); MONO % 3.7 % (0.0-8.0); NEUT % 94.1 % (16.0-70.0); PLATELET COUNT 145 TH/MM3 (150-450); RED BLOOD COUNT 2.48 MIL/MM3 (4.00-5.30); RED CELL DISTRIBUTION WIDTH 15.8 % (11.6-17.2); WHITE BLOOD COUNT 27.7 TH/MM3 (4.0-11.0)
[2017-08-28 08:27] LABS: INTERNATIONAL NORMALIZED RATIO 2.1 RATIO; PROTHROMBIN TIME - PATIENT 21.4 SEC (9.8-11.6)
[2017-08-28 08:38] LABS: ALBUMIN 2.8 GM/DL (3.4-5.0); AST (GOT) 139 U/L (15-37); BICARBONATE 25.2 MEQ/L (21.0-32.0); BLOOD UREA NITROGEN 14 MG/DL (7-18); CALCIUM 8.2 MG/DL (8.5-10.1); CHLORIDE 103 MEQ/L (98-107); GLOMERULAR FILTRATION RATE 79 ML/MIN (>89); GLUCOSE,RANDOM 103 MG/DL (74-106); MAGNESIUM 1.9 MG/DL (1.5-2.5); SODIUM (NA) 136 MEQ/L (136-145)
[2017-08-28 08:39] LABS: ALT (GPT) 31 U/L (10-53)
[2017-08-28 08:48] LABS: ALKALINE PHOSPHATASE 232 U/L (45-117); TOTAL BILIRUBIN ADULT 19.7 MG/DL (0.2-1.0); TOTAL PROTEIN 6.5 GM/DL (6.4-8.2)
[2017-08-28] MEDS ORDERED: POTASSIUM CHLORIDE 25 MEQ EFFERVESCENT TAB PO ONE (10:00)
--- NOTE | 2017-08-28 10:06 | HHI.PR ---
Subjective Remarks Follow-up liver failure. Patient reporting severe abdominal pain. States that the pain is in the entire abdomen, but currently worse in the right flank. She also has diarrhea. She reports ongoing vaginal bleeding. She states that she has been having heavy menstrual bleeding with only 2-3 days in the past month without bleeding. Objective Vitals Vital Signs Date Time Temp Pulse Resp B/P (MAP) Pulse Ox O2 Delivery O2 Flow Rate FiO2 08/28/17 07:33 98.1 120 20 114/63 (80) 95 08/28/17 04:00 99.3 121 18 120/62 (81) 94 08/28/17 00:00 98.0 123 18 120/62 (81) 94 08/27/17 20:00 97.5 66 16 114/62 (79) 96 08/27/17 15:50 97.9 121 18 112/76 (88) 96 08/27/17 11:41 98.1 106 20 114/59 (77) 92 I/O 08/27/17 08/27/17 08/27/17 08/28/17 08/28/17 08/28/17 07:00 15:00 23:00 07:00 15:00 23:00 Intake Total 100 ml 530 ml 760 ml 700 ml Balance 100 ml 530 ml 760 ml 700 ml Intake Oral 660 ml 600 ml IV Total 100 ml 100 ml 100 ml FFP 528 ml Blood Product IV Normal Saline Flush 2 ml # Voids 3 4 3 # Bowel Movements 2 3 Result Diagram: 08/28/17 0741 08/28/17 0741 Imaging Last Impressions Abdomen Ultrasound 08/27/17 1200 Signed Impressions: Service Date/Time: Sunday, August 27, 2017 08:38 - CONCLUSION: Insufficient fluid volume for percutaneous ultrasound guided paracentesis. Anthony Pop MD Chest X-Ray 08/26/17 0000 Signed Impressions: Service Date/Time: Saturday, August 26, 2017 16:59 - CONCLUSION: Generalized interstitial lung disease with bibasilar airspace disease and small bilateral effusions. Kamron Rollins MD Abdomen/Pelvis CT 08/26/17 0000 Signed Impressions: Service Date/Time: Saturday, August 26, 2017 17:17 - CONCLUSION: 1. Hepatosplenomegaly with diffusely abnormal hepatic texture. 2. Persistent consolidating airspace disease in the right lower lobe. 3. Small amount of ascites still present. 4. Increasing anasarca. 5. Colonic wall thickening and edema characteristic of colitis as previously described. 6. No significant change. Kamron Rollins MD Cholangiopancreatography MRI 08/24/17 0000 Signed Impressions: Service Date/Time: Thursday, August 24, 2017 18:15 - CONCLUSION: 1. Hepatosplenomegaly. 2. Mild ascites in the right paracolic gutter region. 3. No dilatation of the biliary system. 4. Contracted gallbladder without stones. The gallbladder wall thickening may be secondary to lack of distention. 5. Thickening of the proximal transverse colon. 6. Consolidation or atelectasis in the right lower lobe with a minimal right effusion. Rohith Harman MD Abdomen X-Ray 08/22/17 0000 Signed Impressions: Service Date/Time: Tuesday, August 22, 2017 13:39 - CONCLUSION: Benign abdomen. Tay Valdes MD Objective Remarks General: No acute distress. Jaundiced. Heart: Regular rate and rhythm. No murmur. Lungs: Clear to auscultation bilaterally. No wheezes, rales, or rhonchi. Breathing is nonlabored. Abdomen: Mild to moderate diffuse tenderness to palpation, distended. Extremities: 2+ bilateral lower extremity edema. SCDs, JOCELYNN perez. Psych: Alert and oriented. Procedures EGD, colonoscopy 08/20/2017. gastritis Colon polyp Internal and external hemorrhoids Urinary Catheter: No Vascular Central Line Catheter: No A/P Problem List: (1) Severe sepsis ICD Code: A41.9 - Sepsis, unspecified organism; R65.20 - Severe sepsis without septic shock (2) KATELYN (acute kidney injury) ICD Code: N17.9 - Acute kidney failure, unspecified (3) Alcoholic liver disease ICD Code: K70.9 - Alcoholic liver disease, unspecified (4) Alcohol dependence ICD Code: F10.20 - Alcohol dependence, uncomplicated Status: Acute Assessment and Plan 1. Severe sepsis: Secondary to possible spontaneous bacterial peritonitis. Continue IV antibiotics. Patient remains afebrile. Appreciate GI recommendations. Still with tachycardia, leukocytosis. Consult infectious disease. 2. Colitis: Continue Zosyn. 3. Alcoholic hepatitis: Appreciate GI recommendations. Paracentesis ordered, but ultrasound showed insufficient fluid. Continue lactulose. Continue pentoxifylline. 4. Alcohol abuse: Continue CIWA protocol. Continue thiamine, folic acid. Patient has been counseled. 5. Leukocytosis: Appreciate hematology recommendations. Monitor labs. 6. Severe hypokalemia: Supplement potassium. 7. Acute kidney injury: Resolved. 8. Severe coagulopathy: Secondary to liver failure. Monitor labs. Monitor for bleeding. 9. Vaginal bleeding: Patient reports menstrual bleeding for most of the past month. Consult gynecology. Discharge Planning Pending clinical improvement. Nacho Salazar MD Aug 28, 2017 10:06
[2017-08-28 12:04] VITALS: BP 113/67; PULSE 120; RESP 20; TEMP 98.1; O2SAT 95
--- NOTE | 2017-08-28 12:44 | PD.ONC.PN ---
Subjective Subjective Remarks Afebrile overnight. Patient resting in bed in nad. complaining of continued abdominal pain. some blood in stool. Objective Data Date Time Temp Pulse Resp B/P (MAP) Pulse Ox O2 Delivery O2 Flow Rate FiO2 08/28/17 12:04 98.1 120 20 113/67 (82) 95 08/28/17 07:33 98.1 120 20 114/63 (80) 95 08/28/17 04:00 99.3 121 18 120/62 (81) 94 08/28/17 00:00 98.0 123 18 120/62 (81) 94 08/27/17 20:00 97.5 66 16 114/62 (79) 96 08/27/17 15:50 97.9 121 18 112/76 (88) 96 08/28/17 08/28/17 08/28/17 07:00 15:00 23:00 Intake Total 700 ml Balance 700 ml Result Diagram: 08/28/17 0741 08/28/17 0741 Laboratory Results Laboratory Tests Test 08/28/17 07:41 White Blood Count 27.7 TH/MM3 Red Blood Count 2.48 MIL/MM3 Hemoglobin 9.0 GM/DL Hematocrit 26.4 % Mean Corpuscular Volume 106.7 FL Mean Corpuscular Hemoglobin 36.3 PG Mean Corpuscular Hemoglobin Concent 34.0 % Red Cell Distribution Width 15.8 % Platelet Count 145 TH/MM3 Mean Platelet Volume 5.9 FL Neutrophils (%) (Auto) 94.1 % Lymphocytes (%) (Auto) 1.9 % Monocytes (%) (Auto) 3.7 % Eosinophils (%) (Auto) 0.2 % Basophils (%) (Auto) 0.1 % Neutrophils # (Auto) 26.0 TH/MM3 Lymphocytes # (Auto) 0.5 TH/MM3 Monocytes # (Auto) 1.0 TH/MM3 Eosinophils # (Auto) 0.1 TH/MM3 Basophils # (Auto) 0.0 TH/MM3 CBC Comment DIFF FINAL Differential Comment Prothrombin Time 21.4 SEC Prothromb Time International Ratio 2.1 RATIO Blood Urea Nitrogen 14 MG/DL Creatinine 0.80 MG/DL Random Glucose 103 MG/DL Total Protein 6.5 GM/DL Albumin 2.8 GM/DL Calcium Level 8.2 MG/DL Magnesium Level 1.9 MG/DL Alkaline Phosphatase 232 U/L Aspartate Amino Transf (AST/SGOT) 139 U/L Alanine Aminotransferase (ALT/SGPT) 31 U/L Total Bilirubin 19.7 MG/DL Sodium Level 136 MEQ/L Potassium Level 3.4 MEQ/L Chloride Level 103 MEQ/L Carbon Dioxide Level 25.2 MEQ/L Anion Gap 8 MEQ/L Estimat Glomerular Filtration Rate 79 ML/MIN Culture Results Microbiology Date/Time Source Procedure Growth Status 08/26/17 15:52 Blood Peripheral Aerobic Blood Culture - Preliminary NO GROWTH IN 2 DAYS Resulted 08/26/17 15:52 Blood Peripheral Anaerobic Blood Culture - Preliminary NO GROWTH IN 2 DAYS Resulted 08/26/17 15:45 Blood Peripheral Aerobic Blood Culture - Preliminary NO GROWTH IN 2 DAYS Resulted 08/26/17 15:45 Blood Peripheral Anaerobic Blood Culture - Preliminary NO GROWTH IN 2 DAYS Resulted Administered Medications Medications (Trade) Dose Ordered Sig/[place] Route PRN Reason Start Time Stop Time Status Last Admin Dose Admin Lorazepam (Ativan) 1 mg Q4H PRN PO CIWA 8 - 10 08/19/17 12:00 08/25/17 06:34 Lorazepam (Ativan Inj) 1 mg Q4H PRN IV PUSH CIWA 8 - 10 08/19/17 12:00 08/21/17 08:40 Lorazepam (Ativan) 2 mg Q2H PRN PO CIWA 11-14 08/19/17 12:00 08/20/17 21:47 Sodium Chloride (NS Flush) 2 ml UNSCH PRN IV FLUSH FLUSH AFTER USING IV ACCESS 08/19/17 13:30 08/25/17 04:25 Sodium Chloride (NS Flush) 2 ml BID IV FLUSH 08/19/17 21:00 08/28/17 08:00 Ondansetron HCl (Zofran Inj) 4 mg Q6H PRN IVP NAUSEA OR VOMITING 08/19/17 13:30 08/28/17 03:17 Sennosides (Senokot) 17.2 mg Q12H PRN PO Moderate constipation 08/19/17 13:30 08/22/17 08:36 Pentoxifylline (TRENtal SR) 400 mg Q8HR PO 08/19/17 22:00 08/28/17 06:40 Thiamine HCl (Vitamin B1) 100 mg DAILY PO 08/22/17 09:00 08/28/17 07:59 Folic Acid (Folate) 1 mg DAILY PO 08/19/17 21:00 08/28/17 07:59 Metoclopramide HCl (Reglan Inj) 5 mg Q6H PRN IV PUSH NAUSEA OR VOMITING 08/21/17 10:15 08/26/17 12:55 Lactulose (Lactulose Liq) 30 ml TID PO 08/22/17 15:30 08/28/17 12:13 Piperacillin Sod/ Tazobactam Sod 100 ml @ 200 mls/hr Q6H IV 08/24/17 15:00 08/28/17 08:00 Guaifenesin (Mucinex Er) 600 mg BID PO 08/24/17 14:00 08/28/17 08:00 Albuterol/ Ipratropium (Duoneb Neb) 1 ampule Q6HR WHILE AWAKE NEB NEB 08/24/17 14:00 08/27/17 19:54 Metronidazole (Flagyl) 500 mg Q8HR PO 08/24/17 14:00 08/28/17 06:40 Furosemide (Lasix) 40 mg DAILY PO 08/25/17 17:45 08/28/17 08:00 Spironolactone (Aldactone) 100 mg DAILY PO 08/25/17 17:45 08/28/17 07:59 Morphine Sulfate (Morphine Inj) 2 mg Q4HR PRN IV PUSH BREAKTHROUGH PAIN 08/27/17 11:30 08/28/17 10:56 Oxycodone HCl (Roxicodone) 10 mg Q4H PRN PO PAIN SCALE 6 TO 10 08/28/17 10:00 08/28/17 12:13 Objective Remarks GENERAL: Middle aged female, lying in bed resting, complaining of abdominal pain. SKIN: Warm and dry. HEAD: Normocephalic. EYES: No injection or drainage. NECK: Supple, trachea midline. CARDIOVASCULAR: Regular rate and rhythm RESPIRATORY: Breath sounds equal bilaterally. No accessory muscle use. GASTROINTESTINAL: Abdomen soft, mildly tender throughout, distended. EXTREMITIES: No cyanosis NEUROLOGICAL: No obvious focal deficit. Awake, alert, and oriented x3. Assessment/Plan Problem List: (1) Leukocytosis ICD Codes: D72.829 - Elevated white blood cell count, unspecified Plan: --Leukocytosis with predominantly neutrophil and bandemia + toxic granulation noted --> most consistent with a leukemoid reaction. --doubt primary bone marrow disorder. -- inflammatory source is likely in the gastrointestinal tract. --ESR and CRP elevated (2) Abdominal pain ICD Codes: R10.9 - Unspecified abdominal pain Plan: -- has a markedly abnormal liver enzymes. --CT abdomen and pelvis showed abnormal hepatic texture with anasarca. --GI following. (3) Macrocytic anemia ICD Codes: D53.9 - Nutritional anemia, unspecified Plan: --likely due to a combination of gastrointestinal bleeding, as well as chronic inflammatory disease. --B12 elevated --ferritin elevated, % saturation high---consistent with chronic disease Assessment 42y/o female admitted with abdominal pain/distension. Hematology consulted for persistent leukocytosis. h/o Alcohol abuse. Gastroesophageal reflux disease. Plan 1. monitor CBC 2. continue supportive care Attending Statement The exam, history, and the medical decision-making described in the above note were completed with the assistance of the mid-level provider. I reviewed and agree with the findings presented. I attest that I had a [id number] encounter with the patient on the same day, and personally performed and documented my assessment and findings in the medical record. Still has abdominal pain. WBC trended down slightly. Elevated ESR/CRP. Leukocytosis is due to leukemoid reaction. Anemia due to chronic inflammation and possible GI bleed. Hgb stable. Temi Horvath Aug 28, 2017 12:44 Sebastián Carmen MD Aug 28, 2017 15:00
--- NOTE | 2017-08-28 13:46 | PD.CONS ---
HPI Chief Complaint 2 months of vaginal bleeding Date Seen: Aug 28, 2017 Time Seen: 11:30 Travel History International Travel<30 Days: No Contact w/Intl Traveler<30Days: No Known Affected Area: No History of Present Illness HPI Ms Lim is a 42YO female with PMHx alcohol abuse and GERD who presented to [facility] with abdominal pain and distension on 08/19 who complains of vaginal bleeding x2 months. OB is consulted to evaluate the pt's abnormal vaginal bleeding in the setting of her liver dysfunction 2/2 chronic alcohol abuse. Pt describes a hx of anovulatory bleeding since her teens that has worsened over the past two months and hx of a left ovarian cyst that sometimes is painful. Pt describes regular bleeding over the last two months with an interruption of about 10 days of no bleeding during the first month. In July there was continued bleeding beginning with spotting since 08/19 and increased since 08/27. Pt indicates she uses tampons normally but then required pads in August to soak up the bleeding. Pt has trouble describing the number of pads used during a day. Yesterday the pad she was wearing was soaked and the pt decided to begin wearing a diaper today due to the increased amount of bleeding. There have also been intermittent clots passed per vagina increasing in frequency. Pt states that over the past couple of days she could feel the clots coming out of her vagina when she went to pee. Some of the clots were felt to be large (10-20cc approx). At time of exam, the amount of bleeding and clots being passed appear to be reducing to some degree. Pt denies feeling dizzy, but is sometimes short of breath. She complains of rib pain near the bottom of her rib cage. History Past Medical History Narrative Medical Alcohol abuse GERD Obstetric History Obstetric History -1 ectopic -1 elective -1 child Past Surgical History Narrative Surgical Appendectomy Back surgeries Tonsillectomy Family History Narrative Family History One brother, 2 sisters, 2 half-brothers - all are healthy One son - healthy Social History Narrative Social History Currently working to wean off of alcohol Smokes 2 packs per week x 20 years Smokes marijuana occasionally Alcohol Use: Yes Tobacco Use: Yes Substance Abuse: Yes Allergies-Medications (Allergen,Severity, Reaction): Coded Allergies: Sulfa (Sulfonamide Antibiotics) (Verified Allergy, Unknown, 07/28/17) Home Meds Reported Medications Omeprazole Magnesium (Prilosec) 10 Mg Pow, 40 MG PO BID 08/19/17 Review of Systems Gastrointestinal: Nausea, Vomiting Genitourinary: Vaginal Bleeding (x2 months) Skin: Change in Pigmentation (jaundice) Physical Exam Vital Signs Date Time Temp Pulse Resp B/P (MAP) Pulse Ox O2 Delivery O2 Flow Rate FiO2 08/28/17 12:04 98.1 120 20 113/67 (82) 95 08/28/17 07:33 98.1 120 20 114/63 (80) 95 08/28/17 04:00 99.3 121 18 120/62 (81) 94 08/28/17 00:00 98.0 123 18 120/62 (81) 94 08/27/17 20:00 97.5 66 16 114/62 (79) 96 08/27/17 15:50 97.9 121 18 112/76 (88) 96 Narrative GENERAL: This is a jaundiced female lying in bed with distended abdomen. SKIN: Warm and dry. Jaundice from the head to mid-calves. HEAD: Normocephalic and atraumatic. EYES: Scleral icterus present. No injection or drainage. ENT: No nasal drainage noted. Mucous membranes pink. Airway patent. NECK: Supple, trachea midline. No JVD. No meningeal signs. CARDIOVASCULAR: Regular rate and rhythm without murmurs, gallops, or rubs. RESPIRATORY: Breath sounds equal bilaterally. No accessory muscle use. No increased WOB. ABDOMEN/GI: Abdomen mildly tense with distension, fluid wave and ascites present. BS normal. No guarding or rebound; however, TTP. GENITOURINARY: External Genitalia: intact and normal in appearance Cervix: closed; however, blood clots were expressed on speculum exam when the pt coughed. Vagina: normal in appearance with intact rugae and dark clot in posterior vaginal vault. Anus: external hemorrhoids visualized. c/d/i. EXTREMITIES: No cyanosis. 1+ non-pitting edema of bilateral legs. Legs jaundiced to mid-calf bilaterally. BACK: Nontender without obvious deformity. No CVA tenderness. NEUROLOGICAL: Awake and alert. Motor and sensory grossly within normal limits. Normal speech. Data Data Vital Signs Reviewed: Yes Orders Orders Potassium Chloride Eff (K-Lyte Cl Eff) (08/28/17 10:00) Oxycodone (Roxicodone) (08/28/17 10:00) Oxycodone (Roxicodone) (08/28/17 10:00) Consult Gynecology (08/28/17 ) Comprehensive Metabolic Panel (08/29/17 06:00) Complete Blood Count With Diff (08/29/17 06:00) (Hub Use Only)Inp Phy Cons/Ref (08/28/17 ) Consult Infectious Disease (08/28/17 ) (Hub Use Only)Inp Phy Cons/Ref (08/28/17 ) ^ Other Nursing Orders (08/28/17 10:38) Labs Laboratory Tests Test 08/28/17 07:41 White Blood Count 27.7 Red Blood Count 2.48 Hemoglobin 9.0 Hematocrit 26.4 Mean Corpuscular Volume 106.7 Mean Corpuscular Hemoglobin 36.3 Mean Corpuscular Hemoglobin Concent 34.0 Red Cell Distribution Width 15.8 Platelet Count 145 Mean Platelet Volume 5.9 Neutrophils (%) (Auto) 94.1 Lymphocytes (%) (Auto) 1.9 Monocytes (%) (Auto) 3.7 Eosinophils (%) (Auto) 0.2 Basophils (%) (Auto) 0.1 Neutrophils # (Auto) 26.0 Lymphocytes # (Auto) 0.5 Monocytes # (Auto) 1.0 Eosinophils # (Auto) 0.1 Basophils # (Auto) 0.0 CBC Comment DIFF FINAL Differential Comment Prothrombin Time 21.4 Prothromb Time International Ratio 2.1 Blood Urea Nitrogen 14 Creatinine 0.80 Random Glucose 103 Total Protein 6.5 Albumin 2.8 Calcium Level 8.2 Magnesium Level 1.9 Alkaline Phosphatase 232 Aspartate Amino Transf (AST/SGOT) 139 Alanine Aminotransferase (ALT/SGPT) 31 Total Bilirubin 19.7 Sodium Level 136 Potassium Level 3.4 Chloride Level 103 Carbon Dioxide Level 25.2 Anion Gap 8 Estimat Glomerular Filtration Rate 79 Date/Time Source Procedure Growth Status 08/26/17 15:52 Blood Peripheral Aerobic Blood Culture - Preliminary NO GROWTH IN 2 DAYS Resulted 08/26/17 15:52 Blood Peripheral Anaerobic Blood Culture - Preliminary NO GROWTH IN 2 DAYS Resulted 08/19/17 14:30 Urine Clean Catch Urine Culture - Final 50-100,000 CFU/ML MIXED J[place]... Complete MDM Medical Record Reviewed: Yes Narrative Course / MDM 42YO female w/PMHx chronic alcohol abuse and GERD p/w liver failure (MELD Score 26 with 19.6% 3-year mortality), macrocytic anemia and ascites 2/2 alcohol abuse and 2 months of abnormal uterine bleeding likely 2/2 coagulopathy 2/2 chronic alcohol abuse. Pt seen with Nathalia Keating and Sanjay Wright Plan PLAN: 1. Pt is high risk for bleeding due to liver failure at this time; so no OCPs or transexamic acid 2. Stabilize medically for now 3. Pt strongly advised to cease alcohol intake 3. Once pt discharges, refer to [facility] for outpt endometrial ablation if abnormal uterine bleeding persists Thank you for consulting the OB Hospitalist service. We will sign off for now. Admitting diagnosis: liver failure, ascites, KATELYN, GI bleed You Jessica MD R1 Aug 28, 2017 13:46
[2017-08-28] MEDS: METOCLOPRAMIDE HCL 10 MG/2 ML VIAL IV PUSH PRN ×2 (15:25→23:47)
[2017-08-28 15:50] VITALS: BP 112/66; PULSE 116; RESP 20; TEMP 98.1; O2SAT 95
--- NOTE | 2017-08-28 17:55 | PD.ID.CON ---
History of Present Illness Service ID Consult Requested By Dr Abrams Reason for Consult sepsis Primary Care Physician No Primary Care Physician Diagnoses: History of Present Illness 42 yo female with h/o heavy ETOH abuse prsented with abd pain, jaundice and increasing abd girth, BLE edema x 2 weeks No fever but significant leukocytosis, WBC [address] showed colitis , C.diff negative Recently diagnosed with UTI, enterobacter CT showed also ascites, but insufficient for peracenthesdis Review of Systems Gastrointestinal: COMPLAINS OF: Abdominal pain, Bloody stools Except as stated in HPI: all other systems reviewed are Neg Past Family Social History Allergies: Coded Allergies: Sulfa (Sulfonamide Antibiotics) (Verified Allergy, Unknown, 07/28/17) Past Medical History GERD Past Surgical History appey tonsillectomy Active Ordered Medications Medications where reviewed in EMR Antibiotics Include: zosyn Family History NC Social History heasvy ETOH Tobacco + occ MJ Physical Exam Vital Signs Vital Signs Date Time Temp Pulse Resp B/P (MAP) Pulse Ox O2 Delivery O2 Flow Rate FiO2 08/28/17 15:50 98.1 116 20 112/66 (81) 95 08/28/17 12:04 98.1 120 20 113/67 (82) 95 08/28/17 07:33 98.1 120 20 114/63 (80) 95 08/28/17 04:00 99.3 121 18 120/62 (81) 94 08/28/17 00:00 98.0 123 18 120/62 (81) 94 08/27/17 20:00 97.5 66 16 114/62 (79) 96 Physical Exam CONSTITUTIONAL/GENERAL: This is an adequately nourished patient, in no apparent distress. TUBES/LINES/DRAINS: SKIN: + jaundice, rashes, or lesions. Ecchymoses on upper extremities. No wounds seen anteriorly. Skin temperature appropriate. Not diaphoretic. HEAD: Atraumatic. Normocephalic. EYES: Pupils equal and round and reactive. Extraocular motions intact. + prominent scleral icterus. No injection or drainage. Fundi not examined. ENT: Hearing grossly normal. Nose without bleeding or purulent drainage. Throat without visible erythema, exudates, masses, or lesions. NECK: Trachea midline. Supple, nontender. No palpable thyroid enlargement or nodularity. CARDIOVASCULAR: Regular rate and rhythm without murmurs, gallops, or rubs. No JVD. Peripheral pulses symmetric. RESPIRATORY/CHEST: Symmetric, unlabored respirations. Clear to auscultation. Breath sounds equal bilaterally. No wheezes, rales, or rhonchi. GASTROINTESTINAL: Abdomen tense, mildly tender, +distended. No hepato- splenomegaly, or palpable masses. No guarding. Bowel sounds present. GENITOURINARY: Without palpable bladder distension. MUSCULOSKELETAL: Extremities without clubbing, cyanosis, + prominent BLE pitting edema. No joint tenderness or effusion noted. No calf tenderness. No mottling or clubbing. LYMPHATICS: No palpable cervical or supraclavicular adenopathy. NEUROLOGICAL: Awake and alert. Motor and sensory grossly within normal limits. Follows commands. Clear speech. Moves all extremities. No tremor PSYCHIATRIC: No obvious anxiety/depression. no apparent hallucinations or other psychotic thought process. Laboratory Laboratory Tests Test 08/28/17 07:41 White Blood Count 27.7 Red Blood Count 2.48 Hemoglobin 9.0 Hematocrit 26.4 Mean Corpuscular Volume 106.7 Mean Corpuscular Hemoglobin 36.3 Mean Corpuscular Hemoglobin Concent 34.0 Red Cell Distribution Width 15.8 Platelet Count 145 Mean Platelet Volume 5.9 Neutrophils (%) (Auto) 94.1 Lymphocytes (%) (Auto) 1.9 Monocytes (%) (Auto) 3.7 Eosinophils (%) (Auto) 0.2 Basophils (%) (Auto) 0.1 Neutrophils # (Auto) 26.0 Lymphocytes # (Auto) 0.5 Monocytes # (Auto) 1.0 Eosinophils # (Auto) 0.1 Basophils # (Auto) 0.0 CBC Comment DIFF FINAL Differential Comment Prothrombin Time 21.4 Prothromb Time International Ratio 2.1 Blood Urea Nitrogen 14 Creatinine 0.80 Random Glucose 103 Total Protein 6.5 Albumin 2.8 Calcium Level 8.2 Magnesium Level 1.9 Alkaline Phosphatase 232 Aspartate Amino Transf (AST/SGOT) 139 Alanine Aminotransferase (ALT/SGPT) 31 Total Bilirubin 19.7 Sodium Level 136 Potassium Level 3.4 Chloride Level 103 Carbon Dioxide Level 25.2 Anion Gap 8 Estimat Glomerular Filtration Rate 79 Date/Time Source Procedure Growth Status 08/26/17 15:52 Blood Peripheral Aerobic Blood Culture - Preliminary NO GROWTH IN 2 DAYS Resulted 08/26/17 15:52 Blood Peripheral Anaerobic Blood Culture - Preliminary NO GROWTH IN 2 DAYS Resulted 08/19/17 14:30 Urine Clean Catch Urine Culture - Final 50-100,000 CFU/ML MIXED JACKSON... Complete Result Diagram: 08/28/17 0741 08/28/17 0741 Imaging Last Impressions Abdomen Ultrasound 08/27/17 1200 Signed Impressions: Service Date/Time: Sunday, August 27, 2017 08:38 - CONCLUSION: Insufficient fluid volume for percutaneous ultrasound guided paracentesis. Anthony Pop MD Chest X-Ray 08/26/17 0000 Signed Impressions: Service Date/Time: Saturday, August 26, 2017 16:59 - CONCLUSION: Generalized interstitial lung disease with bibasilar airspace disease and small bilateral effusions. Kamron Rollins MD Abdomen/Pelvis CT 08/26/17 0000 Signed Impressions: Service Date/Time: Saturday, August 26, 2017 17:17 - CONCLUSION: 1. Hepatosplenomegaly with diffusely abnormal hepatic texture. 2. Persistent consolidating airspace disease in the right lower lobe. 3. Small amount of ascites still present. 4. Increasing anasarca. 5. Colonic wall thickening and edema characteristic of colitis as previously described. 6. No significant change. Kamron Rollins MD Cholangiopancreatography MRI 08/24/17 0000 Signed Impressions: Service Date/Time: Thursday, August 24, 2017 18:15 - CONCLUSION: 1. Hepatosplenomegaly. 2. Mild ascites in the right paracolic gutter region. 3. No dilatation of the biliary system. 4. Contracted gallbladder without stones. The gallbladder wall thickening may be secondary to lack of distention. 5. Thickening of the proximal transverse colon. 6. Consolidation or atelectasis in the right lower lobe with a minimal right effusion. Rohith Harman MD Abdomen X-Ray 08/22/17 0000 Signed Impressions: Service Date/Time: Tuesday, August 22, 2017 13:39 - CONCLUSION: Benign abdomen. Tay Valdes MD Assessment and Plan Assessment and Plan ETOH abuse Cirrhosis AscitespseudomembranesColitis: c.diff negative; recent colonoscopy w/o s Leukocytosis - reactive cont zosyn fro now fu clx Hope Mota MD Aug 28, 2017 17:55
[2017-08-29] VITALS: BP 121/58; PULSE 121; RESP 16; TEMP 98.6; O2SAT 98
[2017-08-29] MEDS: ONDANSETRON HCL 4 MG/2 ML VIAL IVP PRN ×3 (01:06→20:44)
[2017-08-29 04:00] VITALS: BP 112/67; PULSE 124; RESP 16; TEMP 97.3; O2SAT 96
[2017-08-29] MEDS: PIPERACIL-TAZO 4.5 GM PREMIX 100 ML IV SCH ×4 (04:16→20:36)
[2017-08-29] MEDS: MORPHINE SULFATE 4 MG/ML INJ IV PUSH PRN ×5 (04:45→21:03)
[2017-08-29] MEDS: PENTOXIFYLLINE 400 MG CONTROLLED RELEASE TAB PO SCH ×3 (05:30→21:03)
[2017-08-29] MEDS: metroNIDAZOLE 500 MG TAB PO SCH ×3 (05:30→22:22)
[2017-08-29 07:28] LABS: AUTOMATED NEUTROPHIL # 23.6 TH/MM3 (1.8-7.7); BASOPHIL # 0.1 TH/MM3 (0-0.2); BASOPHIL % 0.4 % (0.0-2.0); EOSINOPHIL # 0.1 TH/MM3 (0-0.4); EOSINOPHIL % 0.3 % (0.0-4.0); HEMATOCRIT 23.9 % (35.0-46.0); HEMOGLOBIN 8.3 GM/DL (11.6-15.3); LYMPHOCYTE # 0.5 TH/MM3 (1.0-4.8); MEAN CELL VOLUME 107.5 FL (80.0-100.0); MEAN CORPUSCULAR HEMOGLOBIN 37.5 PG (27.0-34.0); MEAN CORPUSCULAR HGB CONC 34.8 % (32.0-36.0); MEAN PLATELET VOLUME 6.3 FL (7.0-11.0); MONO % 4.1 % (0.0-8.0); NEUT % 93.2 % (16.0-70.0); PLATELET COUNT 137 TH/MM3 (150-450); RED BLOOD COUNT 2.22 MIL/MM3 (4.00-5.30); RED CELL DISTRIBUTION WIDTH 15.4 % (11.6-17.2); WHITE BLOOD COUNT 25.3 TH/MM3 (4.0-11.0)
[2017-08-29 07:32] LABS: INTERNATIONAL NORMALIZED RATIO 2.4 RATIO; PROTHROMBIN TIME - PATIENT 24.2 SEC (9.8-11.6)
[2017-08-29 07:44] VITALS: BP 113/61; PULSE 124; RESP 20; TEMP 98.1; O2SAT 95
[2017-08-29 07:58] LABS: ALT (GPT) 33 U/L (10-53)
[2017-08-29 08:10] LABS: ALBUMIN 2.8 GM/DL (3.4-5.0); ALKALINE PHOSPHATASE 221 U/L (45-117); AST (GOT) 142 U/L (15-37); BICARBONATE 22.1 MEQ/L (21.0-32.0); BLOOD UREA NITROGEN 16 MG/DL (7-18); CALCIUM 8.1 MG/DL (8.5-10.1); CHLORIDE 101 MEQ/L (98-107); GLOMERULAR FILTRATION RATE 67 ML/MIN (>89); GLUCOSE,RANDOM 100 MG/DL (74-106); SODIUM (NA) 135 MEQ/L (136-145); TOTAL BILIRUBIN ADULT 21.4 MG/DL (0.2-1.0)
[2017-08-29 08:11] LABS: CREATININE 0.92 MG/DL (0.50-1.00); TOTAL PROTEIN 6.6 GM/DL (6.4-8.2)
[2017-08-29] MEDS: guaiFENesin E.R. 600 MG TAB PO SCH ×2 (08:53→20:36)
[2017-08-29] MEDS: FUROSEMIDE 40 MG TAB PO SCH (08:53)
[2017-08-29] MEDS: FOLIC ACID 1 MG TAB PO SCH (08:53)
[2017-08-29] MEDS: THIAMINE HCL 100 MG TAB PO SCH (08:53)
[2017-08-29] MEDS: LACTULOSE SYRUP 20 GM/30 ML CUP PO SCH ×3 (08:58→18:02)
[2017-08-29] MEDS: SODIUM CHLORIDE 0.9% FLUSH 10 ML FLUSH IV FLUSH SCH ×2 (08:58→20:36)
[2017-08-29] MEDS: SPIRONOLACTONE 100 MG TAB PO SCH (09:01)
--- NOTE | 2017-08-29 11:10 | HHI.PR ---
Subjective Remarks Follow up leukocytosis, liver failure, abdominal pain. Patient still reporting significant pain in her abdomen, but less than yesterday. Swelling was better this morning, but worsened when she was ambulating. Objective Vitals Vital Signs Date Time Temp Pulse Resp B/P (MAP) Pulse Ox O2 Delivery O2 Flow Rate FiO2 08/29/17 07:44 98.1 124 20 113/61 (78) 95 08/29/17 04:00 97.3 124 16 112/67 (82) 96 08/29/17 00:00 98.6 121 16 121/58 (79) 98 08/28/17 15:50 98.1 116 20 112/66 (81) 95 08/28/17 12:04 98.1 120 20 113/67 (82) 95 I/O 08/28/17 08/28/17 08/28/17 08/29/17 08/29/17 08/29/17 07:00 15:00 23:00 07:00 15:00 23:00 Intake Total 700 ml 800 ml 320 ml Balance 700 ml 800 ml 320 ml Intake Oral 600 ml 700 ml 220 ml IV Total 100 ml 100 ml 100 ml # Voids 3 7 2 # Bowel Movements 3 2 Result Diagram: 08/29/17 0622 08/29/17 0622 Imaging Last Impressions Abdomen Ultrasound 08/27/17 1200 Signed Impressions: Service Date/Time: Sunday, August 27, 2017 08:38 - CONCLUSION: Insufficient fluid volume for percutaneous ultrasound guided paracentesis. Anthony Pop MD Chest X-Ray 08/26/17 0000 Signed Impressions: Service Date/Time: Saturday, August 26, 2017 16:59 - CONCLUSION: Generalized interstitial lung disease with bibasilar airspace disease and small bilateral effusions. Kamron Rollins MD Abdomen/Pelvis CT 08/26/17 0000 Signed Impressions: Service Date/Time: Saturday, August 26, 2017 17:17 - CONCLUSION: 1. Hepatosplenomegaly with diffusely abnormal hepatic texture. 2. Persistent consolidating airspace disease in the right lower lobe. 3. Small amount of ascites still present. 4. Increasing anasarca. 5. Colonic wall thickening and edema characteristic of colitis as previously described. 6. No significant change. Kamron Rollins MD Cholangiopancreatography MRI 08/24/17 0000 Signed Impressions: Service Date/Time: Thursday, August 24, 2017 18:15 - CONCLUSION: 1. Hepatosplenomegaly. 2. Mild ascites in the right paracolic gutter region. 3. No dilatation of the biliary system. 4. Contracted gallbladder without stones. The gallbladder wall thickening may be secondary to lack of distention. 5. Thickening of the proximal transverse colon. 6. Consolidation or atelectasis in the right lower lobe with a minimal right effusion. Rohith Harman MD Abdomen X-Ray 08/22/17 0000 Signed Impressions: Service Date/Time: Tuesday, August 22, 2017 13:39 - CONCLUSION: Benign abdomen. Tay Valdes MD Objective Remarks General: No acute distress. Jaundiced. HEENT: Scleral icterus. Heart: Regular rate and rhythm. No murmur. Lungs: Clear to auscultation bilaterally. No wheezes, rales, or rhonchi. Breathing is nonlabored. Abdomen: Moderate diffuse tenderness to palpation, distended. Extremities: 2+ bilateral lower extremity edema. SCDs, JOCELYNN perez. Psych: Alert and oriented. Procedures EGD, colonoscopy 08/20/2017. gastritis Colon polyp Internal and external hemorrhoids Urinary Catheter: No Vascular Central Line Catheter: No A/P Problem List: (1) Severe sepsis ICD Code: A41.9 - Sepsis, unspecified organism; R65.20 - Severe sepsis without septic shock (2) KATELYN (acute kidney injury) ICD Code: N17.9 - Acute kidney failure, unspecified (3) Alcoholic liver disease ICD Code: K70.9 - Alcoholic liver disease, unspecified (4) Alcohol dependence ICD Code: F10.20 - Alcohol dependence, uncomplicated Status: Acute Assessment and Plan 1. Severe sepsis: Secondary to possible spontaneous bacterial peritonitis. Continue IV antibiotics. Patient remains afebrile. Appreciate GI recommendations. Still with tachycardia, leukocytosis. Consult infectious disease. 2. Colitis: Continue Zosyn. 3. Alcoholic hepatitis: Appreciate GI recommendations. Paracentesis ordered, but ultrasound showed insufficient fluid. Continue lactulose. Continue pentoxifylline. 4. Alcohol abuse: Continue CIWA protocol. Continue thiamine, folic acid. Patient has been counseled. 5. Leukocytosis: Appreciate hematology recommendations. Monitor labs. 6. Hypokalemia: Supplement potassium. Monitor labs. 7. Acute kidney injury: Resolved. 8. Severe coagulopathy: Secondary to liver failure. Monitor labs. Monitor for bleeding. 9. Vaginal bleeding: Patient reports menstrual bleeding for most of the past month. Appreciate gynecology recommendations. Follow up as outpatient. Discharge Planning Pending clinical improvement. Nacho Salazar MD Aug 29, 2017 11:10
[2017-08-29 11:32] VITALS: BP 115/65; PULSE 123; RESP 20; TEMP 97.3; O2SAT 95
[2017-08-29] MEDS: POTASSIUM CHLORIDE 25 MEQ EFFERVESCENT TAB PO SCH ×2 (11:59→20:36)
--- NOTE | 2017-08-29 11:59 | PD.ONC.PN ---
Subjective Subjective Remarks Afebrile overnight. patient resting in bed complaining of continued abdominal cramping. no other complaints. Objective Data Date Time Temp Pulse Resp B/P (MAP) Pulse Ox O2 Delivery O2 Flow Rate FiO2 08/29/17 11:32 97.3 123 20 115/65 (82) 95 08/29/17 07:44 98.1 124 20 113/61 (78) 95 08/29/17 04:00 97.3 124 16 112/67 (82) 96 08/29/17 00:00 98.6 121 16 121/58 (79) 98 08/28/17 15:50 98.1 116 20 112/66 (81) 95 08/28/17 12:04 98.1 120 20 113/67 (82) 95 08/29/17 08/29/17 08/29/17 07:00 15:00 23:00 Intake Total 320 ml Balance 320 ml Result Diagram: 08/29/1762108/29/17 06 Laboratory Results Laboratory Tests Test 08/29/17 06:22 White Blood Count 25.3 TH/MM3 Red Blood Count 2.22 MIL/MM3 Hemoglobin 8.3 GM/DL Hematocrit 23.9 % Mean Corpuscular Volume 107.5 FL Mean Corpuscular Hemoglobin 37.5 PG Mean Corpuscular Hemoglobin Concent 34.8 % Red Cell Distribution Width 15.4 % Platelet Count 137 TH/MM3 Mean Platelet Volume 6.3 FL Neutrophils (%) (Auto) 93.2 % Lymphocytes (%) (Auto) 2.0 % Monocytes (%) (Auto) 4.1 % Eosinophils (%) (Auto) 0.3 % Basophils (%) (Auto) 0.4 % Neutrophils # (Auto) 23.6 TH/MM3 Lymphocytes # (Auto) 0.5 TH/MM3 Monocytes # (Auto) 1.0 TH/MM3 Eosinophils # (Auto) 0.1 TH/MM3 Basophils # (Auto) 0.1 TH/MM3 CBC Comment DIFF FINAL Differential Comment Prothrombin Time 24.2 SEC Prothromb Time International Ratio 2.4 RATIO Blood Urea Nitrogen 16 MG/DL Creatinine 0.92 MG/DL Random Glucose 100 MG/DL Total Protein 6.6 GM/DL Albumin 2.8 GM/DL Calcium Level 8.1 MG/DL Alkaline Phosphatase 221 U/L Aspartate Amino Transf (AST/SGOT) 142 U/L Alanine Aminotransferase (ALT/SGPT) 33 U/L Total Bilirubin 21.4 MG/DL Sodium Level 135 MEQ/L Potassium Level 3.1 MEQ/L Chloride Level 101 MEQ/L Carbon Dioxide Level 22.1 MEQ/L Anion Gap 12 MEQ/L Estimat Glomerular Filtration Rate 67 ML/MIN Culture Results Microbiology Date/Time Source Procedure Growth Status 08/26/17 15:52 Blood Peripheral Aerobic Blood Culture - Preliminary NO GROWTH IN 3 DAYS Resulted 08/26/17 15:52 Blood Peripheral Anaerobic Blood Culture - Preliminary NO GROWTH IN 3 DAYS Resulted 08/26/17 15:45 Blood Peripheral Aerobic Blood Culture - Preliminary NO GROWTH IN 3 DAYS Resulted 08/26/17 15:45 Blood Peripheral Anaerobic Blood Culture - Preliminary NO GROWTH IN 3 DAYS Resulted Administered Medications Medications (Trade) Dose Ordered Sig/[place] Route PRN Reason Start Time Stop Time Status Last Admin Dose Admin Lorazepam (Ativan) 1 mg Q4H PRN PO CIWA 8 - 10 08/19/17 12:00 08/25/17 06:34 Lorazepam (Ativan Inj) 1 mg Q4H PRN IV PUSH CIWA 8 - 10 08/19/17 12:00 08/21/17 08:40 Lorazepam (Ativan) 2 mg Q2H PRN PO CIWA 11-14 08/19/17 12:00 08/20/17 21:47 Sodium Chloride (NS Flush) 2 ml UNSCH PRN IV FLUSH FLUSH AFTER USING IV ACCESS 08/19/17 13:30 08/25/17 04:25 Sodium Chloride (NS Flush) 2 ml BID IV FLUSH 08/19/17 21:00 08/29/17 08:58 Ondansetron HCl (Zofran Inj) 4 mg Q6H PRN IVP NAUSEA OR VOMITING 08/19/17 13:30 08/29/17 09:42 Sennosides (Senokot) 17.2 mg Q12H PRN PO Moderate constipation 08/19/17 13:30 08/22/17 08:36 Pentoxifylline (TRENtal SR) 400 mg Q8HR PO 08/19/17 22:00 08/29/17 05:30 Thiamine HCl (Vitamin B1) 100 mg DAILY PO 08/22/17 09:00 08/29/17 08:53 Folic Acid (Folate) 1 mg DAILY PO 08/19/17 21:00 08/29/17 08:53 Metoclopramide HCl (Reglan Inj) 5 mg Q6H PRN IV PUSH NAUSEA OR VOMITING 08/21/17 10:15 08/28/17 23:47 Lactulose (Lactulose Liq) 30 ml TID PO 08/22/17 15:30 08/28/17 16:55 Piperacillin Sod/ Tazobactam Sod 100 ml @ 200 mls/hr Q6H IV 08/24/17 15:00 08/29/17 08:58 Guaifenesin (Mucinex Er) 600 mg BID PO 08/24/17 14:00 08/29/17 08:53 Metronidazole (Flagyl) 500 mg Q8HR PO 08/24/17 14:00 08/29/17 05:30 Furosemide (Lasix) 40 mg DAILY PO 08/25/17 17:45 08/29/17 08:53 Spironolactone (Aldactone) 100 mg DAILY PO 08/25/17 17:45 08/29/17 09:01 Morphine Sulfate (Morphine Inj) 2 mg Q4HR PRN IV PUSH BREAKTHROUGH PAIN 08/27/17 11:30 08/29/17 08:53 Oxycodone HCl (Roxicodone) 10 mg Q4H PRN PO PAIN SCALE 6 TO 10 08/28/17 10:00 08/29/17 09:38 Objective Remarks GENERAL: young woman, lying in bed complaining of abdominal cramping. SKIN: Warm and dry. +severe jaundice HEAD: Normocephalic. EYES: ++ scleral icterus. No injection or drainage. NECK: Supple, trachea midline. CARDIOVASCULAR: +S1/S2, tachy RESPIRATORY: anterior larkin clear GASTROINTESTINAL: Abdomen distended, ttp throughout. EXTREMITIES: No cyanosis. diffuse edema in upper and lower extremities. NEUROLOGICAL: awake and alert. normal speech Assessment/Plan Problem List: (1) Leukocytosis ICD Codes: D72.829 - Elevated white blood cell count, unspecified Plan: --Leukocytosis with predominantly neutrophil and bandemia + toxic granulation noted --> most consistent with a leukemoid reaction. --doubt primary bone marrow disorder. -- inflammatory source is likely in the gastrointestinal tract. --ESR and CRP elevated (2) Abdominal pain ICD Codes: R10.9 - Unspecified abdominal pain Plan: -- has a markedly abnormal liver enzymes. --CT abdomen and pelvis showed abnormal hepatic texture with anasarca. --GI following. (3) Macrocytic anemia ICD Codes: D53.9 - Nutritional anemia, unspecified Plan: --likely due to a combination of gastrointestinal bleeding, as well as chronic inflammatory disease. --B12 elevated --ferritin elevated, % saturation high---consistent with chronic disease Assessment 42y/o female admitted with abdominal pain/distension. Hematology consulted for persistent leukocytosis. h/o Alcohol abuse. Gastroesophageal reflux disease. Plan 1. monitor CBC, no transfusion needed at present. 2. continue supportive care Attending Statement The exam, history, and the medical decision-making described in the above note were completed with the assistance of the mid-level provider. I reviewed and agree with the findings presented. I attest that I had a [id number] encounter with the patient on the same day, and personally performed and documented my assessment and findings in the medical record. Still has abdominal pain but better controlled. WBC trended lower. Leukocytosis c/w leukemoid reaction. Continue treatment of abdominal symptoms per GI. Temi Horvath Aug 29, 2017 11:59 Sebastián Carmen MD Aug 29, 2017 14:03
[2017-08-29 16:11] VITALS: BP 110/91; PULSE 127; RESP 20; TEMP 97.8; O2SAT 97
[2017-08-29] MEDS: FAMOTIDINE 20 MG TAB PO SCH (20:36)
[2017-08-29 21:00] VITALS: BP 108/57; PULSE 121; RESP 20; TEMP 97.7; O2SAT 96
[2017-08-29] MEDS: METOCLOPRAMIDE HCL 10 MG/2 ML VIAL IV PUSH PRN (23:26)
[2017-08-30 00:40] VITALS: BP 120/65; PULSE 117; RESP 18; TEMP 98.4; O2SAT 95
[2017-08-30] MEDS: MORPHINE SULFATE 4 MG/ML INJ IV PUSH PRN ×6 (01:13→23:43)
[2017-08-30] MEDS: PIPERACIL-TAZO 4.5 GM PREMIX 100 ML IV SCH ×4 (02:36→20:36)
[2017-08-30] MEDS: ONDANSETRON HCL 4 MG/2 ML VIAL IVP PRN ×4 (03:19→20:37)
[2017-08-30 05:30] VITALS: BP 110/55; PULSE 124; RESP 18; TEMP 98; O2SAT 95
[2017-08-30] MEDS: metroNIDAZOLE 500 MG TAB PO SCH ×3 (05:40→20:45)
[2017-08-30] MEDS: PENTOXIFYLLINE 400 MG CONTROLLED RELEASE TAB PO SCH ×3 (05:40→20:46)
[2017-08-30] MEDS: METOCLOPRAMIDE HCL 10 MG/2 ML VIAL IV PUSH PRN ×2 (05:40→16:50)
[2017-08-30 06:20] LABS: AUTOMATED NEUTROPHIL # 23.7 TH/MM3 (1.8-7.7); BASOPHIL # 0.2 TH/MM3 (0-0.2); BASOPHIL % 0.6 % (0.0-2.0); EOSINOPHIL # 0.1 TH/MM3 (0-0.4); EOSINOPHIL % 0.2 % (0.0-4.0); HEMATOCRIT 23.9 % (35.0-46.0); HEMOGLOBIN 8.2 GM/DL (11.6-15.3); LYMPH % 1.5 % (9.0-44.0); LYMPHOCYTE # 0.4 TH/MM3 (1.0-4.8); MEAN CELL VOLUME 107.5 FL (80.0-100.0); MEAN CORPUSCULAR HEMOGLOBIN 36.8 PG (27.0-34.0); MEAN CORPUSCULAR HGB CONC 34.3 % (32.0-36.0); MEAN PLATELET VOLUME 6.2 FL (7.0-11.0); MONO % 3.5 % (0.0-8.0); MONOCYTE # 0.9 TH/MM3 (0-0.9); NEUT % 94.2 % (16.0-70.0); PLATELET COUNT 146 TH/MM3 (150-450); RED BLOOD COUNT 2.22 MIL/MM3 (4.00-5.30); RED CELL DISTRIBUTION WIDTH 15.7 % (11.6-17.2); WHITE BLOOD COUNT 25.2 TH/MM3 (4.0-11.0)
[2017-08-30 06:51] LABS: INTERNATIONAL NORMALIZED RATIO 2.8 RATIO; PROTHROMBIN TIME - PATIENT 27.9 SEC (9.8-11.6)
[2017-08-30 06:53] LABS: ALT (GPT) 29 U/L (10-53); AST (GOT) 136 U/L (15-37)
[2017-08-30 07:05] LABS: ALBUMIN 2.6 GM/DL (3.4-5.0); ALKALINE PHOSPHATASE 212 U/L (45-117); BICARBONATE 21.1 MEQ/L (21.0-32.0); BLOOD UREA NITROGEN 19 MG/DL (7-18); CALCIUM 7.9 MG/DL (8.5-10.1); CHLORIDE 100 MEQ/L (98-107); CREATININE 0.95 MG/DL (0.50-1.00); GLOMERULAR FILTRATION RATE 65 ML/MIN (>89); GLUCOSE,RANDOM 95 MG/DL (74-106); MAGNESIUM 1.7 MG/DL (1.5-2.5); SODIUM (NA) 133 MEQ/L (136-145); TOTAL BILIRUBIN ADULT 21.7 MG/DL (0.2-1.0); TOTAL PROTEIN 6.4 GM/DL (6.4-8.2)
[2017-08-30] MEDS: LACTULOSE SYRUP 20 GM/30 ML CUP PO SCH ×3 (08:00→16:51)
[2017-08-30] MEDS: FAMOTIDINE 20 MG TAB PO SCH ×2 (08:01→20:37)
[2017-08-30] MEDS: guaiFENesin E.R. 600 MG TAB PO SCH ×2 (08:01→20:36)
[2017-08-30] MEDS: THIAMINE HCL 100 MG TAB PO SCH (08:01)
[2017-08-30] MEDS: FOLIC ACID 1 MG TAB PO SCH (08:01)
[2017-08-30] MEDS: FUROSEMIDE 40 MG TAB PO SCH (08:01)
[2017-08-30] MEDS: SPIRONOLACTONE 100 MG TAB PO SCH (08:01)
[2017-08-30] MEDS: SODIUM CHLORIDE 0.9% FLUSH 10 ML FLUSH IV FLUSH SCH ×2 (08:05→20:49)
[2017-08-30 08:25] VITALS: BP 144/61; PULSE 120; RESP 20; TEMP 98.2; O2SAT 96
[2017-08-30] MEDS: POTASSIUM CHLORIDE 25 MEQ EFFERVESCENT TAB PO SCH ×2 (08:34→20:38)
[2017-08-30] MEDS: SODIUM CHLORIDE 0.9% FLUSH 10 ML FLUSH IV FLUSH PRN ×2 (09:46→23:43)
--- NOTE | 2017-08-30 11:15 | HHI.PR ---
Subjective Remarks Follow up abdominal pain, liver failure. Patient reporting worsening edema extending up to lower abdomen. Pain is now worse on the left flank. Objective Vitals Vital Signs Date Time Temp Pulse Resp B/P (MAP) Pulse Ox O2 Delivery O2 Flow Rate FiO2 08/30/17 08:25 98.2 120 20 144/61 (88) 96 08/30/17 05:30 98.0 124 18 110/55 (73) 95 08/30/17 00:40 98.4 117 18 120/65 (83) 95 08/29/17 21:00 97.7 121 20 108/57 (74) 96 08/29/17 16:11 97.8 127 20 110/91 (97) 97 08/29/17 11:32 97.3 123 20 115/65 (82) 95 I/O 08/29/17 08/29/17 08/29/17 08/30/17 08/30/17 08/30/17 07:00 15:00 23:00 07:00 15:00 23:00 Intake Total 320 ml Balance 320 ml Intake Oral 220 ml IV Total 100 ml # Voids 2 4 5 # Bowel Movements 1 Result Diagram: 08/30/17 0525 08/30/17 0525 Imaging Last Impressions Abdomen Ultrasound 08/27/17 1200 Signed Impressions: Service Date/Time: Sunday, August 27, 2017 08:38 - CONCLUSION: Insufficient fluid volume for percutaneous ultrasound guided paracentesis. Anthony Pop MD Chest X-Ray 08/26/17 0000 Signed Impressions: Service Date/Time: Saturday, August 26, 2017 16:59 - CONCLUSION: Generalized interstitial lung disease with bibasilar airspace disease and small bilateral effusions. Kamron Rollins MD Abdomen/Pelvis CT 08/26/17 0000 Signed Impressions: Service Date/Time: Saturday, August 26, 2017 17:17 - CONCLUSION: 1. Hepatosplenomegaly with diffusely abnormal hepatic texture. 2. Persistent consolidating airspace disease in the right lower lobe. 3. Small amount of ascites still present. 4. Increasing anasarca. 5. Colonic wall thickening and edema characteristic of colitis as previously described. 6. No significant change. Kamron Rollins MD Cholangiopancreatography MRI 08/24/17 0000 Signed Impressions: Service Date/Time: Thursday, August 24, 2017 18:15 - CONCLUSION: 1. Hepatosplenomegaly. 2. Mild ascites in the right paracolic gutter region. 3. No dilatation of the biliary system. 4. Contracted gallbladder without stones. The gallbladder wall thickening may be secondary to lack of distention. 5. Thickening of the proximal transverse colon. 6. Consolidation or atelectasis in the right lower lobe with a minimal right effusion. Rohith Harman MD Abdomen X-Ray 08/22/17 0000 Signed Impressions: Service Date/Time: Tuesday, August 22, 2017 13:39 - CONCLUSION: Benign abdomen. Tay Valdes MD Objective Remarks General: No acute distress. Jaundiced. HEENT: Scleral icterus. Heart: Regular rate and rhythm. No murmur. Lungs: Clear to auscultation bilaterally. No wheezes, rales, or rhonchi. Breathing is nonlabored. Abdomen: Moderate diffuse tenderness to palpation, distended. Extremities: 2+ bilateral lower extremity edema extending to hips/lower abdomen. SCDs, JOCELYNN perez. Psych: Alert and oriented. Procedures EGD, colonoscopy 08/20/2017. gastritis Colon polyp Internal and external hemorrhoids Urinary Catheter: No Vascular Central Line Catheter: No A/P Problem List: (1) Severe sepsis ICD Code: A41.9 - Sepsis, unspecified organism; R65.20 - Severe sepsis without septic shock (2) KATELYN (acute kidney injury) ICD Code: N17.9 - Acute kidney failure, unspecified (3) Alcoholic liver disease ICD Code: K70.9 - Alcoholic liver disease, unspecified (4) Alcohol dependence ICD Code: F10.20 - Alcohol dependence, uncomplicated Status: Acute Assessment and Plan 1. Severe sepsis: Secondary to possible spontaneous bacterial peritonitis. Continue IV antibiotics. Patient remains afebrile. Appreciate GI recommendations. Still with tachycardia, leukocytosis. Appreciate infectious disease recommendations. 2. Colitis: Continue Zosyn. 3. Alcoholic hepatitis, liver failure: Appreciate GI recommendations. Paracentesis ordered, but ultrasound showed insufficient fluid. Continue lactulose. Continue pentoxifylline. 4. Alcohol abuse: CIWA protocol discontinued. Continue thiamine, folic acid. Patient has been counseled. 5. Leukocytosis: Appreciate hematology recommendations. Monitor labs. 6. Hypokalemia: Continue potassium supplementation. Monitor labs. 7. Acute kidney injury: Resolved. 8. Severe coagulopathy: Secondary to liver failure. Monitor labs. Monitor for bleeding. INR increasing. 9. Vaginal bleeding: Patient reports menstrual bleeding for most of the past month. Appreciate gynecology recommendations. Follow up as outpatient. 10. Edema/anasarca: Increase Lasix. Continue spironolactone. Discharge Planning Pending clinical improvement. Nacho Salazar MD Aug 30, 2017 11:15
--- NOTE | 2017-08-30 12:02 | PD.ONC.PN ---
Subjective Subjective Remarks Afebrile overnight. patient continuing to have abdominal pain and bloating, although she states it is pretty well controlled on her current pain regimen. Objective Data Date Time Temp Pulse Resp B/P (MAP) Pulse Ox O2 Delivery O2 Flow Rate FiO2 08/30/17 08:25 98.2 120 20 144/61 (88) 96 08/30/17 05:30 98.0 124 18 110/55 (73) 95 08/30/17 00:40 98.4 117 18 120/65 (83) 95 08/29/17 21:00 97.7 121 20 108/57 (74) 96 08/29/17 16:11 97.8 127 20 110/91 (97) 97 Result Diagram: 08/30/17 0525 08/30/1725 Laboratory Results Laboratory Tests Test 08/30/17 05:25 White Blood Count 25.2 TH/MM3 Red Blood Count 2.22 MIL/MM3 Hemoglobin 8.2 GM/DL Hematocrit 23.9 % Mean Corpuscular Volume 107.5 FL Mean Corpuscular Hemoglobin 36.8 PG Mean Corpuscular Hemoglobin Concent 34.3 % Red Cell Distribution Width 15.7 % Platelet Count 146 TH/MM3 Mean Platelet Volume 6.2 FL Neutrophils (%) (Auto) 94.2 % Lymphocytes (%) (Auto) 1.5 % Monocytes (%) (Auto) 3.5 % Eosinophils (%) (Auto) 0.2 % Basophils (%) (Auto) 0.6 % Neutrophils # (Auto) 23.7 TH/MM3 Lymphocytes # (Auto) 0.4 TH/MM3 Monocytes # (Auto) 0.9 TH/MM3 Eosinophils # (Auto) 0.1 TH/MM3 Basophils # (Auto) 0.2 TH/MM3 CBC Comment DIFF FINAL Differential Comment Prothrombin Time 27.9 SEC Prothromb Time International Ratio 2.8 RATIO Blood Urea Nitrogen 19 MG/DL Creatinine 0.95 MG/DL Random Glucose 95 MG/DL Total Protein 6.4 GM/DL Albumin 2.6 GM/DL Calcium Level 7.9 MG/DL Magnesium Level 1.7 MG/DL Alkaline Phosphatase 212 U/L Aspartate Amino Transf (AST/SGOT) 136 U/L Alanine Aminotransferase (ALT/SGPT) 29 U/L Total Bilirubin 21.7 MG/DL Sodium Level 133 MEQ/L Potassium Level 3.4 MEQ/L Chloride Level 100 MEQ/L Carbon Dioxide Level 21.1 MEQ/L Anion Gap 12 MEQ/L Estimat Glomerular Filtration Rate 65 ML/MIN Administered Medications Medications (Trade) Dose Ordered Sig/[place] Route PRN Reason Start Time Stop Time Status Last Admin Dose Admin Sodium Chloride (NS Flush) 2 ml UNSCH PRN IV FLUSH FLUSH AFTER USING IV ACCESS 08/19/17 13:30 08/30/17 09:46 Sodium Chloride (NS Flush) 2 ml BID IV FLUSH 08/19/17 21:00 08/30/17 08:05 Ondansetron HCl (Zofran Inj) 4 mg Q6H PRN IVP NAUSEA OR VOMITING 08/19/17 13:30 08/30/17 08:38 Sennosides (Senokot) 17.2 mg Q12H PRN PO Moderate constipation 08/19/17 13:30 08/22/17 08:36 Pentoxifylline (TRENtal SR) 400 mg Q8HR PO 08/19/17 22:00 08/30/17 05:40 Thiamine HCl (Vitamin B1) 100 mg DAILY PO 08/22/17 09:00 08/30/17 08:01 Folic Acid (Folate) 1 mg DAILY PO 08/19/17 21:00 08/30/17 08:01 Metoclopramide HCl (Reglan Inj) 5 mg Q6H PRN IV PUSH NAUSEA OR VOMITING 08/21/17 10:15 08/30/17 05:40 Lactulose (Lactulose Liq) 30 ml TID PO 08/22/17 15:30 08/30/17 08:00 Piperacillin Sod/ Tazobactam Sod 100 ml @ 200 mls/hr Q6H IV 08/24/17 15:00 08/30/17 08:01 Guaifenesin (Mucinex Er) 600 mg BID PO 08/24/17 14:00 08/30/17 08:01 Metronidazole (Flagyl) 500 mg Q8HR PO 08/24/17 14:00 08/30/17 05:40 Spironolactone (Aldactone) 100 mg DAILY PO 08/25/17 17:45 08/30/17 08:01 Morphine Sulfate (Morphine Inj) 2 mg Q4HR PRN IV PUSH BREAKTHROUGH PAIN 08/27/17 11:30 08/30/17 09:46 Oxycodone HCl (Roxicodone) 10 mg Q4H PRN PO PAIN SCALE 6 TO 10 08/28/17 10:00 08/30/17 10:49 Potassium Bicarb/ Potassium Chloride (K-Lyte Cl Eff) 25 meq Q12HR PO 08/29/17 11:15 08/30/17 08:34 Famotidine (Pepcid) 10 mg BID PO 08/29/17 21:00 08/30/17 08:01 Objective Remarks GENERAL: young woman, lying in bed. ++severely jaundiced. SKIN: Warm and dry. HEAD: Normocephalic. EYES: ++ scleral icterus. No injection or drainage. NECK: Supple, trachea midline. CARDIOVASCULAR: +S1/S2, tachy RESPIRATORY: anterior larkin without adventitious sounds. GASTROINTESTINAL: Abdomen distended, ttp throughout, especially in left upper and lower quadrants. EXTREMITIES: No cyanosis. diffuse edema in all extremities. +anasarca NEUROLOGICAL: no focal deficit. Assessment/Plan Problem List: (1) Leukocytosis ICD Codes: D72.829 - Elevated white blood cell count, unspecified Plan: --Leukocytosis with predominantly neutrophil and bandemia + toxic granulation noted --> most consistent with a leukemoid reaction. --doubt primary bone marrow disorder. -- inflammatory source is likely in the gastrointestinal tract. --ESR and CRP elevated (2) Abdominal pain ICD Codes: R10.9 - Unspecified abdominal pain Plan: -- has a markedly abnormal liver enzymes. --CT abdomen and pelvis showed abnormal hepatic texture with anasarca. --GI signed off on 08/27. recommend reconsulting as patient's problem persists. (3) Macrocytic anemia ICD Codes: D53.9 - Nutritional anemia, unspecified Plan: --transfuse as needed. --likely due to a combination of gastrointestinal bleeding, as well as chronic inflammatory disease. --B12 elevated --ferritin elevated, % saturation high---consistent with chronic disease Assessment 42y/o female admitted with abdominal pain/distension. Hematology consulted for persistent leukocytosis. h/o Alcohol abuse. Gastroesophageal reflux disease. Plan 1. monitor CBC, expect WBC to improve if/when underlying abdominal issues are corrected. 2. continue supportive care. d/w Dr. Salazar, Dr. Carmen, patient. Attending Statement The exam, history, and the medical decision-making described in the above note were completed with the assistance of the mid-level provider. I reviewed and agree with the findings presented. I attest that I had a [id number] encounter with the patient on the same day, and personally performed and documented my assessment and findings in the medical record. Still has abdominal pain but better controlled, still jaundiced. WBC stable. Leukocytosis due to abdominal inflammatory process. Has vaginal bleed, Hgb stable. Continue to monitor. Temi Horvath Aug 30, 2017 12:02 Sebastián Carmen MD Aug 30, 2017 13:22
[2017-08-30 12:50] VITALS: BP 103/54; PULSE 122; RESP 20; TEMP 97.8; O2SAT 93
[2017-08-30] MEDS ORDERED: PADIMATE (CHAPSTICK) 4.5 GM TUBE TOPICAL PRN (14:00)
[2017-08-30] MEDS ORDERED: FUROSEMIDE 20 MG/2 ML VIAL IV PUSH ONE (15:00)
--- NOTE | 2017-08-30 15:04 | HHI.GIFU ---
Subjective Remarks Pt resting in bed. c/o worsening BLE edema. c/o abd pain, epigastric burnign that wraps around to LUQ and left side. (Kiara Lyons) Objective Vitals I&O Vital Signs Date Time Temp Pulse Resp B/P (MAP) Pulse Ox O2 Delivery O2 Flow Rate FiO2 08/30/17 12:50 97.8 122 20 103/54 (70) 93 08/30/17 08:25 98.2 120 20 144/61 (88) 96 08/30/17 05:30 98.0 124 18 110/55 (73) 95 08/30/17 00:40 98.4 117 18 120/65 (83) 95 08/29/17 21:00 97.7 121 20 108/57 (74) 96 08/29/17 16:11 97.8 127 20 110/91 (97) 97 I/O 08/29/17 08/29/17 08/29/17 08/30/17 08/30/17 08/30/17 07:00 15:00 23:00 07:00 15:00 23:00 Intake Total 320 ml Balance 320 ml Intake Oral 220 ml IV Total 100 ml # Voids 2 4 5 # Bowel Movements 1 Laboratory Laboratory Tests Test 08/30/17 05:25 White Blood Count 25.2 Red Blood Count 2.22 Hemoglobin 8.2 Hematocrit 23.9 Mean Corpuscular Volume 107.5 Mean Corpuscular Hemoglobin 36.8 Mean Corpuscular Hemoglobin Concent 34.3 Red Cell Distribution Width 15.7 Platelet Count 146 Mean Platelet Volume 6.2 Neutrophils (%) (Auto) 94.2 Lymphocytes (%) (Auto) 1.5 Monocytes (%) (Auto) 3.5 Eosinophils (%) (Auto) 0.2 Basophils (%) (Auto) 0.6 Neutrophils # (Auto) 23.7 Lymphocytes # (Auto) 0.4 Monocytes # (Auto) 0.9 Eosinophils # (Auto) 0.1 Basophils # (Auto) 0.2 CBC Comment DIFF FINAL Differential Comment Prothrombin Time 27.9 Prothromb Time International Ratio 2.8 Blood Urea Nitrogen 19 Creatinine 0.95 Random Glucose 95 Total Protein 6.4 Albumin 2.6 Calcium Level 7.9 Magnesium Level 1.7 Alkaline Phosphatase 212 Aspartate Amino Transf (AST/SGOT) 136 Alanine Aminotransferase (ALT/SGPT) 29 Total Bilirubin 21.7 Sodium Level 133 Potassium Level 3.4 Chloride Level 100 Carbon Dioxide Level 21.1 Anion Gap 12 Estimat Glomerular Filtration Rate 65 Date/Time Source Procedure Growth Status 08/26/17 15:52 Blood Peripheral Aerobic Blood Culture - Preliminary NO GROWTH IN 4 DAYS Resulted 08/26/17 15:52 Blood Peripheral Anaerobic Blood Culture - Preliminary NO GROWTH IN 4 DAYS Resulted 08/19/17 14:30 Urine Clean Catch Urine Culture - Final 50-100,000 CFU/ML MIXED [place]... Complete Imaging Last Impressions Abdomen Ultrasound 08/27/17 1200 Signed Impressions: Service Date/Time: Sunday, August 27, 2017 08:38 - CONCLUSION: Insufficient fluid volume for percutaneous ultrasound guided paracentesis. Anthony Pop MD Chest X-Ray 08/26/17 0000 Signed Impressions: Service Date/Time: Saturday, August 26, 2017 16:59 - CONCLUSION: Generalized interstitial lung disease with bibasilar airspace disease and small bilateral effusions. Kamron Rollins MD Abdomen/Pelvis CT 08/26/17 0000 Signed Impressions: Service Date/Time: Saturday, August 26, 2017 17:17 - CONCLUSION: 1. Hepatosplenomegaly with diffusely abnormal hepatic texture. 2. Persistent consolidating airspace disease in the right lower lobe. 3. Small amount of ascites still present. 4. Increasing anasarca. 5. Colonic wall thickening and edema characteristic of colitis as previously described. 6. No significant change. Kamron Rollins MD Cholangiopancreatography MRI 08/24/17 0000 Signed Impressions: Service Date/Time: Thursday, August 24, 2017 18:15 - CONCLUSION: 1. Hepatosplenomegaly. 2. Mild ascites in the right paracolic gutter region. 3. No dilatation of the biliary system. 4. Contracted gallbladder without stones. The gallbladder wall thickening may be secondary to lack of distention. 5. Thickening of the proximal transverse colon. 6. Consolidation or atelectasis in the right lower lobe with a minimal right effusion. Rohith Harman MD Abdomen X-Ray 08/22/17 0000 Signed Impressions: Service Date/Time: Tuesday, August 22, 2017 13:39 - CONCLUSION: Benign abdomen. Tay Valdes MD Physical Exam HEENT: PERRL; normocephalic; atraumatic; +icterus sclera CHEST: CTA, respirations shallow CARDIAC tachy +murmur ABDOMEN: distended, semifirm, generalized tenderness especially, bowel sounds are present in all four quadrants. EXTREMITIES: + BLE edema SKIN: Normal; no rash; +jaundice [employer] WORK[employer] (Kiara Lyons) Assessment and Plan Plan Plan/history RECONSULT for abdominal distention, pain and worsening bilirubin Pt now S/P EGD and colonoscopy 08/20/17--> Gastritis, Colon polyp. Internal and external hemorrhoids. Pathology (stomach antrum) Gastric antral mucosa with minimally active chronic inflammation and edema (colon) mildly hyperplastic colonic mucosa suggestive of hyperplastic polyp. Pt reports increasing distention and pain in abdomen. KUB ordered by attending today --> Benign appearing abdomen. Pt reports small BM yesterday. Has not been passing much gas. ? Increase in ascites, previous US abdomen did not reveal enough fluid for paracentesis. Would like to rule out SBP because pt would likely benefit from steroids. 08/26/17 increasing distention. WBC still trending up. HH trending down, no obvious bleeding. coagulopathy worsening. c/o abd pain, SOB from distention. mild decrease LFTs today 08/27/17 insufficient fluid for paracentesis. she is quite distended. on diuretics. LFTs relatively stable, Tbil mild increase this am. hematology consulted for leukocytosis, prob leukemoid reaction. ?steroids 08/30/17 GI reconsulted for persistent abd pain. pt also having continued/ worsening BLE edema. she is c/o burning abd pain that radiates to left side. now with postprandial n/v as well. WBC remains elevated 25k. nothing found on EGD and colonoscopy 08/20/17. per ID continue zosyn. PLAN: trial solumedrol consider repeat imaging monitor labs low sodium diet fluid restriction continue diuretics- was going to try bumex but this is out of stock, lasix per attending TID lactulose Pentoxifylline Continue to monitor labs notify GI of active bleeding etoh cessation Pt has been seen and examined by myself and Dr. Mazariegos and this note is written on his behalf (Kiara Lyons) Physician Comments Seen and examined with [employer], reconsulted for persistent abdominal pain. Unclear etiology of pain that has been ongoing for 06 months. Extensive recent pena noted. Added solumederol 40mg ivpb tid. Discriminant factor 95. Not a candidate for liver transpalnt evaluation due to recent heavy ETOH use. Can increase diuretics. IV albumin. ? renal consult. Discussed with pt. in detail.Nothing to add from gi standpoint. Thank you (Satnam Mazariegos MD) Kiara Lyons Aug 30, 2017 15:04 Satnam Mazariegos MD Aug 30, 2017 17:25
[2017-08-30] MEDS: FUROSEMIDE 40 MG/4 ML VIAL IV PUSH SCH (16:50)
[2017-08-30] MEDS: methylPREDNISolone SOD SUCC 40 MG/1 ML VIAL IV PUSH SCH (20:45)
[2017-08-30 20:48] VITALS: BP 115/66; PULSE 127; RESP 20; TEMP 98; O2SAT 95
[2017-08-31] VITALS (7 sets, daily range): BP systolic 95–138; BP diastolic 54–65; PULSE 107–123; RESP 18–21; TEMP 97.4–98.3; O2SAT 94–96
[2017-08-31] MEDS: PIPERACIL-TAZO 4.5 GM PREMIX 100 ML IV SCH ×4 (02:32→21:33)
[2017-08-31] MEDS: PENTOXIFYLLINE 400 MG CONTROLLED RELEASE TAB PO SCH ×3 (05:13→21:21)
[2017-08-31] MEDS: MORPHINE SULFATE 4 MG/ML INJ IV PUSH PRN ×4 (05:13→21:20)
[2017-08-31] MEDS: methylPREDNISolone SOD SUCC 40 MG/1 ML VIAL IV PUSH SCH ×3 (05:14→21:21)
[2017-08-31] MEDS: ONDANSETRON HCL 4 MG/2 ML VIAL IVP PRN ×3 (05:14→23:33)
[2017-08-31] MEDS: metroNIDAZOLE 500 MG TAB PO SCH ×3 (05:14→21:21)
[2017-08-31] MEDS: SODIUM CHLORIDE 0.9% FLUSH 10 ML FLUSH IV FLUSH PRN (05:15)
[2017-08-31 08:43] LABS: AUTOMATED NEUTROPHIL # 31.1 TH/MM3 (1.8-7.7); BASOPHIL # 0.1 TH/MM3 (0-0.2); BASOPHIL % 0.4 % (0.0-2.0); EOSINOPHIL % 0.1 % (0.0-4.0); HEMATOCRIT 24.1 % (35.0-46.0); HEMOGLOBIN 8.4 GM/DL (11.6-15.3); LYMPH % 1.6 % (9.0-44.0); LYMPHOCYTE # 0.5 TH/MM3 (1.0-4.8); MEAN CELL VOLUME 108.1 FL (80.0-100.0); MEAN CORPUSCULAR HEMOGLOBIN 37.5 PG (27.0-34.0); MEAN CORPUSCULAR HGB CONC 34.6 % (32.0-36.0); MEAN PLATELET VOLUME 6.4 FL (7.0-11.0); MONO % 2.9 % (0.0-8.0); PLATELET COUNT 197 TH/MM3 (150-450); RED BLOOD COUNT 2.23 MIL/MM3 (4.00-5.30); RED CELL DISTRIBUTION WIDTH 16.1 % (11.6-17.2); WHITE BLOOD COUNT 32.8 TH/MM3 (4.0-11.0)
[2017-08-31 08:50] LABS: PROTHROMBIN TIME - PATIENT 30.3 SEC (9.8-11.6)
[2017-08-31] MEDS: POTASSIUM CHLORIDE 25 MEQ EFFERVESCENT TAB PO SCH (08:56)
[2017-08-31] MEDS: FAMOTIDINE 20 MG TAB PO SCH ×2 (08:56→21:21)
[2017-08-31] MEDS: guaiFENesin E.R. 600 MG TAB PO SCH ×2 (08:57→21:20)
[2017-08-31] MEDS: SPIRONOLACTONE 100 MG TAB PO SCH (08:57)
[2017-08-31] MEDS: FOLIC ACID 1 MG TAB PO SCH (08:57)
[2017-08-31] MEDS: LACTULOSE SYRUP 20 GM/30 ML CUP PO SCH ×3 (08:57→17:21)
[2017-08-31] MEDS: THIAMINE HCL 100 MG TAB PO SCH (08:57)
[2017-08-31] MEDS: SODIUM CHLORIDE 0.9% FLUSH 10 ML FLUSH IV FLUSH SCH ×2 (08:58→21:20)
[2017-08-31] MEDS: FUROSEMIDE 40 MG/4 ML VIAL IV PUSH SCH ×2 (08:58→17:21)
[2017-08-31 09:27] LABS: ALBUMIN 2.4 GM/DL (3.4-5.0); AST (GOT) 109 U/L (15-37); BICARBONATE 22.6 MEQ/L (21.0-32.0); BLOOD UREA NITROGEN 22 MG/DL (7-18); CHLORIDE 101 MEQ/L (98-107); CREATININE 1.06 MG/DL (0.50-1.00); GLOMERULAR FILTRATION RATE 57 ML/MIN (>89); GLUCOSE,RANDOM 138 MG/DL (74-106); MAGNESIUM 1.7 MG/DL (1.5-2.5); SODIUM (NA) 135 MEQ/L (136-145)
[2017-08-31 09:29] LABS: ALT (GPT) 27 U/L (10-53)
[2017-08-31 09:31] LABS: ALKALINE PHOSPHATASE 194 U/L (45-117); TOTAL BILIRUBIN ADULT 20.1 MG/DL (0.2-1.0)
[2017-08-31 09:47] LABS: BANDS 12 % (0-6); LYMPHOCYTES 1 % (9-44); MONOCYTES 2 % (0-8); NEUTROPHIL # MANUAL DIFF 31.8 TH/MM3 (1.8-7.7); POLYS (SEG NEUTROPHILS) 85 % (16-70)
--- NOTE | 2017-08-31 10:57 | HHI.PR ---
Subjective Remarks Follow-up abdominal pain, edema/anasarca, liver failure. The patient states that her lower leg edema is much better today. She is still having swelling of her upper legs. Abdominal pain was better overnight, but is worsened again this morning. Objective Vitals Vital Signs Date Time Temp Pulse Resp B/P (MAP) Pulse Ox O2 Delivery O2 Flow Rate FiO2 08/31/17 10:37 94 08/31/17 05:19 98.3 112 18 95/54 (68) 94 08/31/17 00:06 98.1 123 20 138/56 (83) 96 08/30/17 20:48 98.0 127 20 115/66 (82) 95 08/30/17 12:50 97.8 122 20 103/54 (70) 93 I/O 08/30/17 08/30/17 08/30/17 08/31/17 08/31/17 08/31/17 07:00 15:00 23:00 07:00 15:00 23:00 # Voids 5 # Bowel Movements 1 Result Diagram: 08/31/17 0710 08/31/17 0710 Imaging Last Impressions Abdomen Ultrasound 08/27/17 1200 Signed Impressions: Service Date/Time: Sunday, August 27, 2017 08:38 - CONCLUSION: Insufficient fluid volume for percutaneous ultrasound guided paracentesis. Anthony Pop MD Chest X-Ray 08/26/17 0000 Signed Impressions: Service Date/Time: Saturday, August 26, 2017 16:59 - CONCLUSION: Generalized interstitial lung disease with bibasilar airspace disease and small bilateral effusions. Kamron Rollins MD Abdomen/Pelvis CT 08/26/17 0000 Signed Impressions: Service Date/Time: Saturday, August 26, 2017 17:17 - CONCLUSION: 1. Hepatosplenomegaly with diffusely abnormal hepatic texture. 2. Persistent consolidating airspace disease in the right lower lobe. 3. Small amount of ascites still present. 4. Increasing anasarca. 5. Colonic wall thickening and edema characteristic of colitis as previously described. 6. No significant change. Kamron Rollins MD Cholangiopancreatography MRI 08/24/17 0000 Signed Impressions: Service Date/Time: Thursday, August 24, 2017 18:15 - CONCLUSION: 1. Hepatosplenomegaly. 2. Mild ascites in the right paracolic gutter region. 3. No dilatation of the biliary system. 4. Contracted gallbladder without stones. The gallbladder wall thickening may be secondary to lack of distention. 5. Thickening of the proximal transverse colon. 6. Consolidation or atelectasis in the right lower lobe with a minimal right effusion. Rohith Harman MD Abdomen X-Ray 08/22/17 0000 Signed Impressions: Service Date/Time: Tuesday, August 22, 2017 13:39 - CONCLUSION: Benign abdomen. Tay Valdes MD Objective Remarks General: No acute distress. Jaundiced. HEENT: Scleral icterus. Heart: Regular rate and rhythm. No murmur. Lungs: Clear to auscultation bilaterally. No wheezes, rales, or rhonchi. Breathing is nonlabored. Abdomen: Mild diffuse tenderness to palpation, distended. Extremities: 2+ bilateral lower extremity edema extending to hips/lower abdomen , less in the lower legs bilaterally. JOCELYNN hose. Psych: Alert and oriented. Procedures EGD, colonoscopy 08/20/2017. gastritis Colon polyp Internal and external hemorrhoids Urinary Catheter: No Vascular Central Line Catheter: No A/P Problem List: (1) Severe sepsis ICD Code: A41.9 - Sepsis, unspecified organism; R65.20 - Severe sepsis without septic shock (2) KATELYN (acute kidney injury) ICD Code: N17.9 - Acute kidney failure, unspecified (3) Alcoholic liver disease ICD Code: K70.9 - Alcoholic liver disease, unspecified (4) Alcohol dependence ICD Code: F10.20 - Alcohol dependence, uncomplicated Status: Acute Assessment and Plan 1. Severe sepsis: Secondary to possible spontaneous bacterial peritonitis. Continue IV antibiotics. Patient remains afebrile. Appreciate GI recommendations. Still with tachycardia, leukocytosis. Appreciate infectious disease recommendations. WBC is trending up, possibly secondary to steroids. 2. Colitis: Continue Zosyn. Appreciate infectious disease recommendations. 3. Alcoholic hepatitis, liver failure: Appreciate GI recommendations. Paracentesis ordered, but ultrasound showed insufficient fluid. Continue lactulose. Continue pentoxifylline. Continue Solu-Medrol per GI. 4. Alcohol abuse: CIWA protocol discontinued. Continue thiamine, folic acid. Patient has been counseled. 5. Leukocytosis: Appreciate hematology recommendations. Monitor labs. 6. Hypokalemia: Continue potassium supplementation. Monitor labs. 7. Acute kidney injury: Resolved. 8. Severe coagulopathy: Secondary to liver failure. Monitor labs. Monitor for bleeding. INR increasing. 9. Vaginal bleeding: Patient reports menstrual bleeding for most of the past month. Appreciate gynecology recommendations. Follow up as outpatient. 10. Edema/anasarca: Improving. Continue Lasix, spironolactone. Discharge Planning Pending clinical improvement. Nacho Salazar MD Aug 31, 2017 10:57
[2017-08-31] MEDS ORDERED: POTASSIUM CHLORIDE 10 MEQ CAP PO ONE (11:00)
[2017-08-31] MEDS ORDERED: MAGNESIUM OXIDE 400 MG TAB PO ONE (11:00)
--- NOTE | 2017-08-31 11:34 | PD.ONC.PN ---
Subjective Subjective Remarks Afebrile overnight. patient resting in bed. states pain is controlled in abdomen when she gets her pain medications on time. frustrated that she has not been getting them on time. Objective Data Date Time Temp Pulse Resp B/P (MAP) Pulse Ox O2 Delivery O2 Flow Rate FiO2 08/31/17 10:37 94 08/31/17 08:00 97.9 108 21 116/63 (80) 94 08/31/17 05:19 98.3 112 18 95/54 (68) 94 08/31/17 00:06 98.1 123 20 138/56 (83) 96 08/30/17 20:48 98.0 127 20 115/66 (82) 95 08/30/17 12:50 97.8 122 20 103/54 (70) 93 Result Diagram: 08/31/17 0710 08/31/17 0710 Laboratory Results Laboratory Tests Test 08/31/17 07:10 White Blood Count 32.8 TH/MM3 Red Blood Count 2.23 MIL/MM3 Hemoglobin 8.4 GM/DL Hematocrit 24.1 % Mean Corpuscular Volume 108.1 FL Mean Corpuscular Hemoglobin 37.5 PG Mean Corpuscular Hemoglobin Concent 34.6 % Red Cell Distribution Width 16.1 % Platelet Count 197 TH/MM3 Mean Platelet Volume 6.4 FL Neutrophils (%) (Auto) 95.0 % Lymphocytes (%) (Auto) 1.6 % Monocytes (%) (Auto) 2.9 % Eosinophils (%) (Auto) 0.1 % Basophils (%) (Auto) 0.4 % Neutrophils # (Auto) 31.1 TH/MM3 Lymphocytes # (Auto) 0.5 TH/MM3 Monocytes # (Auto) 1.0 TH/MM3 Eosinophils # (Auto) 0.0 TH/MM3 Basophils # (Auto) 0.1 TH/MM3 CBC Comment AUTO DIFF Differential Total Cells Counted 100 Neutrophils % (Manual) 85 % Band Neutrophils % 12 % Lymphocytes % 1 % Monocytes % 2 % Neutrophils # (Manual) 31.8 TH/MM3 Differential Comment FINAL DIFF MANUAL Platelet Estimate NORMAL Platelet Morphology Comment NORMAL Prothrombin Time 30.3 SEC Prothromb Time International Ratio 3.0 RATIO Blood Urea Nitrogen 22 MG/DL Creatinine 1.06 MG/DL Random Glucose 138 MG/DL Total Protein 6.0 GM/DL Albumin 2.4 GM/DL Calcium Level 8.0 MG/DL Magnesium Level 1.7 MG/DL Alkaline Phosphatase 194 U/L Aspartate Amino Transf (AST/SGOT) 109 U/L Alanine Aminotransferase (ALT/SGPT) 27 U/L Total Bilirubin 20.1 MG/DL Sodium Level 135 MEQ/L Potassium Level 3.3 MEQ/L Chloride Level 101 MEQ/L Carbon Dioxide Level 22.6 MEQ/L Anion Gap 11 MEQ/L Estimat Glomerular Filtration Rate 57 ML/MIN Administered Medications Medications (Trade) Dose Ordered Sig/[place] Route PRN Reason Start Time Stop Time Status Last Admin Dose Admin Sodium Chloride (NS Flush) 2 ml UNSCH PRN IV FLUSH FLUSH AFTER USING IV ACCESS 08/19/17 13:30 08/31/17 05:15 Sodium Chloride (NS Flush) 2 ml BID IV FLUSH 08/19/17 21:00 08/31/17 08:58 Ondansetron HCl (Zofran Inj) 4 mg Q6H PRN IVP NAUSEA OR VOMITING 08/19/17 13:30 08/31/17 05:14 Sennosides (Senokot) 17.2 mg Q12H PRN PO Moderate constipation 08/19/17 13:30 08/22/17 08:36 Pentoxifylline (TRENtal SR) 400 mg Q8HR PO 08/19/17 22:00 08/31/17 05:13 Thiamine HCl (Vitamin B1) 100 mg DAILY PO 08/22/17 09:00 08/31/17 08:57 Folic Acid (Folate) 1 mg DAILY PO 08/19/17 21:00 08/31/17 08:57 Metoclopramide HCl (Reglan Inj) 5 mg Q6H PRN IV PUSH NAUSEA OR VOMITING 08/21/17 10:15 08/30/17 16:50 Lactulose (Lactulose Liq) 30 ml TID PO 08/22/17 15:30 08/31/17 08:57 Piperacillin Sod/ Tazobactam Sod 100 ml @ 200 mls/hr Q6H IV 08/24/17 15:00 08/31/17 08:55 Guaifenesin (Mucinex Er) 600 mg BID PO 08/24/17 14:00 08/31/17 08:57 Metronidazole (Flagyl) 500 mg Q8HR PO 08/24/17 14:00 08/31/17 05:14 Spironolactone (Aldactone) 100 mg DAILY PO 08/25/17 17:45 08/31/17 08:57 Morphine Sulfate (Morphine Inj) 2 mg Q4HR PRN IV PUSH BREAKTHROUGH PAIN 08/27/17 11:30 08/31/17 05:13 Oxycodone HCl (Roxicodone) 10 mg Q4H PRN PO PAIN SCALE 6 TO 10 08/28/17 10:00 08/31/17 08:55 Famotidine (Pepcid) 10 mg BID PO 08/29/17 21:00 08/31/17 08:56 Furosemide (Lasix Inj) 40 mg BID@ IV PUSH 08/30/17 18:00 08/31/17 08:58 Padimate O ([place]) 1 applic UNSCH PRN TOPICAL CHAPPED LIPS 08/30/17 14:00 08/30/17 15:10 Methylprednisolone Sodium Succinate (SoluMEDROL INJ) 40 mg Q8HR IV PUSH 08/30/17 22:00 08/31/17 05:14 Objective Remarks GENERAL: young woman, sitting up in bed face-timing with friend. she appears comfortable and in nad. SKIN: Warm and dry. ++jaundice. HEAD: Normocephalic. EYES: ++ scleral icterus. No injection or drainage. NECK: Supple, trachea midline. CARDIOVASCULAR: +S1/S2, tachy RESPIRATORY: clear to auscultation bilaterally. GASTROINTESTINAL: distended, tender throughout. EXTREMITIES: No cyanosis. +anasarca NEUROLOGICAL: no focal deficit. Assessment/Plan Problem List: (1) Leukocytosis ICD Codes: D72.829 - Elevated white blood cell count, unspecified Plan: --Leukocytosis with predominantly neutrophil and bandemia + toxic granulation noted --> most consistent with a leukemoid reaction. --doubt primary bone marrow disorder. -- inflammatory source is likely in the gastrointestinal tract. --ESR and CRP elevated (2) Abdominal pain ICD Codes: R10.9 - Unspecified abdominal pain Plan: -- has a markedly abnormal liver enzymes. --CT abdomen and pelvis showed abnormal hepatic texture with anasarca. --GI following. (3) Macrocytic anemia ICD Codes: D53.9 - Nutritional anemia, unspecified Plan: --transfuse as needed. --likely due to a combination of gastrointestinal bleeding, as well as chronic inflammatory disease. --B12 elevated --ferritin elevated, % saturation high---consistent with chronic disease Assessment 42y/o female admitted with abdominal pain/distension. Hematology consulted for persistent leukocytosis. h/o Alcohol abuse. Gastroesophageal reflux disease. Plan 1. monitor CBC, coags 2. no transfusion indicated at present. 3. continue supportive care Attending Statement The exam, history, and the medical decision-making described in the above note were completed with the assistance of the mid-level provider. I reviewed and agree with the findings presented. I attest that I had a [id number] encounter with the patient on the same day, and personally performed and documented my assessment and findings in the medical record. Abdominal pain better controlled. WBC trended up due to addition of steroids. Platelet trended up. Hgb stable. Continue treatment per primary team and GI. Temi Horvath Aug 31, 2017 11:34 Sebastián Carmen MD Aug 31, 2017 18:03
[2017-08-31] MEDS: POTASSIUM CHLORIDE 10 MEQ CAP PO SCH (22:10)
[2017-09-01] VITALS (7 sets, daily range): BP systolic 107–123; BP diastolic 64–71; PULSE 91–117; RESP 16–19; TEMP 97.4–98.5; O2SAT 92–97
[2017-09-01] MEDS: PIPERACIL-TAZO 4.5 GM PREMIX 100 ML IV SCH ×3 (03:17→15:13)
[2017-09-01] MEDS: SODIUM CHLORIDE 0.9% FLUSH 10 ML FLUSH IV FLUSH PRN ×2 (03:27→05:05)
[2017-09-01] MEDS: MORPHINE SULFATE 4 MG/ML INJ IV PUSH PRN ×2 (03:27→23:07)
[2017-09-01] MEDS: methylPREDNISolone SOD SUCC 40 MG/1 ML VIAL IV PUSH SCH ×3 (05:04→22:11)
[2017-09-01] MEDS: PENTOXIFYLLINE 400 MG CONTROLLED RELEASE TAB PO SCH ×2 (05:04→12:46)
[2017-09-01] MEDS: metroNIDAZOLE 500 MG TAB PO SCH ×3 (05:04→22:09)
[2017-09-01 08:53] LABS: INTERNATIONAL NORMALIZED RATIO 2.8 RATIO; PROTHROMBIN TIME - PATIENT 28.4 SEC (9.8-11.6)
[2017-09-01] MEDS: FAMOTIDINE 20 MG TAB PO SCH ×2 (08:57→22:10)
[2017-09-01] MEDS: LACTULOSE SYRUP 20 GM/30 ML CUP PO SCH ×3 (08:57→18:24)
[2017-09-01] MEDS: SPIRONOLACTONE 100 MG TAB PO SCH (08:58)
[2017-09-01] MEDS: FOLIC ACID 1 MG TAB PO SCH (08:58)
[2017-09-01] MEDS: guaiFENesin E.R. 600 MG TAB PO SCH ×2 (08:58→22:10)
[2017-09-01] MEDS: POTASSIUM CHLORIDE 10 MEQ CAP PO SCH ×2 (08:58→22:10)
[2017-09-01] MEDS: THIAMINE HCL 100 MG TAB PO SCH (08:58)
[2017-09-01] MEDS: FUROSEMIDE 40 MG/4 ML VIAL IV PUSH SCH ×2 (08:59→18:25)
[2017-09-01 09:00] LABS: BASOPHIL % 0.1 % (0.0-2.0); HEMATOCRIT 23.7 % (35.0-46.0); HEMOGLOBIN 8.1 GM/DL (11.6-15.3); LYMPH % 1.5 % (9.0-44.0); LYMPHOCYTE # 0.4 TH/MM3 (1.0-4.8); MEAN CELL VOLUME 108.7 FL (80.0-100.0); MEAN CORPUSCULAR HEMOGLOBIN 37.2 PG (27.0-34.0); MEAN CORPUSCULAR HGB CONC 34.2 % (32.0-36.0); MEAN PLATELET VOLUME 6.4 FL (7.0-11.0); MONO % 4.6 % (0.0-8.0); MONOCYTE # 1.1 TH/MM3 (0-0.9); NEUT % 93.8 % (16.0-70.0); PLATELET COUNT 213 TH/MM3 (150-450); RED BLOOD COUNT 2.18 MIL/MM3 (4.00-5.30); RED CELL DISTRIBUTION WIDTH 16.1 % (11.6-17.2); WHITE BLOOD COUNT 23.5 TH/MM3 (4.0-11.0)
[2017-09-01] MEDS: SODIUM CHLORIDE 0.9% FLUSH 10 ML FLUSH IV FLUSH SCH ×2 (09:03→22:08)
[2017-09-01] MEDS: ONDANSETRON HCL 4 MG/2 ML VIAL IVP PRN (09:09)
[2017-09-01 09:14] LABS: ALBUMIN 2.2 GM/DL (3.4-5.0); AST (GOT) 85 U/L (15-37); BLOOD UREA NITROGEN 28 MG/DL (7-18); CALCIUM 8.1 MG/DL (8.5-10.1); CHLORIDE 104 MEQ/L (98-107); CREATININE 1.04 MG/DL (0.50-1.00); GLOMERULAR FILTRATION RATE 58 ML/MIN (>89); GLUCOSE,RANDOM 136 MG/DL (74-106); MAGNESIUM 1.8 MG/DL (1.5-2.5); SODIUM (NA) 136 MEQ/L (136-145)
[2017-09-01 09:15] LABS: ALT (GPT) 28 U/L (10-53)
[2017-09-01 09:17] LABS: ALKALINE PHOSPHATASE 198 U/L (45-117); TOTAL BILIRUBIN ADULT 18.7 MG/DL (0.2-1.0); TOTAL PROTEIN 6.1 GM/DL (6.4-8.2)
--- NOTE | 2017-09-01 09:51 | HHI.PR ---
Subjective Remarks Follow-up liver failure, edema, hypokalemia, leukocytosis. The patient feels that her swelling continues to improve. She denies shortness of breath or chest pain. No having abdominal pain and requires pain medication frequently. Objective Vitals Vital Signs Date Time Temp Pulse Resp B/P (MAP) Pulse Ox O2 Delivery O2 Flow Rate FiO2 09/01/17 08:00 97.8 91 16 107/64 (78) 92 09/01/17 03:50 98.5 100 19 110/70 (83) 95 09/01/17 00:00 98.0 109 18 111/68 (82) 95 08/31/17 22:00 19 94 08/31/17 21:23 97.4 116 18 112/65 (81) 08/31/17 12:00 97.8 107 18 111/65 (80) 96 08/31/17 10:37 94 I/O 08/31/17 08/31/17 08/31/17 09/01/17 09/01/17 09/01/17 06:59 14:59 22:59 06:59 14:59 22:59 Intake Total 200 ml Balance 200 ml Intake Oral 200 ml # Voids 2 Result Diagram: 09/01/17 0752 09/01/17 0752 Imaging Last Impressions Abdomen Ultrasound 08/27/17 1200 Signed Impressions: Service Date/Time: Sunday, August 27, 2017 08:38 - CONCLUSION: Insufficient fluid volume for percutaneous ultrasound guided paracentesis. Anthony Pop MD Chest X-Ray 08/26/17 0000 Signed Impressions: Service Date/Time: Saturday, August 26, 2017 16:59 - CONCLUSION: Generalized interstitial lung disease with bibasilar airspace disease and small bilateral effusions. Kamron Rollins MD Abdomen/Pelvis CT 08/26/17 0000 Signed Impressions: Service Date/Time: Saturday, August 26, 2017 17:17 - CONCLUSION: 1. Hepatosplenomegaly with diffusely abnormal hepatic texture. 2. Persistent consolidating airspace disease in the right lower lobe. 3. Small amount of ascites still present. 4. Increasing anasarca. 5. Colonic wall thickening and edema characteristic of colitis as previously described. 6. No significant change. Kamron Rollins MD Cholangiopancreatography MRI 08/24/17 0000 Signed Impressions: Service Date/Time: Thursday, August 24, 2017 18:15 - CONCLUSION: 1. Hepatosplenomegaly. 2. Mild ascites in the right paracolic gutter region. 3. No dilatation of the biliary system. 4. Contracted gallbladder without stones. The gallbladder wall thickening may be secondary to lack of distention. 5. Thickening of the proximal transverse colon. 6. Consolidation or atelectasis in the right lower lobe with a minimal right effusion. Rohith Harman MD Abdomen X-Ray 08/22/17 0000 Signed Impressions: Service Date/Time: Tuesday, August 22, 2017 13:39 - CONCLUSION: Benign abdomen. Tay Valdes MD Objective Remarks General: No acute distress. Jaundiced. HEENT: Scleral icterus. Heart: Regular rate and rhythm. No murmur. Lungs: Clear to auscultation bilaterally. No wheezes, rales, or rhonchi. Breathing is nonlabored. Abdomen: Mild diffuse tenderness to palpation, slightly less distended today. Extremities: 2+ bilateral lower extremity edema extending to hips/lower abdomen , less in the lower legs bilaterally. JOCELYNN ana. Psych: Alert and oriented. Procedures EGD, colonoscopy 08/20/2017. gastritis Colon polyp Internal and external hemorrhoids Urinary Catheter: No Vascular Central Line Catheter: No A/P Problem List: (1) Severe sepsis ICD Code: A41.9 - Sepsis, unspecified organism; R65.20 - Severe sepsis without septic shock (2) KATELYN (acute kidney injury) ICD Code: N17.9 - Acute kidney failure, unspecified (3) Alcoholic liver disease ICD Code: K70.9 - Alcoholic liver disease, unspecified (4) Alcohol dependence ICD Code: F10.20 - Alcohol dependence, uncomplicated Status: Acute Assessment and Plan 1. Severe sepsis: Secondary to possible spontaneous bacterial peritonitis. Continue IV antibiotics. Patient remains afebrile. Appreciate GI recommendations. Still with tachycardia, leukocytosis. Appreciate infectious disease recommendations. WBC is better today. 2. Colitis: Continue Zosyn. Appreciate infectious disease recommendations. 3. Alcoholic hepatitis, liver failure: Appreciate GI recommendations. Paracentesis ordered, but ultrasound showed insufficient fluid. Continue lactulose. Continue pentoxifylline. Continue Solu-Medrol per GI. 4. Alcohol abuse: CIWA protocol discontinued. Continue thiamine, folic acid. Patient has been counseled. 5. Leukocytosis: Appreciate hematology recommendations. Monitor labs. 6. Hypokalemia: Continue potassium supplementation. Monitor labs. Serum potassium now within normal limits. 7. Acute kidney injury: Creatinine slightly elevated, likely secondary to diuresis. 8. Severe coagulopathy: Secondary to liver failure. Monitor labs. Monitor for bleeding. INR remains elevated. 9. Vaginal bleeding: Patient reports menstrual bleeding for most of the past month. Appreciate gynecology recommendations. Follow up as outpatient. 10. Edema/anasarca: Improving. Continue Lasix, spironolactone. Discharge Planning Pending clinical improvement. Nacho Salazar MD Sep 01, 2017 09:50
[2017-09-01] MEDS: LORATADINE 10 MG TAB PO SCH (12:42)
[2017-09-01] MEDS: FLUTICASONE PROPIONATE 50 MCG/ACT 16 GM NASAL SPRAY EACH NARE SCH (13:52)
--- NOTE | 2017-09-01 14:55 | HHI.IDPN ---
Subjective Subjective Remarks Patient seen and examined with Dr. Blanco DOWNING Xcberenice for Dr. Mota 42-year-old female with a history of heavy alcohol use who presented with abdominal pain, jaundice, increasing abdominal girth and bilateral extremity edema 2 weeks. Patient was found to have elevated white count of 30.2. Patient was afebrile. CT showed colitis. C. difficile studies were negative. Patient recently diagnosed with UTI growing Enterobacter. CT also showed ascites but insufficient for paracentesis. Infectious disease consulted for evaluation and management of sepsis Notes reviewed Patient seen and examined Patient complaining of increasing abdominal and lower extremity swelling States she had normal formed stool this morning She denies any dysuria She denies any fever or chills She denies any rash She has a sensation of fullness and some difficulty breathing reports cough she associates with her reflux (+)small amount of sputum production Also reports right sided chest pain underneath the right breast and chest palpitations WBC down to 23.5 Patient has been afebrile throughout hospital course Lactic acid within normal limits UCX with mixed katelynn, probable contaminants Hepatitis panel nonreactive BCX with no growth x 5 days Antibiotics IV Zosyn Flagyl po Lines PIV line without any e/o infection Past Medical History EtOH abuse GERD (Anne [place]) Allergies: Coded Allergies: Sulfa (Sulfonamide Antibiotics) (Verified Allergy, Unknown, 07/28/17) Objective . Vital Signs Date Time Temp Pulse Resp B/P (MAP) Pulse Ox O2 Delivery O2 Flow Rate FiO2 09/01/17 12:00 97.8 104 16 111/65 (80) 94 09/01/17 08:00 97.8 91 16 107/64 (78) 92 09/01/17 03:50 98.5 100 19 110/70 (83) 95 09/01/17 00:00 98.0 109 18 111/68 (82) 95 08/31/17 22:00 19 94 08/31/17 21:23 97.4 116 18 112/65 (81) . Laboratory Tests Test 08/31/17 07:10 09/01/17 07:52 White Blood Count 32.8 TH/MM3 23.5 TH/MM3 Red Blood Count 2.23 MIL/MM3 2.18 MIL/MM3 Hemoglobin 8.4 GM/DL 8.1 GM/DL Hematocrit 24.1 % 23.7 % Mean Corpuscular Volume 108.1 FL 108.7 FL Mean Corpuscular Hemoglobin 37.5 PG 37.2 PG Mean Corpuscular Hemoglobin Concent 34.6 % 34.2 % Red Cell Distribution Width 16.1 % 16.1 % Platelet Count 197 TH/MM3 213 TH/MM3 Mean Platelet Volume 6.4 FL 6.4 FL Neutrophils (%) (Auto) 95.0 % 93.8 % Lymphocytes (%) (Auto) 1.6 % 1.5 % Monocytes (%) (Auto) 2.9 % 4.6 % Eosinophils (%) (Auto) 0.1 % 0.0 % Basophils (%) (Auto) 0.4 % 0.1 % Neutrophils # (Auto) 31.1 TH/MM3 22.0 TH/MM3 Lymphocytes # (Auto) 0.5 TH/MM3 0.4 TH/MM3 Monocytes # (Auto) 1.0 TH/MM3 1.1 TH/MM3 Eosinophils # (Auto) 0.0 TH/MM3 0.0 TH/MM3 Basophils # (Auto) 0.1 TH/MM3 0.0 TH/MM3 CBC Comment AUTO DIFF DIFF FINAL Differential Total Cells Counted 100 Neutrophils % (Manual) 85 % Band Neutrophils % 12 % Lymphocytes % 1 % Monocytes % 2 % Neutrophils # (Manual) 31.8 TH/MM3 Differential Comment FINAL DIFF MANUAL Platelet Estimate NORMAL Platelet Morphology Comment NORMAL Laboratory Tests Test 08/31/17 07:10 09/01/17 07:52 Blood Urea Nitrogen 22 MG/DL 28 MG/DL Creatinine 1.06 MG/DL 1.04 MG/DL Random Glucose 138 MG/DL 136 MG/DL Total Protein 6.0 GM/DL 6.1 GM/DL Albumin 2.4 GM/DL 2.2 GM/DL Calcium Level 8.0 MG/DL 8.1 MG/DL Magnesium Level 1.7 MG/DL 1.8 MG/DL Alkaline Phosphatase 194 U/L 198 U/L Aspartate Amino Transf (AST/SGOT) 109 U/L 85 U/L Alanine Aminotransferase (ALT/SGPT) 27 U/L 28 U/L Total Bilirubin 20.1 MG/DL 18.7 MG/DL Sodium Level 135 MEQ/L 136 MEQ/L Potassium Level 3.3 MEQ/L 3.5 MEQ/L Chloride Level 101 MEQ/L 104 MEQ/L Carbon Dioxide Level 22.6 MEQ/L 23.0 MEQ/L Anion Gap 11 MEQ/L 9 MEQ/L Estimat Glomerular Filtration Rate 57 ML/MIN 58 ML/MIN Imaging Last Impressions Abdomen Ultrasound 08/27/17 1200 Signed Impressions: Service Date/Time: Sunday, August 27, 2017 08:38 - CONCLUSION: Insufficient fluid volume for percutaneous ultrasound guided paracentesis. Anthony Pop MD Chest X-Ray 08/26/17 0000 Signed Impressions: Service Date/Time: Saturday, August 26, 2017 16:59 - CONCLUSION: Generalized interstitial lung disease with bibasilar airspace disease and small bilateral effusions. Kamron Rollins MD Abdomen/Pelvis CT 08/26/17 0000 Signed Impressions: Service Date/Time: Saturday, August 26, 2017 17:17 - CONCLUSION: 1. Hepatosplenomegaly with diffusely abnormal hepatic texture. 2. Persistent consolidating airspace disease in the right lower lobe. 3. Small amount of ascites still present. 4. Increasing anasarca. 5. Colonic wall thickening and edema characteristic of colitis as previously described. 6. No significant change. Kamron Rollins MD Cholangiopancreatography MRI 08/24/17 0000 Signed Impressions: Service Date/Time: Thursday, August 24, 2017 18:15 - CONCLUSION: 1. Hepatosplenomegaly. 2. Mild ascites in the right paracolic gutter region. 3. No dilatation of the biliary system. 4. Contracted gallbladder without stones. The gallbladder wall thickening may be secondary to lack of distention. 5. Thickening of the proximal transverse colon. 6. Consolidation or atelectasis in the right lower lobe with a minimal right effusion. Rohith Harman MD Abdomen X-Ray 08/22/17 0000 Signed Impressions: Service Date/Time: Tuesday, August 22, 2017 13:39 - CONCLUSION: Benign abdomen. Tay Valdes MD Physical Exam GENERAL: Well-nourished, well-developed female patient in NAD. Awake and alert. SKIN: Warm and dry. No rash. Jaundiced. HEAD: Normocephalic. Atraumatic. EYES: Pupils equal and round. EOMI. Prominent sclera icterus. ENT: No nasal bleeding or discharge. Mucous membranes pink and moist. NECK: Supple. Trachea midline. CARDIOVASCULAR: Tachycardic. S1, S2 noted. No murmur appreciated. RESPIRATORY: Mildly labored. Diminished in bases R>L. GASTROINTESTINAL: Abdomen somewhat firm, distended, diffuse mild tenderness to palpation. (+)Fluid wave. MUSCULOSKELETAL: No obvious deformities. (+)2-3+ pitting edema in bilateral thighs down. Pitting edema extends up into abdomen and back. NEUROLOGICAL: Awake and alert. No obvious cranial nerve deficits. Motor grossly within normal limits. Able to move all extremities. Normal speech. PSYCHIATRIC: Appropriate mood and affect; insight and judgment normal. 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 S/p EGD and colonoscopy with no significant findings -trial of steroids started 08/29 Anasarca -on IV Lasix -insufficient fluid volume for paracentesis previously -patient with c/o increased abdominal girth and difficulty breathing -?worsening on Zosyn Leukocytosis -CRP 8.30, ESR 75 -Hematology following, predominantly neutrophilia and bandemia, most consistent with leukemoid reaction Pseudomembranous Colitis Severe coagulopathy secondary to liver failure RECOMMENDATIONS: Repeat abdominal ultrasound to assess ascites and if paracentesis warranted, if paracentesis able to be done, send fluid for analysis Repeat chest x-ray obtained, bibasilar infiltrates Obtain sputum cx Continue with incentive spirometry at bedside, encouraged use Continue po Flagyl, D/C IV Zosyn Start IV Cefepime Further recommendations to follow (Anne Birmingham) Remarks The exam, history, and the medical decision-making described in the above note were completed with the assistance of the mid-level provider. I reviewed and agree with the findings presented. I attest that I had a [id number] encounter with the patient on the same day, and personally performed and documented my assessment and findings in the medical record. DC Zosyn IV Start Cefepime IV Continue PO flagyl CXR reviewed: bilateral infiltrates Patient has some sputum production Check sputum cutlures If fevers persist will consider adding Vanco IV Possible drug fever from Zosyn IV will assess after switching to Cefepime. (Sandra Simeon MD) Anne Birmingham Sep 01, 2017 14:55 Sandra Simeon MD Sep 01, 2017 19:09
--- NOTE | 2017-09-01 15:51 | RADRPT ---
EXAM DATE/TIME: 09/01/2017 14:58 [facility] COMPARISON: No previous studies available for comparison. INDICATIONS : Chest pain and shortness of breath. MEDICAL HISTORY : None. SURGICAL HISTORY : None. ENCOUNTER: Subsequent ACUITY: 1 week PAIN SCORE: 4/10 LOCATION: Bilateral chest FINDINGS: Bibasilar airspace disease is noted. There is subsegmental consolidation in the right base. The heart is normal in size. Osseous structures are intact. CONCLUSION: Bibasilar air space disease with consolidative changes in the right base. Kamron Rollins MD on September 01, 2017 at 15:49 Board Certified Radiologist. This report was verified electronically.
--- NOTE | 2017-09-01 17:50 | RADRPT ---
EXAM DATE/TIME: 09/01/2017 15:30 [facility] COMPARISON: US ABDOMEN - LOWER LIMITED, August 27, 2017, 8:38. INDICATIONS : Ascites. MEDICAL HISTORY : Gastroesophageal reflux disease. SURGICAL HISTORY : Appendectomy. Back surgeries. ENCOUNTER: Subsequent ACUITY: 4-6 days PAIN SCORE: 4/10 LOCATION: Abdomen. AREA EVALUATED: Abdomen. FINDINGS: Imaging of the abdomen and pelvis was performed to evaluate for ascites for possible paracentesis. T here is mild ascites in the midline pelvis and right lower quadrant. This is too small to drain. CONCLUSION: Mild ascites. Rohith Harman MD on September 01, 2017 at 17:46 Board Certified Radiologist. This report was verified electronically.
[2017-09-01] MEDS: CEFEPIME INJ 2,000 MG in SODIUM CHLORIDE 0.9% INJ 100 ML IV SCH (22:08)
[2017-09-02] MEDS: ONDANSETRON HCL 4 MG/2 ML VIAL IVP PRN ×2 (00:06→10:26)
[2017-09-02 03:05] VITALS: PULSE 110
[2017-09-02] MEDS: CEFEPIME INJ 2,000 MG in SODIUM CHLORIDE 0.9% INJ 100 ML IV SCH ×3 (03:43→20:57)
[2017-09-02] MEDS: MORPHINE SULFATE 4 MG/ML INJ IV PUSH PRN ×5 (04:28→22:12)
[2017-09-02 05:30] VITALS: BP 125/69; PULSE 105; RESP 17; TEMP 98.8; O2SAT 98
[2017-09-02] MEDS: metroNIDAZOLE 500 MG TAB PO SCH ×3 (06:01→21:00)
[2017-09-02] MEDS: methylPREDNISolone SOD SUCC 40 MG/1 ML VIAL IV PUSH SCH ×3 (06:01→21:00)
[2017-09-02 07:40] LABS: AUTOMATED NEUTROPHIL # 19.5 TH/MM3 (1.8-7.7); BASOPHIL % 0.2 % (0.0-2.0); HEMATOCRIT 23.6 % (35.0-46.0); LYMPH % 1.8 % (9.0-44.0); LYMPHOCYTE # 0.4 TH/MM3 (1.0-4.8); MEAN CELL VOLUME 108.7 FL (80.0-100.0); MEAN CORPUSCULAR HEMOGLOBIN 36.9 PG (27.0-34.0); MEAN CORPUSCULAR HGB CONC 33.9 % (32.0-36.0); MEAN PLATELET VOLUME 6.4 FL (7.0-11.0); MONO % 5.4 % (0.0-8.0); MONOCYTE # 1.1 TH/MM3 (0-0.9); NEUT % 92.6 % (16.0-70.0); PLATELET COUNT 235 TH/MM3 (150-450); RED BLOOD COUNT 2.17 MIL/MM3 (4.00-5.30); RED CELL DISTRIBUTION WIDTH 16.3 % (11.6-17.2); WHITE BLOOD COUNT 21.1 TH/MM3 (4.0-11.0)
[2017-09-02 07:50] LABS: INTERNATIONAL NORMALIZED RATIO 2.4 RATIO; PROTHROMBIN TIME - PATIENT 24.5 SEC (9.8-11.6)
[2017-09-02 08:00] VITALS: BP 115/75; PULSE 102; PULSE 104; RESP 16; TEMP 97.6; O2SAT 95
[2017-09-02 08:02] LABS: ALBUMIN 2.3 GM/DL (3.4-5.0); AST (GOT) 82 U/L (15-37); BICARBONATE 23.7 MEQ/L (21.0-32.0); BLOOD UREA NITROGEN 27 MG/DL (7-18); CHLORIDE 105 MEQ/L (98-107); CREATININE 0.92 MG/DL (0.50-1.00); GLOMERULAR FILTRATION RATE 67 ML/MIN (>89); GLUCOSE,RANDOM 154 MG/DL (74-106); SODIUM (NA) 138 MEQ/L (136-145)
[2017-09-02 08:06] LABS: ALKALINE PHOSPHATASE 189 U/L (45-117); ALT (GPT) 30 U/L (10-53); TOTAL BILIRUBIN ADULT 17.9 MG/DL (0.2-1.0); TOTAL PROTEIN 6.4 GM/DL (6.4-8.2)
[2017-09-02] MEDS: SPIRONOLACTONE 100 MG TAB PO SCH (08:55)
[2017-09-02] MEDS: POTASSIUM CHLORIDE 10 MEQ CAP PO SCH ×2 (08:56→20:59)
[2017-09-02] MEDS: FUROSEMIDE 40 MG/4 ML VIAL IV PUSH SCH ×2 (08:56→17:16)
[2017-09-02] MEDS: FAMOTIDINE 20 MG TAB PO SCH ×2 (08:57→20:59)
[2017-09-02] MEDS: FOLIC ACID 1 MG TAB PO SCH (08:57)
[2017-09-02] MEDS: guaiFENesin E.R. 600 MG TAB PO SCH ×2 (08:57→20:59)
[2017-09-02] MEDS: LORATADINE 10 MG TAB PO SCH (08:57)
[2017-09-02] MEDS: THIAMINE HCL 100 MG TAB PO SCH (08:57)
[2017-09-02] MEDS: LACTULOSE SYRUP 20 GM/30 ML CUP PO SCH ×3 (08:57→17:16)
[2017-09-02] MEDS: FLUTICASONE PROPIONATE 50 MCG/ACT 16 GM NASAL SPRAY EACH NARE SCH (08:58)
[2017-09-02] MEDS: SODIUM CHLORIDE 0.9% FLUSH 10 ML FLUSH IV FLUSH SCH ×2 (09:07→20:59)
--- NOTE | 2017-09-02 09:49 | HHI.PR ---
Subjective Remarks Follow-up liver failure, sepsis, hypokalemia, leukocytosis. The patient is upset that she was started on a new IV antibiotic, stating that this means she will not be going home soon. Still having abdominal pain, unchanged from yesterday. Still with significant lower extremity edema. No chest pain or dyspnea. Objective Vitals Vital Signs Date Time Temp Pulse Resp B/P (MAP) Pulse Ox O2 Delivery O2 Flow Rate FiO2 09/02/17 05:30 98.8 105 17 125/69 (87) 98 09/02/17 03:05 110 09/01/17 23:09 98.2 114 18 120/69 (86) 95 09/01/17 20:15 97.8 110 18 122/67 (85) 96 09/01/17 16:00 97.4 117 16 123/71 (88) 97 09/01/17 12:00 97.8 104 16 111/65 (80) 94 09/01/17 11:53 19 I/O 09/01/17 09/01/17 09/01/17 09/02/17 09/02/17 09/02/17 07:00 15:00 23:00 07:00 15:00 23:00 Intake Total 200 ml 100 ml 200 ml 700 ml Output Total 200 ml 1025 ml Balance 200 ml 100 ml 0 ml -325 ml Intake Oral 200 ml 200 ml 500 ml IV Total 100 ml 200 ml Output Urine Total 200 ml 1025 ml # Voids 2 # Bowel Movements 1 8 Result Diagram: 09/02/17 0655 09/02/17 0655 Imaging Last Impressions Chest X-Ray 09/01/17 0000 Signed Impressions: Service Date/Time: Friday, September 01, 2017 14:58 - CONCLUSION: Bibasilar air space disease with consolidative changes in the right base. Kamron Rollins MD Abdomen Ultrasound 09/01/17 0000 Signed Impressions: Service Date/Time: Friday, September 01, 2017 15:30 - CONCLUSION: Mild ascites. Rohith Harman MD Abdomen/Pelvis CT 08/26/17 0000 Signed Impressions: Service Date/Time: Saturday, August 26, 2017 17:17 - CONCLUSION: 1. Hepatosplenomegaly with diffusely abnormal hepatic texture. 2. Persistent consolidating airspace disease in the right lower lobe. 3. Small amount of ascites still present. 4. Increasing anasarca. 5. Colonic wall thickening and edema characteristic of colitis as previously described. 6. No significant change. Kamron Rollins MD Cholangiopancreatography MRI 08/24/17 0000 Signed Impressions: Service Date/Time: Thursday, August 24, 2017 18:15 - CONCLUSION: 1. Hepatosplenomegaly. 2. Mild ascites in the right paracolic gutter region. 3. No dilatation of the biliary system. 4. Contracted gallbladder without stones. The gallbladder wall thickening may be secondary to lack of distention. 5. Thickening of the proximal transverse colon. 6. Consolidation or atelectasis in the right lower lobe with a minimal right effusion. Rohith Harman MD Abdomen X-Ray 08/22/17 0000 Signed Impressions: Service Date/Time: Tuesday, August 22, 2017 13:39 - CONCLUSION: Benign abdomen. Tay Valdes MD Objective Remarks General: No acute distress. Jaundiced. Sitting up in a chair. HEENT: Scleral icterus. Heart: Regular rate and rhythm. No murmur. Lungs: Clear to auscultation bilaterally. No wheezes, rales, or rhonchi. Breathing is nonlabored. Abdomen: Mild diffuse tenderness to palpation, moderately distended. Extremities: 2+ bilateral lower extremity edema extending to hips/lower abdomen. JOCELYNN hose. Psych: Alert and oriented. Tearful. Procedures EGD, colonoscopy 08/20/2017. gastritis Colon polyp Internal and external hemorrhoids Urinary Catheter: No Vascular Central Line Catheter: No A/P Problem List: (1) Severe sepsis ICD Code: A41.9 - Sepsis, unspecified organism; R65.20 - Severe sepsis without septic shock (2) KATELYN (acute kidney injury) ICD Code: N17.9 - Acute kidney failure, unspecified (3) Alcoholic liver disease ICD Code: K70.9 - Alcoholic liver disease, unspecified (4) Alcohol dependence ICD Code: F10.20 - Alcohol dependence, uncomplicated Status: Acute Assessment and Plan 1. Severe sepsis: Possibly secondary to spontaneous bacterial peritonitis. Continue IV antibiotics. Patient remains afebrile. Appreciate GI recommendations. Still with tachycardia, leukocytosis. Appreciate infectious disease recommendations. WBC is better today. 2. Colitis: Continue Zosyn. Appreciate infectious disease recommendations. 3. Alcoholic hepatitis, liver failure: Appreciate GI recommendations. Repeat ultrasound showed too little fluid to perform paracentesis again. Continue lactulose. Continue pentoxifylline. Continue Solu-Medrol per GI. 4. Alcohol abuse: CIWA protocol discontinued. Continue thiamine, folic acid. Patient has been counseled. 5. Leukocytosis: Appreciate hematology recommendations. Monitor labs. 6. Hypokalemia: Continue potassium supplementation. Monitor labs. Serum potassium now within normal limits. 7. Acute kidney injury: Creatinine slightly elevated, likely secondary to diuresis. 8. Severe coagulopathy: Secondary to liver failure. Monitor labs. Monitor for bleeding. INR remains elevated. 9. Vaginal bleeding: Patient reports menstrual bleeding for most of the past month. Appreciate gynecology recommendations. Follow up as outpatient. 10. Edema/anasarca: Continue Lasix, spironolactone. Discharge Planning Pending clinical improvement. Nacho Salazar MD Sep 02, 2017 09:49
[2017-09-02 12:00] VITALS: BP 120/78; PULSE 106; PULSE 118; RESP 16; TEMP 97.4; O2SAT 97
[2017-09-02 16:00] VITALS: BP 123/86; PULSE 113; RESP 16; TEMP 97.6; O2SAT 97
--- NOTE | 2017-09-02 16:35 | EKG ---
Date Performed: 09/01/2017 Time Performed: 13:17:22 PTAGE: 42 years EKG: Sinus tachycardia. Right axis deviation Incomplete Right bundle branch block Low QRS voltag es in precordial leads Abnormal ECG NO PREVIOUS TRACING DOCTOR: Oscar Paige Interpretating Date/Time 09/02/2017 16:34:36
[2017-09-02 20:00] VITALS: BP 136/75; PULSE 112; RESP 20; TEMP 97.7; O2SAT 97
[2017-09-03] VITALS (8 sets, daily range): BP systolic 118–142; BP diastolic 57–81; PULSE 104–118; RESP 16–20; TEMP 97.2–98; O2SAT 94–98
[2017-09-03] MEDS: MORPHINE SULFATE 4 MG/ML INJ IV PUSH PRN ×4 (02:29→16:51)
[2017-09-03] MEDS: metroNIDAZOLE 500 MG TAB PO SCH ×3 (06:00→20:40)
[2017-09-03] MEDS: methylPREDNISolone SOD SUCC 40 MG/1 ML VIAL IV PUSH SCH ×2 (06:00→20:39)
[2017-09-03] MEDS: CEFEPIME INJ 2,000 MG in SODIUM CHLORIDE 0.9% INJ 100 ML IV SCH ×3 (06:26→20:39)
[2017-09-03] MEDS: FOLIC ACID 1 MG TAB PO SCH (07:48)
[2017-09-03] MEDS: SPIRONOLACTONE 100 MG TAB PO SCH (07:48)
[2017-09-03] MEDS: guaiFENesin E.R. 600 MG TAB PO SCH ×2 (07:48→20:39)
[2017-09-03] MEDS: LACTULOSE SYRUP 20 GM/30 ML CUP PO SCH ×3 (07:48→16:26)
[2017-09-03] MEDS: FAMOTIDINE 20 MG TAB PO SCH ×2 (07:48→20:39)
[2017-09-03] MEDS: POTASSIUM CHLORIDE 10 MEQ CAP PO SCH ×2 (07:48→20:40)
[2017-09-03] MEDS: SODIUM CHLORIDE 0.9% FLUSH 10 ML FLUSH IV FLUSH SCH ×2 (07:49→20:39)
[2017-09-03] MEDS: FUROSEMIDE 40 MG/4 ML VIAL IV PUSH SCH ×2 (07:49→16:25)
[2017-09-03] MEDS: FLUTICASONE PROPIONATE 50 MCG/ACT 16 GM NASAL SPRAY EACH NARE SCH (07:49)
[2017-09-03] MEDS: THIAMINE HCL 100 MG TAB PO SCH (08:00)
[2017-09-03] MEDS: LORATADINE 10 MG TAB PO SCH (08:00)
[2017-09-03 09:02] LABS: AUTOMATED NEUTROPHIL # 23.2 TH/MM3 (1.8-7.7); BASOPHIL # 0.1 TH/MM3 (0-0.2); BASOPHIL % 0.3 % (0.0-2.0); HEMATOCRIT 25.6 % (35.0-46.0); HEMOGLOBIN 8.7 GM/DL (11.6-15.3); LYMPH % 0.8 % (9.0-44.0); LYMPHOCYTE # 0.2 TH/MM3 (1.0-4.8); MEAN CELL VOLUME 108.8 FL (80.0-100.0); MEAN CORPUSCULAR HEMOGLOBIN 36.9 PG (27.0-34.0); MEAN CORPUSCULAR HGB CONC 33.9 % (32.0-36.0); MEAN PLATELET VOLUME 6.8 FL (7.0-11.0); MONO % 5.1 % (0.0-8.0); MONOCYTE # 1.3 TH/MM3 (0-0.9); NEUT % 93.8 % (16.0-70.0); PLATELET COUNT 280 TH/MM3 (150-450); RED BLOOD COUNT 2.35 MIL/MM3 (4.00-5.30); RED CELL DISTRIBUTION WIDTH 16.5 % (11.6-17.2); WHITE BLOOD COUNT 24.7 TH/MM3 (4.0-11.0)
[2017-09-03 09:05] LABS: INTERNATIONAL NORMALIZED RATIO 2.3 RATIO; PROTHROMBIN TIME - PATIENT 23.4 SEC (9.8-11.6)
[2017-09-03 09:38] LABS: ALBUMIN 2.7 GM/DL (3.4-5.0); AST (GOT) 97 U/L (15-37); BLOOD UREA NITROGEN 22 MG/DL (7-18); CALCIUM 8.7 MG/DL (8.5-10.1); CHLORIDE 104 MEQ/L (98-107); CREATININE 0.87 MG/DL (0.50-1.00); GLOMERULAR FILTRATION RATE 72 ML/MIN (>89); GLUCOSE,RANDOM 170 MG/DL (74-106); SODIUM (NA) 136 MEQ/L (136-145)
[2017-09-03 09:43] LABS: ALKALINE PHOSPHATASE 222 U/L (45-117); ALT (GPT) 38 U/L (10-53); TOTAL BILIRUBIN ADULT 18.8 MG/DL (0.2-1.0); TOTAL PROTEIN 7.3 GM/DL (6.4-8.2)
--- NOTE | 2017-09-03 10:49 | HHI.PR ---
Subjective Remarks Follow up liver failure, edema, hypokalemia. Patient still with abdominal pain, unchanged. Lower extremities still swollen. Objective Vitals Vital Signs Date Time Temp Pulse Resp B/P (MAP) Pulse Ox O2 Delivery O2 Flow Rate FiO2 09/03/17 09:17 118 09/03/17 07:45 97.2 109 16 118/57 (77) 95 09/03/17 04:00 97.7 104 18 123/73 (90) 94 09/03/17 00:00 97.7 111 18 142/81 (101) 94 09/02/17 20:00 97.7 112 20 136/75 (95) 97 09/02/17 18:17 19 09/02/17 16:00 97.6 113 16 123/86 (98) 97 09/02/17 12:00 118 09/02/17 12:00 97.4 106 16 120/78 (92) 97 I/O 09/02/17 09/02/17 09/02/17 09/03/17 09/03/17 09/03/17 07:00 15:00 23:00 07:00 15:00 23:00 Intake Total 700 ml 100 ml Output Total 1025 ml 800 ml 500 ml Balance -325 ml -700 ml -500 ml Intake Oral 500 ml IV Total 200 ml 100 ml Output Urine Total 1025 ml 800 ml 500 ml # Voids 3 # Bowel Movements 8 2 Result Diagram: 09/03/17 0839 09/03/17 0839 Imaging Last Impressions Chest X-Ray 09/01/17 0000 Signed Impressions: Service Date/Time: Friday, September 01, 2017 14:58 - CONCLUSION: Bibasilar air space disease with consolidative changes in the right base. Kamron Rollins MD Abdomen Ultrasound 09/01/17 0000 Signed Impressions: Service Date/Time: Friday, September 01, 2017 15:30 - CONCLUSION: Mild ascites. Rohith Harman MD Abdomen/Pelvis CT 08/26/17 0000 Signed Impressions: Service Date/Time: Saturday, August 26, 2017 17:17 - CONCLUSION: 1. Hepatosplenomegaly with diffusely abnormal hepatic texture. 2. Persistent consolidating airspace disease in the right lower lobe. 3. Small amount of ascites still present. 4. Increasing anasarca. 5. Colonic wall thickening and edema characteristic of colitis as previously described. 6. No significant change. Kamron Rollins MD Cholangiopancreatography MRI 08/24/17 0000 Signed Impressions: Service Date/Time: Thursday, August 24, 2017 18:15 - CONCLUSION: 1. Hepatosplenomegaly. 2. Mild ascites in the right paracolic gutter region. 3. No dilatation of the biliary system. 4. Contracted gallbladder without stones. The gallbladder wall thickening may be secondary to lack of distention. 5. Thickening of the proximal transverse colon. 6. Consolidation or atelectasis in the right lower lobe with a minimal right effusion. Rohith Harman MD Abdomen X-Ray 08/22/17 0000 Signed Impressions: Service Date/Time: Tuesday, August 22, 2017 13:39 - CONCLUSION: Benign abdomen. Tay Valdes MD Objective Remarks General: No acute distress. Jaundiced. Sitting up in a chair. HEENT: Scleral icterus. Heart: Regular rate and rhythm. No murmur. Lungs: Clear to auscultation bilaterally. No wheezes, rales, or rhonchi. Breathing is nonlabored. Abdomen: Mild diffuse tenderness to palpation, moderately distended. Extremities: 2+ bilateral lower extremity edema extending to hips/lower abdomen. JOCELYNN hose. Psych: Alert and oriented. Tearful. Procedures EGD, colonoscopy 08/20/2017. gastritis Colon polyp Internal and external hemorrhoids Urinary Catheter: No Vascular Central Line Catheter: No A/P Problem List: (1) Severe sepsis ICD Code: A41.9 - Sepsis, unspecified organism; R65.20 - Severe sepsis without septic shock (2) KATELYN (acute kidney injury) ICD Code: N17.9 - Acute kidney failure, unspecified (3) Alcoholic liver disease ICD Code: K70.9 - Alcoholic liver disease, unspecified (4) Alcohol dependence ICD Code: F10.20 - Alcohol dependence, uncomplicated Status: Acute Assessment and Plan 1. Severe sepsis: Possibly secondary to spontaneous bacterial peritonitis. Continue IV antibiotics. Patient remains afebrile. Appreciate GI recommendations. Still with tachycardia, leukocytosis. Appreciate infectious disease recommendations. WBC is better today. 2. Colitis: Continue Zosyn. Appreciate infectious disease recommendations. 3. Alcoholic hepatitis, liver failure: Appreciate GI recommendations. Repeat ultrasound showed too little fluid to perform paracentesis again. Continue lactulose. Pentoxifylline on hold. Taper Solu-Medrol. 4. Alcohol abuse: CIWA protocol discontinued. Continue thiamine, folic acid. Patient has been counseled. 5. Leukocytosis: Appreciate hematology recommendations. Monitor labs. WBCs have been improving, but increased some today. 6. Hypokalemia: Continue potassium supplementation. Monitor labs. Serum potassium now within normal limits. 7. Acute kidney injury: Improving. 8. Severe coagulopathy: Secondary to liver failure. Monitor labs. Monitor for bleeding. INR remains elevated. 9. Vaginal bleeding: Patient reports menstrual bleeding for most of the past month. Appreciate gynecology recommendations. Follow up as outpatient. H/H stable. 10. Edema/anasarca: Continue Lasix, spironolactone. Discharge Planning Pending clinical improvement. Nacho Salazar MD Sep 03, 2017 10:49
--- NOTE | 2017-09-03 13:09 | PD.ONC.PN ---
Subjective Subjective Remarks Afebrile overnight. Patient resting in bed. feeling better today. still having swelling and abdominal pain. Objective Data Date Time Temp Pulse Resp B/P (MAP) Pulse Ox O2 Delivery O2 Flow Rate FiO2 09/03/17 12:40 97.2 104 20 133/79 (97) 97 09/03/17 09:17 118 09/03/17 07:45 97.2 109 16 118/57 (77) 95 09/03/17 04:00 97.7 104 18 123/73 (90) 94 09/03/17 00:00 97.7 111 18 142/81 (101) 94 09/02/17 20:00 97.7 112 20 136/75 (95) 97 09/02/17 18:17 19 09/02/17 16:00 97.6 113 16 123/86 (98) 97 09/03/17 09/03/17 09/03/17 07:00 15:00 23:00 Output Total 1500 ml Balance -1500 ml Result Diagram: 09/03/17 0839 09/03/17 0839 Laboratory Results Laboratory Tests Test 09/03/17 08:26 09/03/17 08:39 Prothrombin Time 23.4 SEC Prothromb Time International Ratio 2.3 RATIO White Blood Count 24.7 TH/MM3 Red Blood Count 2.35 MIL/MM3 Hemoglobin 8.7 GM/DL Hematocrit 25.6 % Mean Corpuscular Volume 108.8 FL Mean Corpuscular Hemoglobin 36.9 PG Mean Corpuscular Hemoglobin Concent 33.9 % Red Cell Distribution Width 16.5 % Platelet Count 280 TH/MM3 Mean Platelet Volume 6.8 FL Neutrophils (%) (Auto) 93.8 % Lymphocytes (%) (Auto) 0.8 % Monocytes (%) (Auto) 5.1 % Eosinophils (%) (Auto) 0.0 % Basophils (%) (Auto) 0.3 % Neutrophils # (Auto) 23.2 TH/MM3 Lymphocytes # (Auto) 0.2 TH/MM3 Monocytes # (Auto) 1.3 TH/MM3 Eosinophils # (Auto) 0.0 TH/MM3 Basophils # (Auto) 0.1 TH/MM3 CBC Comment DIFF FINAL Differential Comment Blood Urea Nitrogen 22 MG/DL Creatinine 0.87 MG/DL Random Glucose 170 MG/DL Total Protein 7.3 GM/DL Albumin 2.7 GM/DL Calcium Level 8.7 MG/DL Alkaline Phosphatase 222 U/L Aspartate Amino Transf (AST/SGOT) 97 U/L Alanine Aminotransferase (ALT/SGPT) 38 U/L Total Bilirubin 18.8 MG/DL Sodium Level 136 MEQ/L Potassium Level 4.0 MEQ/L Chloride Level 104 MEQ/L Carbon Dioxide Level 24.0 MEQ/L Anion Gap 8 MEQ/L Estimat Glomerular Filtration Rate 72 ML/MIN Culture Results Microbiology Date/Time Source Procedure Growth Status 09/02/17 10:23 Sputum Expectorated Sputum Gram Stain - Final Resulted 09/02/17 10:23 Sputum Expectorated Sputum Sputum Culture Pending Resulted Administered Medications Medications (Trade) Dose Ordered Sig/[place] Route PRN Reason Start Time Stop Time Status Last Admin Dose Admin Sodium Chloride (NS Flush) 2 ml UNSCH PRN IV FLUSH FLUSH AFTER USING IV ACCESS 08/19/17 13:30 09/01/17 05:05 Sodium Chloride (NS Flush) 2 ml BID IV FLUSH 08/19/17 21:00 09/03/17 07:49 Ondansetron HCl (Zofran Inj) 4 mg Q6H PRN IVP NAUSEA OR VOMITING 08/19/17 13:30 09/02/17 10:26 Sennosides (Senokot) 17.2 mg Q12H PRN PO Moderate constipation 08/19/17 13:30 08/22/17 08:36 Pentoxifylline (TRENtal SR) 400 mg Q8HR PO 08/19/17 22:00 Future Hold 09/01/17 12:46 Thiamine HCl (Vitamin B1) 100 mg DAILY PO 08/22/17 09:00 09/03/17 08:00 Folic Acid (Folate) 1 mg DAILY PO 08/19/17 21:00 09/03/17 07:48 Metoclopramide HCl (Reglan Inj) 5 mg Q6H PRN IV PUSH NAUSEA OR VOMITING 08/21/17 10:15 08/30/17 16:50 Lactulose (Lactulose Liq) 30 ml TID PO 08/22/17 15:30 09/03/17 12:45 Guaifenesin (Mucinex Er) 600 mg BID PO 08/24/17 14:00 09/03/17 07:48 Metronidazole (Flagyl) 500 mg Q8HR PO 08/24/17 14:00 09/03/17 12:45 Spironolactone (Aldactone) 100 mg DAILY PO 08/25/17 17:45 09/03/17 07:48 Morphine Sulfate (Morphine Inj) 2 mg Q4HR PRN IV PUSH BREAKTHROUGH PAIN 08/27/17 11:30 09/03/17 12:47 Oxycodone HCl (Roxicodone) 5 mg Q4H PRN PO PAIN SCALE 1 TO 5 08/28/17 10:00 09/02/17 17:16 Oxycodone HCl (Roxicodone) 10 mg Q4H PRN PO PAIN SCALE 6 TO 10 08/28/17 10:00 09/03/17 11:02 Furosemide (Lasix Inj) 40 mg BID@ IV PUSH 08/30/17 18:00 09/03/17 07:49 Padimate O (Chapstick) 1 applic UNSCH PRN TOPICAL CHAPPED LIPS 08/30/17 14:00 08/30/17 15:10 Potassium Chloride (KCl) 30 meq BID PO 08/31/17 21:00 09/03/17 07:48 Famotidine (Pepcid) 20 mg BID PO 09/01/17 21:00 09/03/17 07:48 Fluticasone Propionate (Flonase [place] Spr) 2 spray DAILY EACH NARE 09/01/17 12:00 09/03/17 07:49 Loratadine (Claritin) 10 mg DAILY PO 09/01/17 12:00 09/03/17 08:00 Cefepime HCl 2000 mg/Sodium Chloride 100 ml @ 200 mls/hr Q8H IV 09/01/17 20:00 09/03/17 12:45 Objective Remarks GENERAL: Middle aged sitting up in bed in [facility]. SKIN: Warm and dry. +jaundice HEAD: Normocephalic. EYES: No injection or drainage. NECK: Supple, trachea midline. CARDIOVASCULAR: Regular rate and rhythm RESPIRATORY: Breath sounds equal bilaterally. No accessory muscle use. GASTROINTESTINAL: Abdomen distended EXTREMITIES: No cyanosis. ble edema. NEUROLOGICAL: No obvious focal deficit. Awake, alert, and oriented x3. Assessment/Plan Problem List: (1) Leukocytosis ICD Codes: D72.829 - Elevated white blood cell count, unspecified Plan: --Leukocytosis with predominantly neutrophil and bandemia + toxic granulation noted --> most consistent with a leukemoid reaction. --doubt primary bone marrow disorder. -- inflammatory source is likely in the gastrointestinal tract. --ESR and CRP elevated (2) Abdominal pain ICD Codes: R10.9 - Unspecified abdominal pain Plan: -- has a markedly abnormal liver enzymes. --CT abdomen and pelvis showed abnormal hepatic texture with anasarca. --GI following. (3) Macrocytic anemia ICD Codes: D53.9 - Nutritional anemia, unspecified Plan: --transfuse as needed. --likely due to a combination of gastrointestinal bleeding, as well as chronic inflammatory disease. --B12 elevated --ferritin elevated, % saturation high---consistent with chronic disease Assessment 42y/o female admitted with abdominal pain/distension. Hematology consulted for persistent leukocytosis. h/o Alcohol abuse. Gastroesophageal reflux disease. Plan 1. monitor CBC 2. continue supportive care Attending Statement The exam, history, and the medical decision-making described in the above note were completed with the assistance of the mid-level provider. I reviewed and agree with the findings presented. I attest that I had a [id number] encounter with the patient on the same day, and personally performed and documented my assessment and findings in the medical record. Feeling better, Abdominal pain improved. Minimal vaginal spotting. Has persistent leukocytosis due to inflammatory process and steroid, Hgb trending up. No other hematologic recommendation. Will sign off. Please call if other questions arises. Temi Horvath Sep 03, 2017 13:09 Sebastián Carmen MD Sep 03, 2017 19:02
[2017-09-03] MEDS: ONDANSETRON HCL 4 MG/2 ML VIAL IVP PRN (16:26)
[2017-09-04] VITALS (8 sets, daily range): BP systolic 107–129; BP diastolic 56–76; PULSE 109–122; RESP 18–20; TEMP 97.5–98.5; O2SAT 95–96
[2017-09-04] MEDS: CEFEPIME INJ 2,000 MG in SODIUM CHLORIDE 0.9% INJ 100 ML IV SCH ×3 (04:34→19:43)
[2017-09-04] MEDS: metroNIDAZOLE 500 MG TAB PO SCH ×3 (04:37→22:24)
[2017-09-04 07:38] LABS: AUTOMATED NEUTROPHIL # 21.8 TH/MM3 (1.8-7.7); BASOPHIL % 0.2 % (0.0-2.0); HEMATOCRIT 23.7 % (35.0-46.0); LYMPH % 0.9 % (9.0-44.0); LYMPHOCYTE # 0.2 TH/MM3 (1.0-4.8); MEAN CELL VOLUME 109.5 FL (80.0-100.0); MEAN CORPUSCULAR HEMOGLOBIN 37.1 PG (27.0-34.0); MEAN CORPUSCULAR HGB CONC 33.9 % (32.0-36.0); MEAN PLATELET VOLUME 6.6 FL (7.0-11.0); MONO % 4.3 % (0.0-8.0); NEUT % 94.6 % (16.0-70.0); PLATELET COUNT 236 TH/MM3 (150-450); RED BLOOD COUNT 2.16 MIL/MM3 (4.00-5.30); RED CELL DISTRIBUTION WIDTH 16.7 % (11.6-17.2)
[2017-09-04 07:46] LABS: INTERNATIONAL NORMALIZED RATIO 2.2 RATIO; PROTHROMBIN TIME - PATIENT 22.3 SEC (9.8-11.6)
[2017-09-04 08:00] LABS: ALBUMIN 2.3 GM/DL (3.4-5.0); ALT (GPT) 37 U/L (10-53); AST (GOT) 89 U/L (15-37); BICARBONATE 23.1 MEQ/L (21.0-32.0); BLOOD UREA NITROGEN 20 MG/DL (7-18); CALCIUM 8.2 MG/DL (8.5-10.1); CHLORIDE 107 MEQ/L (98-107); CREATININE 0.75 MG/DL (0.50-1.00); GLOMERULAR FILTRATION RATE 85 ML/MIN (>89); GLUCOSE,RANDOM 160 MG/DL (74-106); SODIUM (NA) 138 MEQ/L (136-145)
[2017-09-04 08:05] LABS: ALKALINE PHOSPHATASE 212 U/L (45-117); TOTAL BILIRUBIN ADULT 16.1 MG/DL (0.2-1.0); TOTAL PROTEIN 6.5 GM/DL (6.4-8.2)
[2017-09-04] MEDS: FLUTICASONE PROPIONATE 50 MCG/ACT 16 GM NASAL SPRAY EACH NARE SCH (08:56)
[2017-09-04] MEDS: SODIUM CHLORIDE 0.9% FLUSH 10 ML FLUSH IV FLUSH SCH ×2 (08:56→19:45)
[2017-09-04] MEDS: FOLIC ACID 1 MG TAB PO SCH (08:57)
[2017-09-04] MEDS: LACTULOSE SYRUP 20 GM/30 ML CUP PO SCH ×3 (08:57→17:05)
[2017-09-04] MEDS: FUROSEMIDE 40 MG/4 ML VIAL IV PUSH SCH ×2 (08:58→17:10)
[2017-09-04] MEDS: ONDANSETRON HCL 4 MG/2 ML VIAL IVP PRN ×2 (08:58→19:43)
[2017-09-04] MEDS: methylPREDNISolone SOD SUCC 40 MG/1 ML VIAL IV PUSH SCH ×2 (08:58→19:44)
[2017-09-04] MEDS: THIAMINE HCL 100 MG TAB PO SCH (08:58)
[2017-09-04] MEDS: SPIRONOLACTONE 100 MG TAB PO SCH (08:58)
[2017-09-04] MEDS: LORATADINE 10 MG TAB PO SCH (08:59)
[2017-09-04] MEDS: FAMOTIDINE 20 MG TAB PO SCH ×2 (08:59→19:44)
[2017-09-04] MEDS: guaiFENesin E.R. 600 MG TAB PO SCH ×2 (08:59→19:44)
[2017-09-04] MEDS: POTASSIUM CHLORIDE 10 MEQ CAP PO SCH ×2 (08:59→19:44)
--- NOTE | 2017-09-04 11:22 | HHI.PR ---
Subjective Remarks Follow up liver failure, pneumonia, edema. Patient slept better last night. Still having swelling. Feels better overall. Objective Vitals Vital Signs Date Time Temp Pulse Resp B/P (MAP) Pulse Ox O2 Delivery O2 Flow Rate FiO2 09/04/17 08:20 97.9 113 20 114/70 (85) 96 09/04/17 04:30 110 09/04/17 04:25 97.5 109 18 117/63 (81) 95 09/04/17 00:30 113 09/04/17 00:23 97.6 114 18 107/67 (80) 95 09/03/17 20:30 97.8 116 18 125/73 (90) 98 09/03/17 20:30 113 09/03/17 16:27 98.0 113 20 135/72 (93) 98 09/03/17 12:40 97.2 104 20 133/79 (97) 97 09/03/17 12:00 107 I/O 09/03/17 09/03/17 09/03/17 09/04/17 09/04/17 09/04/17 07:00 15:00 23:00 07:00 15:00 23:00 Intake Total 1300 ml 320 ml Output Total 1500 ml 1100 ml 600 ml Balance -200 ml -780 ml -600 ml Intake Oral 1200 ml 320 ml IV Total 100 ml Output Urine Total 1500 ml 1100 ml 600 ml # Voids 3 4 # Bowel Movements 4 2 Result Diagram: 09/04/17 0649 09/04/17 0649 Imaging Last Impressions Chest X-Ray 09/01/17 0000 Signed Impressions: Service Date/Time: Friday, September 01, 2017 14:58 - CONCLUSION: Bibasilar air space disease with consolidative changes in the right base. Kamron Rollins MD Abdomen Ultrasound 09/01/17 0000 Signed Impressions: Service Date/Time: Friday, September 01, 2017 15:30 - CONCLUSION: Mild ascites. Rohith Harman MD Abdomen/Pelvis CT 08/26/17 0000 Signed Impressions: Service Date/Time: Saturday, August 26, 2017 17:17 - CONCLUSION: 1. Hepatosplenomegaly with diffusely abnormal hepatic texture. 2. Persistent consolidating airspace disease in the right lower lobe. 3. Small amount of ascites still present. 4. Increasing anasarca. 5. Colonic wall thickening and edema characteristic of colitis as previously described. 6. No significant change. Kamron Rollins MD Cholangiopancreatography MRI 08/24/17 0000 Signed Impressions: Service Date/Time: Thursday, August 24, 2017 18:15 - CONCLUSION: 1. Hepatosplenomegaly. 2. Mild ascites in the right paracolic gutter region. 3. No dilatation of the biliary system. 4. Contracted gallbladder without stones. The gallbladder wall thickening may be secondary to lack of distention. 5. Thickening of the proximal transverse colon. 6. Consolidation or atelectasis in the right lower lobe with a minimal right effusion. Rohith Harman MD Abdomen X-Ray 08/22/17 0000 Signed Impressions: Service Date/Time: Tuesday, August 22, 2017 13:39 - CONCLUSION: Benign abdomen. Tay Valdes MD Objective Remarks General: No acute distress. Jaundiced. Sitting up in a chair. HEENT: Scleral icterus. Heart: Regular rate and rhythm. No murmur. Lungs: Clear to auscultation bilaterally. No wheezes, rales, or rhonchi. Breathing is nonlabored. Abdomen: Mild diffuse tenderness to palpation, moderately distended. Extremities: 2+ bilateral lower extremity edema extending to hips/lower abdomen. JOCELYNN hose. Psych: Alert and oriented. Procedures EGD, colonoscopy 08/20/2017. gastritis Colon polyp Internal and external hemorrhoids Urinary Catheter: No Vascular Central Line Catheter: No A/P Problem List: (1) Severe sepsis ICD Code: A41.9 - Sepsis, unspecified organism; R65.20 - Severe sepsis without septic shock (2) KATELYN (acute kidney injury) ICD Code: N17.9 - Acute kidney failure, unspecified (3) Alcoholic liver disease ICD Code: K70.9 - Alcoholic liver disease, unspecified (4) Alcohol dependence ICD Code: F10.20 - Alcohol dependence, uncomplicated Status: Acute Assessment and Plan 1. Severe sepsis: Possibly secondary to spontaneous bacterial peritonitis. Continue IV antibiotics. Patient remains afebrile. Appreciate GI recommendations. Still with tachycardia, leukocytosis. Appreciate infectious disease recommendations. 2. Colitis: Continue Zosyn. Appreciate infectious disease recommendations. 3. Alcoholic hepatitis, liver failure: Appreciate GI recommendations. Repeat ultrasound showed too little fluid to perform paracentesis again. Continue lactulose. Pentoxifylline on hold. Taper Solu-Medrol. 4. Alcohol abuse: CIWA protocol discontinued. Continue thiamine, folic acid. Patient has been counseled. 5. Leukocytosis: Appreciate hematology recommendations. Monitor labs. WBCs slightly better today. 6. Hypokalemia: Continue potassium supplementation. Monitor labs. Serum potassium now within normal limits. 7. Acute kidney injury: Improving. 8. Severe coagulopathy: Secondary to liver failure. Monitor labs. Monitor for bleeding. INR remains elevated. 9. Vaginal bleeding: Patient reports menstrual bleeding for most of the past month. Appreciate gynecology recommendations. Follow up as outpatient. H/H stable. 10. Pneumonia: Sputum culture growing gram negative carl. Continue antibiotics per ID. 11. Edema/anasarca: Continue Lasix, spironolactone. Discharge Planning Pending clinical improvement. Nacho Salazar MD Sep 04, 2017 11:22
[2017-09-04] MEDS: MORPHINE SULFATE 4 MG/ML INJ IV PUSH PRN (20:10)
[2017-09-05 00:30] VITALS: BP 117/64; PULSE 109; RESP 18; TEMP 99.1; O2SAT 95
[2017-09-05] MEDS: CEFEPIME INJ 2,000 MG in SODIUM CHLORIDE 0.9% INJ 100 ML IV SCH ×2 (03:31→12:44)
[2017-09-05] MEDS: metroNIDAZOLE 500 MG TAB PO SCH ×3 (06:08→20:19)
[2017-09-05] MEDS: ONDANSETRON HCL 4 MG/2 ML VIAL IVP PRN ×2 (07:23→17:33)
[2017-09-05 07:41] VITALS: BP 118/69; PULSE 104; RESP 18; TEMP 98.1; O2SAT 95
[2017-09-05] MEDS: FLUTICASONE PROPIONATE 50 MCG/ACT 16 GM NASAL SPRAY EACH NARE SCH (09:27)
[2017-09-05] MEDS: methylPREDNISolone SOD SUCC 40 MG/1 ML VIAL IV PUSH SCH ×2 (09:28→20:20)
[2017-09-05] MEDS: FAMOTIDINE 20 MG TAB PO SCH ×2 (09:29→20:20)
[2017-09-05] MEDS: LACTULOSE SYRUP 20 GM/30 ML CUP PO SCH ×3 (09:29→17:32)
[2017-09-05] MEDS: FUROSEMIDE 40 MG/4 ML VIAL IV PUSH SCH ×2 (09:29→17:33)
[2017-09-05] MEDS: THIAMINE HCL 100 MG TAB PO SCH (09:30)
[2017-09-05] MEDS: POTASSIUM CHLORIDE 10 MEQ CAP PO SCH ×2 (09:30→20:20)
[2017-09-05] MEDS: FOLIC ACID 1 MG TAB PO SCH (09:30)
[2017-09-05] MEDS: guaiFENesin E.R. 600 MG TAB PO SCH ×2 (09:30→20:20)
[2017-09-05] MEDS: LORATADINE 10 MG TAB PO SCH (09:30)
[2017-09-05] MEDS: SODIUM CHLORIDE 0.9% FLUSH 10 ML FLUSH IV FLUSH SCH ×2 (09:31→20:20)
[2017-09-05] MEDS: SPIRONOLACTONE 100 MG TAB PO SCH (09:35)
[2017-09-05 11:42] VITALS: BP 124/73; PULSE 125; RESP 19; TEMP 98; O2SAT 96
[2017-09-05] MEDS: MORPHINE SULFATE 4 MG/ML INJ IV PUSH PRN ×2 (12:38→17:33)
[2017-09-05] MEDS: CALCIUM CARBONATE 500 MG CHEWABLE TAB CHEW PRN (12:51)
[2017-09-05] MEDS: METOCLOPRAMIDE HCL 10 MG/2 ML VIAL IV PUSH PRN ×2 (12:52→20:31)
--- NOTE | 2017-09-05 13:05 | HHI.PR ---
Subjective Remarks Patient reports abdominal distention continues, together with pain. Denies vomiting today. Reports continued bowel movements. Bilateral lower extremity edema Objective Vital Signs Date Time Temp Pulse Resp B/P (MAP) Pulse Ox O2 Delivery O2 Flow Rate FiO2 09/05/17 11:42 98.0 125 19 124/73 (90) 96 09/05/17 07:41 98.1 104 18 118/69 (85) 95 09/05/17 00:30 99.1 109 18 117/64 (81) 95 09/04/17 20:30 98.1 122 18 129/76 (93) 95 09/04/17 16:38 98.2 119 20 126/66 (86) 95 I/O 09/04/17 09/04/17 09/04/17 09/05/17 09/05/17 09/05/17 06:59 14:59 22:59 06:59 14:59 22:59 Intake Total 320 ml 480 ml 340 ml 450 ml Output Total 1100 ml 2300 ml 1900 ml 400 ml 200 ml Balance -780 ml -1820 ml -1560 ml 50 ml -200 ml Intake Oral 320 ml 480 ml 240 ml 350 ml IV Total 100 ml 100 ml Output Urine Total 1100 ml 2300 ml 1900 ml 400 ml 200 ml # Voids 1 1 # Bowel Movements 4 6 3 1 1 Result Diagram: 09/04/1749 09/04/17 0649 Imaging Last Impressions Chest X-Ray 09/01/17 0000 Signed Impressions: Service Date/Time: Friday, September 01, 2017 14:58 - CONCLUSION: Bibasilar air space disease with consolidative changes in the right base. Kamron Rollins MD Abdomen Ultrasound 09/01/17 0000 Signed Impressions: Service Date/Time: Friday, September 01, 2017 15:30 - CONCLUSION: Mild ascites. Rohith Harman MD Abdomen/Pelvis CT 08/26/17 0000 Signed Impressions: Service Date/Time: Saturday, August 26, 2017 17:17 - CONCLUSION: 1. Hepatosplenomegaly with diffusely abnormal hepatic texture. 2. Persistent consolidating airspace disease in the right lower lobe. 3. Small amount of ascites still present. 4. Increasing anasarca. 5. Colonic wall thickening and edema characteristic of colitis as previously described. 6. No significant change. Kamron Rollins MD Cholangiopancreatography MRI 08/24/17 0000 Signed Impressions: Service Date/Time: Thursday, August 24, 2017 18:15 - CONCLUSION: 1. Hepatosplenomegaly. 2. Mild ascites in the right paracolic gutter region. 3. No dilatation of the biliary system. 4. Contracted gallbladder without stones. The gallbladder wall thickening may be secondary to lack of distention. 5. Thickening of the proximal transverse colon. 6. Consolidation or atelectasis in the right lower lobe with a minimal right effusion. Rohith Harman MD Abdomen X-Ray 08/22/17 0000 Signed Impressions: Service Date/Time: Tuesday, August 22, 2017 13:39 - CONCLUSION: Benign abdomen. Tay Valdes MD Objective Remarks GENERAL: Patient sitting up in chair with legs elevated. Appears comfortable. SKIN: Warm and dry. HEAD: Normocephalic. EYES: No scleral icterus. No injection or drainage. NECK: Supple, trachea midline. No JVD. CARDIOVASCULAR: Regular rate and rhythm without murmurs, gallops, or rubs. RESPIRATORY: Breath sounds equal bilaterally. No accessory muscle use. GASTROINTESTINAL: Abdomen soft, mild tenderness to palpation. No rebound or guarding. Distended. MUSCULOSKELETAL: No cyanosis, or edema. BACK: Nontender without obvious deformity. No CVA tenderness. A/P Assessment and Plan 09/05. Patient continues tachycardic with sepsis. Stenotrophomonas on sputum culture. Start Levaquin. Thrush on oral exam. Start nystatin swish and swallow. ID following. Appreciate assistance. // Severe sepsis: Possibly secondary to spontaneous bacterial peritonitis. Continue IV antibiotics. Patient remains afebrile. Appreciate GI recommendations. Still with tachycardia, leukocytosis. Appreciate infectious disease recommendations. //Colitis: Continue Zosyn. Appreciate infectious disease recommendations. // Alcoholic hepatitis, liver failure: Appreciate GI recommendations. Repeat ultrasound showed too little fluid to perform paracentesis again. Continue lactulose. Pentoxifylline on hold. Taper Solu-Medrol. // Alcohol abuse: [facility] protocol discontinued. Continue thiamine, folic acid. Patient has been counseled. //Leukocytosis: Appreciate hematology recommendations. Monitor labs. WBCs slightly better today. // Hypokalemia: Continue potassium supplementation. Monitor labs. Serum potassium now within normal limits. //Acute kidney injury: Improving. //Severe coagulopathy: Secondary to liver failure. Monitor labs. Monitor for bleeding. INR remains elevated. //Vaginal bleeding: Patient reports menstrual bleeding for most of the past month. Appreciate gynecology recommendations. Follow up as outpatient. H/H stable. //Pneumonia: Sputum culture growing gram negative carl. Continue antibiotics per ID. //Edema/anasarca: Continue Lasix, spironolactone. Discharge Planning Pending improvement Arpit Sprague MD Sep 05, 2017 13:05
[2017-09-05] MEDS ORDERED: LEVOFLOXACIN 750 MG TAB PO ONE (13:30)
[2017-09-05] MEDS: NYSTATIN SUSP 500,000 U/5 ML CUP SWISH-SWAL SCH ×3 (13:54→20:19)
--- NOTE | 2017-09-05 14:26 | HHI.IDPN ---
Subjective Subjective Remarks c/o abdominal tightness, pain afebrile Antibiotics IV Zosyn Flagyl po Lines PIV line without any e/o infection Past Medical History EtOH abuse GERD Allergies: Coded Allergies: Sulfa (Sulfonamide Antibiotics) (Verified Allergy, Unknown, 07/28/17) Objective . Vital Signs Date Time Temp Pulse Resp B/P (MAP) Pulse Ox O2 Delivery O2 Flow Rate FiO2 09/05/17 11:42 98.0 125 19 124/73 (90) 96 09/05/17 07:41 98.1 104 18 118/69 (85) 95 09/05/17 00:30 99.1 109 18 117/64 (81) 95 09/04/17 20:30 98.1 122 18 129/76 (93) 95 09/04/17 16:38 98.2 119 20 126/66 (86) 95 09/05/17 09/05/17 09/06/17 15:00 23:00 07:00 Output Total 200 ml Balance -200 ml Output Urine Total 200 ml # Bowel Movements 1 . Laboratory Tests Test 09/04/17 06:49 White Blood Count 23.0 TH/MM3 Red Blood Count 2.16 MIL/MM3 Hemoglobin 8.0 GM/DL Hematocrit 23.7 % Mean Corpuscular Volume 109.5 FL Mean Corpuscular Hemoglobin 37.1 PG Mean Corpuscular Hemoglobin Concent 33.9 % Red Cell Distribution Width 16.7 % Platelet Count 236 TH/MM3 Mean Platelet Volume 6.6 FL Neutrophils (%) (Auto) 94.6 % Lymphocytes (%) (Auto) 0.9 % Monocytes (%) (Auto) 4.3 % Eosinophils (%) (Auto) 0.0 % Basophils (%) (Auto) 0.2 % Neutrophils # (Auto) 21.8 TH/MM3 Lymphocytes # (Auto) 0.2 TH/MM3 Monocytes # (Auto) 1.0 TH/MM3 Eosinophils # (Auto) 0.0 TH/MM3 Basophils # (Auto) 0.0 TH/MM3 CBC Comment DIFF FINAL Differential Comment Laboratory Tests Test 09/04/17 06:49 Blood Urea Nitrogen 20 MG/DL Creatinine 0.75 MG/DL Random Glucose 160 MG/DL Total Protein 6.5 GM/DL Albumin 2.3 GM/DL Calcium Level 8.2 MG/DL Alkaline Phosphatase 212 U/L Aspartate Amino Transf (AST/SGOT) 89 U/L Alanine Aminotransferase (ALT/SGPT) 37 U/L Total Bilirubin 16.1 MG/DL Sodium Level 138 MEQ/L Potassium Level 3.9 MEQ/L Chloride Level 107 MEQ/L Carbon Dioxide Level 23.1 MEQ/L Anion Gap 8 MEQ/L Estimat Glomerular Filtration Rate 85 ML/MIN Imaging Last Impressions Chest X-Ray 09/01/17 0000 Signed Impressions: Service Date/Time: Friday, September 01, 2017 14:58 - CONCLUSION: Bibasilar air space disease with consolidative changes in the right base. Kamron Rollins MD Abdomen Ultrasound 09/01/17 0000 Signed Impressions: Service Date/Time: Friday, September 01, 2017 15:30 - CONCLUSION: Mild ascites. Rohith Harman MD Abdomen/Pelvis CT 08/26/17 0000 Signed Impressions: Service Date/Time: Saturday, August 26, 2017 17:17 - CONCLUSION: 1. Hepatosplenomegaly with diffusely abnormal hepatic texture. 2. Persistent consolidating airspace disease in the right lower lobe. 3. Small amount of ascites still present. 4. Increasing anasarca. 5. Colonic wall thickening and edema characteristic of colitis as previously described. 6. No significant change. Kamron Rollins MD Cholangiopancreatography MRI 08/24/17 0000 Signed Impressions: Service Date/Time: Thursday, August 24, 2017 18:15 - CONCLUSION: 1. Hepatosplenomegaly. 2. Mild ascites in the right paracolic gutter region. 3. No dilatation of the biliary system. 4. Contracted gallbladder without stones. The gallbladder wall thickening may be secondary to lack of distention. 5. Thickening of the proximal transverse colon. 6. Consolidation or atelectasis in the right lower lobe with a minimal right effusion. Rohith Harman MD Abdomen X-Ray 08/22/17 0000 Signed Impressions: Service Date/Time: Tuesday, August 22, 2017 13:39 - CONCLUSION: Benign abdomen. Tay Valdes MD Physical Exam GENERAL: Well-nourished, well-developed female patient in NAD. Awake and alert. SKIN: Warm and dry. No rash. Jaundiced. HEAD: Normocephalic. Atraumatic. EYES: Pupils equal and round. EOMI. Prominent sclera icterus. ENT: No nasal bleeding or discharge. Mucous membranes pink and moist. NECK: Supple. Trachea midline. CARDIOVASCULAR: Tachycardic. S1, S2 noted. No murmur appreciated. RESPIRATORY: Mildly labored. Diminished in bases R>L. GASTROINTESTINAL: Abdomen somewhat firm, distended, diffuse mild tenderness to palpation. (+)Fluid wave. MUSCULOSKELETAL: No obvious deformities. (+)2-3+ pitting edema in bilateral thighs down. Pitting edema extends up into abdomen and back. NEUROLOGICAL: Awake and alert. No obvious cranial nerve deficits. Motor grossly within normal limits. Able to move all extremities. Normal speech. PSYCHIATRIC: Appropriate mood and affect; insight and judgment normal. 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 S/p EGD and colonoscopy with no significant findings -trial of steroids started 08/29 Anasarca -on IV Lasix -insufficient fluid volume for paracentesis previously -patient with c/o increased abdominal girth and difficulty breathing -?worsening on Zosyn Leukocytosis -CRP 8.30, ESR 75 - slowly improving, most consistent with leukemoid reaction - potentially high dose sterroids contributing Pseudomembranous Colitis Severe coagulopathy secondary to liver failure Sputum with steno malt ? colonisation R base infiltrate -? PNA RECOMMENDATIONS: Cont repeat abdominal ultrasound to assess ascites and if paracentesis warranted , if paracentesis able to be done, send fluid for analysis Repeat chest x-ray obtained, bibasilar infiltrates Continue with incentive spirometry at bedside, encouraged use Continue po Flagyl, D/C IV Zosyn dc Cefepime start levaquine fu WBC Hope Mota MD Sep 05, 2017 14:26
[2017-09-05 16:09] VITALS: BP_SYST 118; BP_DIAS 73; BP_DIAS 93; PULSE 103; RESP 18; TEMP 98.6; O2SAT 95
[2017-09-05 20:22] VITALS: BP 123/72; PULSE 113; RESP 20; TEMP 97.6; O2SAT 98
[2017-09-06 00:20] VITALS: BP 129/86; PULSE 69; RESP 19; TEMP 97.6; O2SAT 96
[2017-09-06] MEDS: CALCIUM CARBONATE 500 MG CHEWABLE TAB CHEW PRN ×3 (00:40→23:28)
[2017-09-06] MEDS ORDERED: FUROSEMIDE 20 MG/2 ML VIAL IV PUSH ONE (05:15)
[2017-09-06 05:30] VITALS: BP 127/74; PULSE 110; RESP 19; TEMP 98.3; O2SAT 94
[2017-09-06] MEDS: metroNIDAZOLE 500 MG TAB PO SCH ×3 (05:33→22:08)
--- NOTE | 2017-09-06 06:15 | RADRPT ---
EXAM DATE/TIME: 09/06/2017 05:19 [facility] COMPARISON: CHEST SINGLE AP, September 01, 2017, 14:58. INDICATIONS : Shortness of breath. MEDICAL HISTORY : Gastroesophageal reflux disease. SURGICAL HISTORY : Appendectomy. ENCOUNTER: Subsequent ACUITY: 2 weeks PAIN SCORE: 0/10 LOCATION: Bilateral chest FINDINGS: A single view of the chest demonstrates a bibasilar densities. Heart normal in size. Osseous structu res are intact. CONCLUSION: Bibasilar atelectasis slightly improved in the right lung base. Derian Man MD on September 06, 2017 at 6:13 Board Certified Radiologist. This report was verified electronically.
[2017-09-06 08:00] VITALS: BP 115/80; PULSE 119; RESP 18; TEMP 97.9; O2SAT 92
[2017-09-06 08:33] LABS: HEMATOCRIT 26.1 % (35.0-46.0); HEMOGLOBIN 8.8 GM/DL (11.6-15.3); MEAN CELL VOLUME 109.7 FL (80.0-100.0); MEAN CORPUSCULAR HEMOGLOBIN 37.1 PG (27.0-34.0); MEAN CORPUSCULAR HGB CONC 33.8 % (32.0-36.0); MEAN PLATELET VOLUME 7.2 FL (7.0-11.0); PLATELET COUNT 247 TH/MM3 (150-450); RED BLOOD COUNT 2.38 MIL/MM3 (4.00-5.30); WHITE BLOOD COUNT 29.9 TH/MM3 (4.0-11.0)
[2017-09-06 09:02] LABS: PHOSPHORUS 0.9 MG/DL (2.5-4.9)
[2017-09-06 09:07] LABS: ALBUMIN 2.5 GM/DL (3.4-5.0); BICARBONATE 23.6 MEQ/L (21.0-32.0); CALCIUM 8.7 MG/DL (8.5-10.1); MAGNESIUM 1.8 MG/DL (1.5-2.5)
[2017-09-06 09:08] LABS: CREATININE 0.78 MG/DL (0.50-1.00)
[2017-09-06] MEDS: NYSTATIN SUSP 500,000 U/5 ML CUP SWISH-SWAL SCH ×4 (09:08→19:40)
[2017-09-06] MEDS: LACTULOSE SYRUP 20 GM/30 ML CUP PO SCH ×3 (09:08→17:25)
[2017-09-06] MEDS: POTASSIUM CHLORIDE 10 MEQ CAP PO SCH ×2 (09:08→19:41)
[2017-09-06] MEDS: THIAMINE HCL 100 MG TAB PO SCH (09:09)
[2017-09-06] MEDS: FAMOTIDINE 20 MG TAB PO SCH ×2 (09:09→19:40)
[2017-09-06] MEDS: guaiFENesin E.R. 600 MG TAB PO SCH ×2 (09:09→19:40)
[2017-09-06] MEDS: FOLIC ACID 1 MG TAB PO SCH (09:09)
[2017-09-06] MEDS: methylPREDNISolone SOD SUCC 40 MG/1 ML VIAL IV PUSH SCH (09:09)
[2017-09-06] MEDS: SPIRONOLACTONE 100 MG TAB PO SCH (09:09)
[2017-09-06] MEDS: FUROSEMIDE 40 MG/4 ML VIAL IV PUSH SCH ×2 (09:09→17:26)
[2017-09-06] MEDS: LORATADINE 10 MG TAB PO SCH (09:09)
[2017-09-06] MEDS: FLUTICASONE PROPIONATE 50 MCG/ACT 16 GM NASAL SPRAY EACH NARE SCH (09:10)
[2017-09-06] MEDS: SODIUM CHLORIDE 0.9% FLUSH 10 ML FLUSH IV FLUSH SCH ×2 (09:10→22:08)
[2017-09-06 09:57] LABS: BANDS 5 % (0-6); LYMPHOCYTES 2 % (9-44); MONOCYTES 6 % (0-8); NEUTROPHIL # MANUAL DIFF 27.5 TH/MM3 (1.8-7.7); POLYS (SEG NEUTROPHILS) 87 % (16-70); TOXIC GRANULATION 2+ (NORMAL); TOXIC VACUOLATION PRESENT (NONE SEEN)
[2017-09-06] MEDS ORDERED: POTASSIUM CHLORIDE 10 MEQ CONTROLLED RELEASE TAB PO ONE (11:15)
[2017-09-06] MEDS ORDERED: FUROSEMIDE 40 MG/4 ML VIAL IV PUSH ONE (11:15)
[2017-09-06] MEDS: MORPHINE SULFATE 4 MG/ML INJ IV PUSH PRN (11:38)
[2017-09-06 12:00] VITALS: BP 113/70; PULSE 109; RESP 18; TEMP 98.6; O2SAT 96
--- NOTE | 2017-09-06 12:32 | MB ---
cc: Yasir Bolton MD DATE: 09/06/2017 INDICATION: Congestive heart failure. PAST MEDICAL HISTORY: This is a 42-year-old female with history of alcohol abuse and gastroesophageal reflux disease who presented back on 08/19/2017 with complaints of abdominal pain, distention and vaginal bleeding. Over the course of this hospitalization, she has developed bilateral lower extremity edema in addition to worsening abdominal distention. CT scan shows hepatosplenomegaly, persistent right lower lobe increased airspace disease and anasarca. The patient denies any prior history of known heart disease. The patient was found to have a positive sputum culture diagnosed with tachycardia and sepsis. Infectious disease is following. Given the edema and shortness of breath. We were consulted for consideration of congestive heart failure. Denies any chest pain, palpitations, lightheadedness. PAST MEDICAL HISTORY: As mentioned above, gastroesophageal reflux disease and alcohol abuse. PAST SURGICAL HISTORY: Appendectomy, tonsillectomy. SOCIAL HISTORY: Smokes 2 packs per week for 20 years. Occasional marijuana. Weaning off alcohol. ALLERGIES: SULFA. REPORTED HOME MEDICATIONS: Omeprazole. REVIEW OF SYSTEMS: A 12-point review of systems was performed, negative unless otherwise noted in the History of Present Illness. PHYSICAL EXAMINATION: GENERAL: Alert, oriented x3, in no acute distress. HEENT: Shows pupils reactive to light and accommodation. Extraocular movements intact. NECK: No elevation of jugular veins. LUNGS: There is right rhonchi in the right base, otherwise lungs sound clear. CARDIOVASCULAR: Regular, tachycardic, 1/6 systolic murmur. ABDOMEN: Distended. There are good bowel sounds. EXTREMITIES: Show 1+ bilateral lower extremity edema. NEUROLOGIC: Intact. LABORATORY DATA: WBC 29,000, hemoglobin is 8.8, platelet count 7.2. INR is 2.2. Sodium 135, BUN is 19, creatinine 0.78, total bilirubin 16.1, AST is 89, ALT is 37, alkaline phosphatase is 212. BNP is 1356. ASSESSMENT: 1. Anasarca. 2. Possible sepsis. 3. Coagulopathy with liver failure, acute kidney injury, history of alcohol abuse, leukocytosis. PLAN: We will wait for echocardiogram. BNP is elevated, but so are many inflammatory markers. The anasarca would probably be more consistent with her low albumin which is to measured at 2.3. She has JOCELYNN hose on in addition to leg elevation. Minimize salt. She may also have a component of some portal hypertension with bilateral lower extremity edema worse than upper extremity. We will followup on the echocardiogram and make any further recommendations. If the ejection fraction looks normal and there is no significant diastolic dysfunction or significant valvular abnormalities, then it is much less likely to be cardiac. MD MARILU Muñoz/SB , 12:07 PM , 12:31 PM
[2017-09-06] MEDS: LEVOFLOXACIN 750 MG TAB PO SCH (13:02)
[2017-09-06] MEDS: LORazepam 2 MG TAB PO PRN (13:03)
[2017-09-06] MEDS: METOCLOPRAMIDE HCL 10 MG/2 ML VIAL IV PUSH PRN (13:04)
--- NOTE | 2017-09-06 13:10 | HHI.IDPN ---
Subjective Subjective Remarks c/o abdominal tightness, pain afebrile no fever Antibiotics levaquine Flagyl po Lines PIV line without any e/o infection Past Medical History EtOH abuse GERD Allergies: Coded Allergies: Sulfa (Sulfonamide Antibiotics) (Verified Allergy, Unknown, 07/28/17) Objective . Vital Signs Date Time Temp Pulse Resp B/P (MAP) Pulse Ox O2 Delivery O2 Flow Rate FiO2 09/06/17 08:00 97.9 119 18 115/80 (92) 92 09/06/17 05:30 98.3 110 19 127/74 (91) 94 09/06/17 00:20 97.6 69 19 129/86 (100) 96 09/05/17 20:22 97.6 113 20 123/72 (89) 98 09/05/17 16:09 98.6 103 18 118/73 (88) 95 . Laboratory Tests Test 09/06/17 08:16 White Blood Count 29.9 TH/MM3 Red Blood Count 2.38 MIL/MM3 Hemoglobin 8.8 GM/DL Hematocrit 26.1 % Mean Corpuscular Volume 109.7 FL Mean Corpuscular Hemoglobin 37.1 PG Mean Corpuscular Hemoglobin Concent 33.8 % Red Cell Distribution Width 17.0 % Platelet Count 247 TH/MM3 Mean Platelet Volume 7.2 FL CBC Comment AUTO DIFF Differential Total Cells Counted 100 Neutrophils % (Manual) 87 % Band Neutrophils % 5 % Lymphocytes % 2 % Monocytes % 6 % Neutrophils # (Manual) 27.5 TH/MM3 Differential Comment FINAL DIFF MANUAL Toxic Granulation 2+ Toxic Vacuolation PRESENT Platelet Estimate NORMAL Platelet Morphology Comment NORMAL Laboratory Tests Test 09/05/17 15:44 09/06/17 08:16 B-Type Natriuretic Peptide 1356 PG/ML Blood Urea Nitrogen 19 MG/DL Creatinine 0.78 MG/DL Random Glucose 145 MG/DL Albumin 2.5 GM/DL Calcium Level 8.7 MG/DL Phosphorus Level 0.9 MG/DL Magnesium Level 1.8 MG/DL Sodium Level 135 MEQ/L Potassium Level 3.8 MEQ/L Chloride Level 102 MEQ/L Carbon Dioxide Level 23.6 MEQ/L Anion Gap 9 MEQ/L Estimat Glomerular Filtration Rate 81 ML/MIN Imaging Last Impressions Chest X-Ray 09/06/17 0000 Signed Impressions: Service Date/Time: August 05:19 - CONCLUSION: Bibasilar atelectasis slightly improved in the right lung base. Derian Man MD Abdomen Ultrasound 09/01/17 0000 Signed Impressions: Service Date/Time: Friday, September 01, 2017 15:30 - CONCLUSION: Mild ascites. Rohith Harman MD Abdomen/Pelvis CT 08/26/17 0000 Signed Impressions: Service Date/Time: Saturday, August 26, 2017 17:17 - CONCLUSION: 1. Hepatosplenomegaly with diffusely abnormal hepatic texture. 2. Persistent consolidating airspace disease in the right lower lobe. 3. Small amount of ascites still present. 4. Increasing anasarca. 5. Colonic wall thickening and edema characteristic of colitis as previously described. 6. No significant change. Kamron Rollins MD Cholangiopancreatography MRI 08/24/17 0000 Signed Impressions: Service Date/Time: Thursday, August 24, 2017 18:15 - CONCLUSION: 1. Hepatosplenomegaly. 2. Mild ascites in the right paracolic gutter region. 3. No dilatation of the biliary system. 4. Contracted gallbladder without stones. The gallbladder wall thickening may be secondary to lack of distention. 5. Thickening of the proximal transverse colon. 6. Consolidation or atelectasis in the right lower lobe with a minimal right effusion. Rohith Harman MD Abdomen X-Ray 08/22/17 0000 Signed Impressions: Service Date/Time: Tuesday, August 22, 2017 13:39 - CONCLUSION: Benign abdomen. Tay Valdes MD Physical Exam GENERAL: Well-nourished, well-developed female patient in NAD. Awake and alert. SKIN: Warm and dry. No rash. Jaundiced. HEAD: Normocephalic. Atraumatic. EYES: Pupils equal and round. EOMI. Prominent sclera icterus. ENT: No nasal bleeding or discharge. Mucous membranes pink and moist. NECK: Supple. Trachea midline. CARDIOVASCULAR: Tachycardic. S1, S2 noted. No murmur appreciated. RESPIRATORY: Mildly labored. Diminished in bases R>L. GASTROINTESTINAL: Abdomen soft , distended, diffuse mild tenderness to palpation. MUSCULOSKELETAL: No obvious deformities. (+)2-3+ pitting edema in bilateral thighs down. Pitting edema extends up into abdomen and back. NEUROLOGICAL: Awake and alert. No obvious cranial nerve deficits. Motor grossly within normal limits. Able to move all extremities. Normal speech. PSYCHIATRIC: Appropriate mood and affect; insight and judgment normal. 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 S/p EGD and colonoscopy with no significant findings -trial of steroids started 08/29 Anasarca -on IV Lasix -insufficient fluid volume for paracentesis previously -patient with c/o increased abdominal girth and difficulty breathing -?worsening on Zosyn Leukocytosis -CRP 8.30, ESR 75 - slowly improving, most consistent with leukemoid reaction - potentially high dose sterroids contributing Colitis omn the CT, but c.diff is negative Severe coagulopathy secondary to liver failure Sputum with steno malt ? colonisation vs true infx R base infiltrate -? PNA RECOMMENDATIONS: Cont repeat abdominal ultrasound to assess ascites and if paracentesis warranted , if paracentesis able to be done, send fluid for analysis Continue with incentive spirometry at bedside, encouraged use Continue po Flagyl, cont t levaquine fu WBC Hope Mota MD Sep 06, 2017 13:10
--- NOTE | 2017-09-06 14:49 | HHI.PR ---
Subjective Remarks Patient says she is tired of staying in the hospital. Reports bilateral lower extremity edema continues. Denies any chest pain or shortness of breath. Still with abdominal distention. Objective Vital Signs Date Time Temp Pulse Resp B/P (MAP) Pulse Ox O2 Delivery O2 Flow Rate FiO2 09/06/17 12:00 98.6 109 18 113/70 (84) 96 09/06/17 08:00 97.9 119 18 115/80 (92) 92 09/06/17 05:30 98.3 110 19 127/74 (91) 94 09/06/17 00:20 97.6 69 19 129/86 (100) 96 09/05/17 20:22 97.6 113 20 123/72 (89) 98 09/05/17 16:09 98.6 103 18 118/73 (88) 95 I/O 09/05/17 09/05/17 09/05/17 09/06/17 09/06/17 09/06/17 07:00 15:00 23:00 07:00 15:00 23:00 Intake Total 450 ml 1200 ml 600 ml Output Total 400 ml 200 ml 2700 ml Balance 50 ml -200 ml -1500 ml 600 ml Intake Oral 350 ml 1200 ml 500 ml IV Total 100 ml 100 ml Output Urine Total 400 ml 200 ml 2700 ml # Voids 1 1 8 # Bowel Movements 1 1 3 6 Result Diagram: 09/06/17 0816 09/06/17 0816 Objective Remarks GENERAL: Patient sitting up in chair with legs elevated. Appears comfortable. SKIN: Warm and dry. HEAD: Normocephalic. EYES: No scleral icterus. No injection or drainage. NECK: Supple, trachea midline. Patient does have JVD CARDIOVASCULAR: Regular rate and rhythm without murmurs, gallops, or rubs. RESPIRATORY: Breath sounds equal bilaterally. No accessory muscle use. GASTROINTESTINAL: Abdomen soft, mild tenderness to palpation. No rebound or guarding. Distended. MUSCULOSKELETAL: No cyanosis, or edema. BACK: Nontender without obvious deformity. No CVA tenderness. A/P Assessment and Plan 09/06. //sepsis Patient continues with leukocytosis of 29.9. C. difficile repeat is pending. Continue Levaquin for stenotrophomonas still with sepsis //CHF exacerbation. BNP in the 1300s, JVD on exam. Check echocardiogram. Consult cardiology for new CHF. Increase fluid restrictions. // Severe sepsis: Possibly secondary to spontaneous bacterial peritonitis. Continue IV antibiotics. Patient remains afebrile. Appreciate GI recommendations. Still with tachycardia, leukocytosis. Appreciate infectious disease recommendations. //Colitis: Continue Zosyn. Appreciate infectious disease recommendations. // Alcoholic hepatitis, liver failure: Appreciate GI recommendations. Repeat ultrasound showed too little fluid to perform paracentesis again. Continue lactulose. Pentoxifylline on hold. dc Solu-Medrol. // Alcohol abuse: CIWA protocol discontinued. Continue thiamine, folic acid. Patient has been counseled. //Leukocytosis: Appreciate hematology recommendations. Monitor labs. WBCs slightly better today. //CHF exacerbation. BNP in the 1300s, JVD on exam. Check echocardiogram. Consult cardiology for new CHF. Increase fluid restrictions. // Hypokalemia: Continue potassium supplementation. Monitor labs. Serum potassium now within normal limits. //Acute kidney injury: Improving. //Severe coagulopathy: Secondary to liver failure. Monitor labs. Monitor for bleeding. INR remains elevated. //Vaginal bleeding: Patient reports menstrual bleeding for most of the past month. Appreciate gynecology recommendations. Follow up as outpatient. H/H stable. //Pneumonia: Sputum culture growing gram negative carl. Continue antibiotics per ID. //Edema/anasarca: Continue Lasix, spironolactone. Discharge Planning Pending improvement Arpit Sprague MD Sep 06, 2017 14:49
[2017-09-06 16:00] VITALS: BP 118/62; PULSE 110; RESP 18; TEMP 97.9; O2SAT 96
[2017-09-06 20:00] VITALS: BP 119/64; PULSE 110; RESP 16; TEMP 97.4; O2SAT 98
[2017-09-07] VITALS: BP 117/67; PULSE 114; RESP 16; TEMP 97.6; O2SAT 96
[2017-09-07 04:00] VITALS: BP 116/65; PULSE 111; RESP 16; TEMP 97.4; O2SAT 95
[2017-09-07] MEDS: metroNIDAZOLE 500 MG TAB PO SCH ×3 (05:12→21:09)
[2017-09-07] MEDS: LORazepam 2 MG TAB PO PRN (05:17)
[2017-09-07] MEDS: CALCIUM CARBONATE 500 MG CHEWABLE TAB CHEW PRN (05:17)
[2017-09-07 07:59] VITALS: BP 113/59; PULSE 120; RESP 18; TEMP 97.8; O2SAT 96
[2017-09-07 08:28] LABS: AUTOMATED NEUTROPHIL # 19.5 TH/MM3 (1.8-7.7); BASOPHIL % 0.2 % (0.0-2.0); EOSINOPHIL % 0.2 % (0.0-4.0); HEMATOCRIT 23.6 % (35.0-46.0); HEMOGLOBIN 8.1 GM/DL (11.6-15.3); LYMPH % 1.3 % (9.0-44.0); LYMPHOCYTE # 0.3 TH/MM3 (1.0-4.8); MEAN CORPUSCULAR HGB CONC 34.3 % (32.0-36.0); MEAN PLATELET VOLUME 7.6 FL (7.0-11.0); MONO % 5.1 % (0.0-8.0); MONOCYTE # 1.1 TH/MM3 (0-0.9); NEUT % 93.2 % (16.0-70.0); PLATELET COUNT 187 TH/MM3 (150-450); RED BLOOD COUNT 2.13 MIL/MM3 (4.00-5.30); RED CELL DISTRIBUTION WIDTH 16.6 % (11.6-17.2); WHITE BLOOD COUNT 20.9 TH/MM3 (4.0-11.0)
[2017-09-07 08:39] LABS: BICARBONATE 24.5 MEQ/L (21.0-32.0); CALCIUM 8.6 MG/DL (8.5-10.1); CREATININE 0.71 MG/DL (0.50-1.00)
[2017-09-07] MEDS: guaiFENesin E.R. 600 MG TAB PO SCH ×2 (09:07→21:09)
[2017-09-07] MEDS: FAMOTIDINE 20 MG TAB PO SCH ×2 (09:07→21:09)
[2017-09-07] MEDS: THIAMINE HCL 100 MG TAB PO SCH (09:07)
[2017-09-07] MEDS: LACTULOSE SYRUP 20 GM/30 ML CUP PO SCH ×3 (09:07→17:12)
[2017-09-07] MEDS: SPIRONOLACTONE 100 MG TAB PO SCH (09:07)
[2017-09-07] MEDS: FOLIC ACID 1 MG TAB PO SCH (09:07)
[2017-09-07] MEDS: LORATADINE 10 MG TAB PO SCH (09:07)
[2017-09-07] MEDS: POTASSIUM CHLORIDE 10 MEQ CAP PO SCH ×2 (09:07→21:09)
[2017-09-07] MEDS: NYSTATIN SUSP 500,000 U/5 ML CUP SWISH-SWAL SCH ×4 (09:08→21:08)
[2017-09-07] MEDS: SODIUM CHLORIDE 0.9% FLUSH 10 ML FLUSH IV FLUSH SCH ×2 (09:14→21:08)
[2017-09-07] MEDS: FUROSEMIDE 40 MG/4 ML VIAL IV PUSH SCH ×2 (09:14→17:13)
[2017-09-07] MEDS: FLUTICASONE PROPIONATE 50 MCG/ACT 16 GM NASAL SPRAY EACH NARE SCH (09:15)
--- NOTE | 2017-09-07 09:21 | PD.CARD.PN ---
Subjective Subjective Remarks continues to feel dull epigastric ache. admits to stable dyspnea with walking. no chest pain. echo to be done today Objective Medications Current Medications Medications (Trade) Dose Ordered Sig/[place] Route Start Time Stop Time Status Last Admin (NS Flush) 2 ml UNSCH PRN IV FLUSH 08/19/17 13:30 09/01/17 05:05 (NS Flush) 2 ml BID IV FLUSH 08/19/17 21:00 09/06/17 22:08 (Tylenol) 500 mg Q4H PRN PO 08/19/17 13:30 (Zofran Inj) 4 mg Q6H PRN IVP 08/19/17 13:30 09/05/17 17:33 (Narcan Inj) 0.4 mg UNSCH PRN IV PUSH 08/19/17 13:30 (Milk Of Magnesia Liq) 30 ml Q12H PRN PO 08/19/17 13:30 (Senokot) 17.2 mg Q12H PRN PO 08/19/17 13:30 08/22/17 08:36 (Dulcolax Supp) 10 mg DAILY PRN RECTAL 08/19/17 13:30 (TRENtal SR) 400 mg Q8HR PO 08/19/17 22:00 Future Hold 09/01/17 12:46 (Vitamin B1) 100 mg DAILY PO 08/22/17 09:00 09/06/17 09:09 (Folate) 1 mg DAILY PO 08/19/17 21:00 09/06/17 09:09 (Reglan Inj) 5 mg Q6H PRN IV PUSH 08/21/17 10:15 09/06/17 13:04 (Compazine Supp) 25 mg Q12H PRN RECTAL 08/21/17 10:15 (Lactulose Liq) 30 ml TID PO 08/22/17 15:30 09/06/17 17:25 (Mucinex Er) 600 mg BID PO 08/24/17 14:00 09/06/17 19:40 (Duoneb Neb) 1 ampule Q4HR NEB PRN NEB 08/24/17 13:30 (Flagyl) 500 mg Q8HR PO 08/24/17 14:00 09/07/17 05:12 (Aldactone) 100 mg DAILY PO 3/31/18 17:45 09/06/17 09:09 (Morphine Inj) 2 mg Q4HR PRN IV PUSH 08/27/17 11:30 09/06/17 11:38 (Roxicodone) 5 mg Q4H PRN PO 08/28/17 10:00 09/02/17 17:16 (Roxicodone) 10 mg Q4H PRN PO 08/28/17 10:00 09/07/17 05:11 (Lasix Inj) 40 mg BID@ IV PUSH 08/30/17 18:00 09/06/17 17:26 (Chapstick) 1 applic UNSCH PRN TOPICAL 08/30/17 14:00 08/30/17 15:10 (Tums Chew) 500 mg Q2H PRN CHEW 08/30/17 14:30 09/07/17 05:17 (KCl) 30 meq BID PO 08/31/17 21:00 09/06/17 19:41 (Pepcid) 20 mg BID PO 09/01/17 21:00 09/06/17 19:40 (Flonase Augustine Spr) 2 spray DAILY EACH NARE 09/01/17 12:00 09/06/17 09:10 (Claritin) 10 mg DAILY PO 09/01/17 12:00 09/06/17 09:09 (Levaquin) 750 mg Q24H PO 09/06/17 13:00 09/06/17 13:02 (Mycostatin Liq) 5 ml QID SWISH-SWAL 09/05/17 13:00 09/06/17 19:40 (Ativan) 2 mg Q8H PRN PO 09/06/17 12:00 09/07/17 05:17 Vital Signs / I&O Vital Signs Date Time Temp Pulse Resp B/P (MAP) Pulse Ox O2 Delivery O2 Flow Rate FiO2 09/07/17 07:59 97.8 120 18 113/59 (77) 96 09/07/17 04:00 97.4 111 16 116/65 (82) 95 09/07/17 00:00 97.6 114 16 117/67 (84) 96 09/06/17 20:00 97.4 110 16 119/64 (82) 98 09/06/17 16:00 97.9 110 18 118/62 (80) 96 09/06/17 12:00 98.6 109 18 113/70 (84) 96 I/O 09/06/17 09/06/17 09/06/17 09/07/17 09/07/17 09/07/17 07:00 15:00 23:00 07:00 15:00 23:00 Intake Total 600 ml 200 ml Output Total 3803 ml 1325 ml Balance 600 ml -3803 ml -1125 ml Intake Oral 500 ml 200 ml IV Total 100 ml Output Urine Total 3800 ml 1300 ml Stool Total 3 ml 25 ml # Voids 8 3 # Bowel Movements 6 3 Physical Exam GENERAL: SKIN: Warm and dry. HEAD: Atraumatic. Normocephalic. EYES: Pupils equal and round. No scleral icterus. No injection or drainage. ENT: No nasal bleeding or discharge. Mucous membranes pink and moist. NECK: Trachea midline. + JVD. CARDIOVASCULAR: tachycardic, regular rhythm. no murmurs RESPIRATORY: No accessory muscle use. Clear to auscultation. Breath sounds equal bilaterally. GASTROINTESTINAL: Abdomen soft, distended. MUSCULOSKELETAL: Extremities without clubbing, cyanosis. 2+ bilateral lower leg edema, NEUROLOGICAL: Awake and alert. No obvious cranial nerve deficits. Normal speech. PSYCHIATRIC: Appropriate mood and affect; insight and judgment normal. Laboratory Laboratory Tests Test 09/06/17 18:00 09/07/17 06:19 Stool C. difficile Toxin (PCR) NEGATIVE Stl C. difficile Toxin Epiderm 027 PRESUMPTIVE NEGATIVE White Blood Count 20.9 TH/MM3 Red Blood Count 2.13 MIL/MM3 Hemoglobin 8.1 GM/DL Hematocrit 23.6 % Mean Corpuscular Volume 111.0 FL Mean Corpuscular Hemoglobin 38.0 PG Mean Corpuscular Hemoglobin Concent 34.3 % Red Cell Distribution Width 16.6 % Platelet Count 187 TH/MM3 Mean Platelet Volume 7.6 FL Neutrophils (%) (Auto) 93.2 % Lymphocytes (%) (Auto) 1.3 % Monocytes (%) (Auto) 5.1 % Eosinophils (%) (Auto) 0.2 % Basophils (%) (Auto) 0.2 % Neutrophils # (Auto) 19.5 TH/MM3 Lymphocytes # (Auto) 0.3 TH/MM3 Monocytes # (Auto) 1.1 TH/MM3 Eosinophils # (Auto) 0.0 TH/MM3 Basophils # (Auto) 0.0 TH/MM3 CBC Comment DIFF FINAL Differential Comment Blood Urea Nitrogen 22 MG/DL Creatinine 0.71 MG/DL Random Glucose 135 MG/DL Calcium Level 8.6 MG/DL Sodium Level 135 MEQ/L Potassium Level 3.9 MEQ/L Chloride Level 102 MEQ/L Carbon Dioxide Level 24.5 MEQ/L Anion Gap 9 MEQ/L Estimat Glomerular Filtration Rate 91 ML/MIN Imaging Last 48 hours Impressions Chest X-Ray 09/06/17 0000 Signed Impressions: Service Date/Time: August 05:19 - CONCLUSION: Bibasilar atelectasis slightly improved in the right lung base. Derian Man MD Assessment and Plan Assessment and Plan 42 yo WF with history of alcohol abuse and GERD who presented on 08/19/17 with abdominal distention, vaginal bleeding and possible sepsis. Imaging has revealed anasarca and hepatosplenomegaly. She has severe coagulopathy with liver failure, acute kidney injury and leukocytosis. we have been asked to evaluate for CHF. edema/anasarca- echo ordered, to be done today consider cardiac source vs. portal hypertension minimize salt, continue leg elevation and compression stockings. Brittny Pandya Sep 07, 2017 09:21
[2017-09-07 12:00] VITALS: BP 120/64; PULSE 125; RESP 18; TEMP 97.9; O2SAT 98
[2017-09-07] MEDS: LEVOFLOXACIN 750 MG TAB PO SCH (13:24)
--- NOTE | 2017-09-07 13:27 | HHI.PR ---
Subjective Remarks Patient says she is feeling a little better today. Still with abdominal distention and discomfort. Denies any chest pain or shortness of breath. Objective Vital Signs Date Time Temp Pulse Resp B/P (MAP) Pulse Ox O2 Delivery O2 Flow Rate FiO2 09/07/17 12:00 97.9 125 18 120/64 (82) 98 09/07/17 07:59 97.8 120 18 113/59 (77) 96 09/07/17 04:00 97.4 111 16 116/65 (82) 95 09/07/17 00:00 97.6 114 16 117/67 (84) 96 09/06/17 20:00 97.4 110 16 119/64 (82) 98 09/06/17 16:00 97.9 110 18 118/62 (80) 96 I/O 09/06/17 09/06/17 09/06/17 09/07/17 09/07/17 09/07/17 07:00 15:00 23:00 07:00 15:00 23:00 Intake Total 600 ml 200 ml Output Total 3803 ml 1325 ml Balance 600 ml -3803 ml -1125 ml Intake Oral 500 ml 200 ml IV Total 100 ml Output Urine Total 3800 ml 1300 ml Stool Total 3 ml 25 ml # Voids 8 3 # Bowel Movements 6 3 Result Diagram: 09/07/1761809/07/17618 Objective Remarks GENERAL: Patient sitting up in chair with legs elevated. Appears comfortable. SKIN: Warm and dry. HEAD: Normocephalic. EYES: No scleral icterus. No injection or drainage. NECK: Supple, trachea midline. Patient does have JVD, slight improvt CARDIOVASCULAR: Regular rate and rhythm without murmurs, gallops, or rubs. RESPIRATORY: Breath sounds equal bilaterally. No accessory muscle use. GASTROINTESTINAL: Abdomen soft, mild tenderness to palpation. No rebound or guarding. Distended. Very slightly better than yesterday, MUSCULOSKELETAL: No cyanosis, or edema. BACK: Nontender without obvious deformity. No CVA tenderness. A/P Assessment and Plan 09/07. //sepsis. White count 20 improving. Check abdominal ultrasound for ascites given possibility of SBP. C. difficile is negative. Continue antibiotics for stenotrophomonas. Infectious disease following. Appreciate assistance. //CHF exacerbation. Still with fluid overload. Order extra diuretics today. Cardiology following. Echocardiogram pending. //Hypophosphatemia. Phosphorus 0.9. Replace. // Severe sepsis: Possibly secondary to spontaneous bacterial peritonitis. Continue IV antibiotics. Patient remains afebrile. Appreciate GI recommendations. Still with tachycardia, leukocytosis. Appreciate infectious disease recommendations. //Colitis: Continue Zosyn. Appreciate infectious disease recommendations. // Alcoholic hepatitis, liver failure: Appreciate GI recommendations. Repeat ultrasound showed too little fluid to perform paracentesis again. Continue lactulose. Pentoxifylline on hold. dc Solu-Medrol. // Alcohol abuse: CIWA protocol discontinued. Continue thiamine, folic acid. Patient has been counseled. //Leukocytosis: Appreciate hematology recommendations. Monitor labs. WBCs slightly better today. //CHF exacerbation. BNP in the 1300s, JVD on exam. Check echocardiogram. Consult cardiology for new CHF. Increase fluid restrictions. // Hypokalemia: Continue potassium supplementation. Monitor labs. Serum potassium now within normal limits. //Acute kidney injury: Improving. //Severe coagulopathy: Secondary to liver failure. Monitor labs. Monitor for bleeding. INR remains elevated. //Vaginal bleeding: Patient reports menstrual bleeding for most of the past month. Appreciate gynecology recommendations. Follow up as outpatient. H/H stable. //Pneumonia: Sputum culture growing gram negative carl. Continue antibiotics per ID. //Edema/anasarca: Continue Lasix, spironolactone. Discharge Planning Pending improvement Cardiology and ID following. Arpit Sprague MD Sep 07, 2017 13:27
[2017-09-07] MEDS ORDERED: ALBUMIN 25% INJ 100 ML IV ONE (13:30)
[2017-09-07] MEDS ORDERED: FUROSEMIDE 40 MG/4 ML VIAL IV PUSH ONE (13:30)
[2017-09-07] MEDS: MORPHINE SULFATE 4 MG/ML INJ IV PUSH PRN ×3 (14:50→23:06)
[2017-09-07] MEDS ORDERED: POTASSIUM PHOSPHATE INJ 30 MMOL in SODIUM CHLOR 0.9% 250 ML INJ 250 ML IV ONE (15:00)
--- NOTE | 2017-09-07 15:53 | ECHRPT ---
Indication: Heart Failure CONCLUSIONS Normal left ventricular size and wall thickness. The left ventricular systolic function is normal wi th an estimated ejection fraction in the range of 60-65%. No regional wall motion abnormalities are presen t. Trivial mitral and trivial tricuspid regurgitation. BP: / HR: Rhythm: MEASUREMENTS (Male / Female) Normal Values Technical Quality: 2D ECHO LV Diastolic Diameter PLAX 4.8 cm 4.2 - 5.9 / 3.9 - 5.3 cm LV Systolic Diameter PLAX 3.3 cm IVS Diastolic Thickness 0.9 cm 0.6 - 1.0 / 0.6 - 0.9 cm LVPW Diastolic Thickness 0.7 cm 0.6 - 1.0 / 0.6 - 0.9 cm LV Relative Wall Thickness 0.3 LA Systolic Diameter LX 4.1 cm 3.0 - 4.0 / 2.7 - 3.8 cm M-MODE Aortic Root Diameter MM 2.8 cm AV Cusp Separation MM 1.8 cm DOPPLER Mitral E Point Velocity 153.0 cm/s TR Peak Velocity 241.3 cm/s TR Peak Gradient 23.3 mmHg FINDINGS LEFT VENTRICLE Normal left ventricular size and wall thickness. The left ventricular systolic function is normal wi th an estimated ejection fraction in the range of 60-65%. No regional wall motion abnormalities are presen t. RIGHT VENTRICLE Normal right ventricular size and systolic function. LEFT ATRIUM The left atrial size is normal. RIGHT ATRIUM The right atrial size is normal. ATRIAL SEPTUM Normal atrial septal thickness without atrial level shunting by limited color doppler interrogation. AORTA The aortic root and proximal ascending aorta are normal in size on limited imaging. MITRAL VALVE Trace mitral valve regurgitation. AORTIC VALVE Trileaflet aortic valve. No aortic valve stenosis or regurgitation. TRICUSPID VALVE There is trace tricuspid valve regurgitation. PULMONARY VALVE The pulmonary valve is not well visualized. VESSELS The inferior vena cava is normal in size. PERICARDIUM No pericardial effusion. Guillermo Ignacio MD (Electronically Signed) Final Date:07 September 2017 15:51
[2017-09-07 16:00] VITALS: BP 112/59; PULSE 130; RESP 18; TEMP 97.9; O2SAT 98
--- NOTE | 2017-09-07 16:11 | RADRPT ---
EXAM DATE/TIME: 09/07/2017 14:51 [facility] COMPARISON: US ABDOMEN - LOWER LIMITED, September 01, 2017, 15:30. INDICATIONS : Ascites. MEDICAL HISTORY : Gastroesophageal reflux disease. Seizures. Alcohol abuse. SURGICAL HISTORY : Appendectomy. Back surgery x2. ENCOUNTER: Subsequent ACUITY: 4-6 days PAIN SCORE: 7/10 LOCATION: Abdomen. AREA EVALUATED: RUQ, RLQ, LUQ, LLQ, and ML. FINDINGS: Imaging of the abdomen and pelvis was performed to evaluate for ascites for possible paracentesis. CONCLUSION: Ascities without distention. With slight progression. There is enough ascites for a diagnostic tap. Dontrell Canela MD FACR on September 07, 2017 at 16:07 Board Certified Radiologist. This report was verified electronically.
[2017-09-07 21:30] VITALS: BP 106/56; PULSE 117; RESP 19; TEMP 98.1; O2SAT 96
[2017-09-07] MEDS: METOCLOPRAMIDE HCL 10 MG/2 ML VIAL IV PUSH PRN (23:03)
[2017-09-08 00:20] VITALS: BP 110/59; PULSE 110; RESP 18; TEMP 97.6; O2SAT 98
[2017-09-08 03:20] VITALS: BP 108/58; PULSE 112; RESP 20; TEMP 98.3; O2SAT 97
[2017-09-08] MEDS: metroNIDAZOLE 500 MG TAB PO SCH ×2 (05:45→13:44)
[2017-09-08] MEDS: MORPHINE SULFATE 4 MG/ML INJ IV PUSH PRN ×2 (05:46→22:18)
[2017-09-08] MEDS: POTASSIUM CHLORIDE 10 MEQ CAP PO SCH ×2 (08:05→20:02)
[2017-09-08] MEDS: FOLIC ACID 1 MG TAB PO SCH (08:05)
[2017-09-08] MEDS: LORATADINE 10 MG TAB PO SCH (08:05)
[2017-09-08] MEDS: SPIRONOLACTONE 100 MG TAB PO SCH (08:05)
[2017-09-08] MEDS: THIAMINE HCL 100 MG TAB PO SCH (08:05)
[2017-09-08] MEDS: guaiFENesin E.R. 600 MG TAB PO SCH ×2 (08:05→19:54)
[2017-09-08] MEDS: FAMOTIDINE 20 MG TAB PO SCH ×2 (08:05→19:53)
[2017-09-08] MEDS: FUROSEMIDE 40 MG/4 ML VIAL IV PUSH SCH ×2 (08:06→17:15)
[2017-09-08] MEDS: NYSTATIN SUSP 500,000 U/5 ML CUP SWISH-SWAL SCH ×4 (08:06→19:53)
[2017-09-08] MEDS: LACTULOSE SYRUP 20 GM/30 ML CUP PO SCH ×3 (08:06→17:15)
[2017-09-08] MEDS: LORazepam 2 MG TAB PO PRN (08:10)
[2017-09-08] MEDS: METOCLOPRAMIDE HCL 10 MG/2 ML VIAL IV PUSH PRN (08:11)
[2017-09-08] MEDS: FLUTICASONE PROPIONATE 50 MCG/ACT 16 GM NASAL SPRAY EACH NARE SCH (08:11)
[2017-09-08] MEDS: SODIUM CHLORIDE 0.9% FLUSH 10 ML FLUSH IV FLUSH SCH ×2 (08:11→19:53)
[2017-09-08 08:26] VITALS: BP 105/55; PULSE 120; RESP 20; TEMP 97.4; O2SAT 95
[2017-09-08 11:10] LABS: HEMATOCRIT 23.1 % (35.0-46.0); HEMOGLOBIN 7.8 GM/DL (11.6-15.3); MEAN CELL VOLUME 111.7 FL (80.0-100.0); MEAN CORPUSCULAR HEMOGLOBIN 37.7 PG (27.0-34.0); MEAN CORPUSCULAR HGB CONC 33.7 % (32.0-36.0); MEAN PLATELET VOLUME 7.7 FL (7.0-11.0); PLATELET COUNT 164 TH/MM3 (150-450); RED BLOOD COUNT 2.07 MIL/MM3 (4.00-5.30); RED CELL DISTRIBUTION WIDTH 16.9 % (11.6-17.2); WHITE BLOOD COUNT 26.1 TH/MM3 (4.0-11.0)
[2017-09-08 11:18] LABS: INTERNATIONAL NORMALIZED RATIO 2.5 RATIO; PROTHROMBIN TIME - PATIENT 24.8 SEC (9.8-11.6)
[2017-09-08 11:56] LABS: ALBUMIN 2.3 GM/DL (3.4-5.0); ALKALINE PHOSPHATASE 225 U/L (45-117); ALT (GPT) 41 U/L (10-53); AST (GOT) 111 U/L (15-37); BLOOD UREA NITROGEN 25 MG/DL (7-18); CALCIUM 8.6 MG/DL (8.5-10.1); CHLORIDE 106 MEQ/L (98-107); CREATININE 1.07 MG/DL (0.50-1.00); GLOMERULAR FILTRATION RATE 57 ML/MIN (>89); GLUCOSE,RANDOM 138 MG/DL (74-106); SODIUM (NA) 138 MEQ/L (136-145); TOTAL PROTEIN 6.2 GM/DL (6.4-8.2)
[2017-09-08 12:13] LABS: BANDS 6 % (0-6); LYMPHOCYTES 2 % (9-44); MONOCYTES 4 % (0-8); NEUTROPHIL # MANUAL DIFF 24.5 TH/MM3 (1.8-7.7); POLYS (SEG NEUTROPHILS) 88 % (16-70)
[2017-09-08 12:32] VITALS: BP 100/60; PULSE 111; RESP 20; TEMP 97.9; O2SAT 96
[2017-09-08] MEDS: LEVOFLOXACIN 750 MG TAB PO SCH (13:44)
[2017-09-08 15:51] VITALS: BP 103/71; PULSE 121; RESP 18; TEMP 98.6; O2SAT 95
[2017-09-08] MEDS ORDERED: PHYTONADIONE 5 MG TAB PO ONE (17:15)
--- NOTE | 2017-09-08 17:17 | HHI.PR ---
Subjective Remarks Patient says that abdominal distention appears to be getting slightly better. Still with anasarca. Denies any chest pain or shortness of breath. Objective Vital Signs Date Time Temp Pulse Resp B/P (MAP) Pulse Ox O2 Delivery O2 Flow Rate FiO2 09/08/17 15:51 98.6 121 18 103/71 (82) 95 09/08/17 12:32 97.9 111 20 100/60 (73) 96 09/08/17 08:26 97.4 120 20 105/55 (72) 95 09/08/17 05:54 18 09/08/17 04:40 18 09/08/17 03:20 98.3 112 20 108/58 (75) 97 09/08/17 00:20 97.6 110 18 110/59 (76) 98 09/07/17 21:30 98.1 117 19 106/56 (73) 96 I/O 09/07/17 09/07/17 09/07/17 09/08/17 09/08/17 09/08/17 06:59 14:59 22:59 06:59 14:59 22:59 Intake Total 200 ml 400 ml 0 ml 660 ml Output Total 1325 ml 750 ml 1400 ml Balance -1125 ml -350 ml -1400 ml 660 ml Intake Oral 200 ml 300 ml 0 ml 660 ml IV Total 100 ml Output Urine Total 1300 ml 750 ml 1400 ml Stool Total 25 ml # Voids 3 # Bowel Movements 3 3 3 Result Diagram: 09/08/17 1059 09/08/17 1059 Objective Remarks GENERAL: Patient sitting up in chair with legs elevated. Appears comfortable. Alert and oriented 3. SKIN: Warm and dry. HEAD: Normocephalic. EYES: No scleral icterus. No injection or drainage. NECK: Supple, trachea midline. JVD improved. CARDIOVASCULAR: Regular rate and rhythm without murmurs, gallops, or rubs. RESPIRATORY: Breath sounds equal bilaterally. No accessory muscle use. GASTROINTESTINAL: Abdomen soft, mild tenderness to palpation. No rebound or guarding. Distended. Again, very slightly better than yesterday, MUSCULOSKELETAL: No cyanosis, or edema. BACK: Nontender without obvious deformity. No CVA tenderness. A/P Assessment and Plan 09/08. //sepsis. White count 26 worsening. Got a call from ultrasound this morning to say there is not enough fluid to do any kind of tap. Reviewing record, it appears that there is. Invasive radiology consultation as per ID. Appreciate assistance. INR elevated, however this is secondary to liver disease and should be okay. Vitamin K ordered. Recheck INR tomorrow. //CHF exacerbation. Still with fluid overload. Creatinine has bumped slightly , will hold off on extra diuresis for now. //Anemia. Hemoglobin 7.8, down from 8.1. No signs of bleeding. We will continue to monitor. //Hypophosphatemia. Improved after replacement. 2.0. Continue to monitor. // Severe sepsis: Possibly secondary to spontaneous bacterial peritonitis. Continue IV antibiotics. Patient remains afebrile. Appreciate GI recommendations. Still with tachycardia, leukocytosis. Appreciate infectious disease recommendations. //Colitis: Continue Zosyn. Appreciate infectious disease recommendations. // Alcoholic hepatitis, liver failure: Appreciate GI recommendations. Repeat ultrasound showed too little fluid to perform paracentesis again. Continue lactulose. Pentoxifylline on hold. dc Solu-Medrol. // Alcohol abuse: CIWA protocol discontinued. Continue thiamine, folic acid. Patient has been counseled. //Leukocytosis: Appreciate hematology recommendations. Monitor labs. WBCs slightly better today. //CHF exacerbation. BNP in the 1300s, JVD on exam. Check echocardiogram. Consult cardiology for new CHF. Increase fluid restrictions. // Hypokalemia: Continue potassium supplementation. Monitor labs. Serum potassium now within normal limits. //Acute kidney injury: Improving. //Severe coagulopathy: Secondary to liver failure. Monitor labs. Monitor for bleeding. INR remains elevated. //Vaginal bleeding: Patient reports menstrual bleeding for most of the past month. Appreciate gynecology recommendations. Follow up as outpatient. H/H stable. //Pneumonia: Sputum culture growing gram negative carl. Continue antibiotics per ID. //Edema/anasarca: Continue Lasix, spironolactone. Discharge Planning Pending improvement Cardiology and ID following. Arpit Sprague MD Sep 08, 2017 17:17
[2017-09-08] MEDS ORDERED: PHYTONADIONE 5 MG/SWFI 5 ML ORAL SYR PO ONE (17:45)
--- NOTE | 2017-09-08 18:26 | HHI.IDPN ---
Subjective Subjective Remarks c/o abdominal tightness, pain US showed now enough fluid to be drained afebrile c/o on thirst, on 1200 cc/day fluid restriction Antibiotics levaquine Flagyl po Lines PIV line without any e/o infection Past Medical History EtOH abuse GERD Allergies: Coded Allergies: Sulfa (Sulfonamide Antibiotics) (Verified Allergy, Unknown, 07/28/17) Objective . Vital Signs Date Time Temp Pulse Resp B/P (MAP) Pulse Ox O2 Delivery O2 Flow Rate FiO2 09/08/17 15:51 98.6 121 18 103/71 (82) 95 09/08/17 12:32 97.9 111 20 100/60 (73) 96 09/08/17 08:26 97.4 120 20 105/55 (72) 95 09/08/17 05:54 18 09/08/17 04:40 18 09/08/17 03:20 98.3 112 20 108/58 (75) 97 09/08/17 00:20 97.6 110 18 110/59 (76) 98 09/07/17 21:30 98.1 117 19 106/56 (73) 96 09/08/17 09/08/17 09/09/17 15:00 23:00 07:00 Intake Total 660 ml Balance 660 ml Intake Oral 660 ml . Laboratory Tests Test 09/07/17 06:19 09/08/17 10:59 White Blood Count 20.9 TH/MM3 26.1 TH/MM3 Red Blood Count 2.13 MIL/MM3 2.07 MIL/MM3 Hemoglobin 8.1 GM/DL 7.8 GM/DL Hematocrit 23.6 % 23.1 % Mean Corpuscular Volume 111.0 FL 111.7 FL Mean Corpuscular Hemoglobin 38.0 PG 37.7 PG Mean Corpuscular Hemoglobin Concent 34.3 % 33.7 % Red Cell Distribution Width 16.6 % 16.9 % Platelet Count 187 TH/MM3 164 TH/MM3 Mean Platelet Volume 7.6 FL 7.7 FL Neutrophils (%) (Auto) 93.2 % Lymphocytes (%) (Auto) 1.3 % Monocytes (%) (Auto) 5.1 % Eosinophils (%) (Auto) 0.2 % Basophils (%) (Auto) 0.2 % Neutrophils # (Auto) 19.5 TH/MM3 Lymphocytes # (Auto) 0.3 TH/MM3 Monocytes # (Auto) 1.1 TH/MM3 Eosinophils # (Auto) 0.0 TH/MM3 Basophils # (Auto) 0.0 TH/MM3 CBC Comment DIFF FINAL AUTO DIFF Differential Comment FINAL DIFF MANUAL Differential Total Cells Counted 100 Neutrophils % (Manual) 88 % Band Neutrophils % 6 % Lymphocytes % 2 % Monocytes % 4 % Neutrophils # (Manual) 24.5 TH/MM3 Platelet Estimate NORMAL Platelet Morphology Comment NORMAL Laboratory Tests Test 09/07/17 06:19 09/08/17 10:59 Blood Urea Nitrogen 22 MG/DL 25 MG/DL Creatinine 0.71 MG/DL 1.07 MG/DL Random Glucose 135 MG/DL 138 MG/DL Calcium Level 8.6 MG/DL 8.6 MG/DL Sodium Level 135 MEQ/L 138 MEQ/L Potassium Level 3.9 MEQ/L 4.3 MEQ/L Chloride Level 102 MEQ/L 106 MEQ/L Carbon Dioxide Level 24.5 MEQ/L 25.0 MEQ/L Anion Gap 9 MEQ/L 7 MEQ/L Estimat Glomerular Filtration Rate 91 ML/MIN 57 ML/MIN Total Protein 6.2 GM/DL Albumin 2.3 GM/DL Phosphorus Level 2.0 MG/DL Alkaline Phosphatase 225 U/L Aspartate Amino Transf (AST/SGOT) 111 U/L Alanine Aminotransferase (ALT/SGPT) 41 U/L Total Bilirubin 23.0 MG/DL Imaging Last Impressions Abdomen Ultrasound 09/07/17 0000 Signed Impressions: Service Date/Time: Thursday, September 07, 2017 14:51 - CONCLUSION: Ascities without distention. With slight progression. There is enough ascites for a diagnostic tap. Dontrell Canela MD FACR Chest X-Ray 09/06/17 0000 Signed Impressions: Service Date/Time: August 05:19 - CONCLUSION: Bibasilar atelectasis slightly improved in the right lung base. Derian Man MD Abdomen/Pelvis CT 08/26/17 0000 Signed Impressions: Service Date/Time: Saturday, August 26, 2017 17:17 - CONCLUSION: 1. Hepatosplenomegaly with diffusely abnormal hepatic texture. 2. Persistent consolidating airspace disease in the right lower lobe. 3. Small amount of ascites still present. 4. Increasing anasarca. 5. Colonic wall thickening and edema characteristic of colitis as previously described. 6. No significant change. Kamron Rollins MD Cholangiopancreatography MRI 08/24/17 0000 Signed Impressions: Service Date/Time: Thursday, August 24, 2017 18:15 - CONCLUSION: 1. Hepatosplenomegaly. 2. Mild ascites in the right paracolic gutter region. 3. No dilatation of the biliary system. 4. Contracted gallbladder without stones. The gallbladder wall thickening may be secondary to lack of distention. 5. Thickening of the proximal transverse colon. 6. Consolidation or atelectasis in the right lower lobe with a minimal right effusion. Rohith Harman MD Abdomen X-Ray 08/22/17 0000 Signed Impressions: Service Date/Time: Tuesday, August 22, 2017 13:39 - CONCLUSION: Benign abdomen. Tay Valdes MD Physical Exam GENERAL: Well-nourished, well-developed female patient in NAD. Awake and alert. SKIN: Warm and dry. No rash. Severely jaundiced. Ecchymoses HEAD: Normocephalic. Atraumatic. EYES: Pupils equal and round. EOMI. Prominent sclera icterus. ENT: No nasal bleeding or discharge. Mucous membranes pink and moist. NECK: Supple. Trachea midline. CARDIOVASCULAR: Tachycardic. S1, S2 noted. No murmur appreciated. RESPIRATORY: Mildly labored. Diminished in bases R>L. GASTROINTESTINAL: Abdomen soft , distended, diffuse mild tenderness to palpation. Most tenderness in LUQ now MUSCULOSKELETAL: No obvious deformities.Massive 4+ pitting edema in bilateral thighs down. Pitting edema extends up into abdomen and back. NEUROLOGICAL: Awake and alert. No obvious cranial nerve deficits. Motor grossly within normal limits. Able to move all extremities. Normal speech. PSYCHIATRIC: Appropriate mood and affect; insight and judgment normal. 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 S/p EGD and colonoscopy with no significant findings -trial of steroids started 08/29 Anasarca -on IV Lasix -insufficient fluid volume for paracentesis previously -patient with c/o increased abdominal girth and difficulty breathing -?worsening on Zosyn Leukocytosis - worsening -CRP 8.30, ESR 75 - slowly improving, most consistent with leukemoid reaction - potentially high dose sterroids contributing Colitis omn the CT, but c.diff is negative Severe coagulopathy secondary to liver failure Sputum with steno malt ? colonisation vs true infx R base infiltrate -? PNA Pt 's worsening liver failure is very concerning, prognosis is guarded RECOMMENDATIONS: dc flagyl 2/2 liver impaierment cont levaquine repeat CT A/P Hope Mota MD Sep 08, 2017 18:26
[2017-09-08] MEDS ORDERED: DIATRIZOATE MEGLUM/DIATRIZOATE SOD 9 ML CUP PO ONE (19:00)
[2017-09-08 20:56] VITALS: BP 121/63; PULSE 123; RESP 18; TEMP 97.9; O2SAT 99
--- NOTE | 2017-09-08 21:21 | PD.CARD.PN ---
Subjective Subjective Remarks tired Objective Medications Current Medications Medications (Trade) Dose Ordered Sig/[place] Route Start Time Stop Time Status Last Admin (NS Flush) 2 ml UNSCH PRN IV FLUSH 08/19/17 13:30 09/01/17 05:05 (NS Flush) 2 ml BID IV FLUSH 08/19/17 21:00 09/08/17 19:53 (Tylenol) 500 mg Q4H PRN PO 08/19/17 13:30 (Zofran Inj) 4 mg Q6H PRN IVP 08/19/17 13:30 09/05/17 17:33 (Narcan Inj) 0.4 mg UNSCH PRN IV PUSH 08/19/17 13:30 (Milk Of Magnesia Liq) 30 ml Q12H PRN PO 08/19/17 13:30 (Senokot) 17.2 mg Q12H PRN PO 08/19/17 13:30 08/22/17 08:36 (Dulcolax Supp) 10 mg DAILY PRN RECTAL 08/19/17 13:30 (TRENtal SR) 400 mg Q8HR PO 08/19/17 22:00 Future Hold 09/01/17 12:46 (Vitamin B1) 100 mg DAILY PO 08/22/17 09:00 09/08/17 08:05 (Folate) 1 mg DAILY PO 08/19/17 21:00 09/08/17 08:05 (Reglan Inj) 5 mg Q6H PRN IV PUSH 08/21/17 10:15 09/08/17 08:11 (Compazine Supp) 25 mg Q12H PRN RECTAL 08/21/17 10:15 (Lactulose Liq) 30 ml TID PO 08/22/17 15:30 09/08/17 17:15 (Mucinex Er) 600 mg BID PO 08/24/17 14:00 09/08/17 19:54 (Duoneb Neb) 1 ampule Q4HR NEB PRN NEB 08/24/17 13:30 (Aldactone) 100 mg DAILY PO 08/25/17 17:45 09/08/17 08:05 (Morphine Inj) 2 mg Q4HR PRN IV PUSH 08/27/17 11:30 09/08/17 05:46 (Roxicodone) 5 mg Q4H PRN PO 08/28/17 10:00 09/02/17 17:16 (Roxicodone) 10 mg Q4H PRN PO 08/28/17 10:00 09/08/17 19:54 (Lasix Inj) 40 mg BID@,18 IV PUSH 08/30/17 18:00 09/08/17 17:15 (Chapstick) 1 applic UNSCH PRN TOPICAL 08/30/17 14:00 08/30/17 15:10 (Tums Chew) 500 mg Q2H PRN CHEW 08/30/17 14:30 09/07/17 05:17 (KCl) 30 meq BID PO 08/31/17 21:00 09/08/17 20:02 (Pepcid) 20 mg BID PO 09/01/17 21:00 09/08/17 19:53 (Flonase [place] Spr) 2 spray DAILY EACH NARE 09/01/17 12:00 09/08/17 08:11 (Claritin) 10 mg DAILY PO 09/01/17 12:00 09/08/17 08:05 (Levaquin) 750 mg Q24H PO 09/06/17 13:00 09/08/17 13:44 (Mycostatin Liq) 5 ml QID SWISH-SWAL 09/05/17 13:00 09/08/17 19:53 (Ativan) 2 mg Q8H PRN PO 09/06/17 12:00 09/08/17 08:10 Vital Signs / I&O Vital Signs Date Time Temp Pulse Resp B/P (MAP) Pulse Ox O2 Delivery O2 Flow Rate FiO2 09/08/17 21:06 18 09/08/17 20:56 97.9 123 18 121/63 (82) 99 09/08/17 15:51 98.6 121 18 103/71 (82) 95 09/08/17 12:32 97.9 111 20 100/60 (73) 96 09/08/17 08:26 97.4 120 20 105/55 (72) 95 09/08/17 05:54 18 09/08/17 03:20 98.3 112 20 108/58 (75) 97 09/08/17 00:20 97.6 110 18 110/59 (76) 98 09/07/17 21:30 98.1 117 19 106/56 (73) 96 I/O 09/07/17 09/07/17 09/07/17 09/08/17 09/08/17 09/08/17 07:00 15:00 23:00 07:00 15:00 23:00 Intake Total 200 ml 400 ml 0 ml 660 ml Output Total 1325 ml 750 ml 1400 ml Balance -1125 ml -350 ml -1400 ml 660 ml Intake Oral 200 ml 300 ml 0 ml 660 ml IV Total 100 ml Output Urine Total 1300 ml 750 ml 1400 ml Stool Total 25 ml # Voids 3 # Bowel Movements 3 3 3 Physical Exam GENERAL: chronically ill appearance SKIN: Warm and dry. HEAD: Atraumatic. Normocephalic. EYES: Pupils equal and round. No scleral icterus. No injection or drainage. ENT: No nasal bleeding or discharge. Mucous membranes pink and moist. NECK: Trachea midline. + JVD. CARDIOVASCULAR: tachycardic, regular rhythm. no murmurs RESPIRATORY: No accessory muscle use. Clear to auscultation. Breath sounds equal bilaterally. GASTROINTESTINAL: Abdomen soft, distended. MUSCULOSKELETAL: Extremities without clubbing, cyanosis. 2+ bilateral lower leg edema, NEUROLOGICAL: Awake and alert. No obvious cranial nerve deficits. Normal speech. PSYCHIATRIC: Appropriate mood and affect; insight and judgment normal. Laboratory Laboratory Tests Test 09/08/17 10:59 White Blood Count 26.1 TH/MM3 Red Blood Count 2.07 MIL/MM3 Hemoglobin 7.8 GM/DL Hematocrit 23.1 % Mean Corpuscular Volume 111.7 FL Mean Corpuscular Hemoglobin 37.7 PG Mean Corpuscular Hemoglobin Concent 33.7 % Red Cell Distribution Width 16.9 % Platelet Count 164 TH/MM3 Mean Platelet Volume 7.7 FL CBC Comment AUTO DIFF Differential Total Cells Counted 100 Neutrophils % (Manual) 88 % Band Neutrophils % 6 % Lymphocytes % 2 % Monocytes % 4 % Neutrophils # (Manual) 24.5 TH/MM3 Differential Comment FINAL DIFF MANUAL Platelet Estimate NORMAL Platelet Morphology Comment NORMAL Prothrombin Time 24.8 SEC Prothromb Time International Ratio 2.5 RATIO Blood Urea Nitrogen 25 MG/DL Creatinine 1.07 MG/DL Random Glucose 138 MG/DL Total Protein 6.2 GM/DL Albumin 2.3 GM/DL Calcium Level 8.6 MG/DL Phosphorus Level 2.0 MG/DL Alkaline Phosphatase 225 U/L Aspartate Amino Transf (AST/SGOT) 111 U/L Alanine Aminotransferase (ALT/SGPT) 41 U/L Total Bilirubin 23.0 MG/DL Sodium Level 138 MEQ/L Potassium Level 4.3 MEQ/L Chloride Level 106 MEQ/L Carbon Dioxide Level 25.0 MEQ/L Anion Gap 7 MEQ/L Estimat Glomerular Filtration Rate 57 ML/MIN Assessment and Plan Problem List: (1) Alcoholic liver disease ICD Codes: K70.9 - Alcoholic liver disease, unspecified (2) Cirrhosis ICD Codes: K74.60 - Unspecified cirrhosis of liver Status: Acute (3) Anasarca ICD Codes: R60.1 - Generalized edema Assessment and Plan 42 yo WF with history of alcohol abuse and GERD who presented on 08/19/17 with abdominal distention, vaginal bleeding and possible sepsis. Imaging has revealed anasarca and hepatosplenomegaly. She has severe coagulopathy with liver failure, acute kidney injury and leukocytosis. we have been asked to evaluate for CHF. Echo 09/07/17 showed LVEF 60%. Trace TR. Diffuse edema likely due to portal hypertension, acute liver and kidney injury. Continue low salt diet, fluid restriction. No further recommendation from cardiology standpoint. Will sign off for now. Wing Chen Metcalf MD Sep 08, 2017 21:21
[2017-09-08] MEDS ORDERED: IOHEXOL 350 MG/ML 10 ML VIAL (for RAD DIAG) IVCONTRAST ONE (23:08)
--- NOTE | 2017-09-08 23:14 | RADRPT ---
EXAM DATE/TIME: 09/08/2017 23:00 [facility] COMPARISON: CT ABDOMEN & PELVIS W CONTRAST, August 26, 2017, 17:17. INDICATIONS : Abdominal pain. IV CONTRAST: 80 cc Omnipaque 350 (iohexol) IV ORAL CONTRAST: Prescribed oral contrast ingested. RADIATION DOSE: 10.15 CTDIvol (mGy) MEDICAL HISTORY : Seizures. SURGICAL HISTORY : Appendectomy. Neuro surgery ENCOUNTER: Initial ACUITY: 1 day PAIN SCALE: 6/10 LOCATION: abdomen TECHNIQUE: Volumetric scanning of the abdomen and pelvis was performed. Using automated exposure control and ad justment of the mA and/or kV according to patient size, radiation dose was kept as low as reasonably achievable to obtain optimal diagnostic quality images. DICOM format image data is available electro nically for review and comparison. FINDINGS: Small right effusion and bibasilar atelectasis is present Small mild ascites remains. There is hepatosplenomegaly. There is gallbladder wall thickening with pe richolecystic fluid which is nonspecific in the face of ascites. The pancreas demonstrates no evidenc e of mass and there is no dilatation of the pancreatic duct. The adrenal glands and kidneys appear no rmal bilaterally. No hydronephrosis or mass lesions are identified. The portal vein remains patent. N o pelvic masses are identified. CONCLUSION: 1. Continued hepatomegaly and ascites. No evidence of acute abdominal or pelvic process. No masses ar e identified. 2. Decreasing colonic wall thickening characteristic of resolving colitis Andres Machuca MD on September 08, 2017 at 23:09 Board Certified Radiologist. This report was verified electronically.
[2017-09-09] VITALS (8 sets, daily range): BP systolic 93–105; BP diastolic 55–61; PULSE 70–127; RESP 18–20; TEMP 98–99.2; O2SAT 94–97
[2017-09-09] MEDS: MORPHINE SULFATE 4 MG/ML INJ IV PUSH PRN (03:07)
[2017-09-09] MEDS: LORazepam 2 MG TAB PO PRN (03:10)
[2017-09-09 08:10] LABS: AUTOMATED NEUTROPHIL # 22.3 TH/MM3 (1.8-7.7); BASOPHIL % 0.2 % (0.0-2.0); EOSINOPHIL # 0.2 TH/MM3 (0-0.4); EOSINOPHIL % 0.9 % (0.0-4.0); HEMATOCRIT 23.7 % (35.0-46.0); HEMOGLOBIN 8.1 GM/DL (11.6-15.3); LYMPH % 5.2 % (9.0-44.0); LYMPHOCYTE # 1.3 TH/MM3 (1.0-4.8); MEAN CELL VOLUME 112.3 FL (80.0-100.0); MEAN CORPUSCULAR HEMOGLOBIN 38.4 PG (27.0-34.0); MEAN CORPUSCULAR HGB CONC 34.2 % (32.0-36.0); MEAN PLATELET VOLUME 7.5 FL (7.0-11.0); MONOCYTE # 1.3 TH/MM3 (0-0.9); NEUT % 88.7 % (16.0-70.0); PLATELET COUNT 157 TH/MM3 (150-450); RED BLOOD COUNT 2.11 MIL/MM3 (4.00-5.30); RED CELL DISTRIBUTION WIDTH 16.2 % (11.6-17.2); WHITE BLOOD COUNT 25.1 TH/MM3 (4.0-11.0)
[2017-09-09 08:20] LABS: INTERNATIONAL NORMALIZED RATIO 2.5 RATIO
[2017-09-09 08:28] LABS: PHOSPHORUS 2.3 MG/DL (2.5-4.9)
[2017-09-09 08:32] LABS: ALBUMIN 2.2 GM/DL (3.4-5.0); BICARBONATE 24.4 MEQ/L (21.0-32.0); CALCIUM 8.4 MG/DL (8.5-10.1); CREATININE 0.98 MG/DL (0.50-1.00); MAGNESIUM 1.6 MG/DL (1.5-2.5)
[2017-09-09] MEDS: FAMOTIDINE 20 MG TAB PO SCH ×2 (08:38→23:28)
[2017-09-09] MEDS: FOLIC ACID 1 MG TAB PO SCH (08:38)
[2017-09-09] MEDS: THIAMINE HCL 100 MG TAB PO SCH (08:38)
[2017-09-09] MEDS: guaiFENesin E.R. 600 MG TAB PO SCH ×2 (08:38→23:28)
[2017-09-09] MEDS: SPIRONOLACTONE 100 MG TAB PO SCH (08:38)
[2017-09-09] MEDS: LACTULOSE SYRUP 20 GM/30 ML CUP PO SCH ×3 (08:38→16:25)
[2017-09-09] MEDS: NYSTATIN SUSP 500,000 U/5 ML CUP SWISH-SWAL SCH ×4 (08:38→23:27)
[2017-09-09] MEDS: LORATADINE 10 MG TAB PO SCH (08:38)
[2017-09-09] MEDS: POTASSIUM CHLORIDE 10 MEQ CAP PO SCH (08:38)
[2017-09-09] MEDS: FUROSEMIDE 40 MG/4 ML VIAL IV PUSH SCH ×2 (08:38→16:25)
[2017-09-09] MEDS: FLUTICASONE PROPIONATE 50 MCG/ACT 16 GM NASAL SPRAY EACH NARE SCH (08:39)
[2017-09-09] MEDS: SODIUM CHLORIDE 0.9% FLUSH 10 ML FLUSH IV FLUSH SCH ×2 (08:39→23:29)
[2017-09-09] MEDS: LEVOFLOXACIN 750 MG TAB PO SCH (11:38)
[2017-09-09 14:58] LABS: INTERNATIONAL NORMALIZED RATIO 2.2 RATIO; PROTHROMBIN TIME - PATIENT 22.1 SEC (9.8-11.6)
--- NOTE | 2017-09-09 15:22 | HHI.IDPN ---
Subjective Subjective Remarks Pt cont to have same complaints remains afebrile with WBC in 25 K Not tapped today as INR was 2.5 CT did not showed any abscesses Antibiotics levaquine Lines PIV line without any e/o infection Past Medical History EtOH abuse GERD Allergies: Coded Allergies: Sulfa (Sulfonamide Antibiotics) (Verified Allergy, Unknown, 07/28/17) Objective . Vital Signs Date Time Temp Pulse Resp B/P (MAP) Pulse Ox O2 Delivery O2 Flow Rate FiO2 09/09/17 12:41 99.2 115 18 93/55 (68) 97 09/09/17 07:42 98.6 116 18 103/57 (72) 94 09/09/17 07:25 18 09/09/17 05:38 99.2 120 18 102/61 (75) 96 09/09/17 03:12 18 09/09/17 01:33 98.4 127 18 101/57 (72) 97 09/08/17 20:56 97.9 123 18 121/63 (82) 99 09/08/17 15:51 98.6 121 18 103/71 (82) 95 09/09/17 09/09/17 09/10/17 15:00 23:00 07:00 Intake Total 240 ml Balance 240 ml Intake Oral 240 ml . Laboratory Tests Test 09/08/17 10:59 09/09/17 07:29 White Blood Count 26.1 TH/MM3 25.1 TH/MM3 Red Blood Count 2.07 MIL/MM3 2.11 MIL/MM3 Hemoglobin 7.8 GM/DL 8.1 GM/DL Hematocrit 23.1 % 23.7 % Mean Corpuscular Volume 111.7 FL 112.3 FL Mean Corpuscular Hemoglobin 37.7 PG 38.4 PG Mean Corpuscular Hemoglobin Concent 33.7 % 34.2 % Red Cell Distribution Width 16.9 % 16.2 % Platelet Count 164 TH/MM3 157 TH/MM3 Mean Platelet Volume 7.7 FL 7.5 FL CBC Comment AUTO DIFF DIFF FINAL Differential Total Cells Counted 100 Neutrophils % (Manual) 88 % Band Neutrophils % 6 % Lymphocytes % 2 % Monocytes % 4 % Neutrophils # (Manual) 24.5 TH/MM3 Differential Comment FINAL DIFF MANUAL Platelet Estimate NORMAL Platelet Morphology Comment NORMAL Neutrophils (%) (Auto) 88.7 % Lymphocytes (%) (Auto) 5.2 % Monocytes (%) (Auto) 5.0 % Eosinophils (%) (Auto) 0.9 % Basophils (%) (Auto) 0.2 % Neutrophils # (Auto) 22.3 TH/MM3 Lymphocytes # (Auto) 1.3 TH/MM3 Monocytes # (Auto) 1.3 TH/MM3 Eosinophils # (Auto) 0.2 TH/MM3 Basophils # (Auto) 0.0 TH/MM3 Laboratory Tests Test 09/08/17 10:59 09/09/17 07:29 Blood Urea Nitrogen 25 MG/DL 26 MG/DL Creatinine 1.07 MG/DL 0.98 MG/DL Random Glucose 138 MG/DL 99 MG/DL Total Protein 6.2 GM/DL Albumin 2.3 GM/DL 2.2 GM/DL Calcium Level 8.6 MG/DL 8.4 MG/DL Phosphorus Level 2.0 MG/DL 2.3 MG/DL Alkaline Phosphatase 225 U/L Aspartate Amino Transf (AST/SGOT) 111 U/L Alanine Aminotransferase (ALT/SGPT) 41 U/L Total Bilirubin 23.0 MG/DL Sodium Level 138 MEQ/L 137 MEQ/L Potassium Level 4.3 MEQ/L 4.1 MEQ/L Chloride Level 106 MEQ/L 103 MEQ/L Carbon Dioxide Level 25.0 MEQ/L 24.4 MEQ/L Anion Gap 7 MEQ/L 10 MEQ/L Estimat Glomerular Filtration Rate 57 ML/MIN 63 ML/MIN Magnesium Level 1.6 MG/DL Imaging Last Impressions Abdomen/Pelvis CT 09/08/17 0000 Signed Impressions: Service Date/Time: Friday, September 08, 2017 23:00 - CONCLUSION: 1. Continued hepatomegaly and ascites. No evidence of acute abdominal or pelvic process. No masses are identified. 2. Decreasing colonic wall thickening characteristic of resolving colitis Andres Machuca MD Abdomen Ultrasound 09/07/17 0000 Signed Impressions: Service Date/Time: Thursday, September 07, 2017 14:51 - CONCLUSION: Ascities without distention. With slight progression. There is enough ascites for a diagnostic tap. Dontrell Canela MD FACR Chest X-Ray 09/06/17 0000 Signed Impressions: Service Date/Time: August 05:19 - CONCLUSION: Bibasilar atelectasis slightly improved in the right lung base. Derian Man MD Cholangiopancreatography MRI 08/24/17 0000 Signed Impressions: Service Date/Time: Thursday, August 24, 2017 18:15 - CONCLUSION: 1. Hepatosplenomegaly. 2. Mild ascites in the right paracolic gutter region. 3. No dilatation of the biliary system. 4. Contracted gallbladder without stones. The gallbladder wall thickening may be secondary to lack of distention. 5. Thickening of the proximal transverse colon. 6. Consolidation or atelectasis in the right lower lobe with a minimal right effusion. Rohith Harman MD Abdomen X-Ray 08/22/17 0000 Signed Impressions: Service Date/Time: Tuesday, August 22, 2017 13:39 - CONCLUSION: Benign abdomen. Tay Valdes MD Physical Exam GENERAL: Well-nourished, well-developed female patient in NAD. Awake and alert. SKIN: Warm and dry. No rash. Severely jaundiced. Ecchymoses HEAD: Normocephalic. Atraumatic. EYES: Pupils equal and round. EOMI. Prominent sclera icterus. ENT: No nasal bleeding or discharge. Mucous membranes pink and moist. NECK: Supple. Trachea midline. CARDIOVASCULAR: Tachycardic. S1, S2 noted. No murmur appreciated. RESPIRATORY: Mildly labored. Diminished in bases R>L. GASTROINTESTINAL: Abdomen soft , distended, diffuse mild tenderness to palpation. Most tenderness in LUQ now MUSCULOSKELETAL: No obvious deformities.Massive 4+ pitting edema in bilateral thighs down. Pitting edema extends up into abdomen and back. NEUROLOGICAL: Awake and alert. No obvious cranial nerve deficits. Motor grossly within normal limits. Able to move all extremities. Normal speech. PSYCHIATRIC: Appropriate mood and affect; insight and judgment normal. 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 S/p EGD and colonoscopy with no significant findings -trial of steroids started 08/29 Anasarca -on IV Lasix -insufficient fluid volume for paracentesis previously -patient with c/o increased abdominal girth and difficulty breathing -?worsening on Zosyn Leukocytosis - worsening -CRP 8.30, ESR 75 - slowly improving, most consistent with leukemoid reaction - potentially high dose sterroids contributing Colitis omn the CT, but c.diff is negative Severe coagulopathy secondary to liver failure Sputum with steno malt ? colonisation vs true infx R base infiltrate -? PNA Pt 's worsening liver failure is very concerning, prognosis is guarded RECOMMENDATIONS: cont levaquine awaiting paracenthesis with clx, cell count after correction of cougulopathy dw Dr Celestine Mota,Hoep Melchor MD Sep 09, 2017 15:22
--- NOTE | 2017-09-09 17:28 | HHI.PR ---
Subjective Remarks Says it abdominal distention slightly improved today. Denies any chest pain or shortness of breath. Denies any nausea or vomiting. Objective Vital Signs Date Time Temp Pulse Resp B/P (MAP) Pulse Ox O2 Delivery O2 Flow Rate FiO2 09/09/17 16:50 98.7 114 18 101/59 97 09/09/17 16:25 98.7 70 20 101/55 (70) 96 09/09/17 12:41 99.2 115 18 93/55 (68) 97 09/09/17 07:42 98.6 116 18 103/57 (72) 94 09/09/17 07:25 18 09/09/17 05:38 99.2 120 18 102/61 (75) 96 09/09/17 03:12 18 09/09/17 01:33 98.4 127 18 101/57 (72) 97 09/08/17 20:56 97.9 123 18 121/63 (82) 99 I/O 09/08/17 09/08/17 09/08/17 09/09/17 09/09/17 09/09/17 06:59 14:59 22:59 06:59 14:59 22:59 Intake Total 0 ml 660 ml 120 ml 240 ml Output Total 1400 ml 300 ml Balance -1400 ml 660 ml 120 ml 240 ml -300 ml Intake Oral 0 ml 660 ml 120 ml 240 ml Output Urine Total 1400 ml 300 ml # Bowel Movements 3 1 Result Diagram: 09/09/1729 09/09/17728 Objective Remarks GENERAL: Patient walking in room, sitting on edge of bed. Appears comfortable. Alert and oriented 3. SKIN: Warm and dry. HEAD: Normocephalic. EYES: No scleral icterus. No injection or drainage. NECK: Supple, trachea midline. JVD improved. CARDIOVASCULAR: Regular rate and rhythm without murmurs, gallops, or rubs. RESPIRATORY: Breath sounds equal bilaterally. No accessory muscle use. GASTROINTESTINAL: Abdomen soft, mild tenderness to palpation. No rebound or guarding. Distended. About the same as yesterday. MUSCULOSKELETAL: No cyanosis, or edema. BACK: Nontender without obvious deformity. No CVA tenderness. A/P Assessment and Plan 09/09. //sepsis. White count 25.1. Stable. Worsening. //Patient will need paracentesis to rule out SBP. I and Dr. Mota have discussed with radiology. INR 2.5. Needs to be below 2.0. Have ordered 2 units of FFP, with repeat INR afterwards. Plan for paracentesis tomorrow morning after INR is less than 2.0 //CHF exacerbation. Still with fluid overload. Creatinine improved. Give extra Lasix today as patient is receiving FFP. //Anemia. Hemoglobin 8.1. Overall stable.. No signs of bleeding. We will continue to monitor. //Hypophosphatemia. Improved after replacement. 2.3. Continue to monitor. // Severe sepsis: Possibly secondary to spontaneous bacterial peritonitis. Continue IV antibiotics. Patient remains afebrile. Appreciate GI recommendations. Still with tachycardia, leukocytosis. Appreciate infectious disease recommendations. //Colitis: Continue Zosyn. Appreciate infectious disease recommendations. // Alcoholic hepatitis, liver failure: Appreciate GI recommendations. Repeat ultrasound showed too little fluid to perform paracentesis again. Continue lactulose. Pentoxifylline on hold. dc Solu-Medrol. // Alcohol abuse: CIWA protocol discontinued. Continue thiamine, folic acid. Patient has been counseled. //Leukocytosis: Appreciate hematology recommendations. Monitor labs. WBCs slightly better today. //CHF exacerbation. BNP in the 1300s, JVD on exam. Check echocardiogram. Consult cardiology for new CHF. Increase fluid restrictions. // Hypokalemia: Continue potassium supplementation. Monitor labs. Serum potassium now within normal limits. //Acute kidney injury: Improving. //Severe coagulopathy: Secondary to liver failure. Monitor labs. Monitor for bleeding. INR remains elevated. //Vaginal bleeding: Patient reports menstrual bleeding for most of the past month. Appreciate gynecology recommendations. Follow up as outpatient. H/H stable. //Pneumonia: Sputum culture growing gram negative carl. Continue antibiotics per ID. //Edema/anasarca: Continue Lasix, spironolactone. Discharge Planning Pending improvement Cardiology and ID following. Arpit Sprague MD Sep 09, 2017 17:27
[2017-09-09] MEDS ORDERED: MAGNESIUM SULFATE 1 GM PREMIX 100 ML IV ONE ×2 (17:30→19:30)
[2017-09-09] MEDS ORDERED: FUROSEMIDE 40 MG TAB PO ONE (17:30)
--- NOTE | 2017-09-09 18:27 | PD.CARD.PN ---
Subjective Subjective Remarks Feels better today, sitting up for dinner Objective Medications Current Medications Medications (Trade) Dose Ordered Sig/[place] Route Start Time Stop Time Status Last Admin (NS Flush) 2 ml UNSCH PRN IV FLUSH 08/19/17 13:30 09/01/17 05:05 (NS Flush) 2 ml BID IV FLUSH 08/19/17 21:00 09/09/17 08:39 (Tylenol) 500 mg Q4H PRN PO 08/19/17 13:30 (Zofran Inj) 4 mg Q6H PRN IVP 08/19/17 13:30 09/05/17 17:33 (Narcan Inj) 0.4 mg UNSCH PRN IV PUSH 08/19/17 13:30 (Milk Of Magnesia Liq) 30 ml Q12H PRN PO 08/19/17 13:30 (Senokot) 17.2 mg Q12H PRN PO 08/19/17 13:30 08/22/17 08:36 (Dulcolax Supp) 10 mg DAILY PRN RECTAL 08/19/17 13:30 (TRENtal SR) 400 mg Q8HR PO 08/19/17 22:00 Future Hold 09/01/17 12:46 (Vitamin B1) 100 mg DAILY PO 08/22/17 09:00 09/09/17 08:38 (Folate) 1 mg DAILY PO 08/19/17 21:00 09/09/17 08:38 (Reglan Inj) 5 mg Q6H PRN IV PUSH 08/21/17 10:15 09/08/17 08:11 (Compazine Supp) 25 mg Q12H PRN RECTAL 08/21/17 10:15 (Lactulose Liq) 30 ml TID PO 08/22/17 15:30 09/09/17 16:25 (Mucinex Er) 600 mg BID PO 08/24/17 14:00 09/09/17 08:38 (Duoneb Neb) 1 ampule Q4HR NEB PRN NEB 08/24/17 13:30 (Aldactone) 100 mg DAILY PO 08/25/17 17:45 09/09/17 08:38 (Morphine Inj) 2 mg Q4HR PRN IV PUSH 08/27/17 11:30 09/09/17 03:07 (Roxicodone) 5 mg Q4H PRN PO 08/28/17 10:00 09/02/17 17:16 (Roxicodone) 10 mg Q4H PRN PO 08/28/17 10:00 09/09/17 11:38 (Lasix Inj) 40 mg BID@,18 IV PUSH 08/30/17 18:00 09/09/17 16:25 (Chapstick) 1 applic UNSCH PRN TOPICAL 08/30/17 14:00 08/30/17 15:10 (Tums Chew) 500 mg Q2H PRN CHEW 08/30/17 14:30 09/07/17 05:17 (KCl) 30 meq BID PO 08/31/17 21:00 09/09/17 08:38 (Pepcid) 20 mg BID PO 09/01/17 21:00 09/09/17 08:38 (Flonase [place] Spr) 2 spray DAILY EACH NARE 09/01/17 12:00 09/09/17 08:39 (Claritin) 10 mg DAILY PO 09/01/17 12:00 09/09/17 08:38 (Levaquin) 750 mg Q24H PO 09/06/17 13:00 09/09/17 11:38 (Mycostatin Liq) 5 ml QID SWISH-SWAL 09/05/17 13:00 09/09/17 16:25 (Ativan) 2 mg Q8H PRN PO 09/06/17 12:00 09/09/17 03:10 Magnesium Sulfate/ Dextrose 100 ml @ 100 mls/hr ONCE ONCE IV 09/09/17 17:30 09/09/17 18:29 Vital Signs / I&O Vital Signs Date Time Temp Pulse Resp B/P (MAP) Pulse Ox O2 Delivery O2 Flow Rate FiO2 09/09/17 16:50 98.7 114 18 101/59 97 09/09/17 16:25 98.7 70 20 101/55 (70) 96 09/09/17 12:41 99.2 115 18 93/55 (68) 97 09/09/17 07:42 98.6 116 18 103/57 (72) 94 09/09/17 07:25 18 09/09/17 05:38 99.2 120 18 102/61 (75) 96 09/09/17 03:12 18 09/09/17 01:33 98.4 127 18 101/57 (72) 97 09/08/17 20:56 97.9 123 18 121/63 (82) 99 I/O 09/08/17 09/08/17 09/08/17 09/09/17 09/09/17 09/09/17 07:00 15:00 23:00 07:00 15:00 23:00 Intake Total 0 ml 660 ml 120 ml 240 ml 237 ml Output Total 1400 ml 300 ml Balance -1400 ml 660 ml 120 ml 240 ml -63 ml Intake Oral 0 ml 660 ml 120 ml 240 ml FFP 227 ml Blood Product IV Normal Saline Flush 10 ml Output Urine Total 1400 ml 300 ml # Bowel Movements 3 1 Physical Exam GENERAL: chronically ill appearance SKIN: Warm and dry. HEAD: Atraumatic. Normocephalic. EYES: Pupils equal and round. No scleral icterus. No injection or drainage. ENT: No nasal bleeding or discharge. Mucous membranes pink and moist. NECK: Trachea midline. + JVD. CARDIOVASCULAR: tachycardic, regular rhythm. no murmurs RESPIRATORY: No accessory muscle use. Clear to auscultation. Breath sounds equal bilaterally. GASTROINTESTINAL: Abdomen soft, distended. MUSCULOSKELETAL: Extremities without clubbing, cyanosis. 2+ bilateral lower leg edema, NEUROLOGICAL: Awake and alert. No obvious cranial nerve deficits. Normal speech. PSYCHIATRIC: Appropriate mood and affect; insight and judgment normal. Laboratory Laboratory Tests Test 09/09/17 07:29 09/09/17 14:30 White Blood Count 25.1 TH/MM3 Red Blood Count 2.11 MIL/MM3 Hemoglobin 8.1 GM/DL Hematocrit 23.7 % Mean Corpuscular Volume 112.3 FL Mean Corpuscular Hemoglobin 38.4 PG Mean Corpuscular Hemoglobin Concent 34.2 % Red Cell Distribution Width 16.2 % Platelet Count 157 TH/MM3 Mean Platelet Volume 7.5 FL Neutrophils (%) (Auto) 88.7 % Lymphocytes (%) (Auto) 5.2 % Monocytes (%) (Auto) 5.0 % Eosinophils (%) (Auto) 0.9 % Basophils (%) (Auto) 0.2 % Neutrophils # (Auto) 22.3 TH/MM3 Lymphocytes # (Auto) 1.3 TH/MM3 Monocytes # (Auto) 1.3 TH/MM3 Eosinophils # (Auto) 0.2 TH/MM3 Basophils # (Auto) 0.0 TH/MM3 CBC Comment DIFF FINAL Differential Comment Prothrombin Time 25.0 SEC 22.1 SEC Prothromb Time International Ratio 2.5 RATIO 2.2 RATIO Blood Urea Nitrogen 26 MG/DL Creatinine 0.98 MG/DL Random Glucose 99 MG/DL Albumin 2.2 GM/DL Calcium Level 8.4 MG/DL Phosphorus Level 2.3 MG/DL Magnesium Level 1.6 MG/DL Sodium Level 137 MEQ/L Potassium Level 4.1 MEQ/L Chloride Level 103 MEQ/L Carbon Dioxide Level 24.4 MEQ/L Anion Gap 10 MEQ/L Estimat Glomerular Filtration Rate 63 ML/MIN Assessment and Plan Problem List: (1) Alcoholic liver disease ICD Codes: K70.9 - Alcoholic liver disease, unspecified (2) Cirrhosis ICD Codes: K74.60 - Unspecified cirrhosis of liver Status: Acute (3) Anasarca ICD Codes: R60.1 - Generalized edema Assessment and Plan 42 yo WF with history of alcohol abuse and GERD who presented on 08/19/17 with abdominal distention, vaginal bleeding and possible sepsis. Imaging has revealed anasarca and hepatosplenomegaly. She has severe coagulopathy with liver failure, acute kidney injury and leukocytosis. we have been asked to evaluate for CHF. Echo 09/07/17 showed LVEF 60%. Trace TR. Diffuse edema likely due to portal hypertension, acute liver and kidney injury. Continue low salt diet, fluid restriction. No further recommendation from cardiology standpoint. Will sign off for now. Wing Chen Metcalf MD Sep 09, 2017 18:27
[2017-09-10] VITALS (7 sets, daily range): BP systolic 96–118; BP diastolic 56–59; PULSE 108–121; RESP 18–21; TEMP 97.1–99; O2SAT 95–97
[2017-09-10] MEDS: POTASSIUM CHLORIDE 10 MEQ CAP PO SCH ×3 (00:31→21:07)
[2017-09-10] MEDS: MORPHINE SULFATE 4 MG/ML INJ IV PUSH PRN ×4 (00:32→22:00)
[2017-09-10] MEDS: ONDANSETRON HCL 4 MG/2 ML VIAL IVP PRN ×2 (03:56→21:18)
[2017-09-10 04:30] LABS: AUTOMATED NEUTROPHIL # 20.1 TH/MM3 (1.8-7.7); BASOPHIL # 0.1 TH/MM3 (0-0.2); BASOPHIL % 0.3 % (0.0-2.0); EOSINOPHIL # 0.1 TH/MM3 (0-0.4); EOSINOPHIL % 0.6 % (0.0-4.0); HEMATOCRIT 23.3 % (35.0-46.0); LYMPH % 1.7 % (9.0-44.0); LYMPHOCYTE # 0.4 TH/MM3 (1.0-4.8); MEAN CELL VOLUME 112.5 FL (80.0-100.0); MEAN CORPUSCULAR HEMOGLOBIN 38.9 PG (27.0-34.0); MEAN CORPUSCULAR HGB CONC 34.5 % (32.0-36.0); MEAN PLATELET VOLUME 7.8 FL (7.0-11.0); MONO % 6.1 % (0.0-8.0); MONOCYTE # 1.3 TH/MM3 (0-0.9); NEUT % 91.3 % (16.0-70.0); PLATELET COUNT 150 TH/MM3 (150-450); RED BLOOD COUNT 2.07 MIL/MM3 (4.00-5.30); RED CELL DISTRIBUTION WIDTH 16.2 % (11.6-17.2)
[2017-09-10 04:33] LABS: INTERNATIONAL NORMALIZED RATIO 1.9 RATIO; PROTHROMBIN TIME - PATIENT 19.5 SEC (9.8-11.6)
[2017-09-10 07:28] LABS: ALBUMIN 2.3 GM/DL (3.4-5.0); BICARBONATE 23.7 MEQ/L (21.0-32.0); CALCIUM 8.1 MG/DL (8.5-10.1); CREATININE 1.06 MG/DL (0.50-1.00); PHOSPHORUS 2.6 MG/DL (2.5-4.9)
--- NOTE | 2017-09-10 08:52 | RADRPT ---
EXAM DATE/TIME: 09/10/2017 07:40 [facility] COMPARISON: US ABDOMEN - LOWER LIMITED, September 07, 2017, 14:51. INDICATIONS : Ascites. MEDICAL HISTORY : Gastroesophageal reflux disease. Seizures. Alcohol abuse. SURGICAL HISTORY : Appendectomy. Tonsillectomy. Back surgery x2. ENCOUNTER: Initial ACUITY: 1 month PAIN SCORE: 6/10 LOCATION: Abdomen. AREA EVALUATED: Abdominal quadrants. FINDINGS: Imaging of the abdomen and pelvis was performed to evaluate for ascites for possible paracentesis. CONCLUSION: 1. Trace ascites present. This is of insufficient volume for safe paracentesis. Antonio Willard MD on September 10, 2017 at 8:13 Board Certified Radiologist. This report was verified electronically.
[2017-09-10] MEDS: SODIUM CHLORIDE 0.9% FLUSH 10 ML FLUSH IV FLUSH SCH ×2 (09:00→21:09)
[2017-09-10] MEDS: FUROSEMIDE 40 MG/4 ML VIAL IV PUSH SCH ×3 (09:00→18:00)
[2017-09-10] MEDS: FLUTICASONE PROPIONATE 50 MCG/ACT 16 GM NASAL SPRAY EACH NARE SCH (10:25)
[2017-09-10] MEDS: THIAMINE HCL 100 MG TAB PO SCH (10:26)
[2017-09-10] MEDS: FAMOTIDINE 20 MG TAB PO SCH ×2 (10:27→21:06)
[2017-09-10] MEDS: NYSTATIN SUSP 500,000 U/5 ML CUP SWISH-SWAL SCH ×4 (10:27→21:00)
[2017-09-10] MEDS: LORATADINE 10 MG TAB PO SCH (10:27)
[2017-09-10] MEDS: LACTULOSE SYRUP 20 GM/30 ML CUP PO SCH ×3 (10:27→18:26)
[2017-09-10] MEDS: guaiFENesin E.R. 600 MG TAB PO SCH ×2 (10:27→21:07)
[2017-09-10] MEDS: FOLIC ACID 1 MG TAB PO SCH (10:27)
[2017-09-10] MEDS: SPIRONOLACTONE 100 MG TAB PO SCH (10:37)
[2017-09-10] MEDS: LEVOFLOXACIN 750 MG TAB PO SCH (13:18)
--- NOTE | 2017-09-10 13:55 | HHI.PR ---
Subjective Remarks She says she is still experiencing abdominal discomfort. Denies any chest pain or shortness of breath. Objective Vital Signs Date Time Temp Pulse Resp B/P (MAP) Pulse Ox O2 Delivery O2 Flow Rate FiO2 09/10/17 13:22 111 100/58 (72) 09/10/17 08:00 97.5 112 18 96/56 (69) 95 09/10/17 05:34 98.3 115 20 118/57 (77) 95 09/10/17 01:00 99.0 121 20 105/59 (74) 97 09/09/17 20:00 98.0 117 18 105/59 (74) 97 09/09/17 19:10 98.0 112 18 105/59 97 09/09/17 16:50 98.7 114 18 101/59 97 09/09/17 16:25 98.7 70 20 101/55 (70) 96 I/O 09/09/17 09/09/17 09/09/17 09/10/17 09/10/17 09/10/17 07:00 15:00 23:00 07:00 15:00 23:00 Intake Total 120 ml 240 ml 594 ml 521 ml Output Total 300 ml 800 ml Balance 120 ml 240 ml 294 ml -279 ml Intake Oral 120 ml 240 ml 421 ml IV Total 100 ml FFP 574 ml Blood Product IV Normal Saline Flush 20 ml Output Urine Total 300 ml 800 ml # Bowel Movements 1 1 Result Diagram: 09/10/17 0342 09/10/17 0612 Objective Remarks GENERAL: Patient walking in room, sitting on edge of bed. Appears comfortable. Alert and oriented 3. SKIN: Warm and dry. HEAD: Normocephalic. EYES: No scleral icterus. No injection or drainage. NECK: Supple, trachea midline. JVD improved. CARDIOVASCULAR: Regular rate and rhythm without murmurs, gallops, or rubs. RESPIRATORY: Breath sounds equal bilaterally. No accessory muscle use. GASTROINTESTINAL: Abdomen soft, mild tenderness to palpation. No rebound or guarding. Distended. Again, about the same as yesterday. MUSCULOSKELETAL: No cyanosis, or edema. BACK: Nontender without obvious deformity. No CVA tenderness. Performed abdominal ultrasound on patient at bedside. There is no ascites visualized, even with repositioning A/P Assessment and Plan 09/10. //sepsis. White count 22, slight decrease. Continues with tachycardia. Discussed with infectious disease, and radiology. Radiology says there is no ascites to do tap. I have directly visualized using ultrasound myself at bedside, and even with repositioning, there is no ascites available for tapping. Could be SBP. //CHF exacerbation. Diastolic. Echo with normal ejection fraction. Creatinine stable. Hold off on diuresis for now. //Anemia. Hemoglobin 8.0. Overall stable.. No signs of bleeding. We will continue to monitor. //Hypophosphatemia. Improved after replacement. 2.3. Continue to monitor. // Severe sepsis: Possibly secondary to spontaneous bacterial peritonitis. Continue IV antibiotics. Patient remains afebrile. Appreciate GI recommendations. Still with tachycardia, leukocytosis. Appreciate infectious disease recommendations. //Colitis: Continue Zosyn. Appreciate infectious disease recommendations. // Alcoholic hepatitis, liver failure: Appreciate GI recommendations. Repeat ultrasound showed too little fluid to perform paracentesis again. Continue lactulose. Pentoxifylline on hold. dc Solu-Medrol. // Alcohol abuse: CIWA protocol discontinued. Continue thiamine, folic acid. Patient has been counseled. //Leukocytosis: Appreciate hematology recommendations. Monitor labs. WBCs slightly better today. //CHF exacerbation. BNP in the 1300s, JVD on exam. Check echocardiogram. Consult cardiology for new CHF. Increase fluid restrictions. // Hypokalemia: Continue potassium supplementation. Monitor labs. Serum potassium now within normal limits. //Acute kidney injury: Improving. //Severe coagulopathy: Secondary to liver failure. Monitor labs. Monitor for bleeding. INR remains elevated. //Vaginal bleeding: Patient reports menstrual bleeding for most of the past month. Appreciate gynecology recommendations. Follow up as outpatient. H/H stable. //Pneumonia: Sputum culture growing gram negative carl. Continue antibiotics per ID. //Edema/anasarca: Continue Lasix, spironolactone. Discharge Planning Pending improvement. ID following. Arpit Sprague MD Sep 10, 2017 13:55
--- NOTE | 2017-09-10 19:50 | HHI.IDPN ---
Subjective Subjective Remarks Pt cont to have same complaints remains afebrile with WBC in 22K Not tapped today - not enough fluid CT did not showed any abscesses BP is low creatinine goes up c/o LUQ abd pain Antibiotics levaquine Lines PIV line without any e/o infection Past Medical History EtOH abuse GERD Allergies: Coded Allergies: Sulfa (Sulfonamide Antibiotics) (Verified Allergy, Unknown, 07/28/17) Objective . Vital Signs Date Time Temp Pulse Resp B/P (MAP) Pulse Ox O2 Delivery O2 Flow Rate FiO2 09/10/17 16:00 98.1 115 18 97/59 (72) 97 09/10/17 13:22 111 100/58 (72) 09/10/17 12:00 97.1 108 21 101/58 (72) 97 09/10/17 08:00 97.5 112 18 96/56 (69) 95 09/10/17 05:34 98.3 115 20 118/57 (77) 95 09/10/17 01:00 99.0 121 20 105/59 (74) 97 09/09/17 20:00 98.0 117 18 105/59 (74) 97 . Laboratory Tests Test 09/09/17 07:29 09/10/17 03:42 White Blood Count 25.1 TH/MM3 22.0 TH/MM3 Red Blood Count 2.11 MIL/MM3 2.07 MIL/MM3 Hemoglobin 8.1 GM/DL 8.0 GM/DL Hematocrit 23.7 % 23.3 % Mean Corpuscular Volume 112.3 FL 112.5 FL Mean Corpuscular Hemoglobin 38.4 PG 38.9 PG Mean Corpuscular Hemoglobin Concent 34.2 % 34.5 % Red Cell Distribution Width 16.2 % 16.2 % Platelet Count 157 TH/MM3 150 TH/MM3 Mean Platelet Volume 7.5 FL 7.8 FL Neutrophils (%) (Auto) 88.7 % 91.3 % Lymphocytes (%) (Auto) 5.2 % 1.7 % Monocytes (%) (Auto) 5.0 % 6.1 % Eosinophils (%) (Auto) 0.9 % 0.6 % Basophils (%) (Auto) 0.2 % 0.3 % Neutrophils # (Auto) 22.3 TH/MM3 20.1 TH/MM3 Lymphocytes # (Auto) 1.3 TH/MM3 0.4 TH/MM3 Monocytes # (Auto) 1.3 TH/MM3 1.3 TH/MM3 Eosinophils # (Auto) 0.2 TH/MM3 0.1 TH/MM3 Basophils # (Auto) 0.0 TH/MM3 0.1 TH/MM3 CBC Comment DIFF FINAL DIFF FINAL Differential Comment Laboratory Tests Test 09/09/17 07:29 09/10/17 06:12 Blood Urea Nitrogen 26 MG/DL 28 MG/DL Creatinine 0.98 MG/DL 1.06 MG/DL Random Glucose 99 MG/DL 125 MG/DL Albumin 2.2 GM/DL 2.3 GM/DL Calcium Level 8.4 MG/DL 8.1 MG/DL Phosphorus Level 2.3 MG/DL 2.6 MG/DL Magnesium Level 1.6 MG/DL 2.0 MG/DL Sodium Level 137 MEQ/L 137 MEQ/L Potassium Level 4.1 MEQ/L 3.9 MEQ/L Chloride Level 103 MEQ/L 103 MEQ/L Carbon Dioxide Level 24.4 MEQ/L 23.7 MEQ/L Anion Gap 10 MEQ/L 10 MEQ/L Estimat Glomerular Filtration Rate 63 ML/MIN 57 ML/MIN Imaging Last Impressions Abdomen/Pelvis CT 09/08/17 0000 Signed Impressions: Service Date/Time: Friday, September 08, 2017 23:00 - CONCLUSION: 1. Continued hepatomegaly and ascites. No evidence of acute abdominal or pelvic process. No masses are identified. 2. Decreasing colonic wall thickening characteristic of resolving colitis Andres Machuca MD Abdomen Ultrasound 09/07/17 0000 Signed Impressions: Service Date/Time: Thursday, September 07, 2017 14:51 - CONCLUSION: Ascities without distention. With slight progression. There is enough ascites for a diagnostic tap. Dontrell Canela MD FACR Chest X-Ray 09/06/17 0000 Signed Impressions: Service Date/Time: August 05:19 - CONCLUSION: Bibasilar atelectasis slightly improved in the right lung base. Derian Man MD Cholangiopancreatography MRI 08/24/17 0000 Signed Impressions: Service Date/Time: Thursday, August 24, 2017 18:15 - CONCLUSION: 1. Hepatosplenomegaly. 2. Mild ascites in the right paracolic gutter region. 3. No dilatation of the biliary system. 4. Contracted gallbladder without stones. The gallbladder wall thickening may be secondary to lack of distention. 5. Thickening of the proximal transverse colon. 6. Consolidation or atelectasis in the right lower lobe with a minimal right effusion. Rohith Harman MD Abdomen X-Ray 08/22/17 0000 Signed Impressions: Service Date/Time: Tuesday, August 22, 2017 13:39 - CONCLUSION: Benign abdomen. Tay Valdes MD Physical Exam GENERAL: Well-nourished, well-developed female patient in NAD. Awake and alert. SKIN: Warm and dry. No rash. Severely jaundiced. Ecchymoses HEAD: Normocephalic. Atraumatic. EYES: Pupils equal and round. EOMI. Prominent sclera icterus. ENT: No nasal bleeding or discharge. Mucous membranes dry NECK: Supple. Trachea midline. CARDIOVASCULAR: Tachycardic. S1, S2 noted. No murmur appreciated. RESPIRATORY: Mildly labored. Diminished in bases R>L. GASTROINTESTINAL: Abdomen soft , distended, diffuse mild tenderness to palpation. Most tenderness in LUQ now MUSCULOSKELETAL: No obvious deformities.3+ pitting edema in bilateral thighs down. Pitting edema extends up into abdomen and back. NEUROLOGICAL: Awake and alert. No obvious cranial nerve deficits. Motor grossly within normal limits. Able to move all extremities. Normal speech. PSYCHIATRIC: Appropriate mood and affect; insight and judgment normal. 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 S/p EGD and colonoscopy with no significant findings -trial of steroids started 08/29 Anasarca -on IV Lasix -insufficient fluid volume for paracentesis previously -patient with c/o increased abdominal girth and difficulty breathing -?worsening on Zosyn Leukocytosis - worsening -CRP 8.30, ESR 75 - slowly improving, most consistent with leukemoid reaction - potentially high dose sterroids contributing Colitis omn the CT, but c.diff is negative Severe coagulopathy secondary to liver failure Sputum with steno malt ? colonisation vs true infx R base infiltrate -? PNA Pt 's worsening liver failure is very concerning, prognosis is guarded RECOMMENDATIONS: dc levaquine start cefepime (will avoid CFTX over concerns for biliary sludge) dw Hope Saldana MD Sep 10, 2017 19:50
[2017-09-10] MEDS: CEFEPIME INJ 2,000 MG in SODIUM CHLORIDE 0.9% INJ 100 ML IV SCH (21:10)
[2017-09-11] VITALS (7 sets, daily range): BP systolic 94–117; BP diastolic 57–85; PULSE 79–115; RESP 18–22; TEMP 97.2–98.7; O2SAT 95–97
[2017-09-11] MEDS: MORPHINE SULFATE 4 MG/ML INJ IV PUSH PRN ×2 (04:10→08:56)
[2017-09-11] MEDS: METOCLOPRAMIDE HCL 10 MG/2 ML VIAL IV PUSH PRN (04:14)
--- NOTE | 2017-09-11 08:47 | HHI.PR ---
Subjective Remarks Follow-up for alcoholic liver disease. Patient continues to complain about abdominal distention, leg swelling. She reports difficulty walking. No fever, chills. Objective Vitals Vital Signs Date Time Temp Pulse Resp B/P (MAP) Pulse Ox O2 Delivery O2 Flow Rate FiO2 09/11/17 06:40 108/60 (76) 09/11/17 04:00 98.7 79 18 94/57 (69) 97 09/11/17 00:00 97.2 115 20 104/57 (73) 96 09/10/17 20:00 98.3 114 18 95 09/10/17 16:00 98.1 115 18 97/59 (72) 97 09/10/17 13:22 111 100/58 (72) 09/10/17 12:00 97.1 108 21 101/58 (72) 97 I/O 09/10/17 09/10/17 09/10/17 09/11/17 09/11/17 09/11/17 07:00 15:00 23:00 07:00 15:00 23:00 Intake Total 521 ml Output Total 800 ml 900 ml Balance -279 ml -900 ml Intake Oral 421 ml IV Total 100 ml Output Urine Total 800 ml 900 ml # Bowel Movements 1 Result Diagram: 09/10/17 0342 09/10/17 0612 Imaging Last Impressions Abdomen Ultrasound 09/10/17 0000 Signed Impressions: Service Date/Time: Sunday, September 10, 2017 07:40 - CONCLUSION: 1. Trace ascites present. This is of insufficient volume for safe paracentesis. Antonio Willard MD Abdomen/Pelvis CT 09/08/17 0000 Signed Impressions: Service Date/Time: Friday, September 08, 2017 23:00 - CONCLUSION: 1. Continued hepatomegaly and ascites. No evidence of acute abdominal or pelvic process. No masses are identified. 2. Decreasing colonic wall thickening characteristic of resolving colitis Andres Machuca MD Chest X-Ray 09/06/17 0000 Signed Impressions: Service Date/Time: August 05:19 - CONCLUSION: Bibasilar atelectasis slightly improved in the right lung base. Derian Man MD Cholangiopancreatography MRI 08/24/17 0000 Signed Impressions: Service Date/Time: Thursday, August 24, 2017 18:15 - CONCLUSION: 1. Hepatosplenomegaly. 2. Mild ascites in the right paracolic gutter region. 3. No dilatation of the biliary system. 4. Contracted gallbladder without stones. The gallbladder wall thickening may be secondary to lack of distention. 5. Thickening of the proximal transverse colon. 6. Consolidation or atelectasis in the right lower lobe with a minimal right effusion. Rohith Harman MD Abdomen X-Ray 08/22/17 0000 Signed Impressions: Service Date/Time: Tuesday, August 22, 2017 13:39 - CONCLUSION: Benign abdomen. Tay Valdes MD Objective Remarks GENERAL: Alert, oriented 3, NAD. SKIN: Warm and dry. Jaundiced skin HEAD: Normocephalic. EYES: No scleral icterus. No injection or drainage. Icterus sclerae NECK: Supple, trachea midline. No JVD or lymphadenopathy. CARDIOVASCULAR: Reg rhythm, tachycardic without murmurs, gallops, or rubs. RESPIRATORY: Breath sounds equal bilaterally. No accessory muscle use. GASTROINTESTINAL: Abdomen soft, somewhat distended, diffusely tender to deep palpation especially upper quadrants. MUSCULOSKELETAL: No cyanosis, 1+ edema in lower ext. BACK: Nontender without obvious deformity. No CVA tenderness. Procedures EGD, colonoscopy 08/20/2017. gastritis Colon polyp Internal and external hemorrhoids A/P Problem List: (1) Severe sepsis ICD Code: A41.9 - Sepsis, unspecified organism; R65.20 - Severe sepsis without septic shock (2) KATELYN (acute kidney injury) ICD Code: N17.9 - Acute kidney failure, unspecified (3) Alcoholic liver disease ICD Code: K70.9 - Alcoholic liver disease, unspecified (4) Alcohol dependence ICD Code: F10.20 - Alcohol dependence, uncomplicated Status: Acute Assessment and Plan Ms. Lim is a 42 year old female with a history of alcoholism who presented to the ED due to worsening abdominal pain that started about two weeks prior to this admission. Particularly worse pain in the last two days as well as yellowish discoloration of her conjunctiva. - Severe sepsis (Tachycardia, WBC 30.1, Suspected infection SBP, organ dysfunction Creatinine 2.0). Currently resolved. - Possible Spontaneous bacterial peritonitis - Alcoholic liver hepatitis - Abdominal pain. - Possible pneumonia - Abd US shows small ascites. Repeat attempts have shown not enough ascites. - Maddrey's discrimination factor 35 --> 59 (PT 19.5, Bili 11.5 --> 23). - Will re-start steroid. Will start prednisolone 40mg Qday. - Lactulose 30mg TID. - Increased abdominal pain is possibly due to opioid use, constipation. Reduce opioids. - ID is following - currently on Cefepime. - Probable lower GI bleed - GI evaluated patient. EGD and colonoscopy completed on 08/20/2017 --> gastritis, colonic polyp, internal and external hemorrhoids. Repeat colonoscopy in 5 years. High-fiber diet recommended. - Alcohol abuse - Thiamine, Folic acid, CIWA protocol. - Patient is motivated to quit drinking. - Acute kidney injury -Severe hypokalemia - Likely due to poor volume intake. - Creatinine 2.0 --> 1.60 --> 0.92 --> 1.06. - Replaced potassium with IV and p.o. potassium chloride. Magnesium was 2.0 Full code. SCDs. Prognosis poor. May need to consult Palliative care. Aniya Montes DO Sep 11, 2017 08:47
[2017-09-11] MEDS: SODIUM CHLORIDE 0.9% FLUSH 10 ML FLUSH IV FLUSH SCH ×2 (09:00→20:38)
[2017-09-11] MEDS: FLUTICASONE PROPIONATE 50 MCG/ACT 16 GM NASAL SPRAY EACH NARE SCH (09:00)
[2017-09-11] MEDS: THIAMINE HCL 100 MG TAB PO SCH (10:48)
[2017-09-11] MEDS: LACTULOSE SYRUP 20 GM/30 ML CUP PO SCH ×3 (10:48→19:05)
[2017-09-11] MEDS: NYSTATIN SUSP 500,000 U/5 ML CUP SWISH-SWAL SCH ×4 (10:49→20:38)
[2017-09-11] MEDS: LORATADINE 10 MG TAB PO SCH (10:49)
[2017-09-11] MEDS: guaiFENesin E.R. 600 MG TAB PO SCH ×2 (10:49→20:38)
[2017-09-11] MEDS: FAMOTIDINE 20 MG TAB PO SCH ×2 (10:49→20:38)
[2017-09-11] MEDS: FOLIC ACID 1 MG TAB PO SCH (10:49)
[2017-09-11] MEDS: POTASSIUM CHLORIDE 10 MEQ CAP PO SCH ×2 (10:49→20:38)
[2017-09-11] MEDS: SPIRONOLACTONE 100 MG TAB PO SCH (10:49)
[2017-09-11] MEDS: FUROSEMIDE 40 MG/4 ML VIAL IV PUSH SCH ×2 (10:50→19:06)
[2017-09-11] MEDS: CEFEPIME INJ 2,000 MG in SODIUM CHLORIDE 0.9% INJ 100 ML IV SCH ×2 (10:58→20:38)
[2017-09-11] MEDS: CALCIUM CARBONATE 500 MG CHEWABLE TAB CHEW PRN (19:26)
[2017-09-11] MEDS: prednisoLONE 10 MG ODT TAB PO SCH (21:57)
[2017-09-11] MEDS: LORazepam 2 MG TAB PO PRN (21:57)
[2017-09-12] VITALS (9 sets, daily range): BP systolic 95–119; BP diastolic 53–89; PULSE 101–116; RESP 16–20; TEMP 97.2–98.4; O2SAT 94–98
[2017-09-12] MEDS: CEFEPIME INJ 2,000 MG in SODIUM CHLORIDE 0.9% INJ 100 ML IV SCH ×2 (08:00→19:52)
[2017-09-12] MEDS: prednisoLONE 10 MG ODT TAB PO SCH ×2 (09:00→13:13)
[2017-09-12] MEDS: SODIUM CHLORIDE 0.9% FLUSH 10 ML FLUSH IV FLUSH SCH ×2 (09:00→19:54)
[2017-09-12] MEDS: FLUTICASONE PROPIONATE 50 MCG/ACT 16 GM NASAL SPRAY EACH NARE SCH (09:00)
[2017-09-12] MEDS: guaiFENesin E.R. 600 MG TAB PO SCH ×2 (09:00→19:53)
[2017-09-12] MEDS: NYSTATIN SUSP 500,000 U/5 ML CUP SWISH-SWAL SCH ×4 (09:00→19:53)
[2017-09-12] MEDS: LORazepam 2 MG TAB PO PRN (09:41)
[2017-09-12] MEDS: FOLIC ACID 1 MG TAB PO SCH (09:48)
[2017-09-12] MEDS: POTASSIUM CHLORIDE 10 MEQ CAP PO SCH ×2 (09:48→19:53)
[2017-09-12] MEDS: SPIRONOLACTONE 100 MG TAB PO SCH (09:48)
[2017-09-12] MEDS: FAMOTIDINE 20 MG TAB PO SCH ×2 (09:49→19:53)
[2017-09-12] MEDS: LORATADINE 10 MG TAB PO SCH (09:49)
[2017-09-12] MEDS: THIAMINE HCL 100 MG TAB PO SCH (09:49)
[2017-09-12] MEDS: LACTULOSE SYRUP 20 GM/30 ML CUP PO SCH ×3 (09:50→18:09)
--- NOTE | 2017-09-12 11:16 | HHI.PR ---
Subjective Remarks Follow-up for alcoholic liver disease. Patient complains of abdominal pain, no fever, chills. Sitting in her chair. She gets emotional when we started talking about her liver diseases and how her bilirubin continues to be elevated. I encouraged her to take steroid (prednisolone) that was started yesterday. Objective Vitals Vital Signs Date Time Temp Pulse Resp B/P (MAP) Pulse Ox O2 Delivery O2 Flow Rate FiO2 09/12/17 08:44 97.9 116 20 105/60 (75) 94 09/12/17 05:30 98.0 101 19 110/89 (96) 98 09/12/17 00:02 98.1 102 19 106/80 (89) 96 09/11/17 21:15 97.6 109 19 105/85 (92) 96 09/11/17 16:00 98.1 110 22 117/60 (79) 97 09/11/17 12:00 97.5 114 18 107/68 (81) 96 I/O 09/11/17 09/11/17 09/11/17 09/12/17 09/12/17 09/12/17 07:00 15:00 23:00 07:00 15:00 23:00 Intake Total 520 ml 100 ml 50 ml Output Total 900 ml 500 ml 1200 ml Balance -900 ml 20 ml -1100 ml 50 ml Intake Oral 520 ml 100 ml 50 ml Output Urine Total 900 ml 500 ml 1200 ml # Bowel Movements 1 4 Result Diagram: 09/10/17 0342 09/10/17 0612 Imaging Last Impressions Abdomen Ultrasound 09/10/17 0000 Signed Impressions: Service Date/Time: Sunday, September 10, 2017 07:40 - CONCLUSION: 1. Trace ascites present. This is of insufficient volume for safe paracentesis. Antonio Willard MD Abdomen/Pelvis CT 09/08/17 0000 Signed Impressions: Service Date/Time: Friday, September 08, 2017 23:00 - CONCLUSION: 1. Continued hepatomegaly and ascites. No evidence of acute abdominal or pelvic process. No masses are identified. 2. Decreasing colonic wall thickening characteristic of resolving colitis Andres Machuca MD Chest X-Ray 09/06/17 0000 Signed Impressions: Service Date/Time: August 05:19 - CONCLUSION: Bibasilar atelectasis slightly improved in the right lung base. Derian Man MD Cholangiopancreatography MRI 08/24/17 0000 Signed Impressions: Service Date/Time: Thursday, August 24, 2017 18:15 - CONCLUSION: 1. Hepatosplenomegaly. 2. Mild ascites in the right paracolic gutter region. 3. No dilatation of the biliary system. 4. Contracted gallbladder without stones. The gallbladder wall thickening may be secondary to lack of distention. 5. Thickening of the proximal transverse colon. 6. Consolidation or atelectasis in the right lower lobe with a minimal right effusion. Rohith Harman MD Abdomen X-Ray 08/22/17 0000 Signed Impressions: Service Date/Time: Tuesday, August 22, 2017 13:39 - CONCLUSION: Benign abdomen. Tay Valeds MD Objective Remarks GENERAL: Alert, oriented 3, NAD. SKIN: Warm and dry. Jaundiced skin HEAD: Normocephalic. EYES: No scleral icterus. No injection or drainage. Icterus sclerae NECK: Supple, trachea midline. No JVD or lymphadenopathy. CARDIOVASCULAR: Reg rhythm, tachycardic without murmurs, gallops, or rubs. RESPIRATORY: Breath sounds equal bilaterally. No accessory muscle use. GASTROINTESTINAL: Abdomen soft, somewhat distended, diffusely tender to deep palpation especially upper quadrants. MUSCULOSKELETAL: No cyanosis, 1+ edema in lower ext. BACK: Nontender without obvious deformity. No CVA tenderness. Procedures EGD, colonoscopy 08/20/2017. gastritis Colon polyp Internal and external hemorrhoids A/P Problem List: (1) Severe sepsis ICD Code: A41.9 - Sepsis, unspecified organism; R65.20 - Severe sepsis without septic shock (2) KATELYN (acute kidney injury) ICD Code: N17.9 - Acute kidney failure, unspecified (3) Alcoholic liver disease ICD Code: K70.9 - Alcoholic liver disease, unspecified (4) Alcohol dependence ICD Code: F10.20 - Alcohol dependence, uncomplicated Status: Acute Assessment and Plan Ms. Lim is a 42 year old female with a history of alcoholism who presented to the ED due to worsening abdominal pain that started about two weeks prior to this admission. Particularly worse pain in the last two days as well as yellowish discoloration of her conjunctiva. - Severe sepsis (Tachycardia, WBC 30.1, Suspected infection SBP, organ dysfunction Creatinine 2.0). Currently resolved. - Possible Spontaneous bacterial peritonitis - Alcoholic liver hepatitis - Abdominal pain. - Abd US shows small ascites. Repeat attempts have shown not enough ascites. - Maddrey's discrimination factor 35 --> 59 (PT 19.5, Bili 11.5 --> 23). - Encouraged patient to prednisolone 40mg Qday and also start Pentoxifylline - I discussed with GI attending (Dr. Nunes) - other than steroid and pentoxifylline, not much to offer with regards to liver dz - Lactulose 30mg TID. - Increased abdominal pain is possibly due to opioid use, constipation. Reduced opioids. - I also brought up Palliative care - patient does not want to talk to Palliative care team. - Possible pneumonia - sputum culture grew stenotrophomonas maltophilia - ID is following - currently on Cefepime. - Discusssed with ID (Dr. Mota). Will obtain CBC, CMP today. Continue abx for now - She may not need any abx on discharge. - Probable lower GI bleed - GI evaluated patient. EGD and colonoscopy completed on 08/20/2017 --> gastritis, colonic polyp, internal and external hemorrhoids. Repeat colonoscopy in 5 years. High-fiber diet recommended. - Alcohol abuse - Thiamine, Folic acid, CIWA protocol. - Patient is motivated to quit drinking. - Acute kidney injury -Severe hypokalemia - Likely due to poor volume intake. - Creatinine 2.0 --> 1.60 --> 0.92 --> 1.06. - Replaced potassium with IV and p.o. potassium chloride. Magnesium was 2.0 Full code. SCDs. Prognosis poor. Aniya Montes DO Sep 12, 2017 11:16 am
[2017-09-12 12:44] LABS: AUTOMATED NEUTROPHIL # 17.8 TH/MM3 (1.8-7.7); BASOPHIL % 0.1 % (0.0-2.0); EOSINOPHIL # 0.1 TH/MM3 (0-0.4); EOSINOPHIL % 0.3 % (0.0-4.0); HEMATOCRIT 23.6 % (35.0-46.0); HEMOGLOBIN 8.3 GM/DL (11.6-15.3); LYMPH % 11.1 % (9.0-44.0); LYMPHOCYTE # 2.4 TH/MM3 (1.0-4.8); MEAN CELL VOLUME 112.6 FL (80.0-100.0); MEAN CORPUSCULAR HEMOGLOBIN 39.6 PG (27.0-34.0); MEAN CORPUSCULAR HGB CONC 35.2 % (32.0-36.0); MEAN PLATELET VOLUME 7.6 FL (7.0-11.0); MONO % 5.8 % (0.0-8.0); MONOCYTE # 1.2 TH/MM3 (0-0.9); NEUT % 82.7 % (16.0-70.0); PLATELET COUNT 179 TH/MM3 (150-450); RED CELL DISTRIBUTION WIDTH 15.7 % (11.6-17.2); WHITE BLOOD COUNT 21.5 TH/MM3 (4.0-11.0)
[2017-09-12] MEDS: PENTOXIFYLLINE 400 MG CONTROLLED RELEASE TAB PO SCH ×2 (13:13→23:59)
[2017-09-12 13:20] LABS: ALBUMIN 2.1 GM/DL (3.4-5.0); ALKALINE PHOSPHATASE 231 U/L (45-117); ALT (GPT) 28 U/L (10-53); AST (GOT) 89 U/L (15-37); BICARBONATE 22.3 MEQ/L (21.0-32.0); BLOOD UREA NITROGEN 30 MG/DL (7-18); CALCIUM 8.7 MG/DL (8.5-10.1); CHLORIDE 107 MEQ/L (98-107); GLOMERULAR FILTRATION RATE 51 ML/MIN (>89); GLUCOSE,RANDOM 117 MG/DL (74-106); SODIUM (NA) 139 MEQ/L (136-145); TOTAL BILIRUBIN ADULT 25.8 MG/DL (0.2-1.0)
[2017-09-12] MEDS: CALCIUM CARBONATE 500 MG CHEWABLE TAB CHEW PRN (13:20)
[2017-09-12 13:21] LABS: CREATININE 1.16 MG/DL (0.50-1.00)
--- NOTE | 2017-09-12 15:01 | HHI.GIFU ---
Subjective Remarks Pt resting in bed. Lethargic. C/o continued abd pain. (Kiara Lyons) Objective Vitals I&O Vital Signs Date Time Temp Pulse Resp B/P (MAP) Pulse Ox O2 Delivery O2 Flow Rate FiO2 09/12/17 12:02 97.7 113 20 110/54 (72) 96 09/12/17 08:44 97.9 116 20 105/60 (75) 94 09/12/17 05:30 98.0 101 19 110/89 (96) 98 09/12/17 00:02 98.1 102 19 106/80 (89) 96 09/11/17 21:15 97.6 109 19 105/85 (92) 96 09/11/17 16:00 98.1 110 22 117/60 (79) 97 I/O 09/11/17 09/11/17 09/11/17 09/12/17 09/12/17 09/12/17 07:00 15:00 23:00 07:00 15:00 23:00 Intake Total 520 ml 100 ml 50 ml Output Total 900 ml 500 ml 1200 ml Balance -900 ml 20 ml -1100 ml 50 ml Intake Oral 520 ml 100 ml 50 ml Output Urine Total 900 ml 500 ml 1200 ml # Bowel Movements 1 4 Laboratory Laboratory Tests Test 09/12/17 12:19 White Blood Count 21.5 Red Blood Count 2.10 Hemoglobin 8.3 Hematocrit 23.6 Mean Corpuscular Volume 112.6 Mean Corpuscular Hemoglobin 39.6 Mean Corpuscular Hemoglobin Concent 35.2 Red Cell Distribution Width 15.7 Platelet Count 179 Mean Platelet Volume 7.6 Neutrophils (%) (Auto) 82.7 Lymphocytes (%) (Auto) 11.1 Monocytes (%) (Auto) 5.8 Eosinophils (%) (Auto) 0.3 Basophils (%) (Auto) 0.1 Neutrophils # (Auto) 17.8 Lymphocytes # (Auto) 2.4 Monocytes # (Auto) 1.2 Eosinophils # (Auto) 0.1 Basophils # (Auto) 0.0 CBC Comment DIFF FINAL Differential Comment Blood Urea Nitrogen 30 Creatinine 1.16 Random Glucose 117 Total Protein 6.0 Albumin 2.1 Calcium Level 8.7 Alkaline Phosphatase 231 Aspartate Amino Transf (AST/SGOT) 89 Alanine Aminotransferase (ALT/SGPT) 28 Total Bilirubin 25.8 Sodium Level 139 Potassium Level 4.3 Chloride Level 107 Carbon Dioxide Level 22.3 Anion Gap 10 Estimat Glomerular Filtration Rate 51 Date/Time Source Procedure Growth Status 08/26/17 15:52 Blood Peripheral Aerobic Blood Culture - Final NO GROWTH IN 5 DAYS Complete 08/26/17 15:52 Blood Peripheral Anaerobic Blood Culture - Final NO GROWTH IN 5 DAYS Complete 09/02/17 10:23 Sputum Expectorated Sputum Gram Stain - Final Complete 09/02/17 10:23 Sputum Culture - Final Stenotrophomonas Maltophilia Complete 08/19/17 14:30 Urine Clean Catch Urine Culture - Final 50-100,000 CFU/ML MIXED JACKSON... Complete Imaging Last Impressions Abdomen Ultrasound 09/10/17 0000 Signed Impressions: Service Date/Time: Sunday, September 10, 2017 07:40 - CONCLUSION: 1. Trace ascites present. This is of insufficient volume for safe paracentesis. Antonio Willard MD Abdomen/Pelvis CT 09/08/17 0000 Signed Impressions: Service Date/Time: Friday, September 08, 2017 23:00 - CONCLUSION: 1. Continued hepatomegaly and ascites. No evidence of acute abdominal or pelvic process. No masses are identified. 2. Decreasing colonic wall thickening characteristic of resolving colitis Andres Machuca MD Chest X-Ray 09/06/17 0000 Signed Impressions: Service Date/Time: August 05:19 - CONCLUSION: Bibasilar atelectasis slightly improved in the right lung base. Derian Man MD Cholangiopancreatography MRI 08/24/17 0000 Signed Impressions: Service Date/Time: Thursday, August 24, 2017 18:15 - CONCLUSION: 1. Hepatosplenomegaly. 2. Mild ascites in the right paracolic gutter region. 3. No dilatation of the biliary system. 4. Contracted gallbladder without stones. The gallbladder wall thickening may be secondary to lack of distention. 5. Thickening of the proximal transverse colon. 6. Consolidation or atelectasis in the right lower lobe with a minimal right effusion. Rohith Harman MD Abdomen X-Ray 08/22/17 0000 Signed Impressions: Service Date/Time: Tuesday, August 22, 2017 13:39 - CONCLUSION: Benign abdomen. Tay Valdes MD Physical Exam HEENT: PERRL; normocephalic; atraumatic; +icterus CHEST: CTA, respirations shallow CARDIAC tachy +murmur ABDOMEN: distended, semifirm,diffuse TTP, bowel sounds are present in all four quadrants. EXTREMITIES: + BLE edema SKIN: Normal; no rash; + significant jaundice TELE RN:lethargic (Kiara Lyons [employer]) Assessment and Plan Plan Plan/history RECONSULT for abdominal distention, pain and worsening bilirubin Pt now S/P EGD and colonoscopy 08/20/17--> Gastritis, Colon polyp. Internal and external hemorrhoids. Pathology (stomach antrum) Gastric antral mucosa with minimally active chronic inflammation and edema (colon) mildly hyperplastic colonic mucosa suggestive of hyperplastic polyp. Pt reports increasing distention and pain in abdomen. KUB ordered by attending today --> Benign appearing abdomen. Pt reports small BM yesterday. Has not been passing much gas. ? Increase in ascites, previous US abdomen did not reveal enough fluid for paracentesis. Would like to rule out SBP because pt would likely benefit from steroids. 08/26/17 increasing distention. WBC still trending up. HH trending down, no obvious bleeding. coagulopathy worsening. c/o abd pain, SOB from distention. mild decrease LFTs today 08/27/17 insufficient fluid for paracentesis. she is quite distended. on diuretics. LFTs relatively stable, Tbil mild increase this am. hematology consulted for leukocytosis, prob leukemoid reaction. ?steroids 08/30/17 GI reconsulted for persistent abd pain. pt also having continued/ worsening BLE edema. she is c/o burning abd pain that radiates to left side. now with postprandial n/v as well. WBC remains elevated 25k. nothing found on EGD and colonoscopy 08/20/17. per ID continue zosyn. 09/09/17 worsening jaundice. on steroids, pentox. per primary's note pt declined to speak with palliative care. US 09/10 trace ascites, insufficient to drain continued abd pain. lethargic. per JUL pt refused PO steroids. PLAN: steroids pentoxifylline monitor labs low sodium diet fluid restriction continue diuretics TID lactulose notify GI of active bleeding etoh cessation palliative care if pt will agree not much more to add from GI standpoint GI will sign off. please reconsult if needed Pt has been seen and examined by myself and Dr. Nunes and this note is written on her behalf (Kiara Lyons) Physician Comments seen, examined agree with above not much to add at this point restart Pentoxifylline poor prognosis overall palliative/hospice if patient agrees (Maci Nunes MD) Kiara Lyons Sep 12, 2017 15:01 Maci Nunes MD Sep 12, 2017 17:09
[2017-09-13] VITALS (9 sets, daily range): BP systolic 100–116; BP diastolic 56–69; PULSE 94–107; RESP 18–21; TEMP 97.1–98.3; O2SAT 93–97
[2017-09-13] MEDS: LORazepam 2 MG TAB PO PRN ×2 (01:59→16:33)
[2017-09-13] MEDS: PENTOXIFYLLINE 400 MG CONTROLLED RELEASE TAB PO SCH ×3 (06:01→21:42)
[2017-09-13] MEDS: CEFEPIME INJ 2,000 MG in SODIUM CHLORIDE 0.9% INJ 100 ML IV SCH ×2 (08:00→21:39)
[2017-09-13] MEDS: SPIRONOLACTONE 100 MG TAB PO SCH (08:55)
[2017-09-13] MEDS: FAMOTIDINE 20 MG TAB PO SCH ×2 (08:55→21:41)
[2017-09-13] MEDS: FOLIC ACID 1 MG TAB PO SCH (08:55)
[2017-09-13] MEDS: THIAMINE HCL 100 MG TAB PO SCH (08:55)
[2017-09-13] MEDS: prednisoLONE 10 MG ODT TAB PO SCH (08:55)
[2017-09-13] MEDS: NYSTATIN SUSP 500,000 U/5 ML CUP SWISH-SWAL SCH ×4 (08:55→21:41)
[2017-09-13] MEDS: LORATADINE 10 MG TAB PO SCH (08:55)
[2017-09-13] MEDS: guaiFENesin E.R. 600 MG TAB PO SCH ×2 (08:55→21:41)
[2017-09-13] MEDS: POTASSIUM CHLORIDE 10 MEQ CAP PO SCH ×2 (08:55→21:42)
[2017-09-13] MEDS: TORSEMIDE 20 MG TAB PO SCH (08:55)
[2017-09-13] MEDS: SODIUM CHLORIDE 0.9% FLUSH 10 ML FLUSH IV FLUSH SCH ×2 (08:56→21:41)
[2017-09-13] MEDS: LACTULOSE SYRUP 20 GM/30 ML CUP PO SCH ×3 (08:56→17:21)
[2017-09-13] MEDS: FLUTICASONE PROPIONATE 50 MCG/ACT 16 GM NASAL SPRAY EACH NARE SCH (09:10)
[2017-09-13 09:45] LABS: BASOPHIL # 0.1 TH/MM3 (0-0.2); BASOPHIL % 0.3 % (0.0-2.0); HEMATOCRIT 22.9 % (35.0-46.0); HEMOGLOBIN 7.9 GM/DL (11.6-15.3); LYMPH % 6.6 % (9.0-44.0); LYMPHOCYTE # 1.9 TH/MM3 (1.0-4.8); MEAN CELL VOLUME 112.7 FL (80.0-100.0); MEAN CORPUSCULAR HEMOGLOBIN 38.9 PG (27.0-34.0); MEAN CORPUSCULAR HGB CONC 34.5 % (32.0-36.0); MEAN PLATELET VOLUME 7.8 FL (7.0-11.0); MONO % 4.7 % (0.0-8.0); MONOCYTE # 1.4 TH/MM3 (0-0.9); NEUT % 88.4 % (16.0-70.0); PLATELET COUNT 185 TH/MM3 (150-450); RED BLOOD COUNT 2.03 MIL/MM3 (4.00-5.30); RED CELL DISTRIBUTION WIDTH 15.5 % (11.6-17.2); WHITE BLOOD COUNT 29.4 TH/MM3 (4.0-11.0)
[2017-09-13 10:07] LABS: ALBUMIN 1.8 GM/DL (3.4-5.0); BICARBONATE 19.8 MEQ/L (21.0-32.0); BLOOD UREA NITROGEN 33 MG/DL (7-18); CALCIUM 8.6 MG/DL (8.5-10.1); CHLORIDE 110 MEQ/L (98-107); GLUCOSE,RANDOM 109 MG/DL (74-106); SODIUM (NA) 139 MEQ/L (136-145)
[2017-09-13 10:15] LABS: ALKALINE PHOSPHATASE 232 U/L (45-117); ALT (GPT) 24 U/L (10-53); AST (GOT) 60 U/L (15-37); CREATININE 0.98 MG/DL (0.50-1.00); GLOMERULAR FILTRATION RATE 63 ML/MIN (>89); TOTAL BILIRUBIN ADULT 23.3 MG/DL (0.2-1.0); TOTAL PROTEIN 5.3 GM/DL (6.4-8.2)
--- NOTE | 2017-09-13 10:55 | HHI.PR ---
Subjective Remarks Follow-up for alcoholic liver disease. Patient is sitting in her chair. She complains of persistent abdominal pain. No fever or chills. She wants to go home today. Objective Vitals Vital Signs Date Time Temp Pulse Resp B/P (MAP) Pulse Ox O2 Delivery O2 Flow Rate FiO2 09/13/17 08:02 98.1 103 20 100/56 (71) 94 09/13/17 06:33 98.0 107 19 103/61 (75) 94 09/13/17 02:01 98.3 99 21 103/58 (73) 94 09/12/17 19:51 97.8 106 18 95/53 (67) 95 09/12/17 16:45 97.8 105 16 109/61 (77) 98 09/12/17 16:26 97.2 109 17 109/62 (78) 98 09/12/17 16:15 97.8 116 18 119/60 (79) 97 09/12/17 16:05 98.4 111 20 105/63 (77) 96 09/12/17 12:02 97.7 113 20 110/54 (72) 96 I/O 09/12/17 09/12/17 09/12/17 09/13/17 09/13/17 09/13/17 07:00 15:00 23:00 07:00 15:00 23:00 Intake Total 100 ml 50 ml 600 ml 250 ml Output Total 1200 ml 300 ml 400 ml Balance -1100 ml 50 ml 600 ml -50 ml -400 ml Intake Oral 100 ml 50 ml 600 ml 150 ml IV Total 100 ml Output Urine Total 1200 ml 300 ml Stool Total 400 ml # Voids 3 2 1 # Bowel Movements 4 3 3 Result Diagram: 09/13/17 0711 09/13/17 0711 Imaging Last Impressions Abdomen Ultrasound 09/10/17 0000 Signed Impressions: Service Date/Time: Sunday, September 10, 2017 07:40 - CONCLUSION: 1. Trace ascites present. This is of insufficient volume for safe paracentesis. Antonio Willard MD Abdomen/Pelvis CT 09/08/17 0000 Signed Impressions: Service Date/Time: Friday, September 08, 2017 23:00 - CONCLUSION: 1. Continued hepatomegaly and ascites. No evidence of acute abdominal or pelvic process. No masses are identified. 2. Decreasing colonic wall thickening characteristic of resolving colitis Andres B. Turetsky, MD Chest X-Ray 09/06/17 0000 Signed Impressions: Service Date/Time: August 05:19 - CONCLUSION: Bibasilar atelectasis slightly improved in the right lung base. Derian Man MD Cholangiopancreatography MRI 08/24/17 0000 Signed Impressions: Service Date/Time: Thursday, August 24, 2017 18:15 - CONCLUSION: 1. Hepatosplenomegaly. 2. Mild ascites in the right paracolic gutter region. 3. No dilatation of the biliary system. 4. Contracted gallbladder without stones. The gallbladder wall thickening may be secondary to lack of distention. 5. Thickening of the proximal transverse colon. 6. Consolidation or atelectasis in the right lower lobe with a minimal right effusion. Rohith Harman MD Abdomen X-Ray 08/22/17 0000 Signed Impressions: Service Date/Time: Tuesday, August 22, 2017 13:39 - CONCLUSION: Benign abdomen. Tay Valdes MD Objective Remarks GENERAL: Alert, oriented 3, NAD. SKIN: Warm and dry. Jaundiced skin HEAD: Normocephalic. EYES: No scleral icterus. No injection or drainage. Icterus sclerae NECK: Supple, trachea midline. No JVD or lymphadenopathy. CARDIOVASCULAR: Reg rhythm, tachycardic without murmurs, gallops, or rubs. RESPIRATORY: Breath sounds equal bilaterally. No accessory muscle use. GASTROINTESTINAL: Abdomen soft, somewhat distended, diffusely tender to deep palpation especially upper quadrants. MUSCULOSKELETAL: No cyanosis, 1+ edema in lower ext. BACK: Nontender without obvious deformity. No CVA tenderness. Procedures EGD, colonoscopy 08/20/2017. gastritis Colon polyp Internal and external hemorrhoids A/P Problem List: (1) Severe sepsis ICD Code: A41.9 - Sepsis, unspecified organism; R65.20 - Severe sepsis without septic shock (2) KATELYN (acute kidney injury) ICD Code: N17.9 - Acute kidney failure, unspecified (3) Alcoholic liver disease ICD Code: K70.9 - Alcoholic liver disease, unspecified (4) Alcohol dependence ICD Code: F10.20 - Alcohol dependence, uncomplicated Status: Acute Assessment and Plan Ms. Lim is a 42 year old female with a history of alcoholism who presented to the ED due to worsening abdominal pain that started about two weeks prior to this admission. Particularly worse pain in the last two days as well as yellowish discoloration of her conjunctiva. - Severe sepsis (Tachycardia, WBC 30.1, Suspected infection SBP, organ dysfunction Creatinine 2.0). Currently resolved. - Possible Spontaneous bacterial peritonitis - Alcoholic liver hepatitis - Abdominal pain. - Abd US shows small ascites. Repeat attempts have shown not enough ascites. - Maddrey's discrimination factor 35 --> 59 (PT 19.5, Bili 11.5 --> 23 --> 25.8 --> 23.3 on 09/13/2017). - Encouraged patient to take prednisolone 40mg Qday and Pentoxifylline - I discussed with GI attending (Dr. Nunes) on 09/12/2017 - other than steroid and pentoxifylline, not much to offer with regards to liver dz - Lactulose 30mg TID. - Increased abdominal pain is possibly due to opioid use, constipation. Reduced opioids. - Patient does not want to talk to palliative care team. She wants to go home today. - I am concerned about her mobility and stability. Will obtain a PT consult today. - If PT recommends home, will likely discharge patient today with oral steroids. Bilirubin is slightly down today. - Possible pneumonia - sputum culture grew stenotrophomonas maltophilia - ID is following - currently on Cefepime. - Discusssed with ID (Dr. Mota). Patient is refusing IV abx. - She may not need any abx on discharge. - Probable lower GI bleed - GI evaluated patient. EGD and colonoscopy completed on 08/20/2017 --> gastritis, colonic polyp, internal and external hemorrhoids. Repeat colonoscopy in 5 years. High-fiber diet recommended. - Alcohol abuse - Thiamine, Folic acid, CIWA protocol. - Patient is motivated to quit drinking. - Acute kidney injury -Severe hypokalemia - Likely due to poor volume intake. - Creatinine 2.0 --> 1.60 --> 0.92 --> 1.06 --> 0.98 - Replaced potassium with IV and p.o. potassium chloride. Magnesium was 2.0 Full code. SCDs. Prognosis poor. Aniya Montes DO Sep 13, 2017 10:55 am
--- NOTE | 2017-09-13 16:25 | HHI.IDPN ---
Subjective Subjective Remarks Patient seen and examined with Dr. Blanco Houser for Dr. Mota 42-year-old female with a history of heavy alcohol use who presented with abdominal pain, jaundice, increasing abdominal girth and bilateral extremity edema 2 weeks. Patient was found to have elevated white count of 30.2. Patient was afebrile. CT showed colitis. C. difficile studies were negative. Patient recently diagnosed with UTI growing Enterobacter. CT also showed ascites but insufficient for paracentesis. Infectious disease consulted for evaluation and management of sepsis Notes reviewed D/W nursing staff, patient refusing IV abx Patient complains of diarrhea and abdominal pain +nausea still with significant LE edema persistent leukocytosis, white count now up to 29.4 afebrile Abd US shows trace ascites CT abd/pelvis shows hepatomegaly and ascites, no acute process, resolving colitis Antibiotics IV Cefepime Current Medications Medications (Trade) Dose Ordered Sig/Mad[place] Route Start Time Stop Time Status Last Admin (NS Flush) 2 ml UNSCH PRN IV FLUSH 08/19/17 13:30 09/01/17 05:05 (NS Flush) 2 ml BID IV FLUSH 08/19/17 21:00 09/13/17 08:56 (Tylenol) 500 mg Q4H PRN PO 08/19/17 13:30 (Zofran Inj) 4 mg Q6H PRN IVP 08/19/17 13:30 09/10/17 21:18 (Narcan Inj) 0.4 mg UNSCH PRN IV PUSH 08/19/17 13:30 (Milk Of Magnesia Liq) 30 ml Q12H PRN PO 08/19/17 13:30 (Senokot) 17.2 mg Q12H PRN PO 08/19/17 13:30 08/22/17 08:36 (Dulcolax Supp) 10 mg DAILY PRN RECTAL 08/19/17 13:30 (TRENtal SR) 400 mg Q8HR PO 08/19/17 22:00 Future hold 09/13/17 13:23 (Vitamin B1) 100 mg DAILY PO 08/22/17 09:00 09/13/17 08:55 (Folate) 1 mg DAILY PO 08/19/17 21:00 09/13/17 08:55 (Reglan Inj) 5 mg Q6H PRN IV PUSH 08/21/17 10:15 09/11/17 04:14 (Compazine Supp) 25 mg Q12H PRN RECTAL 08/21/17 10:15 (Lactulose Liq) 30 ml TID PO 08/22/17 15:30 09/13/17 13:23 (Mucinex Er) 600 mg BID PO 08/24/17 14:00 09/13/17 08:55 (Duoneb Neb) 1 ampule Q4HR NEB PRN NEB 08/24/17 13:30 (Aldactone) 100 mg DAILY PO 08/25/17 17:45 09/13/17 08:55 (Chapstick) 1 applic UNSCH PRN TOPICAL 08/30/17 14:00 08/30/17 15:10 (Tums Chew) 500 mg Q2H PRN CHEW 08/30/17 14:30 09/12/17 13:20 (KCl) 30 meq BID PO 08/31/17 21:00 09/13/17 08:55 (Pepcid) 20 mg BID PO 09/01/17 21:00 09/13/17 08:55 (Flonase Augustine Spr) 2 spray DAILY EACH NARE 09/01/17 12:00 09/13/17 09:10 (Claritin) 10 mg DAILY PO 09/01/17 12:00 09/13/17 08:55 (Mycostatin Liq) 5 ml QID SWISH-SWAL 09/05/17 13:00 09/13/17 08:55 (Ativan) 2 mg Q8H PRN PO 09/06/17 12:00 09/13/17 01:59 Cefepime HCl 2000 mg/Sodium Chloride 100 ml @ 200 mls/hr Q12H IV 09/10/17 20:00 09/12/17 19:52 (Roxicodone) 5 mg Q6H PRN PO 09/11/17 13:45 09/13/17 12:05 (Orapred Odt) 40 mg DAILY PO 09/12/17 12:00 09/13/17 08:55 (Demadex) 20 mg DAILY PO 09/13/17 09:00 09/13/17 08:55 (Flagyl) 500 mg Q8HR PO 09/13/17 15:30 Lines PIV line without any e/o infection Past Medical History EtOH abuse GERD (Anne [place]) Allergies: Coded Allergies: Sulfa (Sulfonamide Antibiotics) (Verified Allergy, Unknown, 07/28/17) Objective . Vital Signs Date Time Temp Pulse Resp B/P (MAP) Pulse Ox O2 Delivery O2 Flow Rate FiO2 09/13/17 11:36 97.8 103 20 102/62 (75) 96 09/13/17 08:02 98.1 103 20 100/56 (71) 94 09/13/17 06:33 98.0 107 19 103/61 (75) 94 09/13/17 02:01 98.3 99 21 103/58 (73) 94 09/12/17 19:51 97.8 106 18 95/53 (67) 95 09/12/17 16:45 97.8 105 16 109/61 (77) 98 09/12/17 16:26 97.2 109 17 109/62 (78) 98 09/13/17 09/13/17 09/14/17 15:00 23:00 07:00 Output Total 400 ml Balance -400 ml Stool Total 400 ml # Voids 1 . Laboratory Tests Test 09/12/17 12:19 09/13/17 07:11 White Blood Count 21.5 TH/MM3 29.4 TH/MM3 Red Blood Count 2.10 MIL/MM3 2.03 MIL/MM3 Hemoglobin 8.3 GM/DL 7.9 GM/DL Hematocrit 23.6 % 22.9 % Mean Corpuscular Volume 112.6 FL 112.7 FL Mean Corpuscular Hemoglobin 39.6 PG 38.9 PG Mean Corpuscular Hemoglobin Concent 35.2 % 34.5 % Red Cell Distribution Width 15.7 % 15.5 % Platelet Count 179 TH/MM3 185 TH/MM3 Mean Platelet Volume 7.6 FL 7.8 FL Neutrophils (%) (Auto) 82.7 % 88.4 % Lymphocytes (%) (Auto) 11.1 % 6.6 % Monocytes (%) (Auto) 5.8 % 4.7 % Eosinophils (%) (Auto) 0.3 % 0.0 % Basophils (%) (Auto) 0.1 % 0.3 % Neutrophils # (Auto) 17.8 TH/MM3 26.0 TH/MM3 Lymphocytes # (Auto) 2.4 TH/MM3 1.9 TH/MM3 Monocytes # (Auto) 1.2 TH/MM3 1.4 TH/MM3 Eosinophils # (Auto) 0.1 TH/MM3 0.0 TH/MM3 Basophils # (Auto) 0.0 TH/MM3 0.1 TH/MM3 CBC Comment DIFF FINAL DIFF FINAL Differential Comment Laboratory Tests Test 09/12/17 12:19 09/13/17 07:11 Blood Urea Nitrogen 30 MG/DL 33 MG/DL Creatinine 1.16 MG/DL 0.98 MG/DL Random Glucose 117 MG/DL 109 MG/DL Total Protein 6.0 GM/DL 5.3 GM/DL Albumin 2.1 GM/DL 1.8 GM/DL Calcium Level 8.7 MG/DL 8.6 MG/DL Alkaline Phosphatase 231 U/L 232 U/L Aspartate Amino Transf (AST/SGOT) 89 U/L 60 U/L Alanine Aminotransferase (ALT/SGPT) 28 U/L 24 U/L Total Bilirubin 25.8 MG/DL 23.3 MG/DL Sodium Level 139 MEQ/L 139 MEQ/L Potassium Level 4.3 MEQ/L 4.9 MEQ/L Chloride Level 107 MEQ/L 110 MEQ/L Carbon Dioxide Level 22.3 MEQ/L 19.8 MEQ/L Anion Gap 10 MEQ/L 9 MEQ/L Estimat Glomerular Filtration Rate 51 ML/MIN 63 ML/MIN Imaging Last Impressions Abdomen/Pelvis CT 09/08/17 0000 Signed Impressions: Service Date/Time: Friday, September 08, 2017 23:00 - CONCLUSION: 1. Continued hepatomegaly and ascites. No evidence of acute abdominal or pelvic process. No masses are identified. 2. Decreasing colonic wall thickening characteristic of resolving colitis Andres Machuca MD Abdomen Ultrasound 09/07/17 0000 Signed Impressions: Service Date/Time: Thursday, September 07, 2017 14:51 - CONCLUSION: Ascities without distention. With slight progression. There is enough ascites for a diagnostic tap. Dontrell Canela MD FACR Chest X-Ray 09/06/17 0000 Signed Impressions: Service Date/Time: August 05:19 - CONCLUSION: Bibasilar atelectasis slightly improved in the right lung base. Derian Man MD Cholangiopancreatography MRI 08/24/17 0000 Signed Impressions: Service Date/Time: Thursday, August 24, 2017 18:15 - CONCLUSION: 1. Hepatosplenomegaly. 2. Mild ascites in the right paracolic gutter region. 3. No dilatation of the biliary system. 4. Contracted gallbladder without stones. The gallbladder wall thickening may be secondary to lack of distention. 5. Thickening of the proximal transverse colon. 6. Consolidation or atelectasis in the right lower lobe with a minimal right effusion. Rohith Harman MD Abdomen X-Ray 08/22/17 0000 Signed Impressions: Service Date/Time: Tuesday, August 22, 2017 13:39 - CONCLUSION: Benign abdomen. Tay Valdes MD Physical Exam GENERAL: Well-nourished, well-developed female patient in NAD. Awake. Lethargic. SKIN: Warm and dry. No rash. Severely jaundiced. HEAD: Normocephalic. Atraumatic. EYES: Pupils equal and round. EOMI. Prominent sclera icterus. ENT: No nasal bleeding or discharge. Mucous membranes NECK: Supple. Trachea midline. CARDIOVASCULAR: Tachycardic. S1, S2 noted. No murmur appreciated. RESPIRATORY: Nonlabored. Decreased BS on right. GASTROINTESTINAL: Abdomen soft , distended, diffuse mild tenderness to palpation. MUSCULOSKELETAL: No obvious deformities. 2-3+ pitting edema in bilateral legs. NEUROLOGICAL: Awake. No obvious cranial nerve deficits. Motor grossly within normal limits. Able to move all extremities. Slightly slurred speech. PSYCHIATRIC: Appropriate mood and affect; insight and judgment normal. 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 S/p EGD and colonoscopy with no significant findings -trial of steroids started 08/29 Anasarca -on IV Lasix -insufficient fluid volume for paracentesis previously -patient with c/o increased abdominal girth and difficulty breathing Leukocytosis - worsening -CRP 8.30, ESR 75 -seen by hematology, most consistent with leukemoid reaction -potentially high dose steroids contributing -bumped up to 29.4, c/o diarrhea. No fever. Colitis omn the CT, but c.diff is negative Severe coagulopathy secondary to liver failure Sputum with steno malt ? colonization vs true infx R base infiltrate -? PNA Pt 's worsening liver failure is very concerning, prognosis is guarded RECOMMENDATIONS: Obtain C diff PCR Start empirically on Flagyl 500mg po q8hr Obtain CXR Monitor white count Monitor clinical progress (Anne [place]) Remarks The exam, history, and the medical decision-making described in the above note were completed with the assistance of the mid-level provider. I reviewed and agree with the findings presented. I attest that I had a [id number] encounter with the patient on the same day, and personally performed and documented my assessment and findings in the medical record. Leucocytosis increased further. No fever Wishes to go home. RN informs me patient refused Cefepime IV. Dw patient importance of compliance with tests and medications. Would like aggressive care does not want palliative care On exam: Abd distended. Non tender Sitting on side of bed CTA BL, decreased AE R>L Recs: Continue cefepime IV Check Cdiff PCR Start oral flagyl Patient recd oral prednisone and steroids off and on,. Will follow WBC trend and clinically. (Sandra Simeon MD) Anne Birmingham Sep 13, 2017 16:25 Sandra Simeon MD Sep 13, 2017 18:17
[2017-09-13] MEDS: metroNIDAZOLE 500 MG TAB PO SCH ×2 (16:37→21:41)
--- NOTE | 2017-09-13 19:11 | RADRPT ---
EXAM DATE/TIME: 09/13/2017 18:44 [facility] COMPARISON: CHEST SINGLE AP, September 06, 2017, 5:19. US ABDOMEN - LOWER LIMITED, September 07, 2017, 14:51. INDICATIONS : Short of breath MEDICAL HISTORY : Gastroesophageal reflux disease. Seizures. Alcohol abuse SURGICAL HISTORY : Appendectomy. Tonsillectomy. Back surgery x2. ENCOUNTER: Subsequent ACUITY: 1 month PAIN SCORE: 0/10 LOCATION: chest FINDINGS: There is mild vascular congestion and diffuse mild interstitial prominence. Slight consolidative dens ity at the left base. Accounting for rotation, the cardiac contours are grossly stable. CONCLUSION: Mild diffuse interstitial prominence and slight alveolar opacity in the bases. Rohith Alvarez MD on September 13, 2017 at 19:08 Board Certified Radiologist. This report was verified electronically.
--- NOTE | 2017-09-13 22:39 | RADRPT ---
EXAM DATE/TIME: 09/13/2017 22:25 [facility] COMPARISON: No previous studies available for comparison. INDICATIONS : Trauma, fall. Hit posterior head. RADIATION DOSE: 47.15 CTDIvol (mGy) MEDICAL HISTORY : None SURGICAL HISTORY : None. ENCOUNTER: Initial ACUITY: 1 day PAIN SCALE: 5/10 LOCATION: cranial TECHNIQUE: Multiple contiguous axial images were obtained of the head. Using automated exposure control and adj ustment of the mA and/or kV according to patient size, radiation dose was kept as low as reasonably a chievable to obtain optimal diagnostic quality images. DICOM format image data is available electro nically for review and comparison. FINDINGS: CEREBRUM: The ventricles are normal for age. No evidence of midline shift, mass lesion, hemorrhage or acute in farction. No extra-axial fluid collections are seen. POSTERIOR FOSSA: The cerebellum and brainstem are intact. The 4th ventricle is midline. The cerebellopontine angle i s unremarkable. EXTRACRANIAL: The visualized portion of the orbits is intact. SKULL: The calvaria is intact. No evidence of skull fracture. CONCLUSION: Normal examination. Rohith Alvarez MD on September 13, 2017 at 22:36 Board Certified Radiologist. This report was verified electronically.
[2017-09-14] VITALS: BP 111/64; PULSE 94; RESP 18; TEMP 97.5; O2SAT 95
[2017-09-14 01:05] VITALS: BP 102/60; PULSE 100
[2017-09-14] MEDS: LORazepam 2 MG TAB PO PRN ×2 (02:43→18:40)
[2017-09-14 05:00] VITALS: BP 112/65; PULSE 97; RESP 18; TEMP 97.4; O2SAT 94
[2017-09-14] MEDS: PENTOXIFYLLINE 400 MG CONTROLLED RELEASE TAB PO SCH ×3 (05:15→22:24)
[2017-09-14] MEDS: metroNIDAZOLE 500 MG TAB PO SCH (05:16)
[2017-09-14 07:45] LABS: BASOPHIL % 0.2 % (0.0-2.0); HEMATOCRIT 23.7 % (35.0-46.0); LYMPH % 1.3 % (9.0-44.0); LYMPHOCYTE # 0.3 TH/MM3 (1.0-4.8); MEAN CELL VOLUME 111.4 FL (80.0-100.0); MEAN CORPUSCULAR HEMOGLOBIN 37.8 PG (27.0-34.0); MEAN CORPUSCULAR HGB CONC 33.9 % (32.0-36.0); MEAN PLATELET VOLUME 7.4 FL (7.0-11.0); MONO % 5.9 % (0.0-8.0); MONOCYTE # 1.5 TH/MM3 (0-0.9); NEUT % 92.6 % (16.0-70.0); PLATELET COUNT 205 TH/MM3 (150-450); RED BLOOD COUNT 2.13 MIL/MM3 (4.00-5.30); RED CELL DISTRIBUTION WIDTH 15.4 % (11.6-17.2); WHITE BLOOD COUNT 24.8 TH/MM3 (4.0-11.0)
[2017-09-14 08:00] VITALS: BP 106/65; PULSE 97; RESP 19; TEMP 97.6; O2SAT 94
[2017-09-14] MEDS: NYSTATIN SUSP 500,000 U/5 ML CUP SWISH-SWAL SCH ×4 (09:00→22:23)
[2017-09-14] MEDS: LACTULOSE SYRUP 20 GM/30 ML CUP PO SCH ×3 (09:31→18:40)
[2017-09-14] MEDS: LORATADINE 10 MG TAB PO SCH (09:31)
[2017-09-14] MEDS: CEFEPIME INJ 2,000 MG in SODIUM CHLORIDE 0.9% INJ 100 ML IV SCH (09:31)
[2017-09-14] MEDS: guaiFENesin E.R. 600 MG TAB PO SCH ×2 (09:32→22:24)
[2017-09-14] MEDS: prednisoLONE 10 MG ODT TAB PO SCH (09:32)
[2017-09-14] MEDS: FAMOTIDINE 20 MG TAB PO SCH ×2 (09:32→22:23)
[2017-09-14] MEDS: TORSEMIDE 20 MG TAB PO SCH (09:32)
[2017-09-14] MEDS: THIAMINE HCL 100 MG TAB PO SCH (09:32)
[2017-09-14] MEDS: FOLIC ACID 1 MG TAB PO SCH (09:32)
[2017-09-14] MEDS: SPIRONOLACTONE 100 MG TAB PO SCH (09:32)
[2017-09-14] MEDS: POTASSIUM CHLORIDE 10 MEQ CAP PO SCH ×2 (09:32→22:23)
[2017-09-14] MEDS: SODIUM CHLORIDE 0.9% FLUSH 10 ML FLUSH IV FLUSH SCH ×2 (09:33→22:22)
[2017-09-14] MEDS: FLUTICASONE PROPIONATE 50 MCG/ACT 16 GM NASAL SPRAY EACH NARE SCH (09:33)
--- NOTE | 2017-09-14 10:51 | HHI.IDPN ---
Subjective Subjective Remarks Patient seen and examined on behalf of Dr. Blanco [facility] for Dr. Mota 42-year-old female with a history of heavy alcohol use who presented with abdominal pain, jaundice, increasing abdominal girth and bilateral extremity edema 2 weeks. Patient was found to have elevated white count of 30.2. Patient was afebrile. CT showed colitis. C. difficile studies were negative. Patient recently diagnosed with UTI growing Enterobacter. CT also showed ascites but insufficient for paracentesis. Infectious disease consulted for evaluation and management of sepsis Notes reviewed Overnight events noted, patient fell last night, hitting her head, CT head neg D/W nursing staff Patient has brother on phone via face time and patient gave consent for him to be present during exam. He is concerned about worsening mentation. Patient is adamant about going home She has continued complaints of nausea and abdominal pain + diarrhea on Lactulose denies any fever or chills denies any cough or sputum production dyspnea with minimal exertion no rash no dysuria still with significant LE edema persistent leukocytosis, white count improved some in past 24hrs, now 24.8 afebrile Cdiff neg Abd US shows trace ascites CT abd/pelvis shows hepatomegaly and ascites, no acute process, resolving colitis Antibiotics IV Cefepime Current Medications Medications (Trade) Dose Ordered Sig/[place] Route Start Time Stop Time Status Last Admin (NS Flush) 2 ml UNSCH PRN IV FLUSH 08/19/17 13:30 09/01/17 05:05 (NS Flush) 2 ml BID IV FLUSH 08/19/17 21:00 09/14/17 09:33 (Tylenol) 500 mg Q4H PRN PO 08/19/17 13:30 (Zofran Inj) 4 mg Q6H PRN IVP 08/19/17 13:30 09/10/17 21:18 (Narcan Inj) 0.4 mg UNSCH PRN IV PUSH 08/19/17 13:30 (Milk Of Magnesia Liq) 30 ml Q12H PRN PO 08/19/17 13:30 (Senokot) 17.2 mg Q12H PRN PO 08/19/17 13:30 08/22/17 08:36 (Dulcolax Supp) 10 mg DAILY PRN RECTAL 08/19/17 13:30 (TRENtal SR) 400 mg Q8HR PO 08/19/17 22:00 Future hold 09/14/17 05:15 (Vitamin B1) 100 mg DAILY PO 08/22/17 09:00 09/14/17 09:32 (Folate) 1 mg DAILY PO 08/19/17 21:00 09/14/17 09:32 (Reglan Inj) 5 mg Q6H PRN IV PUSH 08/21/17 10:15 09/11/17 04:14 (Compazine Supp) 25 mg Q12H PRN RECTAL 08/21/17 10:15 (Lactulose Liq) 30 ml TID PO 08/22/17 15:30 09/14/17 09:31 (Mucinex Er) 600 mg BID PO 08/24/17 14:00 09/14/17 09:32 (Duoneb Neb) 1 ampule Q4HR NEB PRN NEB 08/24/17 13:30 (Aldactone) 100 mg DAILY PO 08/25/17 17:45 09/14/17 09:32 (Chapstick) 1 applic UNSCH PRN TOPICAL 08/30/17 14:00 08/30/17 15:10 (Tums Chew) 500 mg Q2H PRN CHEW 08/30/17 14:30 09/12/17 13:20 (KCl) 30 meq BID PO 08/31/17 21:00 09/14/17 09:32 (Pepcid) 20 mg BID PO 09/01/17 21:00 09/14/17 09:32 (Flonase [place] Spr) 2 spray DAILY EACH NARE 09/01/17 12:00 09/14/17 09:33 (Claritin) 10 mg DAILY PO 09/01/17 12:00 09/14/17 09:31 (Mycostatin Liq) 5 ml QID SWISH-SWAL 09/05/17 13:00 09/13/17 21:41 (Ativan) 2 mg Q8H PRN PO 09/06/17 12:00 09/14/17 02:43 Cefepime HCl 2000 mg/Sodium Chloride 100 ml @ 200 mls/hr Q12H IV 09/10/17 20:00 09/14/17 09:31 (Orapred Odt) 40 mg DAILY PO 09/12/17 12:00 09/14/17 09:32 (Demadex) 20 mg DAILY PO 09/13/17 09:00 09/14/17 09:32 (Roxicodone) 5 mg Q4H PRN PO 09/13/17 17:00 09/14/17 09:43 Lines PIV line without any e/o infection Past Medical History EtOH abuse GERD (Anne [place]) Allergies: Coded Allergies: Sulfa (Sulfonamide Antibiotics) (Verified Allergy, Unknown, 07/28/17) Objective . Vital Signs Date Time Temp Pulse Resp B/P (MAP) Pulse Ox O2 Delivery O2 Flow Rate FiO2 09/14/17 05:00 97.4 97 18 112/65 (81) 94 09/14/17 01:05 100 102/60 (74) 09/14/17 00:00 97.5 94 18 111/64 (80) 95 09/13/17 22:51 97.9 94 18 113/69 (84) 95 09/13/17 21:25 97.5 99 20 113/63 (80) 97 09/13/17 20:00 97.1 100 18 116/68 (84) 94 09/13/17 16:32 97.3 99 18 104/64 (77) 93 09/13/17 11:36 97.8 103 20 102/62 (75) 96 . Laboratory Tests Test 09/12/17 12:19 09/13/17 07:11 09/14/17 05:52 White Blood Count 21.5 TH/MM3 29.4 TH/MM3 24.8 TH/MM3 Red Blood Count 2.10 MIL/MM3 2.03 MIL/MM3 2.13 MIL/MM3 Hemoglobin 8.3 GM/DL 7.9 GM/DL 8.0 GM/DL Hematocrit 23.6 % 22.9 % 23.7 % Mean Corpuscular Volume 112.6 FL 112.7 FL 111.4 FL Mean Corpuscular Hemoglobin 39.6 PG 38.9 PG 37.8 PG Mean Corpuscular Hemoglobin Concent 35.2 % 34.5 % 33.9 % Red Cell Distribution Width 15.7 % 15.5 % 15.4 % Platelet Count 179 TH/MM3 185 TH/MM3 205 TH/MM3 Mean Platelet Volume 7.6 FL 7.8 FL 7.4 FL Neutrophils (%) (Auto) 82.7 % 88.4 % 92.6 % Lymphocytes (%) (Auto) 11.1 % 6.6 % 1.3 % Monocytes (%) (Auto) 5.8 % 4.7 % 5.9 % Eosinophils (%) (Auto) 0.3 % 0.0 % 0.0 % Basophils (%) (Auto) 0.1 % 0.3 % 0.2 % Neutrophils # (Auto) 17.8 TH/MM3 26.0 TH/MM3 23.0 TH/MM3 Lymphocytes # (Auto) 2.4 TH/MM3 1.9 TH/MM3 0.3 TH/MM3 Monocytes # (Auto) 1.2 TH/MM3 1.4 TH/MM3 1.5 TH/MM3 Eosinophils # (Auto) 0.1 TH/MM3 0.0 TH/MM3 0.0 TH/MM3 Basophils # (Auto) 0.0 TH/MM3 0.1 TH/MM3 0.0 TH/MM3 CBC Comment DIFF FINAL DIFF FINAL DIFF FINAL Differential Comment Laboratory Tests Test 09/12/17 12:19 09/13/17 07:11 Blood Urea Nitrogen 30 MG/DL 33 MG/DL Creatinine 1.16 MG/DL 0.98 MG/DL Random Glucose 117 MG/DL 109 MG/DL Total Protein 6.0 GM/DL 5.3 GM/DL Albumin 2.1 GM/DL 1.8 GM/DL Calcium Level 8.7 MG/DL 8.6 MG/DL Alkaline Phosphatase 231 U/L 232 U/L Aspartate Amino Transf (AST/SGOT) 89 U/L 60 U/L Alanine Aminotransferase (ALT/SGPT) 28 U/L 24 U/L Total Bilirubin 25.8 MG/DL 23.3 MG/DL Sodium Level 139 MEQ/L 139 MEQ/L Potassium Level 4.3 MEQ/L 4.9 MEQ/L Chloride Level 107 MEQ/L 110 MEQ/L Carbon Dioxide Level 22.3 MEQ/L 19.8 MEQ/L Anion Gap 10 MEQ/L 9 MEQ/L Estimat Glomerular Filtration Rate 51 ML/MIN 63 ML/MIN Imaging Last Impressions Head CT 09/13/17 0000 Signed Impressions: Service Date/Time: August 22:25 - CONCLUSION: Normal examination. Rohith Alvarez MD Chest X-Ray 09/13/17 0000 Signed Impressions: Service Date/Time: August 18:44 - CONCLUSION: Mild diffuse interstitial prominence and slight alveolar opacity in the bases. Rohith Alvarez MD Abdomen Ultrasound 09/10/17 0000 Signed Impressions: Service Date/Time: Sunday, September 10, 2017 07:40 - CONCLUSION: 1. Trace ascites present. This is of insufficient volume for safe paracentesis. Antonio Willard MD Abdomen/Pelvis CT 09/08/17 0000 Signed Impressions: Service Date/Time: Friday, September 08, 2017 23:00 - CONCLUSION: 1. Continued hepatomegaly and ascites. No evidence of acute abdominal or pelvic process. No masses are identified. 2. Decreasing colonic wall thickening characteristic of resolving colitis Andres Machuca MD Cholangiopancreatography MRI 08/24/17 0000 Signed Impressions: Service Date/Time: Thursday, August 24, 2017 18:15 - CONCLUSION: 1. Hepatosplenomegaly. 2. Mild ascites in the right paracolic gutter region. 3. No dilatation of the biliary system. 4. Contracted gallbladder without stones. The gallbladder wall thickening may be secondary to lack of distention. 5. Thickening of the proximal transverse colon. 6. Consolidation or atelectasis in the right lower lobe with a minimal right effusion. Rohith Harman MD Abdomen X-Ray 08/22/17 0000 Signed Impressions: Service Date/Time: Tuesday, August 22, 2017 13:39 - CONCLUSION: Benign abdomen. Tay Valdes MD Physical Exam GENERAL: Well-nourished, well-developed female patient in [facility]. Awake, somewhat lethargic. Sitting up in hospital bed. SKIN: Warm and dry. No rash. Severely jaundiced. HEAD: Normocephalic. Atraumatic. EYES: Pupils equal and round. EOMI. Prominent sclera icterus. ENT: No nasal bleeding or discharge. Mucous membranes NECK: Supple. Trachea midline. CARDIOVASCULAR: Tachycardic. S1, S2 noted. No murmur appreciated. RESPIRATORY: Nonlabored. Diminished BS in lower bases bilaterally. GASTROINTESTINAL: Abdomen soft , distended, diffuse mild tenderness to palpation. MUSCULOSKELETAL: No obvious deformities. 2-3+ pitting edema in bilateral legs. NEUROLOGICAL: Awake, lethargic. No obvious cranial nerve deficits. Motor grossly within normal limits. Able to move all extremities. Slightly slurred speech. PSYCHIATRIC: Calm and cooperative. Insight and judgment questionable. 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 S/p EGD and colonoscopy with no significant findings -trial of steroids started 08/29 -patient wants aggressive care does not want palliative care Hepatic encephalopathy -declining mentation -patient fell last night while going to the bathroom, CT head neg -dw nursing staff, patient unsteady with gait Leukocytosis - worsening -CRP 8.30, ESR 75 -seen by hematology, most consistent with leukemoid reaction -potentially high dose steroids contributing -bumped up to 29.4, c/o diarrhea. No fever. Repeat Cdiff negative. White count improved some to 24.8 -CXR shows mild diffuse interstitial prominence and slight alveolar opacity in bases Colitis omn the CT, but c.diff is negative Severe coagulopathy secondary to liver failure Sputum with steno malt ? colonization vs true infx R base infiltrate -? PNA Pt 's worsening liver failure is very concerning, prognosis is guarded RECOMMENDATIONS: C diff negative, stop Flagyl On IV Cefepime, discontinue recheck ammonia level Continue to monitor white count Monitor clinical progress Discussed with patient, brother, nursing staff and Dr. Montes Per Dr. Montes, persistently elevated white count likely due to steroid rxn (Anne [place]) Remarks The exam, history, and the medical decision-making described in the above note were completed with the assistance of the mid-level provider. I reviewed and agree with the findings presented. I attest that I had a [id number] encounter with the patient on the same day, and personally performed and documented my assessment and findings in the medical record. Jairo Mccarthy DC Cefepime IV DC Flagyl as Cdiff PCR negative. Leukemid reaction. Was on steroids. Will be placed back on steroids. Observe off antibiotics if any signs of sepsis vail culture and start [employer] and call ID. covering this weekend and available prn. (Sandra Simeon MD) Anne Birmingham Sep 14, 2017 10:51 Sandra Simeon MD Sep 14, 2017 15:10
--- NOTE | 2017-09-14 11:48 | HHI.PR ---
Subjective Remarks Follow-up for alcoholic liver disease. Patient is resting in bed. However, she appears to be more somnolent. Answers questions appropriately. Complains of abdominal pain. Afebrile. She again fell yesterday. Head CT shows no acute findings. Objective Vitals Vital Signs Date Time Temp Pulse Resp B/P (MAP) Pulse Ox O2 Delivery O2 Flow Rate FiO2 09/14/17 08:00 97.6 97 19 106/65 (79) 94 09/14/17 05:00 97.4 97 18 112/65 (81) 94 09/14/17 01:05 100 102/60 (74) 09/14/17 00:00 97.5 94 18 111/64 (80) 95 09/13/17 22:51 97.9 94 18 113/69 (84) 95 09/13/17 21:25 97.5 99 20 113/63 (80) 97 09/13/17 20:00 97.1 100 18 116/68 (84) 94 09/13/17 16:32 97.3 99 18 104/64 (77) 93 I/O 09/13/17 09/13/17 09/13/17 09/14/17 09/14/17 09/14/17 07:00 15:00 23:00 07:00 15:00 23:00 Intake Total 250 ml 720 ml 95 ml Output Total 300 ml 400 ml 900 ml Balance -50 ml -400 ml -180 ml 95 ml Intake Oral 150 ml 720 ml IV Total 100 ml 95 ml Output Urine Total 300 ml 900 ml Stool Total 400 ml # Voids 2 1 4 5 # Bowel Movements 3 3 Result Diagram: 09/14/17 0552 09/13/17 0711 Imaging Last Impressions Head CT 09/13/17 0000 Signed Impressions: Service Date/Time: August 22:25 - CONCLUSION: Normal examination. Rohith Alvarez MD Chest X-Ray 09/13/17 0000 Signed Impressions: Service Date/Time: August 18:44 - CONCLUSION: Mild diffuse interstitial prominence and slight alveolar opacity in the bases. Rohith Alvarez MD Abdomen Ultrasound 09/10/17 0000 Signed Impressions: Service Date/Time: Sunday, September 10, 2017 07:40 - CONCLUSION: 1. Trace ascites present. This is of insufficient volume for safe paracentesis. Antonio Willard MD Abdomen/Pelvis CT 09/08/17 0000 Signed Impressions: Service Date/Time: Friday, September 08, 2017 23:00 - CONCLUSION: 1. Continued hepatomegaly and ascites. No evidence of acute abdominal or pelvic process. No masses are identified. 2. Decreasing colonic wall thickening characteristic of resolving colitis Andres Machuca MD Cholangiopancreatography MRI 08/24/17 0000 Signed Impressions: Service Date/Time: Thursday, August 24, 2017 18:15 - CONCLUSION: 1. Hepatosplenomegaly. 2. Mild ascites in the right paracolic gutter region. 3. No dilatation of the biliary system. 4. Contracted gallbladder without stones. The gallbladder wall thickening may be secondary to lack of distention. 5. Thickening of the proximal transverse colon. 6. Consolidation or atelectasis in the right lower lobe with a minimal right effusion. Rohith Harman MD Abdomen X-Ray 08/22/17 0000 Signed Impressions: Service Date/Time: Tuesday, August 22, 2017 13:39 - CONCLUSION: Benign abdomen. Tay Valdes MD Objective Remarks GENERAL: Somewhat somnolent. NAD. SKIN: Warm and dry. Jaundiced skin HEAD: Normocephalic. EYES: No scleral icterus. No injection or drainage. Icterus sclerae NECK: Supple, trachea midline. No JVD or lymphadenopathy. CARDIOVASCULAR: Reg rhythm, tachycardic without murmurs, gallops, or rubs. RESPIRATORY: Breath sounds equal bilaterally. No accessory muscle use. GASTROINTESTINAL: Abdomen soft, somewhat distended, diffusely tender to deep palpation especially upper quadrants. MUSCULOSKELETAL: No cyanosis, 1+ edema in lower ext. BACK: Nontender without obvious deformity. No CVA tenderness. Procedures EGD, colonoscopy 08/20/2017. gastritis Colon polyp Internal and external hemorrhoids A/P Problem List: (1) Severe sepsis ICD Code: A41.9 - Sepsis, unspecified organism; R65.20 - Severe sepsis without septic shock (2) KATELYN (acute kidney injury) ICD Code: N17.9 - Acute kidney failure, unspecified (3) Alcoholic liver disease ICD Code: K70.9 - Alcoholic liver disease, unspecified (4) Alcohol dependence ICD Code: F10.20 - Alcohol dependence, uncomplicated Status: Acute Assessment and Plan Ms. Lim is a 42 year old female with a history of alcoholism who presented to the ED due to worsening abdominal pain that started about two weeks prior to this admission. Particularly worse pain in the last two days as well as yellowish discoloration of her conjunctiva. - Severe sepsis (Tachycardia, WBC 30.1, Suspected infection SBP, organ dysfunction Creatinine 2.0). Currently resolved. - Possible Spontaneous bacterial peritonitis - Alcoholic liver hepatitis - Abdominal pain. - Abd US shows small ascites. Repeat attempts have shown not enough ascites. - Maddrey's discrimination factor 35 --> 59 (PT 19.5, Bili 11.5 --> 23 --> 25.8 --> 23.3 on 09/13/2017). - Encouraged patient to take prednisolone 40mg Qday and Pentoxifylline - I discussed with GI attending (Dr. Nunes) on 09/12/2017 - other than steroid and pentoxifylline, not much to offer with regards to liver dz - Lactulose 30mg TID. - Increased abdominal pain is possibly due to opioid use, constipation. Reduced opioids. - Patient does not want to talk to palliative care team. - Will check Bilirubin and Ammonia level today. - Possible pneumonia - sputum culture grew stenotrophomonas maltophilia - ID is following - currently on Cefepime. - She may not need any abx on discharge. - Probable lower GI bleed - GI evaluated patient. EGD and colonoscopy completed on 08/20/2017 --> gastritis, colonic polyp, internal and external hemorrhoids. Repeat colonoscopy in 5 years. High-fiber diet recommended. - Alcohol abuse - Thiamine, Folic acid, CIWA protocol. - Patient is motivated to quit drinking. - Acute kidney injury -Severe hypokalemia - Likely due to poor volume intake. - Creatinine 2.0 --> 1.60 --> 0.92 --> 1.06 --> 0.98 - Replaced potassium with IV and p.o. potassium chloride. Magnesium was 2.0 Full code. SCDs. Prognosis poor. Aniya Montes DO Sep 14, 2017 11:48 am
[2017-09-14 12:00] VITALS: BP 110/60; PULSE 98; RESP 18; TEMP 97.4; O2SAT 96
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
[2017-09-14 20:00] VITALS: BP 108/55; PULSE 95; RESP 18; TEMP 98.4; O2SAT 97
[2017-09-15] VITALS: BP 100/55; PULSE 105; RESP 18; TEMP 97.9; O2SAT 96
[2017-09-15 05:00] VITALS: BP 98/56; PULSE 106; RESP 18; TEMP 98.3; O2SAT 94
[2017-09-15] MEDS: PENTOXIFYLLINE 400 MG CONTROLLED RELEASE TAB PO SCH ×3 (06:36→23:26)
[2017-09-15] MEDS: LORazepam 2 MG TAB PO PRN ×2 (06:36→20:03)
[2017-09-15 08:00] VITALS: BP 99/58; PULSE 105; RESP 18; TEMP 98.1; O2SAT 95
[2017-09-15] MEDS: NYSTATIN SUSP 500,000 U/5 ML CUP SWISH-SWAL SCH ×4 (09:00→23:25)
[2017-09-15] MEDS: LACTULOSE SYRUP 20 GM/30 ML CUP PO SCH ×3 (09:56→18:00)
[2017-09-15] MEDS: FAMOTIDINE 20 MG TAB PO SCH ×2 (09:57→23:25)
[2017-09-15] MEDS: FOLIC ACID 1 MG TAB PO SCH (09:57)
[2017-09-15] MEDS: SPIRONOLACTONE 100 MG TAB PO SCH (09:57)
[2017-09-15] MEDS: guaiFENesin E.R. 600 MG TAB PO SCH ×2 (09:57→23:25)
[2017-09-15] MEDS: THIAMINE HCL 100 MG TAB PO SCH (09:57)
[2017-09-15] MEDS: TORSEMIDE 20 MG TAB PO SCH (09:57)
[2017-09-15] MEDS: LORATADINE 10 MG TAB PO SCH (09:57)
[2017-09-15] MEDS: POTASSIUM CHLORIDE 10 MEQ CAP PO SCH ×2 (09:57→23:25)
[2017-09-15] MEDS: SODIUM CHLORIDE 0.9% FLUSH 10 ML FLUSH IV FLUSH SCH ×2 (09:59→23:27)
[2017-09-15] MEDS: FLUTICASONE PROPIONATE 50 MCG/ACT 16 GM NASAL SPRAY EACH NARE SCH (10:05)
[2017-09-15 10:09] LABS: ALBUMIN 1.8 GM/DL (3.4-5.0); ALKALINE PHOSPHATASE 216 U/L (45-117); ALT (GPT) 23 U/L (10-53); AST (GOT) 69 U/L (15-37); BLOOD UREA NITROGEN 27 MG/DL (7-18); CALCIUM 8.6 MG/DL (8.5-10.1); CHLORIDE 109 MEQ/L (98-107); CREATININE 0.96 MG/DL (0.50-1.00); GLOMERULAR FILTRATION RATE 64 ML/MIN (>89); GLUCOSE,RANDOM 98 MG/DL (74-106); SODIUM (NA) 142 MEQ/L (136-145); TOTAL BILIRUBIN ADULT 22.6 MG/DL (0.2-1.0); TOTAL PROTEIN 5.4 GM/DL (6.4-8.2)
[2017-09-15] MEDS: prednisoLONE 10 MG ODT TAB PO SCH (11:24)
[2017-09-15 12:00] VITALS: BP 109/59; PULSE 120; RESP 18; TEMP 98; O2SAT 98
--- NOTE | 2017-09-15 14:56 | HHI.PR ---
Subjective Remarks Follow-up for alcoholic liver disease. Patient is resting in bed. No acute concerns. No fever or chills. Objective Vitals Vital Signs Date Time Temp Pulse Resp B/P (MAP) Pulse Ox O2 Delivery O2 Flow Rate FiO2 09/15/17 12:00 98.0 120 18 109/59 (76) 98 09/15/17 08:00 98.1 105 18 99/58 (72) 95 Manual Cuff/Auscultation 09/15/17 05:00 98.3 106 18 98/56 (70) 94 09/15/17 03:18 18 09/15/17 00:00 97.9 105 18 100/55 (70) 96 09/14/17 20:00 98.4 95 18 108/55 (72) 97 I/O 09/14/17 09/14/17 09/14/17 09/15/17 09/15/17 09/15/17 07:00 15:00 23:00 07:00 15:00 23:00 Intake Total 95 ml 400 ml 360 ml Output Total 1501 ml Balance 95 ml 400 ml -1141 ml Intake Oral 400 ml 360 ml IV Total 95 ml Output Urine Total 1500 ml Stool Total 1 ml # Voids 5 7 3 2 # Bowel Movements 2 3 Result Diagram: 09/14/17 0552 09/15/17 0841 Imaging Last Impressions Head CT 09/13/17 0000 Signed Impressions: Service Date/Time: August 22:25 - CONCLUSION: Normal examination. Rohith Alvarez MD Chest X-Ray 09/13/17 0000 Signed Impressions: Service Date/Time: August 18:44 - CONCLUSION: Mild diffuse interstitial prominence and slight alveolar opacity in the bases. Rohith Alvarez MD Abdomen Ultrasound 09/10/17 0000 Signed Impressions: Service Date/Time: Sunday, September 10, 2017 07:40 - CONCLUSION: 1. Trace ascites present. This is of insufficient volume for safe paracentesis. Antonio Willard MD Abdomen/Pelvis CT 09/08/17 0000 Signed Impressions: Service Date/Time: Friday, September 08, 2017 23:00 - CONCLUSION: 1. Continued hepatomegaly and ascites. No evidence of acute abdominal or pelvic process. No masses are identified. 2. Decreasing colonic wall thickening characteristic of resolving colitis Andres Machuca MD Cholangiopancreatography MRI 08/24/17 0000 Signed Impressions: Service Date/Time: Thursday, August 24, 2017 18:15 - CONCLUSION: 1. Hepatosplenomegaly. 2. Mild ascites in the right paracolic gutter region. 3. No dilatation of the biliary system. 4. Contracted gallbladder without stones. The gallbladder wall thickening may be secondary to lack of distention. 5. Thickening of the proximal transverse colon. 6. Consolidation or atelectasis in the right lower lobe with a minimal right effusion. Rohith Harman MD Abdomen X-Ray 08/22/17 0000 Signed Impressions: Service Date/Time: Tuesday, August 22, 2017 13:39 - CONCLUSION: Benign abdomen. Tay Valdes MD Objective Remarks GENERAL: Somewhat somnolent. NAD. SKIN: Warm and dry. Jaundiced skin HEAD: Normocephalic. EYES: No scleral icterus. No injection or drainage. Icterus sclerae NECK: Supple, trachea midline. No JVD or lymphadenopathy. CARDIOVASCULAR: Reg rhythm, tachycardic without murmurs, gallops, or rubs. RESPIRATORY: Breath sounds equal bilaterally. No accessory muscle use. GASTROINTESTINAL: Abdomen soft, somewhat distended, diffusely tender to deep palpation especially upper quadrants. MUSCULOSKELETAL: No cyanosis, 1+ edema in lower ext. BACK: Nontender without obvious deformity. No CVA tenderness. Procedures EGD, colonoscopy 08/20/2017. gastritis Colon polyp Internal and external hemorrhoids A/P Problem List: (1) Severe sepsis ICD Code: A41.9 - Sepsis, unspecified organism; R65.20 - Severe sepsis without septic shock (2) KATELYN (acute kidney injury) ICD Code: N17.9 - Acute kidney failure, unspecified (3) Alcoholic liver disease ICD Code: K70.9 - Alcoholic liver disease, unspecified (4) Alcohol dependence ICD Code: F10.20 - Alcohol dependence, uncomplicated Status: Acute Assessment and Plan Ms. Lim is a 42 year old female with a history of alcoholism who presented to the ED due to worsening abdominal pain that started about two weeks prior to this admission. Particularly worse pain in the last two days as well as yellowish discoloration of her conjunctiva. - Severe sepsis (Tachycardia, WBC 30.1, Suspected infection SBP, organ dysfunction Creatinine 2.0). Currently resolved. - Possible Spontaneous bacterial peritonitis - Alcoholic liver hepatitis - Abdominal pain. - Abd US shows small ascites. Repeat attempts have shown not enough ascites. - Maddrey's discrimination factor 35 --> 59 (PT 19.5, Bili 11.5 --> 23 --> 25.8 --> 22.6 on 09/13/2017). - Encouraged patient to take prednisolone 40mg Qday and Pentoxifylline - I discussed with GI attending (Dr. Nunes) on 09/12/2017 - other than steroid and pentoxifylline, not much to offer with regards to liver dz - Lactulose 30mg TID. - Increased abdominal pain is possibly due to opioid use, constipation. Reduced opioids. - Palliative team discussed with patient. - CMP, PT/INR on 09/17/2017. - Possible pneumonia - sputum culture grew stenotrophomonas maltophilia - ID is following - currently off abx. - Probable lower GI bleed - GI evaluated patient. EGD and colonoscopy completed on 08/20/2017 --> gastritis, colonic polyp, internal and external hemorrhoids. Repeat colonoscopy in 5 years. High-fiber diet recommended. - Alcohol abuse - Thiamine, Folic acid, CIWA protocol. - Patient is motivated to quit drinking. - Acute kidney injury -Severe hypokalemia - Likely due to poor volume intake. - Creatinine 2.0 --> 1.60 --> 0.92 --> 1.06 --> 0.98 - Replaced potassium with IV and p.o. potassium chloride. Magnesium was 2.0 Full code. SCDs. Prognosis poor. Bilirubin is trending down. Physically, patient is very weak and not a safe discharge. If she is able to safely ambulate, she can likely be discharged home on oral medications. Aniya Montes DO Sep 15, 2017 2:56 pm
[2017-09-15 16:00] VITALS: BP 110/59; PULSE 112; RESP 18; TEMP 98.6; O2SAT 94
[2017-09-15] MEDS: ONDANSETRON HCL 4 MG/2 ML VIAL IVP PRN (23:26)
[2017-09-15 23:30] VITALS: BP 110/89; PULSE 68; RESP 19; TEMP 98; O2SAT 98
[2017-09-16 01:20] VITALS: BP 115/80; PULSE 66; RESP 18; TEMP 97.6; O2SAT 99
[2017-09-16] MEDS: LORazepam 2 MG TAB PO PRN ×3 (03:57→19:48)
[2017-09-16 04:20] VITALS: BP 101/55; PULSE 110; RESP 19; TEMP 98; O2SAT 96
[2017-09-16] MEDS: PENTOXIFYLLINE 400 MG CONTROLLED RELEASE TAB PO SCH ×3 (06:42→23:17)
[2017-09-16 08:00] VITALS: BP 107/56; PULSE 106; RESP 18; TEMP 97.3; O2SAT 93
[2017-09-16] MEDS: prednisoLONE 10 MG ODT TAB PO SCH (08:34)
[2017-09-16] MEDS: LORATADINE 10 MG TAB PO SCH (08:34)
[2017-09-16] MEDS: FOLIC ACID 1 MG TAB PO SCH (08:34)
[2017-09-16] MEDS: POTASSIUM CHLORIDE 10 MEQ CAP PO SCH ×2 (08:34→23:17)
[2017-09-16] MEDS: guaiFENesin E.R. 600 MG TAB PO SCH ×2 (08:34→23:18)
[2017-09-16] MEDS: FAMOTIDINE 20 MG TAB PO SCH ×2 (08:34→23:18)
[2017-09-16] MEDS: SPIRONOLACTONE 100 MG TAB PO SCH (08:34)
[2017-09-16] MEDS: TORSEMIDE 20 MG TAB PO SCH (08:34)
[2017-09-16] MEDS: LACTULOSE SYRUP 20 GM/30 ML CUP PO SCH ×3 (08:34→18:00)
[2017-09-16] MEDS: NYSTATIN SUSP 500,000 U/5 ML CUP SWISH-SWAL SCH ×4 (08:39→21:00)
[2017-09-16] MEDS: THIAMINE HCL 100 MG TAB PO SCH (08:40)
--- NOTE | 2017-09-16 11:02 | HHI.PR ---
Subjective Remarks Follow-up for alcoholic liver disease. Patient is sitting at the side of the bed. Trying to eat breakfast. No fever, chills. Her brother apparently is coming on 09/17/2017. Objective Vitals Vital Signs Date Time Temp Pulse Resp B/P (MAP) Pulse Ox O2 Delivery O2 Flow Rate FiO2 09/16/17 08:00 97.3 106 18 107/56 (73) 93 09/16/17 04:20 98.0 110 19 101/55 (70) 96 09/16/17 01:20 97.6 66 18 115/80 (92) 99 09/15/17 23:30 98.0 68 19 110/89 (96) 98 09/15/17 16:00 98.6 112 18 110/59 (76) 94 09/15/17 12:00 98.0 120 18 109/59 (76) 98 I/O 09/15/17 09/15/17 09/15/17 09/16/17 09/16/17 09/16/17 07:00 15:00 23:00 07:00 15:00 23:00 Intake Total 360 ml 538 ml Output Total 1501 ml 0 ml Balance -1141 ml 538 ml Intake Oral 360 ml 538 ml Output Urine Total 1500 ml 0 ml Stool Total 1 ml # Voids 2 4 # Bowel Movements 0 Result Diagram: 09/14/17 0552 09/15/17 0841 Imaging Last Impressions Head CT 09/13/17 0000 Signed Impressions: Service Date/Time: August 22:25 - CONCLUSION: Normal examination. Rohith Alvarez MD Chest X-Ray 09/13/17 0000 Signed Impressions: Service Date/Time: August 18:44 - CONCLUSION: Mild diffuse interstitial prominence and slight alveolar opacity in the bases. Rohith Alvarez MD Abdomen Ultrasound 09/10/17 0000 Signed Impressions: Service Date/Time: Sunday, September 10, 2017 07:40 - CONCLUSION: 1. Trace ascites present. This is of insufficient volume for safe paracentesis. Antonio Willard MD Abdomen/Pelvis CT 09/08/17 0000 Signed Impressions: Service Date/Time: Friday, September 08, 2017 23:00 - CONCLUSION: 1. Continued hepatomegaly and ascites. No evidence of acute abdominal or pelvic process. No masses are identified. 2. Decreasing colonic wall thickening characteristic of resolving colitis Andres Machuca MD Cholangiopancreatography MRI 08/24/17 0000 Signed Impressions: Service Date/Time: Thursday, August 24, 2017 18:15 - CONCLUSION: 1. Hepatosplenomegaly. 2. Mild ascites in the right paracolic gutter region. 3. No dilatation of the biliary system. 4. Contracted gallbladder without stones. The gallbladder wall thickening may be secondary to lack of distention. 5. Thickening of the proximal transverse colon. 6. Consolidation or atelectasis in the right lower lobe with a minimal right effusion. Rohith Harman MD Abdomen X-Ray 08/22/17 0000 Signed Impressions: Service Date/Time: Tuesday, August 22, 2017 13:39 - CONCLUSION: Benign abdomen. Tay Valdes MD Objective Remarks GENERAL: Somewhat somnolent. NAD. SKIN: Warm and dry. Jaundiced skin HEAD: Normocephalic. EYES: No scleral icterus. No injection or drainage. Icterus sclerae NECK: Supple, trachea midline. No JVD or lymphadenopathy. CARDIOVASCULAR: Reg rhythm, tachycardic without murmurs, gallops, or rubs. RESPIRATORY: Breath sounds equal bilaterally. No accessory muscle use. GASTROINTESTINAL: Abdomen soft, somewhat distended, diffusely tender to deep palpation especially upper quadrants. MUSCULOSKELETAL: No cyanosis, 1+ edema in lower ext. BACK: Nontender without obvious deformity. No CVA tenderness. Procedures EGD, colonoscopy 08/20/2017. gastritis Colon polyp Internal and external hemorrhoids A/P Problem List: (1) Severe sepsis ICD Code: A41.9 - Sepsis, unspecified organism; R65.20 - Severe sepsis without septic shock (2) KATELYN (acute kidney injury) ICD Code: N17.9 - Acute kidney failure, unspecified (3) Alcoholic liver disease ICD Code: K70.9 - Alcoholic liver disease, unspecified (4) Alcohol dependence ICD Code: F10.20 - Alcohol dependence, uncomplicated Status: Acute Assessment and Plan Ms. Lim is a 42 year old female with a history of alcoholism who presented to the ED due to worsening abdominal pain that started about two weeks prior to this admission. Particularly worse pain in the last two days as well as yellowish discoloration of her conjunctiva. - Severe sepsis (Tachycardia, WBC 30.1, Suspected infection SBP, organ dysfunction Creatinine 2.0). Currently resolved. - Possible Spontaneous bacterial peritonitis - Alcoholic liver hepatitis - Abdominal pain. - Abd US shows small ascites. Repeat attempts have shown not enough ascites. - Maddrey's discrimination factor 35 --> 59 (PT 19.5, Bili 11.5 --> 23 --> 25.8 --> 22.6 on 09/13/2017). - Encouraged patient to take prednisolone 40mg Qday and Pentoxifylline - I discussed with GI attending (Dr. Nunes) on 09/12/2017 - other than steroid and pentoxifylline, not much to offer with regards to liver dz - Lactulose 30mg TID. - Increased abdominal pain is possibly due to opioid use, constipation. Reduced opioids. - Palliative team discussed with patient. - CMP, PT/INR on 09/17/2017. - Possible pneumonia - sputum culture grew stenotrophomonas maltophilia - ID is following - currently off abx. - Probable lower GI bleed - GI evaluated patient. EGD and colonoscopy completed on 08/20/2017 --> gastritis, colonic polyp, internal and external hemorrhoids. Repeat colonoscopy in 5 years. High-fiber diet recommended. - Alcohol abuse - Thiamine, Folic acid, CIWA protocol. - Patient is motivated to quit drinking. - Acute kidney injury -Severe hypokalemia - Likely due to poor volume intake. - Creatinine 2.0 --> 1.60 --> 0.92 --> 1.06 --> 0.98 - Replaced potassium with IV and p.o. potassium chloride. Magnesium was 2.0 Full code. SCDs. Prognosis poor. Will request PT to see patient on 09/17/2017. Aniya Montes DO Sep 16, 2017 11:02 am
[2017-09-16 11:43] VITALS: BP 112/56; PULSE 109; RESP 18; TEMP 98; O2SAT 92
[2017-09-16] MEDS: FLUTICASONE PROPIONATE 50 MCG/ACT 16 GM NASAL SPRAY EACH NARE SCH (12:13)
[2017-09-16] MEDS: SODIUM CHLORIDE 0.9% FLUSH 10 ML FLUSH IV FLUSH SCH ×2 (12:13→23:18)
[2017-09-16 15:59] VITALS: BP 108/62; PULSE 105; RESP 18; TEMP 97.7; O2SAT 93
[2017-09-17 04:00] VITALS: BP 120/60; PULSE 100; RESP 16; TEMP 98.6; O2SAT 98
[2017-09-17] MEDS: PENTOXIFYLLINE 400 MG CONTROLLED RELEASE TAB PO SCH ×3 (06:26→22:00)
[2017-09-17 07:29] LABS: INTERNATIONAL NORMALIZED RATIO 2.2 RATIO; PROTHROMBIN TIME - PATIENT 22.5 SEC (9.8-11.6)
[2017-09-17 08:01] LABS: ALBUMIN 1.8 GM/DL (3.4-5.0); ALKALINE PHOSPHATASE 227 U/L (45-117); ALT (GPT) 23 U/L (10-53); AST (GOT) 55 U/L (15-37); BICARBONATE 26.1 MEQ/L (21.0-32.0); BLOOD UREA NITROGEN 29 MG/DL (7-18); CALCIUM 8.4 MG/DL (8.5-10.1); CHLORIDE 103 MEQ/L (98-107); CREATININE 0.87 MG/DL (0.50-1.00); GLOMERULAR FILTRATION RATE 72 ML/MIN (>89); GLUCOSE,RANDOM 104 MG/DL (74-106); SODIUM (NA) 141 MEQ/L (136-145); TOTAL PROTEIN 5.5 GM/DL (6.4-8.2)
[2017-09-17 08:06] LABS: TOTAL BILIRUBIN ADULT 24.4 MG/DL (0.2-1.0)
[2017-09-17 08:10] VITALS: BP 89/51; PULSE 121; RESP 16; TEMP 98.7; O2SAT 97
[2017-09-17 08:30] VITALS: BP 100/57
[2017-09-17] MEDS: FOLIC ACID 1 MG TAB PO SCH (08:39)
[2017-09-17] MEDS: SPIRONOLACTONE 100 MG TAB PO SCH (08:39)
[2017-09-17] MEDS: TORSEMIDE 20 MG TAB PO SCH (08:40)
[2017-09-17] MEDS: THIAMINE HCL 100 MG TAB PO SCH (08:40)
[2017-09-17] MEDS: FAMOTIDINE 20 MG TAB PO SCH ×2 (08:40→21:00)
[2017-09-17] MEDS: prednisoLONE 10 MG ODT TAB PO SCH (08:45)
[2017-09-17] MEDS: LORATADINE 10 MG TAB PO SCH (08:45)
[2017-09-17] MEDS: guaiFENesin E.R. 600 MG TAB PO SCH ×2 (08:45→21:00)
[2017-09-17] MEDS: POTASSIUM CHLORIDE 10 MEQ CAP PO SCH ×2 (08:46→21:00)
[2017-09-17] MEDS: LACTULOSE SYRUP 20 GM/30 ML CUP PO SCH ×3 (08:48→17:30)
[2017-09-17] MEDS: FLUTICASONE PROPIONATE 50 MCG/ACT 16 GM NASAL SPRAY EACH NARE SCH (08:49)
[2017-09-17] MEDS: SODIUM CHLORIDE 0.9% FLUSH 10 ML FLUSH IV FLUSH SCH ×2 (08:49→21:00)
[2017-09-17] MEDS: NYSTATIN SUSP 500,000 U/5 ML CUP SWISH-SWAL SCH ×4 (08:49→21:00)
[2017-09-17] MEDS: POTASSIUM CHLOR 20 MEQ PREMIX 100 ML IV SCH ×2 (09:44→12:22)
[2017-09-17] MEDS: LORazepam 2 MG TAB PO PRN ×2 (10:31→18:37)
--- NOTE | 2017-09-17 11:19 | HHI.PR ---
Subjective Remarks Follow-up for alcoholic liver disease. Patient appears to be very lethargic, does talk but not very clear. Family members at bedside. No fever, chills. Objective Vitals Vital Signs Date Time Temp Pulse Resp B/P (MAP) Pulse Ox O2 Delivery O2 Flow Rate FiO2 09/17/17 08:30 100/57 (71) 09/17/17 08:10 98.7 121 16 89/51 (64) 97 09/17/17 04:00 98.6 100 16 120/60 (80) 98 09/16/17 15:59 97.7 105 18 108/62 (77) 93 09/16/17 11:43 98.0 109 18 112/56 (74) 92 I/O 09/16/17 09/16/17 09/16/17 09/17/17 09/17/17 09/17/17 07:00 15:00 23:00 07:00 15:00 23:00 Intake Total 538 ml Output Total 0 ml Balance 538 ml Intake Oral 538 ml Output Urine Total 0 ml # Voids 4 6 # Bowel Movements 0 2 6 Result Diagram: 09/14/17 0552 09/17/17 0613 Imaging Last Impressions Head CT 09/13/17 0000 Signed Impressions: Service Date/Time: August 22:25 - CONCLUSION: Normal examination. Rohith Alvarez MD Chest X-Ray 09/13/17 0000 Signed Impressions: Service Date/Time: August 18:44 - CONCLUSION: Mild diffuse interstitial prominence and slight alveolar opacity in the bases. Rohith Alvarez MD Abdomen Ultrasound 09/10/17 0000 Signed Impressions: Service Date/Time: Sunday, September 10, 2017 07:40 - CONCLUSION: 1. Trace ascites present. This is of insufficient volume for safe paracentesis. Antonio Willard MD Abdomen/Pelvis CT 09/08/17 0000 Signed Impressions: Service Date/Time: Friday, September 08, 2017 23:00 - CONCLUSION: 1. Continued hepatomegaly and ascites. No evidence of acute abdominal or pelvic process. No masses are identified. 2. Decreasing colonic wall thickening characteristic of resolving colitis Andres Machuca MD Cholangiopancreatography MRI 3/30/18 0000 Signed Impressions: Service Date/Time: Thursday, August 24, 2017 18:15 - CONCLUSION: 1. Hepatosplenomegaly. 2. Mild ascites in the right paracolic gutter region. 3. No dilatation of the biliary system. 4. Contracted gallbladder without stones. The gallbladder wall thickening may be secondary to lack of distention. 5. Thickening of the proximal transverse colon. 6. Consolidation or atelectasis in the right lower lobe with a minimal right effusion. Rohith Harman MD Abdomen X-Ray 08/22/17 0000 Signed Impressions: Service Date/Time: Tuesday, August 22, 2017 13:39 - CONCLUSION: Benign abdomen. Tay Valdes MD Objective Remarks GENERAL: Somewhat somnolent. NAD. SKIN: Warm and dry. Jaundiced skin. HEAD: Normocephalic. EYES: No scleral icterus. No injection or drainage. Icterus sclerae NECK: Supple, trachea midline. No JVD or lymphadenopathy. CARDIOVASCULAR: Reg rhythm, tachycardic without murmurs, gallops, or rubs. RESPIRATORY: Breath sounds equal bilaterally. No accessory muscle use. GASTROINTESTINAL: Abdomen soft, somewhat distended, diffusely tender to deep palpation especially upper quadrants. MUSCULOSKELETAL: No cyanosis, 1+ edema in lower ext. BACK: Nontender without obvious deformity. No CVA tenderness. Procedures EGD, colonoscopy 08/20/2017. gastritis Colon polyp Internal and external hemorrhoids A/P Problem List: (1) Severe sepsis ICD Code: A41.9 - Sepsis, unspecified organism; R65.20 - Severe sepsis without septic shock (2) KATELYN (acute kidney injury) ICD Code: N17.9 - Acute kidney failure, unspecified (3) Alcoholic liver disease ICD Code: K70.9 - Alcoholic liver disease, unspecified (4) Alcohol dependence ICD Code: F10.20 - Alcohol dependence, uncomplicated Status: Acute Assessment and Plan Ms. Lim is a 42 year old female with a history of alcoholism who presented to the ED due to worsening abdominal pain that started about two weeks prior to this admission. Particularly worse pain in the last two days as well as yellowish discoloration of her conjunctiva. - Severe sepsis (Tachycardia, WBC 30.1, Suspected infection SBP, organ dysfunction Creatinine 2.0). Currently resolved. - Possible Spontaneous bacterial peritonitis - Alcoholic liver hepatitis - Abdominal pain. - Abd US shows small ascites. Repeat attempts have shown not enough ascites. - Maddrey's discrimination factor 35 --> 59 (PT 19.5, Bili 11.5 --> 23 --> 25.8 --> 22.6 --> 24.4 on 09/17/2017). - Encouraged patient to take prednisolone 40mg Qday and Pentoxifylline 400mg Q8hrs. - I discussed with GI attending (Dr. Nunes) on 09/12/2017 - other than steroid and pentoxifylline, not much to offer with regards to liver dz - Lactulose 30mg TID. - Increased abdominal pain is possibly due to opioid use, constipation. Reduced opioids. - Palliative team discussed with patient. - INR increased from 1.9 --> 2.2. - Possible pneumonia - sputum culture grew stenotrophomonas maltophilia - ID is following - currently off abx. - Probable lower GI bleed - GI evaluated patient. EGD and colonoscopy completed on 08/20/2017 --> gastritis, colonic polyp, internal and external hemorrhoids. Repeat colonoscopy in 5 years. High-fiber diet recommended. - Alcohol abuse - Thiamine, Folic acid, CIWA protocol. - Patient is motivated to quit drinking. - Acute kidney injury -Severe hypokalemia - Likely due to poor volume intake. - Creatinine 2.0 --> 1.60 --> 0.92 --> 1.06 --> 0.98 - Replaced potassium with IV and p.o. potassium chloride. Magnesium was 2.0 Discussed with patient and patient's family members. All agree on DNR status. DNR. SCDs. Prognosis poor. PT to see patient today. Patient would qualify for hospice. Aniya Montes DO Sep 17, 2017 11:19 am
[2017-09-17 12:16] VITALS: BP 109/61; PULSE 121; RESP 16; TEMP 98.5; O2SAT 93
--- NOTE | 2017-09-17 13:13 | HHI.IDPN ---
Subjective Subjective Remarks worsening MS, sleeping all day no fever off abx bili up to 24 WBC 24 K Antibiotics Lines PIV line without any e/o infection Past Medical History EtOH abuse GERD Allergies: Coded Allergies: Sulfa (Sulfonamide Antibiotics) (Verified Allergy, Unknown, 07/28/17) Objective . Vital Signs Date Time Temp Pulse Resp B/P (MAP) Pulse Ox O2 Delivery O2 Flow Rate FiO2 09/17/17 12:16 98.5 121 16 109/61 (77) 93 09/17/17 08:30 100/57 (71) 09/17/17 08:10 98.7 121 16 89/51 (64) 97 09/17/17 04:00 98.6 100 16 120/60 (80) 98 09/16/17 15:59 97.7 105 18 108/62 (77) 93 09/17/17 09/17/17 09/18/17 15:00 23:00 07:00 Intake Total 100 ml Balance 100 ml IV Total 100 ml . Laboratory Tests Test 09/17/17 06:13 Blood Urea Nitrogen 29 MG/DL Creatinine 0.87 MG/DL Random Glucose 104 MG/DL Total Protein 5.5 GM/DL Albumin 1.8 GM/DL Calcium Level 8.4 MG/DL Alkaline Phosphatase 227 U/L Aspartate Amino Transf (AST/SGOT) 55 U/L Alanine Aminotransferase (ALT/SGPT) 23 U/L Total Bilirubin 24.4 MG/DL Sodium Level 141 MEQ/L Potassium Level 3.0 MEQ/L Chloride Level 103 MEQ/L Carbon Dioxide Level 26.1 MEQ/L Anion Gap 12 MEQ/L Estimat Glomerular Filtration Rate 72 ML/MIN Magnesium Level 1.2 MG/DL Imaging Last Impressions Head CT 09/13/17 0000 Signed Impressions: Service Date/Time: August 22:25 - CONCLUSION: Normal examination. Rohith Alvarez MD Chest X-Ray 09/13/17 0000 Signed Impressions: Service Date/Time: August 18:44 - CONCLUSION: Mild diffuse interstitial prominence and slight alveolar opacity in the bases. Rohith Alvarez MD Abdomen Ultrasound 09/10/17 0000 Signed Impressions: Service Date/Time: Sunday, September 10, 2017 07:40 - CONCLUSION: 1. Trace ascites present. This is of insufficient volume for safe paracentesis. Antonio Bozorgmanesh, MD Abdomen/Pelvis CT 09/08/17 0000 Signed Impressions: Service Date/Time: Friday, September 08, 2017 23:00 - CONCLUSION: 1. Continued hepatomegaly and ascites. No evidence of acute abdominal or pelvic process. No masses are identified. 2. Decreasing colonic wall thickening characteristic of resolving colitis Andres Machuca MD Cholangiopancreatography MRI 08/24/17 0000 Signed Impressions: Service Date/Time: Thursday, August 24, 2017 18:15 - CONCLUSION: 1. Hepatosplenomegaly. 2. Mild ascites in the right paracolic gutter region. 3. No dilatation of the biliary system. 4. Contracted gallbladder without stones. The gallbladder wall thickening may be secondary to lack of distention. 5. Thickening of the proximal transverse colon. 6. Consolidation or atelectasis in the right lower lobe with a minimal right effusion. Rohith Harman MD Abdomen X-Ray 08/22/17 0000 Signed Impressions: Service Date/Time: Tuesday, August 22, 2017 13:39 - CONCLUSION: Benign abdomen. Tay Valdes MD Physical Exam GENERAL: Well-nourished, well-developed female patient in NAD. Awake, somewhat lethargic. Sitting up in hospital bed. SKIN: Warm and dry. No rash. Severely jaundiced. HEAD: Normocephalic. Atraumatic. EYES: Pupils equal and round. EOMI. Prominent sclera icterus. Very sdry mucosae ENT: No nasal bleeding or discharge. Mucous membranes NECK: Supple. Trachea midline. CARDIOVASCULAR: Tachycardic. S1, S2 noted. No murmur appreciated. RESPIRATORY: Nonlabored. Diminished BS in lower bases bilaterally. GASTROINTESTINAL: Abdomen soft , distended, diffuse mild tenderness to palpation. MUSCULOSKELETAL: No obvious deformities. No edema NEUROLOGICAL: Lethargic, arousable, slow and confused, but recognised her sister. No obvious cranial nerve deficits. Motor grossly within normal limits. Able to move all extremities. Slightly slurred speech. PSYCHIATRIC: Calm and cooperative. Insight and judgment questionable. PIV with no e/o infection Assessment & Plan Remarks ASSESSMENT: Sepsis with concern for SBP, less likely Alcohol abuse Liver failure secondary to alcohol abuse Cirrhosis with ascites Anasarca -multiple imaging studies have shown not enough fluid amenable to tap -on prednisolone 40mg daily -GI following. S/p EGD and colonoscopy with no significant findings -trial of steroids started 08/29 -patient wants aggressive care does not want palliative care Hepatic encephalopathy -declining mentation -patient fell last night while going to the bathroom, CT head neg -dw nursing staff, patient unsteady with gait Leukocytosis - worsening -CRP 8.30, ESR 75 -seen by hematology, most consistent with leukemoid reaction -potentially high dose steroids contributing -bumped up to 29.4, c/o diarrhea. No fever. Repeat Cdiff negative. White count improved some to 24.8 -CXR shows mild diffuse interstitial prominence and slight alveolar opacity in bases Colitis omn the CT, but c.diff is negative Severe coagulopathy secondary to liver failure Sputum with steno malt ? colonization vs true infx R base infiltrate -? PNA Pt 's worsening liver failure is very concerning, prognosis is probably poor at this point persistent leukocytposis - ? sterroids cont off abx Continue to monitor white count Monitor clinical progress Discussed with sister @ b/s will sign off, reconsult if any new issues Hope Mota MD Sep 17, 2017 13:13
[2017-09-17 15:14] VITALS: BP 99/57; PULSE 103; RESP 16; TEMP 98; O2SAT 94
[2017-09-17 20:00] VITALS: BP 106/66; PULSE 105; RESP 18; TEMP 98.1; O2SAT 95
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
[2017-09-18] VITALS (8 sets, daily range): BP systolic 90–127; BP diastolic 51–69; PULSE 94–112; RESP 18–20; TEMP 97.4–98.8; O2SAT 92–100
[2017-09-18] MEDS: LORazepam 2 MG TAB PO PRN ×3 (04:10→20:55)
[2017-09-18] MEDS: PENTOXIFYLLINE 400 MG CONTROLLED RELEASE TAB PO SCH ×3 (06:00→20:55)
[2017-09-18] MEDS: SODIUM CHLORIDE 0.9% FLUSH 10 ML FLUSH IV FLUSH SCH ×2 (07:54→20:56)
[2017-09-18] MEDS: FLUTICASONE PROPIONATE 50 MCG/ACT 16 GM NASAL SPRAY EACH NARE SCH (07:55)
[2017-09-18] MEDS: LORATADINE 10 MG TAB PO SCH (07:59)
[2017-09-18] MEDS: FOLIC ACID 1 MG TAB PO SCH (07:59)
[2017-09-18] MEDS: FAMOTIDINE 20 MG TAB PO SCH ×2 (08:00→20:55)
[2017-09-18] MEDS: POTASSIUM CHLORIDE 10 MEQ CAP PO SCH ×2 (08:00→21:16)
[2017-09-18] MEDS: THIAMINE HCL 100 MG TAB PO SCH (08:00)
[2017-09-18] MEDS: guaiFENesin E.R. 600 MG TAB PO SCH ×2 (08:00→20:55)
[2017-09-18] MEDS: prednisoLONE 10 MG ODT TAB PO SCH (08:01)
[2017-09-18] MEDS: LACTULOSE SYRUP 20 GM/30 ML CUP PO SCH ×3 (08:02→16:57)
[2017-09-18] MEDS: SPIRONOLACTONE 100 MG TAB PO SCH (08:03)
[2017-09-18] MEDS: TORSEMIDE 20 MG TAB PO SCH (08:03)
[2017-09-18] MEDS: NYSTATIN SUSP 500,000 U/5 ML CUP SWISH-SWAL SCH ×4 (08:04→20:55)
[2017-09-18] MEDS: MAGNESIUM SULFATE 1 GM PREMIX 100 ML IV SCH ×4 (09:07→15:41)
[2017-09-18] MEDS: RIFAXIMIN 550 MG TAB PO SCH ×2 (11:45→20:55)
[2017-09-18] MEDS ORDERED: MORPHINE SULFATE 4 MG/ML INJ IV PUSH PRN (14:45)
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
[2017-09-18] MEDS: NICOTINE 14 MG/24 HR PATCH T-DERMAL SCH (19:11)
--- NOTE | 2017-09-18 19:27 | HHI.PR ---
Subjective Remarks Follow-up for alcoholic liver disease. Patient is more alert today. No fever, chills. Objective Vitals Vital Signs Date Time Temp Pulse Resp B/P (MAP) Pulse Ox O2 Delivery O2 Flow Rate FiO2 09/18/17 16:00 98.0 97 18 108/55 (72) 95 09/18/17 12:38 98.1 107 18 97/55 (69) 94 09/18/17 09:44 106/69 (81) 09/18/17 08:32 98.8 112 18 90/54 (66) 92 09/18/17 04:00 97.4 99 18 106/60 (75) 94 09/18/17 00:00 97.9 99 18 100/51 (67) 94 09/17/17 20:00 98.1 105 18 106/66 (79) 95 I/O 09/17/17 09/17/17 09/17/17 09/18/17 09/18/17 09/18/17 07:00 15:00 23:00 07:00 15:00 23:00 Intake Total 200 ml 480 ml 440 ml 200 ml Output Total 375 ml 425 ml 200 ml Balance 200 ml 105 ml 15 ml 0 ml Intake Oral 480 ml 240 ml IV Total 200 ml 200 ml 200 ml Output Urine Total 375 ml 425 ml 200 ml # Voids 6 3 1 # Bowel Movements 6 1 1 Result Diagram: 09/14/17 0552 09/17/17 0613 Imaging Last Impressions Head CT 09/13/17 0000 Signed Impressions: Service Date/Time: August 22:25 - CONCLUSION: Normal examination. Rohith Alvarez MD Chest X-Ray 09/13/17 0000 Signed Impressions: Service Date/Time: August 18:44 - CONCLUSION: Mild diffuse interstitial prominence and slight alveolar opacity in the bases. Rohith Alvarez MD Abdomen Ultrasound 09/10/17 0000 Signed Impressions: Service Date/Time: Sunday, September 10, 2017 07:40 - CONCLUSION: 1. Trace ascites present. This is of insufficient volume for safe paracentesis. Antonio Willard MD Abdomen/Pelvis CT 09/08/17 0000 Signed Impressions: Service Date/Time: Friday, September 08, 2017 23:00 - CONCLUSION: 1. Continued hepatomegaly and ascites. No evidence of acute abdominal or pelvic process. No masses are identified. 2. Decreasing colonic wall thickening characteristic of resolving colitis Andres Machuca MD Cholangiopancreatography MRI 08/24/17 0000 Signed Impressions: Service Date/Time: Thursday, August 24, 2017 18:15 - CONCLUSION: 1. Hepatosplenomegaly. 2. Mild ascites in the right paracolic gutter region. 3. No dilatation of the biliary system. 4. Contracted gallbladder without stones. The gallbladder wall thickening may be secondary to lack of distention. 5. Thickening of the proximal transverse colon. 6. Consolidation or atelectasis in the right lower lobe with a minimal right effusion. Rohith Harman MD Abdomen X-Ray 08/22/17 0000 Signed Impressions: Service Date/Time: Tuesday, August 22, 2017 13:39 - CONCLUSION: Benign abdomen. Tay Valdes MD Objective Remarks GENERAL: Somewhat somnolent. NAD. SKIN: Warm and dry. Jaundiced skin. HEAD: Normocephalic. EYES: No scleral icterus. No injection or drainage. Icterus sclerae NECK: Supple, trachea midline. No JVD or lymphadenopathy. CARDIOVASCULAR: Reg rhythm, tachycardic without murmurs, gallops, or rubs. RESPIRATORY: Breath sounds equal bilaterally. No accessory muscle use. GASTROINTESTINAL: Abdomen soft, somewhat distended, diffusely tender to deep palpation especially upper quadrants. MUSCULOSKELETAL: No cyanosis, 1+ edema in lower ext. BACK: Nontender without obvious deformity. No CVA tenderness. Procedures EGD, colonoscopy 08/20/2017. gastritis Colon polyp Internal and external hemorrhoids A/P Problem List: (1) Severe sepsis ICD Code: A41.9 - Sepsis, unspecified organism; R65.20 - Severe sepsis without septic shock (2) KATELYN (acute kidney injury) ICD Code: N17.9 - Acute kidney failure, unspecified (3) Alcoholic liver disease ICD Code: K70.9 - Alcoholic liver disease, unspecified (4) Alcohol dependence ICD Code: F10.20 - Alcohol dependence, uncomplicated Status: Acute Assessment and Plan Ms. Lim is a 42 year old female with a history of alcoholism who presented to the ED due to worsening abdominal pain that started about two weeks prior to this admission. Particularly worse pain in the last two days as well as yellowish discoloration of her conjunctiva. - Severe sepsis (Tachycardia, WBC 30.1, Suspected infection SBP, organ dysfunction Creatinine 2.0). Currently resolved. - Possible Spontaneous bacterial peritonitis - Alcoholic liver hepatitis - Abdominal pain. - Abd US shows small ascites. Repeat attempts have shown not enough ascites. - Maddrey's discrimination factor 35 --> 59 (PT 19.5, Bili 11.5 --> 23 --> 25.8 --> 22.6 --> 24.4 on 09/17/2017). - Continue prednisolone 40mg Qday and Pentoxifylline 400mg Q8hrs. - I discussed with GI attending (Dr. Nunes) on 09/12/2017 - other than steroid and pentoxifylline, not much to offer with regards to liver dz - Lactulose 30mg TID. - Continue pain meds PRN - Palliative team discussed with patient. - INR increased from 1.9 --> 2.2. - Discussed with patient's brother (health care proxy) and other family members at length. I have explained that there is really not much else we can offer at this point in time. We will add Rifaximin but benefit from Rifaximin is questionable. Patient's liver failure does not appear to be reversible. I have talked to GI again today and again, it was re-stated that there is nothing we can offer. Extra-corporeal liver support is not a standard treatment for alcoholic liver treatments. Tertiary care centers may offer such liver support but even in the case of extra-corporeal liver support, it is usually done as a bridge to transplant. - Possible pneumonia - sputum culture grew stenotrophomonas maltophilia - ID signed off. Patient is off abx. - Probable lower GI bleed - GI evaluated patient. EGD and colonoscopy completed on 08/20/2017 --> gastritis, colonic polyp, internal and external hemorrhoids. Repeat colonoscopy in 5 years. High-fiber diet recommended. - Alcohol abuse - Thiamine, Folic acid, CIWA protocol. - Patient is motivated to quit drinking. - Acute kidney injury -Severe hypokalemia - Likely due to poor volume intake. - Creatinine 2.0 --> 1.60 --> 0.92 --> 1.06 --> 0.98 - Replaced potassium with IV and p.o. potassium chloride. Magnesium was 2.0 Full code. SCDs. Poor prognosis. Hospice consideration would be appropriate. Aniya Montes DO Sep 18, 2017 19:27
[2017-09-19] VITALS: BP_SYST 105; BP_SYST 116; BP_DIAS 56; PULSE 101; PULSE 99; RESP 18; RESP 20; TEMP 97.8; TEMP 98.3; O2SAT 96; O2SAT 99
[2017-09-19 04:00] VITALS: BP 95/51; PULSE 103; RESP 18; TEMP 99.1; O2SAT 95
[2017-09-19] MEDS: PENTOXIFYLLINE 400 MG CONTROLLED RELEASE TAB PO SCH ×2 (05:02→14:07)
[2017-09-19] MEDS: LORazepam 2 MG TAB PO PRN (05:21)
[2017-09-19 08:31] VITALS: BP 94/51; PULSE 111; RESP 18; TEMP 98.6; O2SAT 99
[2017-09-19] MEDS ORDERED: NICOTINE 14 MG/24 HR PATCH T-DERMAL SCH (09:00)
[2017-09-19] MEDS: TORSEMIDE 20 MG TAB PO SCH (09:36)
[2017-09-19] MEDS: FAMOTIDINE 20 MG TAB PO SCH (09:36)
[2017-09-19] MEDS: RIFAXIMIN 550 MG TAB PO SCH (09:37)
[2017-09-19] MEDS: THIAMINE HCL 100 MG TAB PO SCH (09:37)
[2017-09-19] MEDS: FOLIC ACID 1 MG TAB PO SCH (09:37)
[2017-09-19] MEDS: guaiFENesin E.R. 600 MG TAB PO SCH (09:37)
[2017-09-19] MEDS: LORATADINE 10 MG TAB PO SCH (09:37)
[2017-09-19] MEDS: SPIRONOLACTONE 100 MG TAB PO SCH (09:37)
[2017-09-19] MEDS: NICOTINE 14 MG/24 HR PATCH T-DERMAL SCH (09:38)
[2017-09-19] MEDS: NYSTATIN SUSP 500,000 U/5 ML CUP SWISH-SWAL SCH ×2 (09:38→14:09)
[2017-09-19] MEDS: POTASSIUM CHLORIDE 10 MEQ CAP PO SCH (09:38)
[2017-09-19] MEDS: LACTULOSE SYRUP 20 GM/30 ML CUP PO SCH ×2 (09:38→14:09)
[2017-09-19] MEDS: FLUTICASONE PROPIONATE 50 MCG/ACT 16 GM NASAL SPRAY EACH NARE SCH (09:39)
[2017-09-19] MEDS: SODIUM CHLORIDE 0.9% FLUSH 10 ML FLUSH IV FLUSH SCH (09:39)
[2017-09-19 09:46] LABS: ALBUMIN 1.8 GM/DL (3.4-5.0); AST (GOT) 60 U/L (15-37); BICARBONATE 22.9 MEQ/L (21.0-32.0); BLOOD UREA NITROGEN 33 MG/DL (7-18); CALCIUM 8.4 MG/DL (8.5-10.1); CHLORIDE 102 MEQ/L (98-107); GLOMERULAR FILTRATION RATE 70 ML/MIN (>89); GLUCOSE,RANDOM 129 MG/DL (74-106); MAGNESIUM 2.4 MG/DL (1.5-2.5); SODIUM (NA) 135 MEQ/L (136-145)
[2017-09-19 09:47] LABS: ALKALINE PHOSPHATASE 259 U/L (45-117); ALT (GPT) 22 U/L (10-53); TOTAL BILIRUBIN ADULT 23.6 MG/DL (0.2-1.0); TOTAL PROTEIN 5.8 GM/DL (6.4-8.2)
[2017-09-19] MEDS: prednisoLONE 10 MG ODT TAB PO SCH (09:52)
[2017-09-19 10:16] LABS: CREATININE 0.89 MG/DL (0.50-1.00)
--- NOTE | 2017-09-19 10:37 | HHI.PR ---
Subjective Remarks Follow-up for alcoholic liver disease. Patient is lethargic, resting in bed. Family at bedside. They have decided to go with hospice. Hospice consult pending. Objective Vitals Vital Signs Date Time Temp Pulse Resp B/P (MAP) Pulse Ox O2 Delivery O2 Flow Rate FiO2 09/19/17 08:31 98.6 111 18 94/51 (65) 99 09/19/17 06:27 18 09/19/17 04:00 99.1 103 18 95/51 (66) 95 09/19/17 00:00 97.8 99 18 105/56 (72) 96 09/18/17 20:01 98.2 94 18 106/64 (78) 100 09/18/17 16:00 98.0 97 18 108/55 (72) 95 09/18/17 12:38 98.1 107 18 97/55 (69) 94 I/O 09/18/17 09/18/17 09/18/17 09/19/17 09/19/17 09/19/17 07:00 15:00 23:00 07:00 15:00 23:00 Intake Total 440 ml 200 ml 250 ml Output Total 425 ml 350 ml 500 ml Balance 15 ml -150 ml -250 ml Intake Oral 240 ml IV Total 200 ml 200 ml Tube Feeding 250 ml Output Urine Total 425 ml 350 ml 500 ml # Voids 3 1 # Bowel Movements 1 1 1 Result Diagram: 09/19/17 0846 Imaging Last Impressions Head CT 09/13/17 0000 Signed Impressions: Service Date/Time: August 22:25 - CONCLUSION: Normal examination. Rohith Alvarez MD Chest X-Ray 09/13/17 0000 Signed Impressions: Service Date/Time: August 18:44 - CONCLUSION: Mild diffuse interstitial prominence and slight alveolar opacity in the bases. Rohith Alvarez MD Abdomen Ultrasound 09/10/17 0000 Signed Impressions: Service Date/Time: Sunday, September 10, 2017 07:40 - CONCLUSION: 1. Trace ascites present. This is of insufficient volume for safe paracentesis. Antonio Willard MD Abdomen/Pelvis CT 09/08/17 0000 Signed Impressions: Service Date/Time: Friday, September 08, 2017 23:00 - CONCLUSION: 1. Continued hepatomegaly and ascites. No evidence of acute abdominal or pelvic process. No masses are identified. 2. Decreasing colonic wall thickening characteristic of resolving colitis Andres Machuca MD Cholangiopancreatography MRI 08/24/17 0000 Signed Impressions: Service Date/Time: Thursday, August 24, 2017 18:15 - CONCLUSION: 1. Hepatosplenomegaly. 2. Mild ascites in the right paracolic gutter region. 3. No dilatation of the biliary system. 4. Contracted gallbladder without stones. The gallbladder wall thickening may be secondary to lack of distention. 5. Thickening of the proximal transverse colon. 6. Consolidation or atelectasis in the right lower lobe with a minimal right effusion. Rohith Harman MD Abdomen X-Ray 08/22/17 0000 Signed Impressions: Service Date/Time: Tuesday, August 22, 2017 13:39 - CONCLUSION: Benign abdomen. Tay Valdes MD Objective Remarks GENERAL: Somewhat somnolent. NAD. SKIN: Warm and dry. Jaundiced skin. HEAD: Normocephalic. EYES: No scleral icterus. No injection or drainage. Icterus sclerae NECK: Supple, trachea midline. No JVD or lymphadenopathy. CARDIOVASCULAR: Reg rhythm, tachycardic without murmurs, gallops, or rubs. RESPIRATORY: Breath sounds equal bilaterally. No accessory muscle use. GASTROINTESTINAL: Abdomen soft, somewhat distended, diffusely tender to deep palpation especially upper quadrants. MUSCULOSKELETAL: No cyanosis, 1+ edema in lower ext. BACK: Nontender without obvious deformity. No CVA tenderness. Procedures EGD, colonoscopy 08/20/2017. gastritis Colon polyp Internal and external hemorrhoids A/P Problem List: (1) Severe sepsis ICD Code: A41.9 - Sepsis, unspecified organism; R65.20 - Severe sepsis without septic shock (2) KATELYN (acute kidney injury) ICD Code: N17.9 - Acute kidney failure, unspecified (3) Alcoholic liver disease ICD Code: K70.9 - Alcoholic liver disease, unspecified (4) Alcohol dependence ICD Code: F10.20 - Alcohol dependence, uncomplicated Status: Acute Assessment and Plan Ms. Lim is a 42 year old female with a history of alcoholism who presented to the ED due to worsening abdominal pain that started about two weeks prior to this admission. Particularly worse pain in the last two days as well as yellowish discoloration of her conjunctiva. - Severe sepsis (Tachycardia, WBC 30.1, Suspected infection SBP, organ dysfunction Creatinine 2.0). Currently resolved. - Possible Spontaneous bacterial peritonitis - Alcoholic liver hepatitis - Abdominal pain. - Abd US shows small ascites. Repeat attempts have shown not enough ascites. - Maddrey's discrimination factor 35 --> 59 (PT 19.5, Bili 11.5 --> 23 --> 25.8 --> 22.6 --> 24.4 on 09/17/2017). - MELD score 28 (estimated 3 months mortality 19.6%). - Continue prednisolone 40mg Qday and Pentoxifylline 400mg Q8hrs. - I discussed with GI attending (Dr. Nunes) on 09/12/2017 - other than steroid and pentoxifylline, not much to offer with regards to liver dz - Lactulose 30mg TID. - Continue pain meds PRN - Palliative team discussed with patient. - INR increased from 1.9 --> 2.2. - 09/18/2017: Discussed with patient's brother (health care proxy) and other family members at length. I have explained that there is really not much else we can offer at this point in time. We will add Rifaximin but benefit from Rifaximin is questionable. Patient's liver failure does not appear to be reversible. I have talked to GI again today and again, it was re-stated that there is nothing we can offer. Extra-corporeal liver support is not a standard treatment for alcoholic liver treatments. Tertiary care centers may offer such liver support but even in the case of extra-corporeal liver support, it is usually done as a bridge to transplant. - Possible pneumonia - sputum culture grew Stenotrophomonas maltophilia - ID signed off. Patient is off abx. - Probable lower GI bleed - GI evaluated patient. EGD and colonoscopy completed on 08/20/2017 --> gastritis, colonic polyp, internal and external hemorrhoids. Repeat colonoscopy in 5 years. High-fiber diet recommended. - Alcohol abuse - Thiamine, Folic acid, CIWA protocol. - Patient is motivated to quit drinking. - Acute kidney injury -Severe hypokalemia - Likely due to poor volume intake. - Creatinine 2.0 --> 1.60 --> 0.92 --> 1.06 --> 0.98 --> 0.89. - Replaced potassium with IV and p.o. potassium chloride. Magnesium was replaced yesterday. Mg is 2.4 today. Full code. SCDs. Poor prognosis. Hospice consideration would be appropriate. Aniya Montes DO Sep 19, 2017 10:37 am
[2017-09-19 12:00] VITALS: BP 94/54; PULSE 113; RESP 18; TEMP 99.2; O2SAT 97
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
[2017-09-19] MEDS ORDERED: OXYC-392 PO (14:24)
[2017-09-19] MEDS ORDERED: TORS1TAB12 PO (14:24)
[2017-09-19] MEDS ORDERED: PRED1TAB72 PO (14:24)
[2017-09-19] MEDS ORDERED: LORA-475 PO (14:24)
[2017-09-19] MEDS ORDERED: PENT400T PO (14:24)
[2017-09-19] MEDS ORDERED: ALDA100T PO (14:24)
[2017-09-19] MEDS ORDERED: THIA100 PO (14:24)
[2017-09-19] MEDS ORDERED: FOLI1TAB6 PO (14:24)
--- NOTE | 2017-09-19 14:26 | HHI.DS ---
Discharge Summary Admission Date Aug 19, 2017 at 1:26 pm Discharge Date: Sep 19, 2017 Admitting Diagnosis liver failure, ascites, KATELYN, GI bleed (1) Severe sepsis ICD Code: A41.9 - Sepsis, unspecified organism; R65.20 - Severe sepsis without septic shock (2) KATELYN (acute kidney injury) ICD Code: N17.9 - Acute kidney failure, unspecified (3) Alcoholic liver disease ICD Code: K70.9 - Alcoholic liver disease, unspecified (4) Alcohol dependence ICD Code: F10.20 - Alcohol dependence, uncomplicated Status: Acute Procedures EGD, colonoscopy 08/20/2017. gastritis Colon polyp Internal and external hemorrhoids Brief History - From Admission Ms. Lmi is a 42 year old female with a history of Alcoholism who presents to the ED on 08/19/2017 due to diffuse abdominal pain that started about two week prior to this admission. Her pain is diffuse especially in the right and left upper quadrants. Pain is about 10 out of 10 in the last 2 days prior to this admission and worsened by deep breathing and touch. She reports some nausea, vomiting and bilious vomiting in the two days prior to this admission. No coffee-ground emesis or blood in the vomitus. She also started noticing yellow discoloration of her conjunctiva 2 days prior to this admission. She also reports thin stool and bright red blood in stool. Patient denies any chest pain , fever but reports chills at home. On arrival, patient's temp 97.5F, HR 105, RR 18-24, BP 122/64, WBC count 30.1, MCV 105.2. Creatinine 2.0 (baseline below 1.0), Sodium 127, potassium 3.4. AST, ALT, alk Phos somewhat elevated. CBC/BMP: 09/19/17 0846 Significant Findings Laboratory Tests Test 09/17/17 06:13 09/19/17 08:46 Prothrombin Time 22.5 SEC (9.8-11.6) Blood Urea Nitrogen 29 MG/DL (7-18) 33 MG/DL (7-18) Total Protein 5.5 GM/DL (6.4-8.2) 5.8 GM/DL (6.4-8.2) Albumin 1.8 GM/DL (3.4-5.0) 1.8 GM/DL (3.4-5.0) Calcium Level 8.4 MG/DL (8.5-10.1) 8.4 MG/DL (8.5-10.1) Alkaline Phosphatase 227 U/L (45-117) 259 U/L (45-117) Aspartate Amino Transf (AST/SGOT) 55 U/L (15-37) 60 U/L (15-37) Total Bilirubin 24.4 MG/DL (0.2-1.0) 23.6 MG/DL (0.2-1.0) Potassium Level 3.0 MEQ/L (3.5-5.1) Estimat Glomerular Filtration Rate 72 ML/MIN (>89) 70 ML/MIN (>89) Magnesium Level 1.2 MG/DL (1.5-2.5) Random Glucose 129 MG/DL (74-106) Sodium Level 135 MEQ/L (136-145) Imaging Last Impressions Head CT 09/13/17 0000 Signed Impressions: Service Date/Time: August 22:25 - CONCLUSION: Normal examination. Rohith Alvarez MD Chest X-Ray 09/13/17 0000 Signed Impressions: Service Date/Time: August 18:44 - CONCLUSION: Mild diffuse interstitial prominence and slight alveolar opacity in the bases. Rohith Alvarez MD Abdomen Ultrasound 09/10/17 0000 Signed Impressions: Service Date/Time: Sunday, September 10, 2017 07:40 - CONCLUSION: 1. Trace ascites present. This is of insufficient volume for safe paracentesis. Antonio Willard MD Abdomen/Pelvis CT 09/08/17 0000 Signed Impressions: Service Date/Time: Friday, September 08, 2017 23:00 - CONCLUSION: 1. Continued hepatomegaly and ascites. No evidence of acute abdominal or pelvic process. No masses are identified. 2. Decreasing colonic wall thickening characteristic of resolving colitis Andres Machuca MD Cholangiopancreatography MRI 08/24/17 0000 Signed Impressions: Service Date/Time: Thursday, August 24, 2017 18:15 - CONCLUSION: 1. Hepatosplenomegaly. 2. Mild ascites in the right paracolic gutter region. 3. No dilatation of the biliary system. 4. Contracted gallbladder without stones. The gallbladder wall thickening may be secondary to lack of distention. 5. Thickening of the proximal transverse colon. 6. Consolidation or atelectasis in the right lower lobe with a minimal right effusion. Rohith Harman MD Abdomen X-Ray 08/22/17 0000 Signed Impressions: Service Date/Time: Tuesday, August 22, 2017 13:39 - CONCLUSION: Benign abdomen. Tay Valdes MD PE at Discharge GENERAL: Somewhat somnolent. NAD. SKIN: Warm and dry. Jaundiced skin. HEAD: Normocephalic. EYES: No scleral icterus. No injection or drainage. Icterus sclerae NECK: Supple, trachea midline. No JVD or lymphadenopathy. CARDIOVASCULAR: Reg rhythm, tachycardic without murmurs, gallops, or rubs. RESPIRATORY: Breath sounds equal bilaterally. No accessory muscle use. GASTROINTESTINAL: Abdomen soft, somewhat distended, diffusely tender to deep palpation especially upper quadrants. MUSCULOSKELETAL: No cyanosis, 1+ edema in lower ext. BACK: Nontender without obvious deformity. No CVA tenderness. Pt update on day of discharge Patient is resting in bed, no acute concerns. She remains somewhat lethargic. Hospital Course Ms. Lim is a 42 year old female with a history of alcoholism who presented to the ED due to worsening abdominal pain that started about two weeks prior to this admission. Particularly worse pain in the last two days as well as yellowish discoloration of her conjunctiva. - Severe sepsis (Tachycardia, WBC 30.1, Suspected infection SBP, organ dysfunction Creatinine 2.0). Currently resolved. - Possible Spontaneous bacterial peritonitis - Alcoholic liver hepatitis - Abdominal pain. - Abd US shows small ascites. Repeat attempts have shown not enough ascites. - Maddrey's discrimination factor 35 --> 59 (PT 19.5, Bili 11.5 --> 23 --> 25.8 --> 22.6 --> 24.4 on 09/17/2017). - MELD score 28 (estimated 3 months mortality 19.6%). - Continue prednisolone 40mg Qday and Pentoxifylline 400mg Q8hrs. - I discussed with GI attending (Dr. Nunes) on 09/12/2017 - other than steroid and pentoxifylline, not much to offer with regards to liver dz - Lactulose 30mg TID. - Continue pain meds PRN - Palliative team discussed with patient. - INR increased from 1.9 --> 2.2. - 09/18/2017: Discussed with patient's brother (health care proxy) and other family members at length. I have explained that there is really not much else we can offer at this point in time. We will add Rifaximin but benefit from Rifaximin is questionable. Patient's liver failure does not appear to be reversible. I have talked to GI again today and again, it was re-stated that there is nothing we can offer. Extra-corporeal liver support is not a standard treatment for alcoholic liver treatments. Tertiary care centers may offer such liver support but even in the case of extra-corporeal liver support, it is usually done as a bridge to transplant. - Possible pneumonia - sputum culture grew Stenotrophomonas maltophilia - ID signed off. Patient is off abx. - Probable lower GI bleed - GI evaluated patient. EGD and colonoscopy completed on 08/20/2017 --> gastritis, colonic polyp, internal and external hemorrhoids. Repeat colonoscopy in 5 years. High-fiber diet recommended. - Alcohol abuse - Thiamine, Folic acid, CIWA protocol. - Patient is motivated to quit drinking. - Acute kidney injury -Severe hypokalemia - Likely due to poor volume intake. - Creatinine 2.0 --> 1.60 --> 0.92 --> 1.06 --> 0.98 --> 0.89. - Replaced potassium with IV and p.o. potassium chloride. Magnesium was replaced yesterday. Mg is 2.4 today. Full code. SCDs. Pt Condition on Discharge: Fair Discharge Disposition: Hospice/Med Facility Discharge Time: > 30 minutes Discharge Instructions DIET: Follow Instructions for: As Tolerated, No Restrictions Activities you can perform: Regular-No Restrictions Follow up Referrals: IT SALES CONSULTANT - 2 Weeks with Rohith Pillai MD New Medications: Folic Acid (Folic Acid) 1 Mg Tablet 1 MG PO DAILY for Vitamin, #30 TAB Lorazepam (Ativan) 2 Mg Tab 2 MG PO Q8H PRN for ANXIETY, #15 TAB Oxycodone (Oxycodone) 5 Mg Tab 5 MG PO Q4H PRN for PAIN SCALE 5 TO 10, #20 TAB Pentoxifylline ER (Pentoxifylline ER) 400 Mg Tab 400 MG PO Q8HR for Liver disease. , #90 TAB Prednisolone Odt (Prednisolone Odt) 10 Mg Tab 40 MG PO DAILY for liver disease, #30 TAB Spironolactone (Aldactone) 100 Mg Tab 100 MG PO DAILY for Liver, #30 TAB Thiamine HCl (Gnp Vitamin B-1) 100 Mg Tab 100 MG PO DAILY for Vitamin, #30 TAB Torsemide (Demadex) 20 Mg Tab 20 MG PO DAILY for Liver, #30 TAB Continued Medications: Omeprazole Magnesium (Prilosec) 10 Mg Pow 40 MG PO BID Aniya Montes DO Sep 19, 2017 2:26 pm
[2017-09-19] MEDS ORDERED: REMOVE OLD PATCH T-DERMAL SCH (21:00)
== END 2017-09-19 18:02 | disposition hospice, inpatient (51) | DRG 871 ==
LOC: NEPE 10:36 → NEDH 13:26 → N05B 16:29 → UNDODISIN 09-19 18:02
PROVIDERS: ADMIT Hospitalist; ATTEND Hospitalist
PROC: 0DB68ZX Excision of Stomach, Via Natural or Artificial Opening Endoscopic, Diagnostic (ICD-10-PCS; principal; 2017-08-20 10:09)
PROC: 0DBP8ZX Excision of Rectum, Via Natural or Artificial Opening Endoscopic, Diagnostic (ICD-10-PCS; 2017-08-20 10:09)
PROC: 30233K1 Transfusion of Nonautologous Frozen Plasma into Peripheral Vein, Percutaneous Approach (ICD-10-PCS; 2017-09-09)
DX: A41.9 Sepsis, unspecified organism (principal); J18.9 Pneumonia, unspecified organism; N17.9 Acute kidney failure, unspecified; D68.4 Acquired coagulation factor deficiency; K76.6 Portal hypertension; E83.39 Other disorders of phosphorus metabolism; K92.1 Melena; R16.2 Hepatomegaly with splenomegaly, not elsewhere classified; K70.31 Alcoholic cirrhosis of liver with ascites; K70.40 Alcoholic hepatic failure without coma; R65.20 Severe sepsis without septic shock; K21.9 Gastro-esophageal reflux disease without esophagitis; F12.90 Cannabis use, unspecified, uncomplicated; F17.210 Nicotine dependence, cigarettes, uncomplicated; K76.0 Fatty (change of) liver, not elsewhere classified; K70.11 Alcoholic hepatitis with ascites; K64.4 Residual hemorrhoidal skin tags; K64.8 Other hemorrhoids; K29.70 Gastritis, unspecified, without bleeding; K59.00 Constipation, unspecified; Z62.819 Personal history of unspecified abuse in childhood; K62.1 Rectal polyp; K80.20 Calculus of gallbladder without cholecystitis without obstruction; D72.823 Leukemoid reaction; D53.9 Nutritional anemia, unspecified; N93.9 Abnormal uterine and vaginal bleeding, unspecified; F41.9 Anxiety disorder, unspecified; E87.6 Hypokalemia; W18.30XA Fall on same level, unspecified, initial encounter; Y93.01 Activity, walking, marching and hiking; Y92.230 Patient room in hospital as the place of occurrence of the external cause; Y99.9 Unspecified external cause status; Z66 Do not resuscitate; Z51.5 Encounter for palliative care
CPT/HCPCS: 36430; 70450; 71045; 71046; 74018; 74176; 74177; 74181; 76377; 76705; 76937; 80048; 80053; 80069; 80074; 80307; 81001; 82103; 82104; 82140; 82150; 82247; 82390; 82607; 82728; 82746; 82784; 83010; 83036; 83516; 83520; 83540; 83550; 83605; 83615; 83690; 83735; 83880; 84100; 84155; 84439; 84443; 85007; 85025; 85027; 85044; 85384; 85610; 85652; 85730; 86038; 86077; 86140; 86255; 86850; 86870; 86900; 86901; 86920; 86922; 86927; 87040; 87070; 87077; 87086; 87186; 87205; 87493; 88305; 88312; 93005; 93306; 94150; 94640; 94664; 96361; 96365; 96375; C9113; J0610; J0692; J0696; J1940; J2060; J2270; J2405; J2543; J2765; J2920; J3411; J3475; J3480; J7030; J7050; J7510; P9017; P9047; Q9963; Q9967